=== PATIENT | female | born 1950 | race Caucasian/White ===

== ENCOUNTER 2019-05-22 10:01 | Outpatient (CLI) | payer MEDICARE, SELFPAY ==
--- NOTE | 2019-05-22 11:00 | NEURO_ITS ---
Patient Number: [id number] Impression: # Complains of numbness of hands. # Bilateral Carpal Tunnel Syndrome, right more than left (early). # Normal needle/EMG exam. Nerve Conduction Studies Anti Sensory Summary Table Stim Site NR Peak (ms) P-T Amp (?V) Site1 Site2 Delta-P (ms) Dist (cm) [place] (m/s) Left Median Anti Sensory (2-3nd Digit) Wrist 3.7 22.0 Wrist 2-3nd Digit 3.7 14.0 38 Wrist 3.6 16.6 Wrist 2-3nd Digit 3.7 14.0 38 Right Median Anti Sensory (2-3nd Digit) Wrist 4.5 7.6 Wrist 2-3nd Digit 4.5 14.0 31 Wrist 4.5 15.6 Wrist 2-3nd Digit 4.5 14.0 31 Left Radial Anti Sensory (Base 1st Digit) Wrist 2.6 8.9 Wrist Base 1st Digit 2.6 0.0 Right Radial Anti Sensory (Base 1st Digit) Wrist 2.6 32.8 Wrist Base 1st Digit 2.6 0.0 Left Ulnar Anti Sensory (5th Digit) Wrist 3.3 31.9 Wrist 5th Digit 3.3 14.0 42 Right Ulnar Anti Sensory (5th Digit) Wrist 3.0 3.1 Wrist 5th Digit 3.0 14.0 47 Motor Summary Table Stim Site NR Onset (ms) O-P Amp (mV) Site1 Site2 Delta-0 (ms) Dist (cm) [place] (m/s) Left Median Motor (Abd Poll Brev) Wrist 4.0 1.7 Elbow Wrist 4.8 26.0 54 Elbow 8.8 1.0 Right Median Motor (Abd Poll Brev) Wrist 4.3 1.3 Elbow Wrist 5.2 28.0 54 Elbow 9.5 0.9 Left Ulnar Motor (Abd Dig Minimi) Wrist 3.0 7.4 A Elbow Wrist 5.0 28.0 56 A Elbow 8.0 5.0 Right Ulnar Motor (Abd Dig Minimi) Wrist 3.0 3.7 A Elbow Wrist 5.0 28.0 56 A Elbow 8.0 2.1 F Wave Studies NR F-Lat (ms) L-R F-Lat (ms) Left Median (Mrkrs) (Abd Poll Brev) 30.71 1.05 Right Median (Mrkrs) (Abd Poll Brev) 31.76 1.05 Left Ulnar (Mrkrs) (Abd Dig Min) 29.84 0.33 Right Ulnar (Mrkrs) (Abd Dig Min) 30.18 0.33 EMG Side Muscle Nerve Root Ins Act Fibs Amp Dur Recrt Comment Right 1stDorInt Ulnar C8-T1 Nml Nml Nml Nml Nml Right Ext Indicis Radial (Post Int) C7-8 Nml Nml Nml Nml Nml Right Ext Digitorum Radial (Post Int) C7-8 Nml Nml Nml Nml Nml Right BrachioRad Radial C5-6 Nml Nml Nml Nml Nml Right PronatorTeres Median C6-7 Nml Nml Nml Nml Nml Right Abd Poll Brev Median C8-T1 Nml Nml Nml Nml Nml Left 1stDorInt Ulnar C8-T1 Nml Nml Nml Nml Nml Left Ext Indicis Radial (Post Int) C7-8 Nml Nml Nml Nml Nml Left Ext Digitorum Radial (Post Int) C7-8 Nml Nml Nml Nml Nml Left BrachioRad Radial C5-6 Nml Nml Nml Nml Nml Left PronatorTeres Median C6-7 Nml Nml Nml Nml Nml Left Abd Poll Brev Median C8-T1 Nml Nml Nml Nml Nml MTDD
== END 2019-05-22 10:02 | disposition home or self-care (01) ==
LOC: ANHNEURO 10:03
PROVIDERS: PCP Obstetrics & Gynecology; Visit Provider Family Medicine
DX: R29.898 Other symptoms and signs involving the musculoskeletal system (principal); M79.641 Pain in right hand; M79.642 Pain in left hand; G56.03 Carpal tunnel syndrome, bilateral upper limbs
CPT/HCPCS: 95886; 95911

== ENCOUNTER 2019-10-09 08:47 | Outpatient (CLI) | payer MEDICARE, SELFPAY ==
--- NOTE | 2019-10-09 08:51 | ECG_ITS ---
Measurements Intervals [place] Rate: 77 P: 12 WV: 362 QRS: 47 QRSD: 92 T: 26 QT: 351 QTc: 400 Interpretive Statements SINUS RHYTHM DELAYED PRECORDIAL R/S TRANSITION BORDERLINE T WAVE ABNORMALITY- INFERIOR LEADS BASELINE ARTIFACT- II, III, AVR, AVL, AVF BORDERLINE ECG Electronically Signed On 10-09-2019 9:59:08 CDT by Iam Yen D.O.
== END 2019-10-09 08:48 | disposition home or self-care (01) ==
PROVIDERS: PCP Family Medicine; Visit Provider Urology
DX: E78.5 Hyperlipidemia, unspecified (principal); N81.9 Female genital prolapse, unspecified; R94.31 Abnormal electrocardiogram [ECG] [EKG]
CPT/HCPCS: 87086; 87088; 93005

== ENCOUNTER 2019-10-15 00:26 | Outpatient (CLI) | payer MEDICARE, SELFPAY ==
[2019-10-15 19:01] LABS: SARS-CoV-2 RNA PCR Negative
== END 2019-10-15 00:27 | disposition home or self-care (01) ==
LOC: ANHCOVIDDT 00:27
PROVIDERS: PCP Family Medicine; Visit Provider Urology
DX: Z01.818 Encounter for other preprocedural examination (principal); Z11.59 Encounter for screening for other viral diseases
CPT/HCPCS: 87635; C9803; U0003

== ENCOUNTER 2019-10-17 03:34 | Day surgery (SDC) | payer MEDICARE, SELFPAY ==
[2019-10-08 10:32] VITALS: BMI 27.6
[2019-10-17] VITALS (9 sets, daily range): BP systolic 109–136; BP diastolic 47–70; PULSE 73–91; RESP 10–18; TEMP 36.1–36.6; O2SAT 97–100
[2019-10-17] MEDS: LACTATED RINGERS 1,000 ML 30 ML IV CONT ×2 (10:05→12:24)
--- NOTE | 2019-10-17 10:17 | WPDHPUPDATE1 ---
History and Physical Update Update Date/Time: 10/17/19 10:17 History and Physical has been reviewed, including an updated exam of the patient. There are NO changes in the patient's condition. Risks, benefits, and alternatives have been discussed and questions answered. Patient agrees to proceed with procedure.
--- NOTE | 2019-10-17 10:22 | WPDANESEPPF ---
Anes - Initial Pre Proc Eval Procedure: Operation Date: 10/17/19 11:45 Proposed Procedures p Cystocele Repair - Suersh Garcia MD Date/Time: 10/17/19 10:22 Surgeon: Suresh Garcia MD Pre Op Diagnosis: Cystocele Patient Data Age: 69 Gender: F Height: 5 ft 4 in Weight: 71.8 kg Last Vital Signs Temp 97.0 F L 10/17/19 09:50 Pulse 81 10/17/19 09:50 Resp 18 10/17/19 09:50 BP 136/70 10/17/19 09:50 Pulse Ox 100 10/17/19 09:50 Allergies Allergy/AdvReac Type Severity Reaction Status Date / Time iodine Allergy Severe Hives Verified 10/17/19 09:46 povidone Allergy Severe Hives Verified 10/17/19 09:46 adhesive tape Allergy Intermediate Rash Verified 10/17/19 09:46 ciprofloxacin Allergy Intermediate Hives Verified 10/17/19 09:46 soap Allergy Intermediate Hives Verified 10/17/19 09:46 Contrast Media Allergy Severe RASH AND Uncoded 10/17/19 09:46 ANAPHYLAXIS IOBAN DRAPE FOR SURGERY Allergy Severe HIVES Uncoded 10/17/19 09:46 Home Medications Medication Instructions Recorded Confirmed Type Pain Pump 03/03/19 History amitriptyline 75 mg PO HS 03/03/19 10/17/19 History lovastatin 20 mg PO QPM 03/03/19 10/17/19 History aspirin 81 mg tablet,delayed 81 mg PO DAILY 03/24/19 10/17/19 History release magnesium 250 mg tablet 250 mg PO DAILY 03/24/19 10/17/19 History montelukast 10 mg tablet 10 mg PO QPM #90 tablet 09/04/19 10/17/19 Rx cyclobenzaprine 5 mg tablet 5 mg PO BID tablet 10/06/19 10/17/19 History calcium carbonate-vitamin D3 1 tablet PO DAILY 10/08/19 10/17/19 History Patient hx anesthesia problems: none Family hx anesthesia problems: none PMFSH Past Medical History Medical History (Updated 10/06/19 @ 14:37 by Harjinder Lopez MD) Arthritis Cataracts, bilateral Cystitis DDD (degenerative disc disease) Goiter Hyperlipidemia IBS (irritable bowel syndrome) Osteoporosis Ovarian cyst Pneumonia Post-menopausal Seasonal allergies Shingles Thyroid cyst UTI (urinary tract infection) Surgical History Surgical History (Updated 02/27/19 @ 00:53 by Lidia Zabala) History of appendectomy History of bladder surgery History of cataract surgery History of cholecystectomy History of colonoscopy History of hysterectomy History of removal of cyst Social History Social History (Updated 10/06/19 @ 14:09 by Alyssia Osman) Smoking status: Never smoker Second hand tobacco smoke exposure: No Alcohol intake: never Substance use: never Substance use type: does not use Living arrangements: with family Gender identity (if verbalized by the patient): Female Spiritual care concerns: No Anes - Eval Final PreProcedure Day of Procedure 10/17/19 10:22 Patient weight: normal Heart: regular rate and rhythm Lungs: clear to auscultation Airway: Mallampati scale class II Neurological: alert and oriented Last oral intake: >/= 8 hours ASA classification: II Emergent: no Anesthetic plan: proceed Anesthesia type and monitoring: general LMA and standard monitoring Informed Consent: The patient's anesthetic plan and its attendant risks and benefits were discussed with the patient/family/POA. Questions were solicited and answers provided to the satisfaction of the patient/family/POA.
[2019-10-17] MEDS: ceFAZolin 2 GM/D5W 50 ML 2 GM/50 ML BAG IVPB (11:27)
[2019-10-17] MEDS: BUPIVACAINE/EPINEPHRINE 0.25% 50 ML VIAL 10 ML INFILTRATE (12:05)
--- NOTE | 2019-10-17 12:08 | SUR.OPER ---
EBL 5
--- NOTE | 2019-10-17 12:20 | PM.PROC ---
Procedure Note - Detailed Date of procedure: 10/17/19 Pre-op diagnosis: Cystocele Cystocele Stress incontinence Post-op diagnosis: same Procedure performed: Cystocele repair/anterior colporrhaphy Urethral sling Cystoscopy Description of procedure: She understood the risks of bleeding, infection, damage to surrounding organs, dyspareunia, postoperative stress incontinence, and recurrence of prolapse. She agrees to proceed. She has correctly identified and informed consent was obtained and she was brought to the operating room. She was given general anesthesia. She was placed in the dorsal thigh position. She was prepped and draped in sterile fashion. Given appropriate perioperative antibiotics. A time-out was performed. I placed a Bell catheter. I placed a [place] retractor. I infiltrated the subcutaneous tissues of the anterior vaginal wall with local mixed with injectable saline. I made a midline vaginal incision. I dissected out laterally dissecting the mucosa off the underlying fascial structures. I dissected towards the vaginal apex as well. I then performed a standard cystocele repair with plicating sutures of 0 Vicryl. This reduced the cystocele. I then trimmed excess vaginal mucosa. I closed the vaginal closed with a running 2 0 Vicryl suture. There was excellent hemostasis. I then marked out the inner thigh incisions. I anesthetized and made those incisions. I anesthetized the anterior vaginal wall over the mid urethra. I made a 1 cm incision. I dissected out laterally taking great care not to injure the reason vaginal wall. I passed the helical trocars. First on the left and then on the right. I did this from the thigh incision towards the vaginal incision. Sling was connected to the trocars and brought out the thigh incision. I tensioned the sling appropriately. I cut and removed the plastic sheaths. I then closed incision with 2 0 Vicryl. I cut the excess sling material. I closed the incision with glue. I then performed cystoscopy. The bladder is examined. There is no surgical artifact or injury. Both ureteral orifices were seen to excrete clear yellow urine. At the conclusion she was awakened and transferred to the PACU in stable condition. Sponge count is correct x2. Implants: None Anesthesia: CARMENZAA Surgeon: Suresh Garcia MD Drains: No Packing: No Pathology: none sent Complications: No immediate complications Condition: stable Disposition: PACU
== END 2019-10-17 15:02 | disposition home or self-care (01) ==
PROVIDERS: PCP Family Medicine; Visit Provider Urology
PROC: (CPT 57240; principal; 2019-10-17 11:45)
DX: N81.10 Cystocele, unspecified (principal); N39.3 Stress incontinence (female) (male); E78.5 Hyperlipidemia, unspecified; M81.0 Age-related osteoporosis without current pathological fracture; K58.9 Irritable bowel syndrome, unspecified; Z79.82 Long term (current) use of aspirin
CPT/HCPCS: 57288; 57240; A9270; C1771; J0690; J2250; J2405; J2704; J3010; J7030; J7120

== ENCOUNTER 2019-10-18 14:35 | Emergency (ER) | payer MEDICARE, SELFPAY ==
[2019-10-18 14:49] VITALS: BP 111/46; PULSE 77; RESP 20; TEMP 36.6; O2SAT 98
--- NOTE | 2019-10-18 17:34 | ED.GENADULT ---
HPI - General Adult General Chief complaint: Unspecified Stated complaint: post op pain Time Seen by Provider: 10/18/19 17:33 Source: patient and family History of Present Illness HPI narrative: Patient is 69 years old white female status post cystocele repair/anterior colporrhaphy urethral sling yesterday, patient went to home 3 PM, and tramadol, complaining of severe intravaginal pain referred to the emergency room by Dr. Garcia office for further evaluation. Patient denies any fever, chills, nausea, vomiting, trouble urinating or trouble having bowel movement. Patient reports tramadol is not working. Related Data Home Medications Medication Instructions Recorded Confirmed Pain Pump 03/03/19 amitriptyline 75 mg PO HS 03/03/19 10/17/19 lovastatin 20 mg PO QPM 03/03/19 10/17/19 aspirin 81 mg tablet,delayed 81 mg PO DAILY 03/24/19 10/17/19 release magnesium 250 mg tablet 250 mg PO DAILY 03/24/19 10/17/19 cyclobenzaprine 5 mg tablet 5 mg PO BID tablet 10/06/19 10/17/19 calcium carbonate-vitamin D3 1 tablet PO DAILY 10/08/19 10/17/19 Allergies Allergy/AdvReac Type Severity Reaction Status Date / Time iodine Allergy Severe Hives Verified 10/18/19 14:51 povidone Allergy Severe Hives Verified 10/18/19 14:51 adhesive tape Allergy Intermediate Rash Verified 10/18/19 14:51 ciprofloxacin Allergy Intermediate Hives Verified 10/18/19 14:51 soap Allergy Intermediate Hives Verified 10/18/19 14:51 Contrast Media Allergy Severe RASH AND Uncoded 10/17/19 09:46 ANAPHYLAXIS IOBAN DRAPE FOR SURGERY Allergy Severe HIVES Uncoded 10/17/19 09:46 Review of Systems Review of Systems: Narrative: CONSTITUTIONAL: Denies fever, chills, or sweats. EYES: Denies visual changes, redness, or discharge. ENT: Denies rhinorrhea, congestion, sore throat, or otalgia. CARDIOVASCULAR: Denies chest pain, palpitations, or edema. RESPIRATORY: Denies cough or dyspnea. GASTROINTESTINAL: Denies abdominal pain, nausea, vomiting, or diarrhea. GENITOURINARY: Denies dysuria or hematuria. SKIN: Denies rash or itching. MUSCULOSKELETAL: Denies back pain, joint pain, or myalgia. NEUROLOGIC: Denies headache, numbness, or weakness. PSYCHIATRIC: Denies anxiety or depression. [facility] Past Medical History Medical History Arthritis Cataracts, bilateral Cystitis DDD (degenerative disc disease) Goiter Hyperlipidemia IBS (irritable bowel syndrome) Osteoporosis Ovarian cyst Pneumonia Post-menopausal Seasonal allergies Shingles Thyroid cyst UTI (urinary tract infection) Surgical History Surgical History History of appendectomy History of bladder surgery History of cataract surgery History of cholecystectomy History of colonoscopy History of hysterectomy History of removal of cyst Family History Family History Grandparent Carcinoma of colon Father Family history of lung cancer Mother Family history of coronary artery disease Social History Social History Smoking status: Never smoker Second hand tobacco smoke exposure: No Alcohol intake: never Substance use: never Substance use type: does not use Gender identity (if verbalized by the patient): Female Spiritual care concerns: No Exam Narrative: Exam Narrative: General appearance: Well-developed, well-nourished, does not look in distress, at the bedside Skin: Normal color Head: Normocephalic, nontraumatic Eyes: Clear conjunctiva ENT: Oropharynx normal, ears normal, nose normal Neck: Supple, nontender Chest and respiratory: Airway patent, no respiratory distress, no accessory muscle use Heart: Regular rate/rhythm Abdomen: Soft, slight tenderness in suprapubic area, no guarding or rebound, no discoloration, patient wearing a pad because of intermittent vaginal bleeding since t
[2019-10-18] MEDS: KETOROLAC 30 MG/ML VIAL (*BKC) IV PUSH (19:08)
[2019-10-18] MEDS: ONDANSETRON INJ 4 MG/2 ML VIAL IV PUSH (19:09)
[2019-10-18 19:21] VITALS: PULSE 71
[2019-10-18 19:24] VITALS: BP 126/72; PULSE 73; RESP 16; TEMP 36.7; O2SAT 98
[2019-10-18 20:12] VITALS: BP 109/73; PULSE 70; RESP 18; TEMP 36.4; O2SAT 99
== END 2019-10-18 20:12 | disposition home or self-care (01) ==
PROVIDERS: Emergency Provider Emergency Medicine; PCP Family Medicine
DX: G89.18 Other acute postprocedural pain (principal); M19.90 Unspecified osteoarthritis, unspecified site; E78.5 Hyperlipidemia, unspecified; K58.9 Irritable bowel syndrome, unspecified; M81.0 Age-related osteoporosis without current pathological fracture; Z87.440 Personal history of urinary (tract) infections; Z98.42 Cataract extraction status, left eye; Z98.41 Cataract extraction status, right eye
CPT/HCPCS: 96374; 96375; 99284; J1170; J1885; J2405

== ENCOUNTER 2020-09-28 20:21 | Emergency (ER) | payer MEDICARE, SELFPAY ==
--- NOTE | ~2020-09-28 | CT_ITS ---
EXAMINATION: CT abdomen pelvis wo con EXAM DATE: 09/28/2020 22:26 INDICATION: Abdominal pain. Abdominal cramping, diarrhea, symptoms 2 days. Iodine allergy. TECHNIQUE: Spiral CT of the abdomen and pelvis was performed without contrast. Axial, coronal and s agittal images of the abdomen and pelvis were reviewed. The dose-length product (DLP) for this exami nation was 368.15 mGy-cm. The exposure was tailored according to patient size (auto mA exposure cont rol), and iterative reconstruction (ASIR) was used as additional dose reduction technique. Comparison is made to prior examination from 12/14/2018. FINDINGS: The liver, spleen, adrenal glands and pancreas are unremarkable. There are cholecystectomy clips. There is no nephrolithiasis or hydronephrosis. The uterus is not identified and has likely been surgically resected. The bladder is unremarkable. There is no retroperitoneal or pelvic lymph adenopathy. Small umbilical fat-containing hernia. The appendix is not positively visualized. There is no pericecal inflammatory change to suggest appe ndicitis. There is mild sigmoid colonic diverticulosis. There is no adjacent inflammatory change to suggest diverticulitis. The stomach and small bowel are unremarkable. There is expected amount of co lonic stool. No free intraperitoneal gas. The heart is normal in size. There are no pericardial or pleural effusions. Right lower lobe 5 mm nodule unchanged. Lingular subsegmental atelectasis. Ch ronic bilateral L5 spondylolysis with 5 mm anterolisthesis L5 on S1. Moderate to severe diffuse lumba r disc disease. Mild to moderate lumbar levoscoliosis. Sacral neurostimulator and also spinal pain pu mp. IMPRESSION: 1. No acute intra-abdominal findings. 2. Mild sigmoid diverticulosis. 3. Chronic L5 spondylolysis. Reviewed, dictated and finalized at location A.
[2020-09-28 20:23] VITALS: BP 135/61; PULSE 84; RESP 18; TEMP 36.8; O2SAT 98
--- NOTE | 2020-09-28 20:51 | PC.NURSE ---
asked pt for urine sample at this time. pt states to come back in 15 minutes and she will try to go.
[2020-09-28 20:52] LABS: Basophils Percent Auto 0.4 % (0.2-1.2); Eosinophils Absolute Auto 0.2 K/mm3 (0-0.3); Eosinophils Percent Auto 2.4 % (0-4.4); Hematocrit 36.9 % (37.0-47.0); Hemoglobin 11.3 g/dL (12.0-15.0); Immature Granulocyte Absolute 0.01 K/mm3 (0.00-0.031); Immature Granulocyte Percent A 0.1 % (0-0.5); Lymphocytes Absolute Auto 1.68 K/mm3 (0.9-3.2); Mean Corpuscular HGB Conc 30.6 g/dl (32-36); Mean Corpuscular Hemoglobin 27.2 pg (26-34); Mean Corpuscular Volume 88.7 fl (80-100); Mean Platelet Volume 10.9 fl (7.4-10.4); Monocytes Absolute Auto 0.6 K/mm3 (0.1-0.6); Neutrophils Absolute Auto 5.1 K/mm3 (1.3-6.7); Neutrophils Percent Auto 67.1 % (45.5-73.1); Platelet Count Result 254 k/mm3 (150-375); Red Blood Count 4.16 M/mm3 (4.2-5.4); Red Cell Distribution Width 13.8 % (11.5-14.5); White Blood Count 7.7 K/mm3 (4.5-10.0)
[2020-09-28 21:02] LABS: Alanine Aminotransferase 17 U/L (4-35); Albumin Level 4.2 g/dL (3.5-5.1); Alkaline Phosphatase 48 U/L (38-126); Anion Gap 7 mmol/L (8-16); Aspartate Amino Transferase 29 U/L (14-36); Bilirubin,Total < 0.1 mg/dL (0.2-1.3); Blood Urea Nitrogen 16 mg/dL (7-17); Calcium 9.1 mg/dL (8.4-10.2); Carbon Dioxide 27 mmol/L (22-30); Chloride 107 mmol/L (98-107); Estimated CRCL calculation 54 ml/min; Estimated Glomerular Filt Rate > 60; Glucose 98 mg/dL (65-105); Lipase 39 U/L (23-300); Potassium 4.1 mmol/L (3.4-5.0); Sodium 141 mmol/L (137-145)
[2020-09-28 21:30] VITALS: BP 122/53; PULSE 76; RESP 18; O2SAT 94
--- NOTE | 2020-09-28 21:38 | ED.GENADULT ---
HPI - General Adult General Chief complaint: Nausea/Vomiting/Diarrhea Stated complaint: Diarrhea, dehydrated Time Seen by Provider: 09/28/20 20:53 Source: patient History of Present Illness HPI narrative: Patient is a 70 y/o female complaining of watery diarrhea starting yesterday. She state that taking Imodium helps with her diarrhea. She had about 6 episodes of diarrhea. Her diarrhea was watery initially, but became slimy today. She also has generalized abdominal pain. She has no vomiting. Related Data Home Medications Medication Instructions Recorded Confirmed Pain Pump 03/03/19 08/11/20 aspirin 81 mg tablet,delayed 81 mg PO DAILY 03/24/19 08/11/20 release magnesium 250 mg tablet 250 mg PO DAILY 03/24/19 08/11/20 calcium carbonate-vitamin D3 1 tablet PO DAILY 10/08/19 08/11/20 Lactobacillus rhamnosus GG 1 cap PO DAILY 07/21/20 08/11/20 [Culturelle] dexamethasone 09/28/20 famotidine [Pepcid] 09/28/20 Allergies Allergy/AdvReac Type Severity Reaction Status Date / Time iodine Allergy Severe Hives Verified 08/11/20 13:26 povidone Allergy Severe Hives Verified 08/11/20 13:26 adhesive tape Allergy Intermediate Rash Verified 08/11/20 13:26 ciprofloxacin Allergy Intermediate Hives Verified 08/11/20 13:26 soap Allergy Intermediate Hives Verified 08/11/20 13:26 Contrast Media Allergy Severe RASH AND Uncoded 08/11/20 13:26 ANAPHYLAXIS IOBAN DRAPE FOR SURGERY Allergy Severe HIVES Uncoded 08/11/20 13:26 Review of Systems Constitutional: Constitutional: Denies chills, Denies fever(s), Denies headache(s) and Denies weakness Eyes: Eyes: Denies blurry vision ENT: Denies headache(s) and Denies neck pain Cardiovascular: Cardiovascular: Denies chest pain and Denies dyspnea Respiratory: Respiratory: Denies cough and Denies dyspnea Gastrointestinal: Gastrointestinal: Reports abdominal pain, Reports diarrhea, Denies nausea and Denies vomiting Genitourinary: Genitourinary: Denies hematuria and Denies dysuria Musculoskeletal: Musculoskeletal: Denies back pain and Denies neck pain Neurologic: Denies headache(s) and Denies weakness [facility] Past Medical History Medical History (Updated 09/30/20 @ 00:00 by Background Daemalcides) Arthritis Cataracts, bilateral Cystitis DDD (degenerative disc disease) Goiter Hyperlipidemia IBS (irritable bowel syndrome) Osteoporosis Ovarian cyst Pneumonia Post-menopausal Seasonal allergies Shingles Thyroid cyst UTI (urinary tract infection) Surgical History Surgical History History of appendectomy History of bladder surgery History of cataract surgery History of cholecystectomy History of colonoscopy History of hysterectomy History of removal of cyst Family History Family History Grandparent Carcinoma of colon Father Family history of lung cancer Mother Family history of coronary artery disease Social History Social History Smoking status: Never smoker Second hand tobacco smoke exposure: No Alcohol intake: never Substance use: never Substance use type: does not use Gender identity (if verbalized by the patient): Female Spiritual care concerns: No Exam Const: General: no acute distress and well developed Orientation/consciousness: oriented to person, oriented to place, oriented to time and patient oriented x3 HENMT: Head: normocephalic Ears: external ears normal General nose exam: Normal external nose present Eyes: General: appearance normal, both eyes and all related structures Conjunctivae: conjunctivae normal Neck: Neck: normal visual inspection and full ROM Chest: Chest palpation & inspection: normal inspection of the chest and no tenderness Resp: Effort & Inspection: normal respiratory effort Auscultation: clear to auscultation bilaterally Cardio: Rate: regular rate Rhythm
[2020-09-28] MEDS: SODIUM CHLORIDE 0.9% IV 1,000 ML 999 ML IV CONT (21:43)
[2020-09-28 21:46] LABS: Add Urine Microscopic? YES; Appearance Urine Clear (Clear); Bilirubin Urine Negative (Negative); Blood Urine 1+ (Negative); Color Urine Yellow (Yellow); Glucose Urine UA Negative (Negative); Ketones Urine Negative (Negative); Leukocyte Esterase Ur Negative LEU/UL (Negative); Mucus Urine Rare /lpf; Nitrate Urine Negative (Negative); Protein Urine Negative (Negative); RBC Urine 0-2 /hpf (0-2); Specific Grav Ur 1.013 (1.001-1.035); Squamous Epithelial Cell Urine Rare /hpf (Few); Urobilinogen Urine Negative mg/dL (<2.0)
[2020-09-29 00:07] VITALS: BP 121/63; PULSE 72; RESP 11; O2SAT 98
== END 2020-09-29 00:10 | disposition home or self-care (01) ==
PROVIDERS: Emergency Provider Emergency Medicine; PCP Family Medicine
DX: K52.9 Noninfective gastroenteritis and colitis, unspecified (principal); M19.90 Unspecified osteoarthritis, unspecified site; E78.5 Hyperlipidemia, unspecified; K58.9 Irritable bowel syndrome, unspecified; M81.0 Age-related osteoporosis without current pathological fracture; Z87.440 Personal history of urinary (tract) infections; Z98.42 Cataract extraction status, left eye; Z98.41 Cataract extraction status, right eye; Z79.82 Long term (current) use of aspirin
CPT/HCPCS: 36415; 74176; 80053; 81001; 83690; 85025; 96360; 99284; J7030

== ENCOUNTER 2020-10-08 12:12 | Outpatient (CLI) | payer MEDICARE, SELFPAY ==
--- NOTE | 2020-10-08 14:47 | WPDPFTINT ---
PFT Procedure Performed PFT Procedure Performed Spirometry with Pre/Post Bronchodilator Plethysmography (Lung Vol) Diffusing Cap (DLCO) Flow Vol Loop PFT Interpretation This is a pulmonary function test with pre and post-bronchodilator spirometry, plethysmography and diffusing capacity. The test was performed and results interpreted in accordance with the 2019 and 2005 ATS/ERS Task Force guidelines respectively using the Global Lung Function Initiative-2012 reference equations. Patient demonstrated good effort But the patient had difficulty following instructions for the testing. Reproducibility criteria were met. The quality of the pre bronchodilator spirometry maneuver was Grade B and post bronchodilator spirometry maneuver was Grade B. Findings: Spirometry: The contour of the inspiratory and expiratory flow tracing are normal. The pre bronchodilator FVC is 2.22 L, 79% predicted. The pre bronchodilator FEV1 is 1.45 L, 67% predicted. The FEV1: FVC ratio 65%. The post bronchodilator FVC is 2.22 L, representing no change. The post bronchodilator FEV1 is 1.53 L, representing a 6% increase. Plethysmography: The total lung capacity is 5.18 L, 102% predicted. The functional residual capacity is 2.72 L, 93% predicted. The residual volume is 2.65 L, 118% predicted. Diffusing capacity: The absolute diffusion capacity is 14.0, 69% predicted. The diffusing capacity corrected for alveolar volume is 4.07, 96% predicted. Impression: There is a moderate obstructive abnormality without significant improvement after inhaling a single dose of albuterol. The lung volumes are normal. The diffusing capacity is normal. There are no prior studies for comparison
== END 2020-10-08 12:13 | disposition home or self-care (01) ==
PROVIDERS: PCP Family Medicine; Visit Provider Family Medicine
DX: R06.00 Dyspnea, unspecified (principal)
CPT/HCPCS: 94060; 94726; 94729

== ENCOUNTER 2020-10-26 13:20 | Outpatient (CLI) | payer MEDICARE, SELFPAY ==
--- NOTE | ~2020-10-26 | US_ITS ---
EXAMINATION: US thyroid DATE: 10/26/2020 13:53 INDICATION: Nontoxic goiter TECHNIQUE: Multiple ultrasound images of the thyroid were obtained. COMPARISON: None. FINDINGS: The right thyroid lobe measures 4.6 x 2.1 x 2.1 cm. The left thyroid lobe measures 5.6 x 1.9 x 2.0 c m. Multiple solid nodules scattered throughout both thyroid lobes. The largest is a 2.0 cm wider matt n tall solid hypoechoic nodule with smooth margins and without echogenic foci at the upper pole of th e left thyroid (TI-RADS 4, moderately suspicious , FNA if >=1.5 cm, annual followup is >=1 cm). A cou ple additional 1.8 cm TI RADS 4 nodules with identical imaging features are present in the right thyr oid lobe. 1.0 cm TI RADS 4 nodule with similar imaging features at the left side of the direct isthmu s. Heterogeneous echogenicity with coarsened echotexture and multiple smaller hypoechoic nodules thro ughout the left and right thyroid lobes. IMPRESSION: 1. Multinodular goiter with 3 TI RADS 4 nodules meeting criteria for ultrasound-guided biopsy. Recomm end biopsy of at least the largest 2.0 cm nodule at the superior left thyroid. Reviewed, dictated and finalized at location A. IMPRESSION: 1. Multinodular goiter with 3 TI RADS 4 nodules meeting criteria for ultrasound -guided biopsy. Recommend biopsy of at least the largest 2.0 cm nodule at the s uperior left thyroid.
== END 2020-10-26 13:21 | disposition home or self-care (01) ==
LOC: ANHIMG 13:26
PROVIDERS: PCP Family Medicine; Visit Provider Nurse Practitioner Family
DX: E04.2 Nontoxic multinodular goiter (principal)
CPT/HCPCS: 76536

== ENCOUNTER 2020-11-22 09:07 | Outpatient (CLI) | payer MEDICARE, SELFPAY ==
--- NOTE | ~2020-11-22 | US_ITS ---
EXAMINATION: 1. US FNA w image guidance 2. US FNA additional DATE: 11/22/2020 10:28 INDICATION: Nontoxic single thyroid nodule. TECHNIQUE: The procedure and its benefits and risks were discussed with the patient. Risks specifically discusse d included bleeding. The patient verbalized understanding of the risks and agreed to proceed. The nec k was prepped and draped in the usual sterile manner. 1% lidocaine was used for local anesthesia. F abundio passes were made with a 25G needle into the lesion in left thyroid lobe under ultrasound guidance . Five passes were made with a 25G needle into the lesion in right thyroid lobe under ultrasound guidan ce. There were no immediate complications. The patient understood to call the ordering physician fo r results after a week and verbalized that understanding. FINDINGS: Grayscale ultrasound images demonstrate needles advanced into a 2.1 cm nodule in left thyroid lobe fo r biopsy. Grayscale ultrasound images demonstrate needles advanced into a 1.9 cm nodule in right thyr oid lobe for biopsy. IMPRESSION: 1. Ultrasound-guided fine needle aspiration of a left thyroid nodule. 2. Ultrasound-guided fine-needle aspiration of a right thyroid nodule. Reviewed, dictated and finalized at location A. IMPRESSION: 1. Ultrasound-guided fine needle aspiration of a left thyroid nodule. 2. Ultrasound-guided fine-needle aspiration of a right thyroid nodule.
== END 2020-11-22 09:08 | disposition home or self-care (01) ==
PROVIDERS: PCP Family Medicine; Visit Provider Physician Assistant
DX: E04.1 Nontoxic single thyroid nodule (principal)
CPT/HCPCS: 10005; 10006; 88173; 88305

== ENCOUNTER → 2021-02-09 08:30 | Outpatient (CLI) | payer MEDICARE, SELFPAY ==
[2021-02-09 18:11] LABS: SARS-CoV-2 RNA PCR Negative
== END ==
PROVIDERS: PCP Family Medicine; Visit Provider Physician Assistant
DX: Z20.822 Contact with and (suspected) exposure to COVID-19 (principal); R05.9 Cough, unspecified
CPT/HCPCS: C9803; U0003; U0005

== ENCOUNTER 2021-02-12 16:34 | Emergency (ER) | payer MEDICARE, SELFPAY ==
[2021-02-12 16:42] VITALS: BP 137/52; PULSE 97; RESP 16; TEMP 36.3; O2SAT 99
--- NOTE | 2021-02-12 17:07 | ED.GENADULT ---
HPI - General Adult General Chief complaint: Upper Respiratory Infection Stated complaint: cough/congestion Time Seen by Provider: 02/12/21 16:35 Source: patient Mode of arrival: ambulatory Limitations: no limitations History of Present Illness HPI narrative: Pleasant 70 y/o female. PMHx HLD, GERD, COPD, Interstitial Cystis, Chronic pain Sx. Presents [facility] today with acute complaints of increased nasal congestion, purulent nasal discharge, bilateral ear 'fullness', and cough for the past 5 days. Pt reports an intermittent and non-productive cough. No chest pain, dyspnea (worsening from COPD baseline), wheezing, or edema. Denies fever, chills, myalgia. No sore throat, dysphagia. No GI upset. She tells me she has been utilizing OTC remedies with sub-therapeutic relief. Client had been Covid tested at [facility] just 3 days ago, and these results were reported as negative. She is without additional acute c/o illness upon PE. Related Data Home Medications Medication Instructions Recorded Confirmed Pain Pump 03/03/19 11/16/20 aspirin 81 mg tablet,delayed 81 mg PO DAILY 03/24/19 11/16/20 release magnesium 250 mg tablet 250 mg PO DAILY 03/24/19 11/16/20 calcium carbonate-vitamin D3 1 tablet PO DAILY 10/08/19 11/16/20 Lactobacillus rhamnosus GG 1 cap PO DAILY 07/21/20 11/16/20 [Culturelle] famotidine [Pepcid] 09/28/20 11/16/20 fluticasone propion-salmeterol 1 inh INHALATION Q12H 01/25/21 01/25/21 [Wixela Inhub] Allergies Allergy/AdvReac Type Severity Reaction Status Date / Time iodine Allergy Severe Hives Verified 11/16/20 07:54 povidone Allergy Severe Hives Verified 11/16/20 07:54 adhesive tape Allergy Intermediate Rash Verified 11/16/20 07:54 ciprofloxacin Allergy Intermediate Hives Verified 11/16/20 07:54 soap Allergy Intermediate Hives Verified 11/16/20 07:54 Contrast Media Allergy Severe RASH AND Uncoded 11/16/20 07:54 ANAPHYLAXIS IOBAN DRAPE FOR SURGERY Allergy Severe HIVES Uncoded 11/16/20 07:54 Review of Systems Review of Systems: CONSTITUTIONAL: Denies fever, chills, sweats. EYES: Denies visual changes, redness, discharge. ENT: Positive rhinorrhea, congestion. No sore throat, otalgia. CARDIOVASCULAR: Denies chest pain, palpitations, edema. RESPIRATORY: Denies dyspnea, wheezing. Positive cough. GASTROINTESTINAL: Denies abdominal pain, nausea, vomiting, diarrhea. GENITOURINARY: Denies dysuria, hematuria, abnormal discharge SKIN: Denies rash or itching. MUSCULOSKELETAL: Denies acute back pain, joint pain, or myalgia. NEUROLOGIC: Denies numbness, or focal weakness. PSYCHIATRIC: Denies anxiety or depression. All systems reviewed & are unremarkable except as noted in HPI and below PMFSH Past Medical History Medical History Arthritis Cataracts, bilateral Cystitis DDD (degenerative disc disease) Goiter Hyperlipidemia IBS (irritable bowel syndrome) Osteoporosis Ovarian cyst Pneumonia Post-menopausal Seasonal allergies Shingles Thyroid cyst UTI (urinary tract infection) Surgical History Surgical History History of appendectomy History of bladder surgery History of cataract surgery History of cholecystectomy History of colonoscopy History of hysterectomy History of removal of cyst Family History Family History Grandparent Carcinoma of colon Father Family history of lung cancer Mother Family history of coronary artery disease Social History Social History Smoking status: Never smoker Second hand tobacco smoke exposure: No Alcohol intake: never Substance use: never Substance use type: does not use Gender identity (if verbalized by the patient): Female Spiritual care concerns: No Exam Narrative: GENERAL: This is a well-no
== END 2021-02-12 16:57 | disposition home or self-care (01) ==
PROVIDERS: Emergency Provider Nurse Practitioner Adult Health; PCP Family Medicine
DX: J01.10 Acute frontal sinusitis, unspecified (principal); J06.9 Acute upper respiratory infection, unspecified; M19.90 Unspecified osteoarthritis, unspecified site; E04.9 Nontoxic goiter, unspecified; E78.5 Hyperlipidemia, unspecified; M81.0 Age-related osteoporosis without current pathological fracture; H26.9 Unspecified cataract
CPT/HCPCS: 99213; G0463

== ENCOUNTER 2021-02-14 12:47 | Outpatient (CLI) | payer MEDICARE, SELFPAY ==
--- NOTE | ~2021-02-14 | XR_ITS ---
XR chest 2V DATE: 02/14/2021 13:02 INDICATION: Cough for one week TECHNIQUE: 2 views COMPARISON: 11/27/2018 2 view chest FINDINGS: There are scattered bilateral patchy areas of mild infiltrate mid and lower lung zones prim arily, left greater than right, suggesting bilateral pneumonia. Normal heart size. Aortic calcification and mild unfolding. No hilar or mediastinal enlargement. Diffuse osteopenia. Thoracolumbar levoscoliosis and degenerative spurring. Status post cholecystectomy. IMPRESSION: Mild patchy bilateral infiltrates, left greater than right Reviewed, dictated and finalized at location A. L CONTROL COORDINATOR
== END 2021-02-14 12:48 | disposition home or self-care (01) ==
PROVIDERS: PCP Family Medicine; Visit Provider Nurse Practitioner Family
DX: R05.9 Cough, unspecified (principal); R91.8 Other nonspecific abnormal finding of lung field
CPT/HCPCS: 71046

== ENCOUNTER 2021-07-08 01:04 | Day surgery (SDC) | payer MEDICARE, SELFPAY ==
--- NOTE | 2021-07-06 12:14 | PC.NURSE ---
Report to the Outpatient Waiting Room, entrance under the green pavilion located off [facility], at time _0745 on date __07/08/21 . OR Time: . - You and your visitor will be asked a series of questions to screen for COVID 19 for your protection. - A mask is required within the hospital. Preoperative COVID Testing Requirements: No COVID Test needed if: (proof is required; if not received patient will have Rapid Test prior to entry) - Patient has received COVID Vaccine at least 14 days prior to procedure date or - Patient has positive COVID test result within last 90 days of surgery date. COVID Test needed if above criteria is not met If not COVID vaccinated a COVID test must be conducted within 72 hours of surgery and patient is asked to isolate self from time of testing until procedure. You will go to the [employer] [facility] for your COVID testing. The [employer] [facility] is located at the corner of [address] [facility]. You will only be called if COVID results are positive and your surgeon may reschedule your elective surgery date. Patients may have clear liquids (water, carbonated beverages, clear teas, apple juice) until 3 hours prior to surgery with a maximum of 20 ounces. - No food from midnight until time of surgery - Infants may have breast milk until 4 hours before surgery, formula 6 hours prior to surgery. - Children will be allowed to drink immediately following surgery. If applicable, please bring a bottle or sippy cup to assist with drinking. Juice, water, soda, and popsicles are readily available. For infants on formula, please bring formula the day of surgery. Pacifiers are allowed. Take the following medications with a SIP of water the morning of surgery: _INHALERS Medications to discontinue per physician ___ALL VITAMINS AND SUPPLEMENTS 3 DAYS PRE OP Date to take last dose_07/04/21 Please no make-up, nail hungarian, hairspray, perfume, deodorant, or body powder the day of surgery. No jewelry (including any body piercings) or valuables the day of surgery, leave them at home. Please take a shower or bath the night before, or the morning of, surgery with an antibacterial soap. Wear comfortable, loose fitting clothing. Children are encouraged to wear pajamas. - Jewelry must be removed prior to entering the operating room. Rings and piercings that are not removed may be cut off. - The hospital will not accept responsibility for valuables. - Please leave all valuables, including medications, at home the day of surgery. If you are going home after surgery, a licensed cpr ambulance driver must drive you home. - NO public transportation without another adult. - We recommend that an adult stay with you for 24 hours following discharge. - We also recommend that you do not drive, make important decision, drink alcoholic beverages, or take any drugs that were not prescribed by your health care provider for at least 24 hours after your discharge time. For Pediatric surgeries, we recommend two adults accompany the child home (only one inside the building at this time). One visitor will be allowed to accompany the patient into the hospital. Patients visitor will be instructed to remain with patient at all times or leave the building. We will allow the visitor to come back to the postoperative area when patient is ready. Follow any additional instructions given to you from your surgeon. Telephone instructions given to ___PATIENT and asked if any additional questions and then verbalized understanding. Patient advised to call surgeon office or pre surgery nurse liaison [phone] if any additional questions.
[2021-07-06 12:16] VITALS: BMI 27.8
--- NOTE | 2021-07-07 05:18 | PM.IMHP ---
H&P: HPI History of Present Illness Date/Time: 07/07/21 05:18 71 yo with Urge incontinence and pelvic pain Chief Complaint: UUI Review of Systems Review of Systems: All systems reviewed & are unremarkable except as noted in HPI and below [facility] Past Medical History Medical History (Updated 07/07/21 @ 05:19 by Suresh Garcia MD) Arthritis Cataracts, bilateral Cystitis DDD (degenerative disc disease) Goiter Hyperlipidemia IBS (irritable bowel syndrome) Osteoporosis Ovarian cyst Pneumonia Post-menopausal Seasonal allergies Shingles Thyroid cyst UTI (urinary tract infection) Surgical History Surgical History History of appendectomy History of bladder surgery History of cataract surgery History of cholecystectomy History of colonoscopy History of hysterectomy History of removal of cyst Family History Family History Grandparent Carcinoma of colon Father Family history of lung cancer Mother Family history of coronary artery disease Social History Social History Smoking status: Never smoker Second hand tobacco smoke exposure: No Alcohol intake: never Substance use: never Substance use type: does not use Living arrangements: with family Gender identity (if verbalized by the patient): Female Spiritual care concerns: No Meds Home Medications and Allergies Home Medications Medication Instructions Recorded Confirmed Type Pain Pump 03/03/19 04/18/21 History calcium carbonate-vitamin D3 1 tablet PO DAILY 10/08/19 07/06/21 History Lactobacillus rhamnosus GG 1 cap PO DAILY 07/21/20 07/06/21 History [Culturelle] famotidine [Pepcid] 10 mg PO HS 09/28/20 07/06/21 History denosumab 60 mg/mL subcutaneous 60 mg SUBCUT [id number] #1 ml 02/16/21 07/06/21 Rx syringe albuterol sulfate 90 mcg/actuation 2 puff INHALATION QID PRN #6.7 g 02/22/21 07/06/21 Rx aerosol inhaler amitriptyline 75 mg tablet See Rx Instructions PO DAILY #30 05/06/21 07/06/21 Rx tablet fluticasone 250 mcg-salmeterol 50 1 inh INHALATION Q12H 90 Days #180 05/17/21 07/06/21 Rx mcg/dose blistr powdr for ea inhalation montelukast 10 mg tablet 10 mg PO QPM #90 tablet 05/31/21 07/06/21 Rx lovastatin 20 mg tablet 20 mg PO QPM #90 tablet 06/06/21 07/06/21 Rx Allergies Allergy/AdvReac Type Severity Reaction Status Date / Time iodine Allergy Severe Hives Verified 07/06/21 11:58 povidone Allergy Severe Hives Verified 07/06/21 11:58 adhesive tape Allergy Intermediate Rash Verified 07/06/21 11:58 ciprofloxacin Allergy Intermediate Hives Verified 07/06/21 11:58 soap Allergy Intermediate Hives Verified 07/06/21 11:58 Contrast Media Allergy Severe RASH AND Uncoded 07/06/21 11:58 ANAPHYLAXIS IOBAN DRAPE FOR SURGERY Allergy Severe HIVES Uncoded 07/06/21 11:58 Exam Narrative: NAD normal breathing A+O x3 Assessment and Plan Assessment and plan (1) Urge incontinence: Code(s): N39.41 - Urge incontinence Status: Acute Assessment and Plan: impednences >4000. Low battery. Full INterStim revision
--- NOTE | ~2021-07-08 | XR_ITS ---
EXAMINATION: FLUORO NEUROSTIM INSERT < 1HR DATE: 07/08/2021 11:44 INDICATION: Replacement of an InterStim. TECHNIQUE: Frontal and lateral fluoroscopic images of the sacrum were obtained. The amount of fluoros copy time used during this procedure was 2.0 minutes. COMPARISON: CT abdomen pelvis dated 09/28/2020 FINDINGS: Distal tip of an Interstim lead extends from posterior to anterior through an S3 neural for amen. IMPRESSION: 1. Interstim lead extends through an S3 neural foramen unclear whether left or right-sided with no ma rkers indicating laterality on the provided image. See procedure note for further detail. Reviewed, dictated and finalized at location B. IMPRESSION: 1. Interstim lead extends through an S3 neural foramen unclear whether left or right-sided with no markers indicating laterality on the provided image. See pr ocedure note for further detail.
--- NOTE | 2021-07-08 07:15 | WPDHPUPDATE1 ---
History and Physical Update Update Date/Time: 07/08/21 07:15 History and Physical has been reviewed, including an updated exam of the patient. There are NO changes in the patient's condition. Risks, benefits, and alternatives have been discussed and questions answered. Patient agrees to proceed with procedure.
[2021-07-08 08:15] VITALS: BP 111/52; PULSE 81; RESP 16; TEMP 37.1; O2SAT 99
[2021-07-08] MEDS: LACTATED RINGERS 1,000 ML 30 ML IV CONT (08:30)
--- NOTE | 2021-07-08 09:38 | WPDANESEPPF ---
Anes - Initial Pre Proc Eval Procedure: Operation Date: 07/08/21 09:45 Proposed Procedures p Removal of Interstim, - Suresh Garcia MD s Replacemenet of Interstim - Suresh Garcia MD Date/Time: 07/08/21 09:38 Surgeon: Suresh Garcia MD Pre Op Diagnosis: complication due to device, stress incont Patient Data Age: 71 Gender: F Height: 1.63 m Weight: 73.5 kg Allergies Allergy/AdvReac Type Severity Reaction Status Date / Time iodine Allergy Severe Hives Verified 07/06/21 11:58 povidone Allergy Severe Hives Verified 07/06/21 11:58 adhesive tape Allergy Intermediate Rash Verified 07/06/21 11:58 ciprofloxacin Allergy Intermediate Hives Verified 07/06/21 11:58 soap Allergy Intermediate Hives Verified 07/06/21 11:58 Contrast Media Allergy Severe RASH AND Uncoded 07/06/21 11:58 ANAPHYLAXIS IOBAN DRAPE FOR SURGERY Allergy Severe HIVES Uncoded 07/06/21 11:58 Home Medications Medication Instructions Recorded Confirmed Type Pain Pump 03/03/19 04/18/21 History calcium carbonate-vitamin D3 1 tablet PO DAILY 10/08/19 07/06/21 History Lactobacillus rhamnosus GG 1 cap PO DAILY 07/21/20 07/06/21 History [Culturelle] famotidine [Pepcid] 10 mg PO HS 09/28/20 07/06/21 History denosumab 60 mg/mL subcutaneous 60 mg SUBCUT [id number] #1 ml 02/16/21 07/06/21 Rx syringe albuterol sulfate 90 mcg/actuation 2 puff INHALATION QID PRN #6.7 g 02/22/21 07/06/21 Rx aerosol inhaler amitriptyline 75 mg tablet See Rx Instructions PO DAILY #30 05/06/21 07/06/21 Rx tablet fluticasone 250 mcg-salmeterol 50 1 inh INHALATION Q12H 90 Days #180 05/17/21 07/06/21 Rx mcg/dose blistr powdr for ea inhalation montelukast 10 mg tablet 10 mg PO QPM #90 tablet 05/31/21 07/06/21 Rx lovastatin 20 mg tablet 20 mg PO QPM #90 tablet 06/06/21 07/06/21 Rx Patient hx anesthesia problems: none Family hx anesthesia problems: none Results Review: All pre-operative results and documents have been reviewed as part of the pre-operative evaluation. [facility] Past Medical History Medical History Anxiety Arthritis Cataracts, bilateral COPD (chronic obstructive pulmonary disease) Cystitis DDD (degenerative disc disease) GERD (gastroesophageal reflux disease) Goiter Hyperlipidemia IBS (irritable bowel syndrome) Osteoporosis Ovarian cyst Pneumonia Post-menopausal Seasonal allergies Shingles Thyroid cyst UTI (urinary tract infection) Surgical History Surgical History History of appendectomy History of bladder surgery History of cataract surgery History of cholecystectomy History of colonoscopy History of hysterectomy History of removal of cyst Family History Family History Grandparent Carcinoma of colon Father Family history of lung cancer Mother Family history of coronary artery disease Social History Social History Smoking status: Never smoker Second hand tobacco smoke exposure: No Alcohol intake: never Substance use: never Substance use type: does not use Living arrangements: with family Gender identity (if verbalized by the patient): Female Spiritual care concerns: No Anes - Eval Final PreProcedure Day of Procedure 07/08/21 09:38 Patient weight: overweight Heart: regular rate and rhythm Lungs: clear to auscultation Airway: Mallampati scale class III Neurological: alert and oriented Last oral intake: >/= 8 hours ASA classification: III Emergent: no Anesthetic plan: proceed Anesthesia type and monitoring: general GIVS and standard monitoring Results Review: All pre-operative results and documents have been reviewed as part of the pre-operative evaluation. Informed Consent: The patient's anesthetic plan and its attendant risks and benefits were discussed with the
[2021-07-08] MEDS: ceFAZolin 2 GM/D5W 50 ML 2 GM/50 ML BAG IVPB (10:45)
[2021-07-08 11:47] VITALS: BP 123/64; PULSE 88; RESP 14; O2SAT 99
--- NOTE | 2021-07-08 11:53 | P.OP_ITS ---
Procedure Note - Detailed Date of Procedure 07/08/21 Pre-op Diagnosis complication due to device, urge urinary incontinence Post-op Diagnosis Same Procedure Performed Removal of InterStim device. Placement of new right-sided sacral lead number next fluoroscopic guidance for needle placement, placement of the plantar pulse generator. Complex neurostimulator programming impedance check. Surgeon Suresh Garcia MD Anesthesia MAC Indications This is a woman with an InterStim device in place. Her lead has been fractured. Her battery is near end of life. She is here today for full revision. She understands risks of bleeding, infection, lack of efficacy. She agrees to proceed Findings Uncomplicated device placement. Previous device removed Description of Procedure She has correctly identified. Informed consent obtained. From the operating room. She was given MAC anesthesia. She was placed prone position. Lower back and buttock were prepped and draped sterile fashion. Time-out performed. I an esthetized the skin over the pulse generator. I incised the skin. I explanted the pulse generator. I then used fluoroscopy to identify the previously placed lead. The skin was anesthetized and incised. The previously placed lead was encountered and removed in its entirety. I then marked out the sacral landmarks in the AP lateral rotation. I anesthetized the skin. I entered the S3 foramen on the patient's right. I monitored the needle fluoroscopy. I stimulated the needle and got appropriate Angela and toe response at a low threshold. I made a skin min. I placed a stylet and a lead introducer sheath. I then placed the plate my lead under fluoroscopy. I stimulated the lead and got appropriate responses. I then tunneled the lead towards the previous generator site. The new battery was programmed. Appropriate connections were made. He was placed in the pocket. Impedances were checked and found to be normal. I assured hemostasis. I irrigated all wounds. I closed subcutaneous tissues with 2-0 Vicryl. Skin with 4-0 Vicryl. Dermabond was applied. She was awakened transferred to PACU in stable condition. Estimated Blood Loss 10 Drains No Packing No Pathology None sent Complications No immediate complications Condition Stable
[2021-07-08 12:15] VITALS: BP 119/55; PULSE 69; O2SAT 95
[2021-07-08 12:45] VITALS: BP 113/62; PULSE 72
[2021-07-08 13:15] VITALS: BP 112/59; PULSE 69
== END 2021-07-08 13:35 | disposition home or self-care (01) ==
PROVIDERS: PCP Family Medicine; Visit Provider Urology
PROC: (CPT 64585; principal; 2021-07-08 09:45)
DX: T85.111A Breakdown (mechanical) of implanted electronic neurostimulator of peripheral nerve electrode (lead), initial encounter (principal); N39.41 Urge incontinence; Y83.8 Other surgical procedures as the cause of abnormal reaction of the patient, or of later complication, without mention of misadventure at the time of the procedure; J44.9 Chronic obstructive pulmonary disease, unspecified; E78.5 Hyperlipidemia, unspecified; M81.0 Age-related osteoporosis without current pathological fracture; F41.9 Anxiety disorder, unspecified; K21.9 Gastro-esophageal reflux disease without esophagitis; K58.9 Irritable bowel syndrome, unspecified; Z79.51 Long term (current) use of inhaled steroids
CPT/HCPCS: 64585; 64590; C1767; C1778; C1787; J0690; J2250; J2704; J3010; J7120

== ENCOUNTER 2021-08-16 15:11 | Outpatient (CLI) | payer MEDICARE, SELFPAY ==
--- NOTE | ~2021-08-16 | DEXA_ITS ---
Bone Density Report Name: JADE DIAZ Age: 71 Sex: Female Ethnicity: White Date of : 1950 Indication: postmenopausal; screening for osteoporosis; height loss; hysterectomy; Referring Provider: DOLORES BARNARD Study: Bone densitometry was performed. Exam Date: August 16, 2021 Accession number: [id number] Bone Density: Region BMD T-score Z-score Classification AP Spine(L1, L3) 1.118 1.0 3.2 Normal Femoral Neck (Left) 0.610 -2.2 -0.2 Osteopenia Total Hip (Left) 0.768 -1.4 0.3 Osteopenia Femoral Neck (Right) 0.569 -2.5 -0.5 Osteoporosis Total Hip (Right) 0.761 -1.5 0.2 Osteopenia Total Hip Mean 0.764 -1.5 0.3 Osteopenia World Health Organization criteria for BMD impression classify patients as: Normal (T-score at or above -1.0), Osteopenia (T-score between -1.0 and -2.5), or Osteoporosis (T-score at or below -2.5). 10-year Fracture Risk: FRAX not reported because: Some T-score for Spine Total or Hip Total or Femoral Neck at or below -2.5 Clinical Information Provided by Patient: Has used the following medications: Vitamin D, Calcium Has the following medical conditions: Hysterectomy Patient maximum height was 66 Menopause Age: 48 Onset of menses at age 9 Number of children 2 Impression: The patient has osteoporosis, based on the Right Femoral Neck T-score. Discussion: INCREASED RISK OF FRACTURE. BONE DENSITY IS UNDESIRABLY LOW AT ONE OR MORE SKELETAL SITES, CONSISTENT WITH POSTMENOPAUSAL OSTEOPOROSIS. This patient's lowest T-score meets the World Health Organization's (WHO) criteria for osteoporosis at one or more sites (T-score -2.5 or below). In untreated patients, the risk of osteoporotic fracture increases approximately two-fold for each 1.0 SD decrease in T-score. Low bone density is not the only risk factor for fracture; also consider factors such as patient's age, frailty or poor health, risk of falling, risk of injury, previous osteoporotic fracture, family history of osteoporosis, cigarette smoking, low body weight, etc. Not everyone with low bone mineral density has osteoporosis; osteomalacia and other metabolic bone disorders should also be considered. Patients who have osteoporosis should be evaluated for specific diseases and conditions (secondary causes) that may cause or contribute to bone loss. The [place] [employer]ocr[employer] (AACE) and National Osteoporosis Foundation (NOF) recommend pharmacologic intervention for all postmenopausal women whose T-score is in this range. The patient should follow a healthful lifestyle (good nutrition with adequate calcium and vitamin D, and appropriate weight-bearing exercise). Follow-Up: Consider a repeat BMD and Vertebral Fracture Assessment (VFA) exam in 2 years or sooner if medically necessary, to reassess
== END 2021-08-16 15:12 | disposition home or self-care (01) ==
PROVIDERS: PCP Family Medicine; Visit Provider Nurse Practitioner Family
DX: M81.0 Age-related osteoporosis without current pathological fracture (principal); M85.852 Other specified disorders of bone density and structure, left thigh; M85.851 Other specified disorders of bone density and structure, right thigh
CPT/HCPCS: 77080

== ENCOUNTER 2021-09-26 10:20 | Emergency (ER) | payer MEDICARE, SELFPAY ==
[2021-09-26 10:31] VITALS: BP 144/70; PULSE 85; RESP 19; TEMP 36.6; O2SAT 98
[2021-09-26 10:45] LABS: Appearance Urine Cloudy (Clear); Bilirubin Urine Negative (Negative); Blood Urine 3+ (Negative); Color Urine Yellow (Yellow); Glucose Urine UA Negative (Negative); Ketones Urine Negative (Negative); Leukocyte Esterase Ur 2+ LEU/UL (Negative); Nitrate Urine Positive (Negative); Protein Urine 3+ mg/dL (Negative); Specific Grav Ur 1.025 (1.001-1.035); Urobilinogen Urine 0.2 mg/dL (<2.0)
[2021-09-26 10:46] LABS: Add Urine Microscopic? YES
[2021-09-26 10:54] LABS: Bacteria Urine 1+ /hpf; RBC Urine >75 /hpf (0-2); Squamous Epithelial Cell Urine Many /hpf (Few); WBC Urine >75 /hpf
--- NOTE | 2021-09-26 11:28 | ED.GENADULT ---
HPI - General Adult General Chief complaint: Urogenital-Female Stated complaint: uti Time Seen by Provider: 09/26/21 10:43 History of Present Illness HPI narrative: Patient is a 71-year-old female who presents ER with concerns for UTI. Reports she started having dysuria and urinary frequency yesterday. Increased pressure today. No fevers or chills or sweats. She does report she is slightly dizzy with position change also has history of vertigo. She has interstitial cystitis and has a pain pump. Cannot get through to the urologist today so came here for further evaluation. No flank pain. Related Data Home Medications Medication Instructions Recorded Confirmed Pain Pump 03/03/19 07/21/21 calcium carbonate 500 mg-vitamin 1 tablet PO DAILY 10/08/19 07/21/21 D3 3.125 mcg (125 unit) tablet Lactobacillus rhamnosus GG 10 1 cap PO DAILY 07/21/20 07/21/21 billion cell capsule (Culturelle) famotidine 20 mg tablet (Pepcid) 10 mg PO HS 09/28/20 07/21/21 Allergies Allergy/AdvReac Type Severity Reaction Status Date / Time iodine Allergy Severe Hives Verified 08/11/21 13:55 povidone Allergy Severe Hives Verified 08/11/21 13:55 adhesive tape Allergy Intermediate Rash Verified 08/11/21 13:55 ciprofloxacin Allergy Intermediate Hives Verified 08/11/21 13:55 soap Allergy Intermediate Hives Verified 08/11/21 13:55 sulfamethoxazole Allergy Swelling Verified 08/11/21 13:55 [From Bactrim] of Lip/Tongue/Throat trimethoprim [From Bactrim] Allergy Swelling Verified 08/11/21 13:55 of Lip/Tongue/Throat Contrast Media Allergy Severe RASH AND Uncoded 08/11/21 13:55 ANAPHYLAXIS IOBAN DRAPE FOR SURGERY Allergy Severe HIVES Uncoded 08/11/21 13:55 Review of Systems Review of Systems: All systems reviewed & are unremarkable except as noted in HPI and below Constitutional: Constitutional: Denies chills and Denies fever(s) Gastrointestinal: Gastrointestinal: Reports abdominal pain, Denies nausea and Denies vomiting Genitourinary: Genitourinary: Denies hematuria, Reports nocturia, Reports dysuria and Denies flank pain PMFSH Past Medical History Medical History Anxiety Arthritis Cataracts, bilateral COPD (chronic obstructive pulmonary disease) Cystitis DDD (degenerative disc disease) GERD (gastroesophageal reflux disease) Goiter Hyperlipidemia IBS (irritable bowel syndrome) Osteoporosis Ovarian cyst Pneumonia Post-menopausal Seasonal allergies Shingles Thyroid cyst UTI (urinary tract infection) Surgical History Surgical History History of appendectomy History of bladder surgery History of cataract surgery History of cholecystectomy History of colonoscopy History of hysterectomy History of removal of cyst Family History Family History Grandparent Carcinoma of colon Father Family history of lung cancer Mother Family history of coronary artery disease Social History Social History Smoking status: Never smoker Second hand tobacco smoke exposure: No Alcohol intake: never Substance use: never Substance use type: does not use Gender identity (if verbalized by the patient): Female Spiritual care concerns: No Exam Narrative: GENERAL: Well-appearing, well-nourished, and in no acute distress. HEAD: Normocephalic, atraumatic. CHEST: Clear to auscultation. No respiratory distress. HEART: Regular rate and rhythm. Normal peripheral pulses. ABDOMEN: Soft, nontender, nondistended. EXTREMITIES: Normal range of motion. No edema. NEURO: Alert and oriented x3. PSYCH: Normal mood and affect. Course Course Emergency Course: UA consistent with UTI. Typically has success with nitrofurantoin which will be prescribed. Vital Signs Vital signs: Vital Signs Temperature 97.9
== END 2021-09-26 11:39 | disposition home or self-care (01) ==
PROVIDERS: Emergency Provider Emergency Medicine; PCP Family Medicine
DX: N39.0 Urinary tract infection, site not specified (principal); N30.10 Interstitial cystitis (chronic) without hematuria; J44.9 Chronic obstructive pulmonary disease, unspecified; E78.5 Hyperlipidemia, unspecified; K21.9 Gastro-esophageal reflux disease without esophagitis; K58.9 Irritable bowel syndrome, unspecified; M19.90 Unspecified osteoarthritis, unspecified site; M81.0 Age-related osteoporosis without current pathological fracture; Z87.01 Personal history of pneumonia (recurrent); Z98.49 Cataract extraction status, unspecified eye; Z97.8 Presence of other specified devices
CPT/HCPCS: 81001; 87077; 87086; 87186; 99283

== ENCOUNTER → 2021-12-29 11:56 | Outpatient (CLI) | payer MEDICARE, SELFPAY ==
--- NOTE | ~2021-12-29 | XR_ITS ---
EXAMINATION: XR foot LT standing 2V, XR foot RT standing 2V DATE: 12/29/2021 12:23 INDICATION: Bilateral foot pain and swelling TECHNIQUE: 1. Dorsoplantar and lateral views of the left foot were obtained. 2. Dorsoplantar and lateral views of the right foot were obtained. COMPARISON: None. FINDINGS: Change of likely prior hammertoe corrections with widening of the proximal interphalangeal joints and osteotomies at the heads of the proximal phalanges at the right fourth and left fourth and fifth toe s. Alignment is otherwise normal. No fracture. Mild polyarticular osteoarthritis involving multiple j oints in the mid and forefeet. No erosions to suggest inflammatory arthritis. No periosteal reaction. Moderate-sized bilateral Achilles calcaneal spurs and small left plantar calcaneal spur. Soft tissue s are unremarkable. IMPRESSION: 1. Mild polyarticular osteoarthritis at multiple joints in the bilateral mid and forefeet. Reviewed, dictated and finalized at location A. IMPRESSION: 1. Mild polyarticular osteoarthritis at multiple joints in the bilateral mid an d forefeet.
== END ==
PROVIDERS: PCP Family Medicine; Visit Provider Physician Assistant
DX: M19.041 Primary osteoarthritis, right hand (principal); M19.042 Primary osteoarthritis, left hand
CPT/HCPCS: 73620

== ENCOUNTER 2022-01-20 15:48 | Emergency (ER) | payer MEDICARE, SELFPAY ==
[2022-01-20 16:00] VITALS: BP 132/60; PULSE 86; RESP 16; TEMP 37.5; O2SAT 97
--- NOTE | 2022-01-20 16:23 | ED.FEMALEGU ---
HPI - Female Genitourinary General Chief complaint: Urogenital-Female Stated complaint: UTI SYMPTOMS Time Seen by Provider: 01/20/22 15:49 Source: patient Mode of arrival: ambulatory Limitations: no limitations History of Present Illness HPI Narrative: Mr. Pantoja is a 71-year-old female patient presenting to the clinic today with complaints of possible urinary tract infection. She reports that she noticed her bladder was feeling funny yesterday. States she is having some pressure over her bladder and a little bit of right-sided flank pain. She has a history of recurrent urinary tract infections over the last 6 months. Last time she had a urinary tract infection it was positive for Pseudomonas and she had to get cefepime IV. She denies any fever or chills Related Data Home Medications Medication Instructions Recorded Confirmed Lactobacillus 1 cap PO DAILY 01/20/22 01/20/22 acidophilus-Bifidobac.animalis 2.5 billion cell capsule (Daily Probiotic) calcium carb-ergocalciferol (vit 1 tablet PO DAILY 01/20/22 01/20/22 D2) 600 mg calcium-200 unit tablet denosumab 60 mg/mL subcutaneous 60 mg subcut [id number] 01/20/22 01/20/22 syringe (Prolia) fluticasone 250 mcg-salmeterol 50 1 inh inhalation Q12H 01/20/22 01/20/22 mcg/dose blistr powdr for inhalation (Wixela Inhub) magnesium oxide 400 mg PO DAILY 01/20/22 01/20/22 pumpkin seed extract-soy germ 300 1 cap PO DAILY 01/20/22 01/20/22 mg capsule (Azo Bladder Control) Allergies Allergy/AdvReac Type Severity Reaction Status Date / Time iodine Allergy Severe Hives Verified 01/05/22 11:04 povidone Allergy Severe Hives Verified 01/05/22 11:04 adhesive tape Allergy Intermediate Rash Verified 01/05/22 11:04 ciprofloxacin Allergy Intermediate Hives Verified 01/05/22 11:04 soap Allergy Intermediate Hives Verified 01/05/22 11:04 sulfamethoxazole Allergy Swelling Verified 01/05/22 11:04 [From Bactrim] of Lip/Tongue/Throat trimethoprim [From Bactrim] Allergy Swelling Verified 01/05/22 11:04 of Lip/Tongue/Throat enoxaparin [From Lovenox] AdvReac Intermediate Cramping Verified 01/05/22 11:04 of the Muscles Contrast Media Allergy Severe RASH AND Uncoded 01/05/22 11:04 ANAPHYLAXIS IOBAN DRAPE FOR SURGERY Allergy Severe HIVES Uncoded 01/05/22 11:04 Review of Systems Review of Systems: Pertinent positives per HPI. Patient denies any fever, chills, rash, headache, visual changes, dizziness, cough, runny nose, sore throat, shortness of breath, chest pain, palpitations, nausea, vomiting, diarrhea, constipation, abdominal pain, or any urinary issues. [facility] Past Medical History Medical History Anxiety Arthritis Cataracts, bilateral COPD (chronic obstructive pulmonary disease) Cystitis DDD (degenerative disc disease) GERD (gastroesophageal reflux disease) Goiter Hyperlipidemia IBS (irritable bowel syndrome) Osteoporosis Ovarian cyst Pneumonia Post-menopausal Seasonal allergies Shingles Thyroid cyst UTI (urinary tract infection) Surgical History Surgical History History of appendectomy History of bladder surgery History of cataract surgery History of cholecystectomy History of colonoscopy History of hysterectomy History of removal of cyst Family History Family History Grandparent Carcinoma of colon Father Family history of lung cancer Mother Family history of coronary artery disease Social History Social History Smoking status: Never smoker Second hand tobacco smoke exposure: No Alcohol intake: never Substance use: never Substance use type: does not use Gender identity (if verbalized by the patient): Female Spiritual care concerns: No Comments At the time o
== END 2022-01-20 16:48 | disposition short-term general hospital (02) ==
PROVIDERS: Emergency Provider Nurse Practitioner Family; PCP Family Medicine
DX: N39.0 Urinary tract infection, site not specified (principal); M19.90 Unspecified osteoarthritis, unspecified site; J44.9 Chronic obstructive pulmonary disease, unspecified; K21.9 Gastro-esophageal reflux disease without esophagitis; E78.5 Hyperlipidemia, unspecified; M81.0 Age-related osteoporosis without current pathological fracture
CPT/HCPCS: 81003; 87077; 87086; 87186; 99213; G0463

== ENCOUNTER 2022-01-20 17:09 | Observation (INO) | payer MEDICARE, SELFPAY ==
[2022-01-20 17:21] VITALS: PULSE 90; RESP 16; TEMP 37.1; O2SAT 96
[2022-01-20 17:38] LABS: Add Urine Microscopic? YES; Appearance Urine Cloudy (Clear); Bacteria Urine Trace /hpf; Bilirubin Urine Negative (Negative); Blood Urine 1+ (Negative); Color Urine Yellow (Yellow); Glucose Urine UA Negative (Negative); Ketones Urine Negative (Negative); Leukocyte Esterase Ur 3+ LEU/UL (Negative); Nitrate Urine Positive (Negative); Protein Urine Negative (Negative); Specific Grav Ur 1.005 (1.001-1.035); Squamous Epithelial Cell Urine Rare /hpf (Few); Urobilinogen Urine Negative mg/dL (<2.0); WBC Urine >75 /hpf
[2022-01-20 20:21] LABS: Basophils Absolute Auto 0.1 K/mm3 (0.0-0.1); Basophils Percent Auto 0.5 % (0.2-1.2); Eosinophils Absolute Auto 0.1 K/mm3 (0-0.3); Eosinophils Percent Auto 0.6 % (0-4.4); Hematocrit 40.2 % (37.0-47.0); Hemoglobin 12.3 g/dL (12.0-15.0); Immature Granulocyte Absolute 0.04 K/mm3 (0.00-0.031); Immature Granulocyte Percent A 0.3 % (0-0.5); Lymphocytes Absolute Auto 1.87 K/mm3 (0.9-3.2); Mean Corpuscular HGB Conc 30.6 g/dl (32-36); Mean Corpuscular Hemoglobin 27.6 pg (26-34); Mean Corpuscular Volume 90.3 fl (80-100); Monocytes Absolute Auto 0.8 K/mm3 (0.1-0.6); Neutrophils Absolute Auto 10.5 K/mm3 (1.3-6.7); Neutrophils Percent Auto 78.6 % (45.5-73.1); Platelet Count Result 301 k/mm3 (150-375); Red Blood Count 4.45 M/mm3 (4.2-5.4); Red Cell Distribution Width 14.4 % (11.5-14.5); White Blood Count 13.3 K/mm3 (4.5-10.0)
[2022-01-20 20:30] LABS: Alanine Aminotransferase 28 U/L (6-35); Albumin Level 4.8 g/dL (3.5-5.1); Alkaline Phosphatase 69 U/L (38-126); Anion Gap 17 mmol/L (8-16); Aspartate Amino Transferase 29 U/L (14-36); Bilirubin,Total 0.4 mg/dL (0.2-1.3); Blood Urea Nitrogen 12 mg/dL (7-17); Calcium 9.9 mg/dL (8.4-10.2); Carbon Dioxide 30 mmol/L (22-30); Chloride 95 mmol/L (98-107); Estimated CRCL calculation 60 ml/min; Estimated Glomerular Filt Rate > 60; Glucose 118 mg/dL (65-110); Potassium 3.7 mmol/L (3.4-5.0); Sodium 142 mmol/L (137-145)
[2022-01-20 20:42] VITALS: BP 144/58; PULSE 92; RESP 20; TEMP 36.5; O2SAT 97
[2022-01-21] VITALS (15 sets, daily range): BP systolic 114–155; BP diastolic 41–76; PULSE 70–78; RESP 16–20; TEMP 35.6–36.8; O2SAT 95–100; BMI 27.6
--- NOTE | 2022-01-21 01:25 | ED.GENADULT ---
HPI - General Adult General Chief complaint: Urogenital-Female Stated complaint: UTI symptoms Time Seen by Provider: 01/21/22 00:07 History of Present Illness HPI narrative: This is a very pleasant 71-year-old female presenting to ED with urinary symptoms. Patient says that starting yesterday she started to have dysuria, urinary urgency and increased frequency. Patient denies systemic signs of illness such as fever, chills, nausea vomiting or. the patient has had a complicated clinical course over the last 3 months where she has had recurrent UTIs with multiple different organisms including Pseudomonas. She has been placed on multiple antibiotics and eventually had to take a prolonged course of cefepime to clear her urinary tract infection. She has been asymptomatic for the last 6 weeks. Patient carries a well documented chart of her clinical course with her. Related Data Home Medications Medication Instructions Recorded Confirmed Lactobacillus 1 cap PO DAILY 01/20/22 01/20/22 acidophilus-Bifidobac.animalis 2.5 billion cell capsule (Daily Probiotic) calcium carb-ergocalciferol (vit 1 tablet PO DAILY 01/20/22 01/20/22 D2) 600 mg calcium-200 unit tablet denosumab 60 mg/mL subcutaneous 60 mg subcut [id number] 01/20/22 01/20/22 syringe (Prolia) fluticasone 250 mcg-salmeterol 50 1 inh inhalation Q12H 01/20/22 01/20/22 mcg/dose blistr powdr for inhalation (Wixela Inhub) magnesium oxide 400 mg PO DAILY 01/20/22 01/20/22 pumpkin seed extract-soy germ 300 1 cap PO DAILY 01/20/22 01/20/22 mg capsule (Azo Bladder Control) Allergies Allergy/AdvReac Type Severity Reaction Status Date / Time iodine Allergy Severe Hives Verified 01/05/22 11:04 povidone Allergy Severe Hives Verified 01/05/22 11:04 adhesive tape Allergy Intermediate Rash Verified 01/05/22 11:04 ciprofloxacin Allergy Intermediate Hives Verified 01/05/22 11:04 soap Allergy Intermediate Hives Verified 01/05/22 11:04 sulfamethoxazole Allergy Swelling Verified 01/05/22 11:04 [From Bactrim] of Lip/Tongue/Throat trimethoprim [From Bactrim] Allergy Swelling Verified 01/05/22 11:04 of Lip/Tongue/Throat enoxaparin [From Lovenox] AdvReac Intermediate Cramping Verified 01/05/22 11:04 of the Muscles Contrast Media Allergy Severe RASH AND Uncoded 01/05/22 11:04 ANAPHYLAXIS IOBAN DRAPE FOR SURGERY Allergy Severe HIVES Uncoded 01/05/22 11:04 Review of Systems Review of Systems: CONSTITUTIONAL: Denies night sweats. EYES: No eye pain ENT: Denies rhinorrhea CARDIOVASCULAR: Denies palpitations RESPIRATORY: Denies hemoptysis GASTROINTESTINAL: Denies hematemesis GENITOURINARY: admits hematuria SKIN: Denies rash MUSCULOSKELETAL: Denies myalgia. NEUROLOGIC: Denies weakness. PSYCHIATRIC: Denies delusions PMFSH Past Medical History Medical History Anxiety Arthritis Cataracts, bilateral COPD (chronic obstructive pulmonary disease) Cystitis DDD (degenerative disc disease) GERD (gastroesophageal reflux disease) Goiter Hyperlipidemia IBS (irritable bowel syndrome) Osteoporosis Ovarian cyst Pneumonia Post-menopausal Seasonal allergies Shingles Thyroid cyst UTI (urinary tract infection) Surgical History Surgical History History of appendectomy History of bladder surgery History of cataract surgery History of cholecystectomy History of colonoscopy History of hysterectomy History of removal of cyst Family History Family History Grandparent Carcinoma of colon Father Family history of lung cancer Mother Family history of coronary artery disease Social History Social History Smoking status: Never smoker Second hand tobacco smoke exposure: No Alcohol intake
[2022-01-21] MEDS: SODIUM CHLORIDE 0.9% IV 1,000 ML 999 ML IV CONT (01:37)
[2022-01-21 02:48] LABS: SARS-CoV-2 RNA PCR Negative
--- NOTE | 2022-01-21 03:05 | ADMGEN ---
This patient, Felicia Mendieta, was admitted to [facility] S[facility] Room 316-02. Patient/family oriented to hospital policies and general routines including ID bracelet, bed and alarms, visiting hours, pain management, procedures, bathroom and other care routines, personal items, smoking policy, room service/diet, and visiting hours. Information on how to activate the Rapid Response Team has been discussed. Patient/Family are encouraged to report perceived risks to care and to ask questions if they do not understand what they are told or what they should do.
[2022-01-21] MEDS: ACETAMINOPHEN 500 MG TABLET 1000 MG PO ×3 (04:42→16:37)
--- NOTE | 2022-01-21 04:44 | PM.IMHP ---
H&P: HPI History of Present Illness Date/Time: 01/21/22 04:44 Chief Complaint: pain with urination Narrative: This is a 71-year-old female with past medical history significant for chronic interstitial cystitis, patient has been having recurrent urinary tract infections for the last year or so recently treated with outpatient infusion therapy we through [facility] was discharged home after being in rehabilitation for 9 days comes to the emergency room today after she was prompted at the psychiatric to come to our facility for evaluation after having a painful urination and discoloration of the urine also patient feels fatigued, tired, has had unintentional weight loss of roughly 13 lb, lower abdominal pain has had 4-5 loose stools a day as well. preliminary workup was significant for urine analysis with +75 wbc's per high-power field. Patient has been admitted for further evaluation management and treatment. Review of Systems Review of Systems: Generalized weakness, unintentional weight loss, pain and burning with urination, lower abdominal pain, fatigue. Constitutional: Constitutional: Denies chills, Reports fatigue, Denies fever(s), Denies night sweats, Reports weakness and Reports weight loss Eyes: Eyes: Denies change in vision ENT: Denies dysphagia, Denies vertigo, Denies dizziness and Denies odynophagia Cardiovascular: Cardiovascular: Denies chest pain, Denies irregular heart rhythm, Denies lightheadedness and Denies palpitations Respiratory: Respiratory: Denies chest congestion, Denies cough and Denies pain on inspiration Gastrointestinal: Gastrointestinal: Reports abdominal pain, Denies dyspepsia, Denies heartburn, Reports loose stools and Denies nausea Genitourinary: Genitourinary: Reports dysuria and Reports pelvic pain Musculoskeletal: Musculoskeletal: Reports muscle weakness Integumentary/Breasts: Skin/Breast: Denies rash Neurologic: Denies focal weakness and Denies Sensory deficit (Neuro) Psychiatric: Psychiatric: Reports no additional psychiatric complaints and Reports as per HPI Endocrine: Endocrine: Denies cold intolerance, Denies flushing, Denies heat intolerance, Denies polyphagia, Denies polydipsia and Denies palpitations Hematologic/Lymphatic: Hematologic/Lymphatic: Reports no additional hematologic/lymphatic complaints and Reports as per HPI Allergic/Immunologic: Allergic/Immunologic: Reports no additional allergic/immunologic complaints and Reports as per HPI [facility] Past Medical History Medical History (Updated 01/21/22 @ 05:51 by Emma Baumann MD) Anxiety Arthritis Cataracts, bilateral COPD (chronic obstructive pulmonary disease) Cystitis DDD (degenerative disc disease) GERD (gastroesophageal reflux disease) Goiter Hyperlipidemia IBS (irritable bowel syndrome) Osteoporosis Ovarian cyst Pneumonia Post-menopausal Seasonal allergies Shingles Thyroid cyst UTI (urinary tract infection) Surgical History Surgical History History of appendectomy History of bladder surgery History of cataract surgery History of cholecystectomy History of colonoscopy History of hysterectomy History of removal of cyst Family History Family History (Updated 01/21/22 @ 03:41 by Michelle Butcher RN) Grandparent Carcinoma of colon Diabetes mellitus Father Family history of lung cancer Mother Family history of coronary artery disease Social History Social History Smoking status: Never smoker Second hand tobacco smoke exposure: No Alcohol intake: never Substance use: never Substance use type: does not use Gender identity (if verbalized by the patient): Female Spiritual care concerns: No Has the Lack of Transportation Kept You From Medical Appointments or From Getting Medications?: No Within the Past 12 Months, Were You Worried Whether Your Food Would Run O
--- NOTE | 2022-01-21 14:58 | PM.IMPN ---
Progress Note: A&P Assessment and Plan (1) Acute UTI: Code(s): N39.0 - Urinary tract infection, site not specified Status: Acute Assessment and Plan: Start Cefepime 2G Q8 hrs. Cultures are pending. Continue to monitor labs and vitals. (2) Interstitial cystitis: Code(s): N30.10 - Interstitial cystitis (chronic) without hematuria Status: Chronic Assessment and Plan: Chronic Continue to monitor. (3) COPD (chronic obstructive pulmonary disease): Code(s): J44.9 - Chronic obstructive pulmonary disease, unspecified Status: Chronic Assessment and Plan: Not in acute exacerbation Monitor VS and labs. (4) GERD (gastroesophageal reflux disease): Code(s): K21.9 - Gastro-esophageal reflux disease without esophagitis Status: Chronic Assessment and Plan: PPI therapy if needed for symptoms. Consider H2 antagonist. Time Spent With Patient Time with patient: 15 - 25 minutes Subjective Date/time seen: 01/21/22 2630 This pt. was examined at the bedside today in interval assessment after being admitted with sx's of UTI in the setting of having chronic interstitial cystitis. Pt has UA indicative of infection and continues to have lower abdominal cramping. She also has had loose stools for the past couple of days. GPP pending and urine culture is pending. Pt. denies any CP, dyspnea, N/V and no headache, dizziness or lightheadedness. Review of Systems Review of Systems: All systems reviewed & are unremarkable except as noted in HPI and below Exam Const: General: uncomfortable HENMT: Mouth: Yes moist mucous membranes Eyes: General: appearance normal, both eyes and all related structures Neck: Neck: supple and no JVD Lymphatic: lymphadenopathy not noted Resp: Effort & Inspection: normal respiratory effort Auscultation: clear to auscultation bilaterally Cardio: Rate: regular rate Rhythm: regular rhythm Heart sounds: no gallops, no murmurs and no rubs GI: Inspection: non-distended GI Palp: Yes Soft to palpation, Yes Tenderness to palpation present (GI) (Suprapubic) and Yes Guarding due to palpation present (GI) (Suprapubic) Auscultation: normal bowel sounds Skin: General skin exam: normal color, no rashes or lesions noted and no erythema Wounds: no wounds Neuro: General: gait normal Speech: normal speech Motor exam (neuro): 5/5 motor strength present throughout and Normal motor muscle tone present throughout Sensory Exam: normal sensation Extrem: General: normal to inspection, no edema and no pedal edema Other: Pt. fully and equally MAEW without deficit. Psych: Mental Status: mental status grossly normal Affect: normal affect Objective Data Vital Signs Vital Signs: Vital Signs - 24 hr 01/20/22 17:21 01/20/22 20:42 01/21/22 00:04 Temperature 98.7 F 97.7 F Pulse Rate 90 92 78 Respiratory Rate 16 20 16 Blood Pressure 144/58 H 146/76 H Pulse Oximetry 96 97 100 Oxygen Delivery Room Air Room Air 01/21/22 00:06 01/21/22 00:15 01/21/22 00:16 Temperature Pulse Rate Respiratory Rate Blood Pressure 139/63 Pulse Oximetry 99 97 96 Oxygen Delivery 01/21/22 00:30 01/21/22 00:31 01/21/22 01:21 Temperature Pulse Rate Respiratory Rate Blood Pressure 152/72 H Pulse Oximetry 95 97 98 Oxygen Delivery 01/21/22 01:22 01/21/22 01:30 01/21/22 03:10 Temperature 98.3 F 97.5 F L Pulse Rate 78 78 Respiratory Rate 20 Blood Pressure 141/68 H 155/60 H Pulse Oximetry 100 100 100 Oxygen Delivery 01/21/22 05:59 01/21/22 08:45 Temperature 97.5 F L Pulse Rate 72 Respiratory Rate 20 Blood Pressure 121/69 Pulse Oximetry 100 Oxygen Delivery Room Air Intake/Output Intake/Output: Intake & Output 01/18/22 01/19/22 01/20/22 01/21/22 23:59 23:59 23:59 23:59 Intake Total 1540 Output Total 1 Balance 1539 Meds/Results Medications: Active Medications Gener
[2022-01-21] MEDS: MONTELUKAST SODIUM 10 MG TABLET PO (17:09)
[2022-01-21] MEDS: LOVASTATIN 20 MG TABLET PO (17:09)
[2022-01-21] MEDS: AMITRIPTYLINE HCL 25 MG TABLET 75 MG PO (21:04)
[2022-01-21] MEDS: FLUTICASONE/SALMETEROL 115-21 MCG INHALER 1 PUFF 2 PUFF INHALATION (21:04)
--- NOTE | 2022-01-22 01:25 | PC.NURSE ---
Patient teary eyed when describing frustration with having loose BM's everyday since May up to 10 times per day. Patient states her quality of life has decreased and she can no longer visit family due to having so many BMs and can't make the drive. Pt states she has lost 15 pounds in the last 6-7 weeks. Will pass along to day shift nurse to possible notify provider for recommendations/GI consult.
[2022-01-22 03:41] VITALS: BP 124/54; PULSE 75; RESP 18; TEMP 36.2; O2SAT 96
[2022-01-22 07:57] LABS: Basophils Absolute Auto 0.1 K/mm3 (0.0-0.1); Basophils Percent Auto 0.9 % (0.2-1.2); Eosinophils Absolute Auto 0.2 K/mm3 (0-0.3); Eosinophils Percent Auto 2.2 % (0-4.4); Hematocrit 35.6 % (37.0-47.0); Hemoglobin 10.9 g/dL (12.0-15.0); Immature Granulocyte Absolute 0.02 K/mm3 (0.00-0.031); Immature Granulocyte Percent A 0.3 % (0-0.5); Lymphocytes Absolute Auto 1.85 K/mm3 (0.9-3.2); Lymphocytes Percent Auto 27.4 % (18.3-44.2); Mean Corpuscular HGB Conc 30.6 g/dl (32-36); Mean Corpuscular Hemoglobin 27.9 pg (26-34); Mean Corpuscular Volume 91.3 fl (80-100); Mean Platelet Volume 11.2 fl (7.4-10.4); Monocytes Absolute Auto 0.6 K/mm3 (0.1-0.6); Monocytes Percent Auto 9.2 % (2.6-8.5); Neutrophils Absolute Auto 4.1 K/mm3 (1.3-6.7); Platelet Count Result 230 k/mm3 (150-375); Red Cell Distribution Width 14.5 % (11.5-14.5); White Blood Count 6.8 K/mm3 (4.5-10.0)
[2022-01-22 08:09] LABS: Alanine Aminotransferase 20 U/L (6-35); Albumin Level 3.6 g/dL (3.5-5.1); Alkaline Phosphatase 48 U/L (38-126); Anion Gap 13 mmol/L (8-16); Aspartate Amino Transferase 21 U/L (14-36); Bilirubin,Total 0.2 mg/dL (0.2-1.3); Blood Urea Nitrogen 8 mg/dL (7-17); Calcium 8.9 mg/dL (8.4-10.2); Carbon Dioxide 26 mmol/L (22-30); Chloride 102 mmol/L (98-107); Estimated CRCL calculation 60 ml/min; Estimated Glomerular Filt Rate > 60; Glucose 95 mg/dL (65-110); Potassium 4.1 mmol/L (3.4-5.0); Sodium 141 mmol/L (137-145)
[2022-01-22] MEDS: FLUTICASONE/SALMETEROL 115-21 MCG INHALER 1 PUFF 2 PUFF INHALATION ×2 (08:18→20:50)
[2022-01-22 08:26] VITALS: O2SAT 96
[2022-01-22] MEDS: ACIDOPHILUS/BULGARICUS CHEWABLE TABLET 1 TABLET PO (08:46)
[2022-01-22] MEDS: MAGNESIUM OXIDE 400 MG TABLET PO (08:46)
[2022-01-22] MEDS: ACETAMINOPHEN 500 MG TABLET 1000 MG PO (10:49)
[2022-01-22] MEDS: DICYCLOMINE HCL 10 MG CAPSULE 20 MG PO ×2 (10:49→16:49)
[2022-01-22 14:00] VITALS: BP 119/55; PULSE 74; RESP 20; TEMP 36.9; O2SAT 97
--- NOTE | 2022-01-22 14:22 | PM.IMPN ---
Progress Note: A&P Assessment and Plan (1) Acute UTI: Code(s): N39.0 - Urinary tract infection, site not specified Status: Acute Assessment and Plan: Continue Cefepime 2G Q8 hrs. Cultures are pending. Continue to monitor labs and vitals. (2) Irritable bowel syndrome: Code(s): K58.9 - Irritable bowel syndrome without diarrhea Status: Acute Assessment and Plan: Start Bentyl 20 mg po BID. Gastric Pathogen Panel pending. Consider GI consult if Bentyl does not improve symptoms. (3) Interstitial cystitis: Code(s): N30.10 - Interstitial cystitis (chronic) without hematuria Status: Chronic Assessment and Plan: Chronic Continue to monitor. (4) COPD (chronic obstructive pulmonary disease): Code(s): J44.9 - Chronic obstructive pulmonary disease, unspecified Status: Chronic Assessment and Plan: Not in acute exacerbation Monitor VS and labs. (5) GERD (gastroesophageal reflux disease): Code(s): K21.9 - Gastro-esophageal reflux disease without esophagitis Status: Chronic Assessment and Plan: PPI therapy if needed for symptoms. Consider H2 antagonist. Time Spent With Patient Time with patient: 15 - 25 minutes Subjective Date/time seen: 01/22/22 1015 This pt. was examined at the bedside today after being admitted to the hospital for a UTI. She has preliminary growth of Gram Neg. Bacilli on her Urine Cx. Her Gi pathogen panel is still pending and she relays to me that she continues to have soft stools in increased frequency after eating. She reports that years ago she was treated for IBS with Bentyl and states that it did help. She is therefore started on Bentyl 20 mg BID and we will re-evaluate. Urine culture identification and sensitivity is still pending. Pt remains on Cefepime at this time and has no other complaints of CP, dyspnea, N/V/D/headaches, Dizziness or lightheadedness. Review of Systems Review of Systems: All systems reviewed & are unremarkable except as noted in HPI and below Exam Const: General: uncomfortable HENMT: Mouth: Yes moist mucous membranes Eyes: General: appearance normal, both eyes and all related structures Neck: Neck: supple and no JVD Lymphatic: lymphadenopathy not noted Resp: Effort & Inspection: normal respiratory effort Auscultation: clear to auscultation bilaterally Cardio: Rate: regular rate Rhythm: regular rhythm Heart sounds: no gallops, no murmurs and no rubs GI: Inspection: non-distended Auscultation: normal bowel sounds Skin: General skin exam: normal color, no rashes or lesions noted and no erythema Wounds: no wounds Neuro: General: gait normal Speech: normal speech Motor exam (neuro): 5/5 motor strength present throughout and Normal motor muscle tone present throughout Sensory Exam: normal sensation Extrem: General: normal to inspection, no edema and no pedal edema Other: Pt. fully and equally MAEW without deficit. Psych: Mental Status: mental status grossly normal Affect: normal affect Objective Data Vital Signs Vital Signs: Vital Signs - 24 hr 01/21/22 19:38 01/21/22 21:05 01/21/22 20:00 Temperature 97.8 F Pulse Rate 70 76 Respiratory Rate 18 18 Blood Pressure 114/41 L Pulse Oximetry 97 Oxygen Delivery Room Air 01/21/22 21:23 01/22/22 03:41 01/22/22 08:26 Temperature 97.1 F L Pulse Rate 73 75 Respiratory Rate 16 18 Blood Pressure 124/54 L Pulse Oximetry 96 96 Oxygen Delivery Room Air 01/22/22 08:55 Temperature Pulse Rate Respiratory Rate Blood Pressure Pulse Oximetry Oxygen Delivery Room Air Intake/Output Intake/Output: Intake & Output 01/19/22 01/20/22 01/21/22 01/22/22 23:59 23:59 23:59 23:59 Intake Total 3790 360 Output Total 2151 800 Balance 1639 -440 Meds/Results Medications: Active Medications Generic Name Dose Route Start Last Admin Trade Name Freq PRN Reason St
[2022-01-22] MEDS: MONTELUKAST SODIUM 10 MG TABLET PO (17:05)
[2022-01-22] MEDS: LOVASTATIN 20 MG TABLET PO (17:05)
[2022-01-22] MEDS: AMITRIPTYLINE HCL 25 MG TABLET 75 MG PO (20:30)
[2022-01-22 20:50] VITALS: O2SAT 98
[2022-01-22 21:51] VITALS: BP 123/65; PULSE 73; RESP 21; TEMP 36.3; O2SAT 100
[2022-01-23 06:00] VITALS: BP 113/42; PULSE 79; RESP 18; TEMP 36.6; O2SAT 95
[2022-01-23 07:06] LABS: Basophils Absolute Auto 0.1 K/mm3 (0.0-0.1); Basophils Percent Auto 0.6 % (0.2-1.2); Eosinophils Absolute Auto 0.2 K/mm3 (0-0.3); Eosinophils Percent Auto 2.1 % (0-4.4); Hematocrit 35.7 % (37.0-47.0); Hemoglobin 10.9 g/dL (12.0-15.0); Immature Granulocyte Absolute 0.02 K/mm3 (0.00-0.031); Immature Granulocyte Percent A 0.2 % (0-0.5); Lymphocytes Absolute Auto 2.09 K/mm3 (0.9-3.2); Lymphocytes Percent Auto 25.7 % (18.3-44.2); Mean Corpuscular HGB Conc 30.5 g/dl (32-36); Mean Corpuscular Hemoglobin 27.8 pg (26-34); Mean Corpuscular Volume 91.1 fl (80-100); Mean Platelet Volume 10.6 fl (7.4-10.4); Monocytes Absolute Auto 0.7 K/mm3 (0.1-0.6); Monocytes Percent Auto 8.2 % (2.6-8.5); Neutrophils Absolute Auto 5.1 K/mm3 (1.3-6.7); Neutrophils Percent Auto 63.2 % (45.5-73.1); Platelet Count Result 235 k/mm3 (150-375); Red Blood Count 3.92 M/mm3 (4.2-5.4); Red Cell Distribution Width 14.5 % (11.5-14.5); White Blood Count 8.1 K/mm3 (4.5-10.0)
[2022-01-23 07:33] LABS: Alanine Aminotransferase 20 U/L (6-35); Albumin Level 3.7 g/dL (3.5-5.1); Alkaline Phosphatase 51 U/L (38-126); Anion Gap 8 mmol/L (8-16); Aspartate Amino Transferase 23 U/L (14-36); Bilirubin,Total 0.2 mg/dL (0.2-1.3); Blood Urea Nitrogen 10 mg/dL (7-17); Calcium 8.9 mg/dL (8.4-10.2); Carbon Dioxide 28 mmol/L (22-30); Chloride 102 mmol/L (98-107); Estimated CRCL calculation 60 ml/min; Estimated Glomerular Filt Rate > 60; Glucose 90 mg/dL (65-110); Magnesium 2.1 mg/dL (1.6-2.3); Potassium 4.2 mmol/L (3.4-5.0); Sodium 138 mmol/L (137-145)
[2022-01-23] MEDS: ACIDOPHILUS/BULGARICUS CHEWABLE TABLET 1 TABLET PO (08:34)
[2022-01-23] MEDS: DICYCLOMINE HCL 10 MG CAPSULE 20 MG PO (08:35)
[2022-01-23] MEDS: MAGNESIUM OXIDE 400 MG TABLET PO (08:35)
--- NOTE | 2022-01-23 08:53 | PM.DS ---
DS: Admitting Diagnosis Discharge Date 01/23/2022 Admitting Diagnosis acute complicated urinary tract infection, interstitial cystitis, COPD, GERD DS: Discharge Diagnosis Discharge Diagnosis (1) Acute UTI: Code(s): N39.0 - Urinary tract infection, site not specified Status: Acute Assessment and Plan: Continue Cefepime 2G Q8 hrs. Cultures grew out E.coli which is likely from the GI tract in the setting of her IBS. It is sensitive to Augmentin, and she will be discharged home on it today. Will have her follow up with Dr. Garcia as outpatient. (2) Irritable bowel syndrome: Code(s): K58.9 - Irritable bowel syndrome without diarrhea Status: Acute Assessment and Plan: Acute on chronic Good BM control with Bentyl and decreased cramping. Pt. had no BM's after starting the Bentyl yesterday. Gastric Pathogen Panel pending. Suspect GI waste was the likely cause for this UTI of E. coli. Will have pt. follow up with GI as outpatient for optimal IBS control and will send her home on Bentyl. (3) Interstitial cystitis: Code(s): N30.10 - Interstitial cystitis (chronic) without hematuria Status: Chronic Assessment and Plan: Chronic Continue to monitor. Will have pt follow up with Dr. Garcia. (4) COPD (chronic obstructive pulmonary disease): Code(s): J44.9 - Chronic obstructive pulmonary disease, unspecified Status: Chronic Assessment and Plan: Not in acute exacerbation (5) GERD (gastroesophageal reflux disease): Code(s): K21.9 - Gastro-esophageal reflux disease without esophagitis Status: Chronic Assessment and Plan: PPI therapy if needed for symptoms. Consider H2 antagonist. DS: Summary Hospital Course Reason for hospitalization: Pain with Urination Hospital Course: this very pleasant 71-year-old female patient with significant past medical history of interstitial cystitis, irritable bowel syndrome and recurrent urinary tract infections was admitted in hospital on January 21, 2022 after presenting with once again having burning with urination. Patient has had multiple UTIs recently each with different bacterial causation is. Workup in the emergency room demonstrated an acute UTI and patient was admitted for IV antibiotics. She has been receiving cefepime every 8 hours while here. her urine culture grew out E coli which is sensitive to Augmentin she will be sent home on not today. In the interim time patient heads had frequent bowel movements. They are not diarrhea or runny but instead they are soft and multiple that is worse after eating. Patient endorses that she has been told before that she has IBS and that many years ago Bentyl use to help her. She is not sure why she quit using the Bentyl years ago. It was re-initiated yesterday at 20 mg b.i.d. and patient has not had a bowel movement now in almost 24 hours. As she has been having these issues with her bowels for some time I suspect that her recurrent urinary tract infections have a certain degree of connection to irritable bowel and frequent bowel movements. She will be referred to GI services as an outpatient follow-up and we also ask that she follow-up with her urologist, Dr. Garcia and her primary care physician. Her inpatient hospitalization has otherwise been benign and uncomplicated. Vital signs are stable the day of discharge. Status at Discharge Functional status at discharge: independent ambulation Overall status at discharge: patient is back to baseline Time Spent with Patient Time attestation: Total time spent providing and/or coordinating discharge services: Time spent: Greater than 30 minutes Specific discharge activities: Discharge medications, discharge follow-up, lab data and physiology of irritable bowel syndrome and interstitial cystitis Exam Const: General: uncomfortable HENMT: Mouth: Yes moist mucous membranes Eyes: General: appearanc
[2022-01-23] MEDS: FLUTICASONE/SALMETEROL 115-21 MCG INHALER 1 PUFF 2 PUFF INHALATION (09:22)
[2022-01-23 09:25] VITALS: O2SAT 97
== END 2022-01-23 12:20 | disposition home or self-care (01) ==
LOC: ANHED 01-21 01:31 → ANH3MEDSUR 01-21 03:54
PROVIDERS: Emergency Medicine; Nurse Practitioner Adult Health; Physician Assistant; Admitting Provider Internal Medicine; Emergency Provider Emergency Medicine; PCP Family Medicine; Visit Provider Internal Medicine
DX: N39.0 Urinary tract infection, site not specified (principal); K21.9 Gastro-esophageal reflux disease without esophagitis; E78.5 Hyperlipidemia, unspecified; J44.9 Chronic obstructive pulmonary disease, unspecified; K58.9 Irritable bowel syndrome, unspecified; Z20.822 Contact with and (suspected) exposure to COVID-19
CPT/HCPCS: 36415; 80053; 81001; 83735; 85025; 87040; 87045; 87427; 94640; 96365; 96366; 99285; A9270; C9803; G0378; J0692; J7030; U0003; U0005

== ENCOUNTER 2022-03-11 11:24 | Emergency (ER) | payer MEDICARE, SELFPAY ==
[2022-03-11 11:28] VITALS: BP 109/86; PULSE 97; RESP 16; TEMP 37.3; O2SAT 98
--- NOTE | 2022-03-11 12:26 | ED.FEMALEGU ---
HPI - Female Genitourinary General Chief complaint: Urogenital-Female Stated complaint: UTI SYMPTOMS Time Seen by Provider: 03/11/22 12:27 Source: patient and RN notes reviewed Mode of arrival: ambulatory Limitations: no limitations History of Present Illness HPI Narrative: 71-year-old female with a history of interstitial cystitis presented for complaint of burning with urination since yesterday. Reports suprapubic pain at all times, worse when urinating. She endorses she has had IC for over 28 years, this is how symptoms present when she gets UTI. She is followed by urologist Dr. Garcia. Taking AZO and probiotic. Patient has a pain pump and Interstim for her symptoms. Endorses when her 'body shuts down' she gets UTIs. States she has been caring for her who had [place] 2 weeks ago. Denies flank pain, hematuria, nausea, vomiting, fevers or chills. Related Data Home Medications Medication Instructions Recorded Confirmed Lactobacillus 1 cap PO DAILY 01/20/22 02/14/22 acidophilus-Bifidobac.animalis 2.5 billion cell capsule (Daily Probiotic) calcium carb-ergocalciferol (vit 1 tablet PO DAILY 01/20/22 02/14/22 D2) 600 mg calcium-200 unit tablet denosumab 60 mg/mL subcutaneous 60 mg subcut [id number] 01/20/22 02/14/22 syringe (Prolia) fluticasone 250 mcg-salmeterol 50 1 inh inhalation Q12H 01/20/22 02/14/22 mcg/dose blistr powdr for inhalation (Wixela Inhub) magnesium oxide 400 mg PO DAILY 01/20/22 02/14/22 pumpkin seed extract-soy germ 300 1 cap PO DAILY 01/20/22 02/14/22 mg capsule (Azo Bladder Control) amitriptyline 75 mg tablet 75 mg PO HS 01/21/22 02/14/22 nitrofurantoin macrocrystal 100 mg 100 mg PO BID 02/14/22 02/14/22 capsule Allergies Allergy/AdvReac Type Severity Reaction Status Date / Time iodine Allergy Severe Hives Verified 02/14/22 13:40 povidone Allergy Severe Hives Verified 02/14/22 13:40 adhesive tape Allergy Intermediate Rash Verified 02/14/22 13:40 ciprofloxacin Allergy Intermediate Hives Verified 02/14/22 13:40 soap Allergy Intermediate Hives Verified 02/14/22 13:40 sulfamethoxazole Allergy Swelling Verified 02/14/22 13:40 [From Bactrim] of Lip/Tongue/Throat trimethoprim [From Bactrim] Allergy Swelling Verified 02/14/22 13:40 of Lip/Tongue/Throat enoxaparin [From Lovenox] AdvReac Intermediate Cramping Verified 02/14/22 13:40 of the Muscles Contrast Media Allergy Severe RASH AND Uncoded 02/14/22 13:40 ANAPHYLAXIS IOBAN DRAPE FOR SURGERY Allergy Severe HIVES Uncoded 02/14/22 13:40 Review of Systems Review of Systems: CONSTITUTIONAL: Denies body aches, fever, chills, or sweats. CARDIOVASCULAR: Denies chest pain, palpitations, or edema. RESPIRATORY: Denies cough or dyspnea. GASTROINTESTINAL: Denies abdominal pain, nausea, vomiting, or diarrhea. GENITOURINARY: per HPI SKIN: Denies rash, itching, or wounds. MUSCULOSKELETAL: Denies back pain or myalgia. [facility] Past Medical History Medical History Anxiety Arthritis Cataracts, bilateral COPD (chronic obstructive pulmonary disease) Cystitis DDD (degenerative disc disease) GERD (gastroesophageal reflux disease) Goiter Hyperlipidemia IBS (irritable bowel syndrome) Osteoporosis Ovarian cyst Pneumonia Post-menopausal Seasonal allergies Shingles Thyroid cyst UTI (urinary tract infection) Surgical History Surgical History History of appendectomy History of bladder surgery History of cataract surgery History of cholecystectomy History of colonoscopy History of hysterectomy History of removal of cyst Family History Family History Grandparent Carcinoma of colon Diabetes mellitus Father Family history of lung cancer Mother Family history of coronary artery disease Social History Social History (Reviewed
== END 2022-03-11 12:47 | disposition home or self-care (01) ==
PROVIDERS: Emergency Provider Nurse Practitioner Family; PCP Family Medicine
DX: N30.00 Acute cystitis without hematuria (principal); M19.90 Unspecified osteoarthritis, unspecified site; J44.9 Chronic obstructive pulmonary disease, unspecified; K21.9 Gastro-esophageal reflux disease without esophagitis; E04.9 Nontoxic goiter, unspecified; E78.5 Hyperlipidemia, unspecified; M81.0 Age-related osteoporosis without current pathological fracture
CPT/HCPCS: 81003; 87086; 87088; 99213; G0463

== ENCOUNTER 2022-05-31 03:55 | Emergency (ER) | payer MEDICARE, SELFPAY ==
[2022-05-31] VITALS (37 sets, daily range): BP systolic 129–159; BP diastolic 55–88; PULSE 75–93; RESP 9–22; TEMP 36.7–36.9; O2SAT 95–100
--- NOTE | ~2022-05-31 | CT_ITS ---
Non-contrast CT scan of the Abdomen and Pelvis Clinical indication: Abdominal pain Technique: 2.5 mm axial scans were obtained through the abdomen and pelvis without intravenous or or al contrast. Dose reduction technique was used on this scan by utilizing automated exposure control a nd iterative reconstruction technique. The dose-length product (DLP) was 329.24 mGy-cm. COMPARISON: 09/28/2020 Findings: Images through the lung bases reveal probable nodular right basilar scarring or atelectasi s. Small hiatal hernia noted. The liver, spleen, kidneys, and adrenals appear normal. Fatty atrophy of the pancreas noted. Cholecys tectomy clips present. There is no aortic aneurysm. There is no evidence of bowel obstruction. Images through the pelvis were performed. There is no evidence of ascites or lymphadenopathy. Urinary bladder unremarkable. No pelvic mass seen. Bilateral L5 pars interarticularis defects are present, w ith 7 mm anterolisthesis of L5 over S1. Impression: Probable nodular scarring or atelectasis right lung base. True pulmonary nodules or pneumonia felt to be less likely. No acute abnormality seen in the abdomen or pelvis otherwise. Chronic L5 pars interarticularis defects, with 7 mm anterolisthesis of L5 over S1. Reviewed, dictated and finalized at [facility]. RD SYSTEMS ANALYST Impression: Probable nodular scarring or atelectasis right lung base. True pulmonary nodule s or pneumonia felt to be less likely. No acute abnormality seen in the abdomen or pelvis otherwise. Chronic L5 pars interarticularis defects, with 7 mm anterolisthesis of L5 over S1.
--- NOTE | 2022-05-31 04:26 | ECG_ITS ---
Measurements Intervals [facility] Rate: 82 P: 33 MN: 215 QRS: 60 QRSD: 89 T: 48 QT: 362 QTc: 424 Interpretive Statements SINUS RHYTHM WITH SINUS ARRHYTHMIA BORDERLINE AV CONDUCTION DELAY BORDERLINE ECG COMPARED TO ECG 10/09/2019 09:34:49 SINUS ARRHYTHMIA NOW PRESENT Electronically Signed On 05-31-2022 6:44:04 [employer] by Iam Yen D.O.
--- NOTE | 2022-05-31 04:29 | ED.GENADULT ---
HPI - General Adult General Chief complaint: Anxiety <Annalee Rosario MD - Last Filed: 05/31/22 15:57> Stated complaint: panic attack <Annalee Rosario MD - Last Filed: 05/31/22 15:57> Time Seen by Provider: 05/31/22 04:19 <Annalee Rosario MD - Last Filed: 05/31/22 15:57> Source: patient and RN notes reviewed <Annalee Rosario MD - Last Filed: 05/31/22 15:57> Mode of arrival: ambulatory <Annalee Rosario MD - Last Filed: 05/31/22 15:57> Limitations: no limitations <Annalee Rosario MD - Last Filed: 05/31/22 15:57> History of Present Illness HPI narrative: This is a 72 year old female with history of insomnia, interstitial cystitis who presents for evaluation of panic attack. She states since 9 pm she has felt like she is burning all over. She also reports metallic taste in her mouth, mouth dryness and lower abdominal pain. She states her abdominal is similar to the bladder spasms she has with her interstitial cystitis. She is also reports soft stools. She denies vomiting, fever or chills. She finished antibiotics recently for possible bladder infection. She also reports she is anxious and she has been having hard time dealing with her 's . He in March 2022. <Annalee Rosario MD - Last Filed: 05/31/22 15:57> Related Data Home medications: Home Medications Medication Instructions Recorded Confirmed Lactobacillus 1 cap PO DAILY 01/20/22 04/19/22 acidophilus-Bifidobac.animalis 2.5 billion cell capsule (Daily Probiotic) calcium carb-ergocalciferol (vit 1 tablet PO DAILY 01/20/22 04/19/22 D2) 600 mg calcium-200 unit tablet denosumab 60 mg/mL subcutaneous 60 mg subcut [id number] 01/20/22 04/19/22 syringe (Prolia) fluticasone 250 mcg-salmeterol 50 1 inh inhalation Q12H 01/20/22 04/19/22 mcg/dose blistr powdr for inhalation (Wixela Inhub) magnesium oxide 400 mg PO DAILY 01/20/22 04/19/22 pumpkin seed extract-soy germ 300 1 cap PO DAILY 01/20/22 04/19/22 mg capsule (Azo Bladder Control) nitrofurantoin macrocrystal 100 mg 100 mg PO BID 02/14/22 04/19/22 capsule nitrofurantoin 100 mg PO Q12H 03/14/22 04/19/22 monohydrate/macrocrystals 100 mg capsule <Annalee Rosario MD - Last Filed: 05/31/22 15:57> Allergies/adverse reactions: Allergies Allergy/AdvReac Type Severity Reaction Status Date / Time iodine Allergy Severe Hives Verified 04/19/22 13:06 povidone Allergy Severe Hives Verified 04/19/22 13:06 adhesive tape Allergy Intermediate Rash Verified 04/19/22 13:06 ciprofloxacin Allergy Intermediate Hives Verified 04/19/22 13:06 soap Allergy Intermediate Hives Verified 04/19/22 13:06 sulfamethoxazole Allergy Swelling Verified 04/19/22 13:06 [From Bactrim] of Lip/Tongue/Throat trimethoprim [From Bactrim] Allergy Swelling Verified 04/19/22 13:06 of Lip/Tongue/Throat enoxaparin [From Lovenox] AdvReac Intermediate Cramping Verified 04/19/22 13:06 of the Muscles Contrast Media Allergy Severe RASH AND Uncoded 04/19/22 13:06 ANAPHYLAXIS IOBAN DRAPE FOR SURGERY Allergy Severe HIVES Uncoded 04/19/22 13:06 <Annalee Rosario MD - Last Filed: 05/31/22 15:57> Review of Systems Constitutional: Constitutional: Denies weakness <Annalee Rosario MD - Last Filed: 05/31/22 15:57> Cardiovascular: Cardiovascular: Denies syncope, Denies rapid heart rate, Denies irregular heart rhythm, Denies leg edema and Denies dyspnea <Annalee Roasrio MD - Last Filed: 05/31/22 15:57> Respiratory: Respiratory: Denies chest congestion, Denies hemoptysis, Denies excessive phlegm production and Denies dyspnea <Annalee Rosario MD - Last Filed: 05/31/22 15:57> Gastrointestinal: Gastrointestinal: Reports abdominal pain, Denies hematochezia, Reports diarrhea and Denies vomiting <Annalee Rosario MD - Last Filed: 05/31/22 15:57> Genitourinary: Genitourinary: Denies hematuria and Denies dysuria <Annalee Rosario
[2022-05-31] MEDS: SODIUM CHLORIDE 0.9% IV 1,000 ML 999 ML IV CONT (04:52)
[2022-05-31 05:00] LABS: Basophils Percent Auto 0.4 % (0.2-1.2); Eosinophils Absolute Auto 0.1 K/mm3 (0-0.3); Eosinophils Percent Auto 0.6 % (0-4.4); Hematocrit 37.9 % (37.0-47.0); Hemoglobin 11.6 g/dL (12.0-15.0); Immature Granulocyte Absolute 0.03 K/mm3 (0.00-0.031); Immature Granulocyte Percent A 0.3 % (0-0.5); Immature Platelet Fraction Pct 5.1 % (0.9-11.2); Lymphocytes Absolute Auto 1.31 K/mm3 (0.9-3.2); Lymphocytes Percent Auto 13.3 % (18.3-44.2); Mean Corpuscular HGB Conc 30.6 g/dl (32-36); Mean Corpuscular Hemoglobin 27.6 pg (26-34); Mean Platelet Volume 11.1 fl (7.4-10.4); Monocytes Absolute Auto 0.6 K/mm3 (0.1-0.6); Neutrophils Absolute Auto 7.8 K/mm3 (1.3-6.7); Neutrophils Percent Auto 79.4 % (45.5-73.1); Platelet Count Result 289 k/mm3 (150-375); Red Blood Count 4.21 M/mm3 (4.2-5.4); Red Cell Distribution Width 14.7 % (11.5-14.5); White Blood Count 9.9 K/mm3 (4.5-10.0)
[2022-05-31 05:07] LABS: Alanine Aminotransferase 20 U/L (6-35); Albumin Level 4.4 g/dL (3.5-5.1); Alkaline Phosphatase 61 U/L (38-126); Anion Gap 6 mmol/L (8-16); Aspartate Amino Transferase 28 U/L (14-36); Bilirubin,Total 0.4 mg/dL (0.2-1.3); Blood Urea Nitrogen 13 mg/dL (7-17); Calcium 9.3 mg/dL (8.4-10.2); Carbon Dioxide 28 mmol/L (22-30); Chloride 107 mmol/L (98-107); Estimated CRCL calculation 60 ml/min; Estimated Glomerular Filt Rate > 60; Glucose 136 mg/dL (65-110); Lipase 19 U/L (23-300); Potassium 4.2 mmol/L (3.4-5.0); Sodium 141 mmol/L (137-145)
[2022-05-31 05:50] LABS: SARS-CoV-2 RNA PCR Negative
[2022-05-31 05:56] LABS: Appearance Urine Clear (Clear); Bilirubin Urine Negative (Negative); Blood Urine Negative (Negative); Color Urine Yellow (Yellow); Glucose Urine UA Negative (Negative); Ketones Urine Negative (Negative); Leukocyte Esterase Ur Negative LEU/UL (Negative); Nitrate Urine Negative (Negative); Protein Urine Negative (Negative); Specific Grav Ur 1.006 (1.001-1.035); Urobilinogen Urine 0.2 mg/dL (<2.0); pH Urine 8.5 (5.0-9.0)
[2022-05-31 06:04] LABS: Add Urine Microscopic? NO
--- NOTE | 2022-05-31 07:16 | PC.NURSE ---
Pt resting comfortably upon shift change. pt was sitting in bed with a visitor at bedside and on the phone. pt has no needs at this time. i helped pt back into bed to become more comfortable, gave blankets and an ice pack per request. pt is tearful and states needing support to get through this hard time after losing her .
[2022-05-31] MEDS: LORazepam (*CRX) 0.5 MG TABLET PO (07:37)
[2022-05-31 07:43] LABS: Troponin I < 0.012 ng/mL (0.000-0.034)
[2022-05-31 08:01] LABS: Ethanol < 10 mg/dL (<10)
[2022-05-31 08:13] LABS: Troponin I < 0.012 ng/mL (0.000-0.034)
[2022-05-31] MEDS: HYOSCYAMINE SULFATE 0.0625 MG TABLET PO (08:14)
[2022-05-31 08:46] LABS: Thyroid Stimulating Hormone Reflex 0.432 uIU/mL (0.465-4.68)
--- NOTE | 2022-05-31 08:52 | PC.NURSE ---
Pt given resources and verbalized understanding to care staff that seen her. pt family updated on this information and resources as well. per family pt will have daughter, friends, and family at home for more additional support until patient feels comfortable again. pt is very tired and is attempting to finally sleep at this time and is feeling better after medications (see MAR).
--- NOTE | 2022-05-31 09:06 | PC.NURSE ---
Pt has drank at least 24oz of water since i have met her this morning. pt now stating she feels as she cant swallow anything but her drinks. pt stating she is concerned, is very antsy in bed and restless. She will doze off for approx. 15 minutes at a time. erp made aware of pt concerns of swallowing.
--- NOTE | 2022-05-31 10:01 | PC.NURSE ---
Pt has ambulated to and from restroom with myself as a standby assist. pt feels somewhat wobbly she states. pt states its been days since she has slept, and no that her anxiety is gone she states she feels exhausted. visitor at bedside states her daughter will be here soon and her daughter is staying with patient, and that they can get her home safely to rest. erp spoke with pt at bedside where states feel is the best option for pt and went over testing and that there were not critical findings for this visit.
[2022-05-31 10:17] LABS: Free T4 Free Thyroxine Reflex 1.06 ng/dL (0.78-2.19)
[2022-05-31 11:06] LABS: Total Triiodothyronine (T3) 1.07 NG/ML (0.97-1.69)
== END 2022-05-31 11:58 | disposition home or self-care (01) ==
PROVIDERS: Emergency Provider General Practice; PCP Family Medicine
DX: F41.9 Anxiety disorder, unspecified (principal); J44.9 Chronic obstructive pulmonary disease, unspecified; E78.5 Hyperlipidemia, unspecified; K21.9 Gastro-esophageal reflux disease without esophagitis; M81.0 Age-related osteoporosis without current pathological fracture; Z20.822 Contact with and (suspected) exposure to COVID-19; Z79.899 Other long term (current) drug therapy
CPT/HCPCS: 36415; 74176; 80053; 80307; 81003; 83690; 84439; 84443; 84480; 84484; 85025; 85055; 93005; 96361; 96365; 99284; A9270; J0131; J7030; U0003; U0005

== ENCOUNTER 2022-05-31 22:32 | Emergency (ER) | payer MEDICARE, SELFPAY ==
[2022-05-31 22:37] VITALS: BP 115/83; PULSE 82; RESP 16; TEMP 36.9; O2SAT 100
--- NOTE | 2022-06-01 04:11 | PC.NURSE ---
patient states wait is too long and left
== END 2022-06-01 04:31 | disposition left against medical advice (07) ==
PROVIDERS: PCP Family Medicine
DX: Z53.21 Procedure and treatment not carried out due to patient leaving prior to being seen by health care provider (principal)
CPT/HCPCS: 99199

== ENCOUNTER 2022-06-01 13:53 | Outpatient (CLI) | payer MEDICARE, SELFPAY ==
--- NOTE | ~2022-06-01 | CT_ITS ---
EXAMINATION: CT brain wo con DATE: 06/01/2022 14:14 INDICATION: Mental status change. TECHNIQUE: Computed tomography (CT) of the head was performed without intravenous contrast. The mA wa s adjusted according to patient size. Iterative reconstruction technique was employed. The dose-lengt h product was 681.00 mGy-cm. COMPARISON: Head CT 11/21/2012 FINDINGS: There is no intracranial hemorrhage, acute infarction, or abnormal intracranial mass lesion . There are scattered areas of low attenuation in the cerebral white matter, which is within normal l imits for the patient's age. The ventricles are normal in size. There is mild mucosal thickening in t he paranasal sinuses. The cataracts are normal. The mastoid air cells are normal. IMPRESSION: 1. Mild nonspecific cerebral white matter disease, which likely represents chronic small vessel ische xenia disease. Reviewed, dictated and finalized at location A. TANCE ABUSE COUNSELOR IMPRESSION: 1. Mild nonspecific cerebral white matter disease, which likely represents disease case manager rn sandi small vessel ischemic disease.
== END 2022-06-01 13:54 | disposition home or self-care (01) ==
PROVIDERS: PCP Family Medicine; Visit Provider Family Medicine
DX: R41.82 Altered mental status, unspecified (principal); R90.82 White matter disease, unspecified
CPT/HCPCS: 70450

== ENCOUNTER 2022-10-12 16:20 | Emergency (ER) | payer MEDICARE, SELFPAY ==
[2022-10-12 16:29] VITALS: BP 120/57; PULSE 75; RESP 16; TEMP 37.1; O2SAT 100
--- NOTE | 2022-10-12 16:38 | ED.FEMALEGU ---
HPI - Female Genitourinary General Chief complaint: Urogenital-Female Stated complaint: Frequency, urgency, burning during urination Source: patient and RN notes reviewed Mode of arrival: ambulatory Limitations: no limitations History of Present Illness HPI Narrative: 72 y/o female with hx interstitial cystitis (InterStim in place) presented for concern for UTI. Endorses burning with urination, low abdominal pressure, frequency and urgency since yesterday. Patient follows with urologist Dr Lopez. Takes daily Azo probiotic and additional probiotic for IBS. Denies n/v/d/f/c, hematuria, or flank pain. Related Data Home Medications Medication Instructions Recorded Confirmed Lactobacillus 1 cap PO DAILY 01/20/22 10/12/22 acidophilus-Bifidobac.animalis 2.5 billion cell capsule (Daily Probiotic) calcium carb-ergocalciferol (vit 1 tablet PO DAILY 01/20/22 10/12/22 D2) 600 mg calcium-200 unit tablet fluticasone 250 mcg-salmeterol 50 1 inh inhalation Q12H 01/20/22 10/12/22 mcg/dose blistr powdr for inhalation (Wixela Inhub) magnesium oxide 400 mg PO DAILY 01/20/22 10/12/22 pumpkin seed extract-soy germ 300 1 cap PO DAILY 01/20/22 10/12/22 mg capsule (Azo Bladder Control) gabapentin 300 mg capsule 300 mg PO TID 10/12/22 10/12/22 sertraline 100 mg tablet 100 mg PO DAILY 10/12/22 10/12/22 trazodone 50 mg tablet 50 mg PO HS 10/12/22 10/12/22 vitamin B complex 2 tablet PO DAILY 10/12/22 10/12/22 Allergies Allergy/AdvReac Type Severity Reaction Status Date / Time iodine Allergy Severe Hives Verified 10/12/22 16:39 povidone Allergy Severe Hives Verified 10/12/22 16:39 adhesive tape Allergy Intermediate Rash Verified 10/12/22 16:39 ciprofloxacin Allergy Intermediate Hives Verified 10/12/22 16:39 soap Allergy Intermediate Hives Verified 10/12/22 16:39 sulfamethoxazole Allergy Swelling Verified 10/12/22 16:39 [From Bactrim] of Lip/Tongue/Throat trimethoprim [From Bactrim] Allergy Swelling Verified 10/12/22 16:39 of Lip/Tongue/Throat enoxaparin [From Lovenox] AdvReac Intermediate Cramping Verified 10/12/22 16:39 of the Muscles Contrast Media Allergy Severe RASH AND Uncoded 10/12/22 16:39 ANAPHYLAXIS IOBAN DRAPE FOR SURGERY Allergy Severe HIVES Uncoded 10/12/22 16:39 Review of Systems Review of Systems: CONSTITUTIONAL: Denies body aches, fever, chills, or sweats. CARDIOVASCULAR: Denies chest pain, palpitations, or edema. RESPIRATORY: Denies cough or dyspnea. GASTROINTESTINAL: Denies abdominal pain, nausea, vomiting, or diarrhea. GENITOURINARY: Reports dysuria, frequency, urgency, denies hematuria, flank pain SKIN: Denies rash, itching, or wounds. MUSCULOSKELETAL: Denies back pain or myalgia. [facility] Past Medical History Medical History Anxiety Arthritis Cataracts, bilateral COPD (chronic obstructive pulmonary disease) Cystitis DDD (degenerative disc disease) GERD (gastroesophageal reflux disease) Goiter Hyperlipidemia IBS (irritable bowel syndrome) Osteoporosis Ovarian cyst Pneumonia Post-menopausal Seasonal allergies Shingles Thyroid cyst UTI (urinary tract infection) Surgical History Surgical History History of appendectomy History of bladder surgery History of cataract surgery History of cholecystectomy History of colonoscopy History of hysterectomy History of removal of cyst Family History Family History Grandparent Carcinoma of colon Diabetes mellitus Father Family history of lung cancer Mother Family history of coronary artery disease Social History Social History Smoking status: Never smoker Second hand tobacco smoke exposure: No Alcohol intake: never Substance use: never Substance use type: does not use
== END 2022-10-12 17:03 | disposition home or self-care (01) ==
PROVIDERS: Emergency Provider Nurse Practitioner Family; PCP Hospitalist
DX: R30.0 Dysuria (principal); M19.90 Unspecified osteoarthritis, unspecified site; J44.9 Chronic obstructive pulmonary disease, unspecified; K21.9 Gastro-esophageal reflux disease without esophagitis; E04.9 Nontoxic goiter, unspecified; E78.5 Hyperlipidemia, unspecified; M81.0 Age-related osteoporosis without current pathological fracture; F41.9 Anxiety disorder, unspecified
CPT/HCPCS: 81003; 87077; 87086; 87186; 99213; G0463

== ENCOUNTER → 2023-04-17 15:23 | Outpatient (CLI) | payer MEDICARE, SELFPAY ==
--- NOTE | ~2023-04-17 | XR_ITS ---
XR shoulder RT min 2V DATE: 04/17/2023 15:48 INDICATION: Right shoulder chronic pain TECHNIQUE: 4 views of right shoulder COMPARISON: None FINDINGS: Osteopenia. There is joint space narrowing and mild spurring at the right acromioclavicular joint. There is minimal periarticular spurring of the glenoid at the right glenohumeral joint. No fracture or dislocation, periosteal reaction or bone destruction or abnormal soft tissue calcifica tion of the right shoulder. IMPRESSION: Mild degenerative changes Osteopenia Reviewed, dictated and finalized at location L. ICAL METHODS ANALYST
== END ==
PROVIDERS: PCP Family Medicine; Visit Provider Family Medicine
DX: M85.811 Other specified disorders of bone density and structure, right shoulder (principal)
CPT/HCPCS: 73030

== ENCOUNTER 2023-06-27 14:00 | Outpatient (RCR) | payer MEDICARE, SELFPAY ==
[2023-05-02 09:59] VITALS: BP_SYST 86
--- NOTE | 2023-05-02 16:52 | OPREHPOC ---
Outpatient Therapy Plan of Care This is a Multidisciplinary Plan of Care that may contain components documented by all disciplines (PT, OT, and ST.) PT Problem 1 PT Problem #1 Knowledge Deficit PT Goal 1 Goal Pt to be IND with issued HEP Target Visit 8 PT Problem 2 PT Problem #2 Pain PT Goal 1 Goal Pt to report 75% improvement in overall symptoms. Target Visit 8 PT Goal 2 Goal Pt to report pain no greater than 3/10 in the last week. Target Visit 8 PT Problem 3 PT Problem #3 Impaired Range of Motion PT Goal 1 Goal Pt to improve active shoulder flexion ROM to 120 deg Target Visit 8 PT Goal 2 Goal Pt to improve active shoulder abduction ROM to 120 deg Target Visit 8 PT Problem 4 PT Problem #4 Impaired Functional Mobil PT Goal 1 Goal Pt to be able to get dressed and do hair without an increase in shoulder pain Target Visit 8 PT Goal 2 Goal Pt to improve UEFI score from 37/80 to 55/80 Target Visit 8
--- NOTE | 2023-05-02 16:52 | PTOPEVAL1 ---
Assessment and note entered by Karen Rebolledo, PT, DPT Evaluation Information Assessment Status Evaluation Diagnosis R shoulder pain Onset 1 year Subjective Information Pt reports R shoulder pain that is sore all the time, it increases with getting dressed, making breakfast, writing, and doing daily chores. 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 Reported Pain Level Pain Score 8: Self Report Assessment PT Clinical Summary Felicia presents to therapy today for her initial evaluation with a diagnosis of R shoulder pain. Today she demonstrates poor posture including increased thoracic kyphosis, forward and rounded shoulders, increased cervical lordosis, and scapular winging. She demonstrates decreased active and passive shoulder ROM on her R side when compared to the L and strength is limited by pain . She reports decreased functional mobility from her baseline. Skilled therapy services are indicated to address the deficits noted above, to manage pain, to improve posture, to improve movement mechanics, and to return to PLOF. Plan of Care Interventions Electrical Stimulation,Gait Training,Hot Pack/Cold Pack,Manual Therapy,Neuro Re-education,Patient/ Caregiver Educati,Therapeutic Activities, Therapeutic Exercise PT Services Indicated Yes Treatment Frequency and 2x/wk for 8 visits Duration These treatments will address the objective and functional deficits as defined above. The patient will be advanced safely and appropriately in order for the patient to progress towards his/her prior level of function. Additional exercises will be introduced and as well as a comprehensive home exercise program upon discharge, if needed, ?to ensure carryover of functional gains achieved in the clinic. This treatment plan has been reviewed and agreement upon by the patient.
--- NOTE | 2023-05-15 12:29 | PCPTNOTE ---
Patient called to cancel due to illness.
--- NOTE | 2023-05-17 12:22 | PCPTNOTE ---
Patient called to cancel due to illness.
--- NOTE | 2023-06-06 12:33 | PCPTNOTE ---
Patient called to cancel due to illness.
[2023-06-14 14:13] VITALS: BP_SYST 86
--- NOTE | 2023-06-14 15:12 | PTOPPROG ---
Assessment and note entered by Karen Rebolledo, PT, DPT Evaluation Information Assessment Status Progress Diagnosis R shoulder pain Onset 1 year Subjective Information Pt states her shoulder was doing pretty well up until she got the flu last week, she was not doing her exercises as much. She states since then it feel more stiff. She states she was able to do a bunch of yard work yesterday. Assessment PT Clinical Summary Felicia presents to therapy today for her progress report following 7 visits of skilled therapy to treat her diagnosis of R shoulder pain. Today she demonstrates improved body and postural awareness. Her R shoulder active ROM is progressing towards her L shoulder motion. Her strength continues to be limited alyssa, especially overhead. Continuation of skilled therapy services are indicated to address the deficits noted above, to manage pain, to improve posture, to improve movement mechanics, and to return to PLOF. Plan of Care Interventions Electrical Stimulation,Gait Training,Hot Pack/Cold Pack,Manual Therapy,Neuro Re-education,Patient/ Caregiver Educati,Therapeutic Activities, Therapeutic Exercise PT Services Indicated Yes Treatment Frequency and 1x/wk for 6 visits Duration These treatments will address the objective and functional deficits as defined above. The patient will be advanced safely and appropriately in order for the patient to progress towards his/her prior level of function. Additional exercises will be introduced and as well as a comprehensive home exercise program upon discharge, if needed, ?to ensure carryover of functional gains achieved in the clinic. This treatment plan has been reviewed and agreement upon by the patient.
--- NOTE | 2023-07-04 15:29 | PCPTNOTE ---
Patient called to cancel remaining appointments due to wanting to get imaging done. Patient asked to be put on hold.
--- NOTE | 2023-07-30 15:27 | PTOPDC ---
Assessment and note entered by Octavia Mcmillan, DPT Evaluation Information Assessment Status Discharge - Pt Not Present Diagnosis R shoulder pain Onset 1 year Subjective Information - Assessment PT Clinical Summary The patient reports she saw ortho today and has a RC tear, wants her to discontinue therapy at this time. Plan of Care PT Services Indicated No
== END 2023-07-30 15:46 | disposition home or self-care (01) ==
LOC: ANHGOSHPT 14:00
PROVIDERS: PCP Family Medicine; Visit Provider Nurse Practitioner Family
DX: M75.80 Other shoulder lesions, unspecified shoulder (principal); M19.019 Primary osteoarthritis, unspecified shoulder
CPT/HCPCS: 97014; 97110; 97140; 97161; 97530; G0283

== ENCOUNTER 2023-07-06 11:37 | Outpatient (CLI) | payer MEDICARE, SELFPAY ==
--- NOTE | ~2023-07-06 | CT_ITS ---
EXAMINATION: CT shoulder RT wo con DATE: 07/06/2023 11:52 INDICATION: Right shoulder pain. TECHNIQUE: Computed tomography (CT) of the right shoulder was performed without intravenous contrast. Automated exposure control and iterative reconstruction technique were employed. The dose-length pro duct was 245.42 mGy-cm. COMPARISON: Right shoulder radiographs 04/17/2023 FINDINGS: Bone alignment is normal. No fracture. There is severe osteoarthritis of the acromioclavicu lar joint and mild osteoarthritis of glenohumeral joint. IMPRESSION: 1. Polyarticular osteoarthritis. Reviewed, dictated and finalized at location A.
== END 2023-07-06 11:38 ==
LOC: MICIMG 11:38
PROVIDERS: PCP Nurse Practitioner Family; Visit Provider Nurse Practitioner Family
DX: M19.011 Primary osteoarthritis, right shoulder (principal)
CPT/HCPCS: 73200

== ENCOUNTER 2023-08-20 11:32 | Outpatient (CLI) | payer MEDICARE, SELFPAY ==
[2023-08-20 13:22] LABS: Basophils Percent Auto 0.6 % (0.2-1.2); Eosinophils Absolute Auto 0.1 K/mm3 (0-0.3); Eosinophils Percent Auto 2.1 % (0-4.4); Hematocrit 38.4 % (37.0-47.0); Hemoglobin 11.9 g/dL (12.0-15.0); Immature Granulocyte Absolute 0.02 K/mm3 (0.00-0.031); Immature Granulocyte Percent A 0.3 % (0-0.5); Lymphocytes Absolute Auto 1.24 K/mm3 (0.9-3.2); Lymphocytes Percent Auto 18.7 % (18.3-44.2); Mean Corpuscular Hemoglobin 29.4 pg (26-34); Mean Corpuscular Volume 94.8 fl (80-100); Mean Platelet Volume 12.1 fl (7.4-10.4); Monocytes Absolute Auto 0.5 K/mm3 (0.1-0.6); Monocytes Percent Auto 7.8 % (2.6-8.5); Neutrophils Absolute Auto 4.7 K/mm3 (1.3-6.7); Neutrophils Percent Auto 70.5 % (45.5-73.1); Platelet Count Result 237 k/mm3 (150-375); Red Blood Count 4.05 M/mm3 (4.2-5.4); Red Cell Distribution Width 13.6 % (11.5-14.5); White Blood Count 6.6 K/mm3 (4.5-10.0)
[2023-08-20 13:42] LABS: Anion Gap 6 mmol/L (4-12); Blood Urea Nitrogen 18 mg/dL (7-17); Calcium 9.4 mg/dL (8.4-10.2); Carbon Dioxide 29 mmol/L (22-30); Chloride 105 mmol/L (98-107); Estimated Glomerular Filt Rate > 60; Glucose 106 mg/dL (65-110); Potassium 4.2 mmol/L (3.4-5.0); Sodium 140 mmol/L (137-145)
[2023-08-20 15:45] LABS: Appearance Urine Clear (Clear); Bilirubin Urine Negative (Negative); Blood Urine Negative (Negative); Color Urine Yellow (Yellow); Glucose Urine UA Negative (Negative); Ketones Urine Negative (Negative); Leukocyte Esterase Ur 2+ LEU/UL (Negative); Nitrate Urine Negative (Negative); Protein Urine Negative (Negative); Specific Grav Ur 1.013 (1.001-1.035); Urobilinogen Urine 0.2 mg/dL (<2.0); pH Urine 5.5 (5.0-9.0)
[2023-08-20 16:08] LABS: RBC Urine 0-2 /hpf (0-2)
[2023-08-20 16:09] LABS: Squamous Epithelial Cell Urine Few /hpf (Few); WBC Urine 0-5 /hpf (0-3)
[2023-08-20 16:10] LABS: Bacteria Urine Trace /hpf
[2023-08-20 16:11] LABS: Add Urine Microscopic? YES; Amorphous Sediment Urine Few
== END 2023-08-20 11:33 | disposition home or self-care (01) ==
PROVIDERS: PCP Family Medicine; Visit Provider Anesthesiology Pain Medicine
DX: Z01.818 Encounter for other preprocedural examination (principal)
CPT/HCPCS: 36415; 80048; 81001; 85025

== ENCOUNTER 2023-10-30 08:05 | Outpatient (CLI) | payer MEDICARE, SELFPAY ==
[2023-10-30 18:47] LABS: Alanine Aminotransferase 23 U/L (6-35); Albumin Level 4.2 g/dL (3.5-5.1); Alkaline Phosphatase 71 U/L (38-126); Anion Gap 9 mmol/L (4-12); Aspartate Amino Transferase 29 U/L (14-36); Bilirubin,Total 0.4 mg/dL (0.2-1.3); Blood Urea Nitrogen 19 mg/dL (7-17); Calcium 8.9 mg/dL (8.4-10.2); Carbon Dioxide 27 mmol/L (22-30); Chloride 102 mmol/L (98-107); Cholesterol 210 mg/dL (0-200); Estimated Glomerular Filt Rate > 60; Glucose 113 mg/dL (65-110); HDL Direct 82 mg/dL; Potassium 4.5 mmol/L (3.4-5.0); Sodium 138 mmol/L (137-145); Triglycerides 124 mg/dL (<150)
[2023-10-30 18:58] LABS: LDL Cholesterol Direct 84 mg/dL
[2023-10-30 19:15] LABS: Hemoglobin A1C 6.5 % (<5.7)
[2023-10-30 19:17] LABS: Free T4 Free Thyroxine 0.94 ng/mL (0.78-2.19)
== END 2023-10-30 08:06 | disposition home or self-care (01) ==
PROVIDERS: PCP Family Medicine; Visit Provider Family Medicine
DX: E78.5 Hyperlipidemia, unspecified (principal); E03.9 Hypothyroidism, unspecified; R73.01 Impaired fasting glucose; Z13.220 Encounter for screening for lipoid disorders; Z13.228 Encounter for screening for other metabolic disorders
CPT/HCPCS: 36415; 80053; 80061; 83036; 84439; 84443

== ENCOUNTER 2023-11-08 08:29 | Outpatient (CLI) | payer MEDICARE, SELFPAY ==
--- NOTE | 2023-11-08 08:30 | ECHO_ITS ---
Patient Info Name: Felicia Mendieta Age: 73 years : 1950 Gender: Female Ht: 63 in Wt: 152 lbs BSA: 1.77 m2 HR: 98 bpm BP: 129 / 71 mmHg Technical Quality: Fair Exam Date: 11/08/2023 9:01 AM Exam Location: Echo Lab Patient Status: Outpatient Admit Date: 11/08/2023 Staff Ordering Physician: Rupert Elena DO Mechanical Drafter: Rupert Murphy RDCS Attending Provider: Rupert Elena DO Referring Physician: Kassy SANCHEZ; Exam Type: CA echo doppler color flow Study Info Indications R07.9 - Chest pain, unspecified Complete two-dimensional, color flow and Doppler transthoracic echocardiogram is performed. Summary 1. Complete two-dimensional, color flow and Doppler transthoracic echocardiogram is performed. 2. Left ventricular chamber dimension is normal. 3. Left ventricular systolic function is normal, estimated at 60-65%. 4. The left ventricular diastolic function is grade I diastolic dysfunction. 5. E/e' 5 is not elevated. 6. No pulmonary hypertension, estimated pulmonary arterial systolic pressure is 29 mmHg. Left Ventricle E/e' 5 is not elevated. Left ventricular chamber dimension is normal. Left ventricular systolic function is normal, estimated at 60-65%. The left ventricular diastolic function is grade I diastolic dysfunction. Right Ventricle Right ventricular chamber dimension is normal. Right ventricular systolic function is normal. Left Atria Left atrial chamber dimension is normal. Right Atria Right atrial chamber dimension is normal. Aortic Valve The aortic valve is trileaflet. There is no aortic valve stenosis. There is no aortic valve regurgitation. Pulmonic Valve There is no pulmonic regurgitation. Mitral Valve There is no mitral valve stenosis. There is no mitral valve regurgitation. Tricuspid Valve There is no tricuspid valve regurgitation. No pulmonary hypertension, estimated pulmonary arterial systolic pressure is 29 mmHg. Pericardium/Pleural There is no pericardial effusion. Inferior Vena Cava Normal inferior vena cava with >50% collapse upon inspiration consistent with normal right atrial pressure, 5 mmHg. Aorta The aortic root size at the sinus of Valsalva is normal. Left Ventricular Outflow Tract Name Value Normal LVOT 2D LVOT Diameter 1.9 cm LVOT Doppler LVOT Peak Gradient 7 mmHg LVOT Mean Gradient 4 mmHg LVOT VTI 23 cm LVOT VTI/AV VTI Ratio 1.0 LVOT Stroke Volume 65 ml LVOT CO 5.7 l/min LVOT CI 3.2 l/min/m2 Pulmonic Valve Name Value Normal PV Doppler PV Peak Gradient 2 mmHg Mitral Valve Name Value Normal
== END 2023-11-08 08:30 | disposition home or self-care (01) ==
PROVIDERS: PCP Family Medicine; Visit Provider Family Medicine
DX: R07.9 Chest pain, unspecified (principal)
CPT/HCPCS: 93306

== ENCOUNTER 2024-01-28 10:30 | Outpatient (RCR) | payer MEDICARE, SELFPAY | END 2024-01-30 14:14 | disposition home or self-care (01) | LOC: ANHDMC 10:30 | PROVIDERS: PCP Family Medicine; Visit Provider Family Medicine | DX: E11.9 Type 2 diabetes mellitus without complications (principal); Z71.89 Other specified counseling | CPT/HCPCS: G0108 ==

== ENCOUNTER 2024-04-03 09:25 | Emergency (ER) | payer MEDICARE, SELFPAY ==
--- NOTE | ~2024-04-03 | XR_ITS ---
EXAMINATION: XR chest 2V DATE: 04/03/2024 10:27 INDICATION: 5 days of cough and fatigue TECHNIQUE: PA and lateral views of the chest were obtained. COMPARISON: Chest radiograph dated 02/14/2021 FINDINGS: The lungs are clear with no focal airspace opacities, pulmonary edema, pleural effusion or pneumothor ax. The cardiomediastinal silhouette is normal. Old bilateral rib fractures. Cholecystectomy clips in the right upper quadrant. IMPRESSION: 1. No acute cardiopulmonary disease. Reviewed, dictated and finalized at location B. [facility] [employer]
[2024-04-03 09:39] VITALS: BP 111/64; PULSE 112; RESP 16; TEMP 36.8; O2SAT 100
--- NOTE | 2024-04-03 09:56 | ED.URI ---
HPI - URI/Sore Throat General Chief Complaint: Upper Respiratory Infection Stated Complaint: headaches and cough Time Seen by Provider: 04/03/24 10:12 Source: patient and RN notes reviewed Mode of arrival: ambulatory Limitations: no limitations History of Present Illness HPI Narrative: 73 y/o female with hx DM presented for c/o cough, nasal congestion, ear pressure and fatigue. Onset 5 days. Denies sob, wheezing, n/v/d/f/c. Taking Mucinex. MD elicited complaint: cough Related Data Home Medications ?Medication ?Instructions ?Recorded ?Confirmed ?Last Taken ?Type Lactobacillus 1 cap PO DAILY 01/20/22 12/28/23 Unknown History acidophilus-Bifidobac.animalis 2.5 billion cell capsule (Daily Probiotic) magnesium oxide 400 mg PO DAILY 01/20/22 12/28/23 Unknown History pumpkin seed extract-soy germ 300 1 cap PO DAILY 01/20/22 12/28/23 Unknown History mg capsule (Azo Bladder Control) sertraline 100 mg tablet 100 mg PO DAILY 10/12/22 12/28/23 Unknown History trazodone 50 mg tablet 50 mg PO HS 10/12/22 12/28/23 Unknown History vitamin B complex 2 tablet PO DAILY 10/12/22 12/28/23 Unknown History calcium 600 mg-D3 800 unit-mag11 1 tablet PO DAILY 04/17/23 12/28/23 Unknown History 50 jk-lltj-ivzmjk-randal-s.borat tablet duloxetine 30 mg capsule,delayed 30 mg PO .AM 10/18/23 12/28/23 Unknown History release duloxetine 60 mg capsule,delayed 60 mg PO QHS 10/18/23 12/28/23 Unknown History release Allergies Allergy/AdvReac Type Severity Reaction Status Date / Time iodine Allergy Severe Hives Verified 02/11/24 09:59 povidone Allergy Severe Hives Verified 02/11/24 09:59 adhesive tape Allergy Intermediate Rash Verified 02/11/24 09:59 ciprofloxacin Allergy Intermediate Hives Verified 02/11/24 09:59 soap Allergy Intermediate Hives Verified 02/11/24 09:59 sulfamethoxazole (From Allergy Swelling Verified 02/11/24 09:59 Bactrim) of Lip/Tongue/Throat trimethoprim (From Bactrim) Allergy Swelling Verified 02/11/24 09:59 of Lip/Tongue/Throat enoxaparin (From Lovenox) AdvReac Intermediate Cramping Verified 02/11/24 09:59 of the Muscles Contrast Media Allergy Severe RASH AND Uncoded 02/11/24 09:59 ANAPHYLAXIS IOBAN DRAPE FOR SURGERY Allergy Severe HIVES Uncoded 02/11/24 09:59 Review of Systems Review of Systems: CONSTITUTIONAL: Endorses malaise, denies chills, sweats, fever EYES: Denies visual changes, redness, or discharge ENT: Reports rhinorrhea, congestion, otalgia CARDIOVASCULAR: Denies chest pain, palpitations, edema RESPIRATORY: Reports cough, post nasal drainage. Denies dyspnea GASTROINTESTINAL: Denies abdominal pain, nausea, vomiting, diarrhea MUSCULOSKELETAL: Endorses myalgia PMFSH Past Medical History Medical History Right shoulder injury Rotator cuff tear DJD of shoulder Rotator cuff tendonitis Right shoulder pain GERD (gastroesophageal reflux disease) COPD (chronic obstructive pulmonary disease) Anxiety Goiter Shingles Thyroid cyst Osteoporosis DDD (degenerative disc disease) Arthritis UTI (urinary tract infection) Cystitis Ovarian cyst Post-menopausal IBS (irritable bowel syndrome) Pneumonia Hyperlipidemia Seasonal allergies Cataracts, bilateral Surgical History Surgical History History of removal of cyst History of bladder surgery History of hysterectomy History of cholecystectomy History of appendectomy History of colonoscopy History of cataract surgery Family History Family History Grandparent Carcinoma of colon Diabetes mellitus Father Family history of lung cancer Mother Family history of coronary artery disease Unknown Asthma Hypertension Heart disease Cerebrovascular accident Social History Social History Smoking status: Never smoker Second hand tobacco smoke exposure: No Alcohol intake: never Substance use: never Substance use type: does not use Do You Feel Safe in your Home?: Yes Lack of Transportation: No Lack of Food: Sometimes True Current Housing: I Have Housing Concerned About Future Housing: No Difficulty Paying Gas/Electric Bills: No Difficulty Paying for Meds: No Currently Unemployed: No Education: Bachelor's Degree Difficulty w/ Childcare or Family Care: No Living arrangements: with family Occupation/Education: retired Gender identity (if verbalized by the patient): Female Spiritual care concerns: No Exam Narrative: GENERAL: mildly Ill-appearing, nontoxic no acute distress. EYES: PERRLA, conjunctivae clear ENT: Mucous membranes moist. TMs pearly jolly with dull light reflex bilaterally; no tragal tenderness. no drooling, no hoarseness, no trismus, uvula midline. No tripod positioning, muffled voice, soft palate or pharyngeal wall bulging NECK: Supple. No lymphadenopathy CHEST: Clear to auscultation, breath sounds equal. No wheezing, rhonchi, rales, or stridor. No respiratory distress, speaks in full sentences. HEART: Tachy and Regular rhythm. No murmur heard. SKIN: Warm, dry NEURO: Alert and oriented x3. PSYCH: Normal mood and affect Course Course Emergency Course: Patient is aware of diagnosis, understands and agrees to treatment plan. Anticipatory guidance given. Patient agrees to follow-up as directed and is aware of reasons to seek care at the emergency department. Portions of this record may have been created with voice recognition software Level of Care: Express Care Visit Vital Signs Vital signs: Vital Signs Temperature 98.2 F 04/03/24 09:39 Pulse Rate 112 H 04/03/24 09:39 Respiratory Rate 16 04/03/24 09:39 Blood Pressure 111/64 04/03/24 09:39 Pulse Oximetry 100 04/03/24 09:39 Temperature 98.2 F 04/03/24 09:39 Pulse Rate 112 H 04/03/24 09:39 Respiratory Rate 16 04/03/24 09:39 Blood Pressure 111/64 04/03/24 09:39 Pulse Oximetry 100 04/03/24 09:39 reviewed MDM - URI/Sore Throat MDM Narrative Medical decision making narrative: POS flu. Discussed physical exam findings and neg CXR. Advised supportive measures and signs/symptoms to go to the ER. Pt is appropriate for outpt treatment and f/u. Differential Diagnosis Differential diagnosis: Likely upper respiratory infection, sinusitis and viral infection Lab Data Labs: Lab Results 04/03/24 Range/Units 09:40 POC Influenza A Ag Positive (Negative) POC Influenza B Ag Negative (Negative) POC SARS CoV-2 Ag Negative (Negative) Imaging Data Radiologist's impression: Patient: Felicia Mendieta : 1950 MR#: [id number] Age: 73 Acct:[id number] Loc: [id number] ADM Date: 04/03/24Attending Dr: Ordering Physician: Josephine Oconnor APRN Date of Service: 04/03/24 Procedure(s): XR chest 2V Accession Number(s): [id number] cc: Josephine Oconnor APRN; Orlando Thompson DO~ EXAMINATION: XR chest 2V DATE: 04/03/2024 10:27 INDICATION: 5 days of cough and fatigue TECHNIQUE: PA and lateral views of the chest were obtained. COMPARISON: Chest radiograph dated 02/14/2021 FINDINGS: The lungs are clear with no focal airspace opacities, pulmonary edema, pleural effusion or pneumothorax. The cardiomediastinal silhouette is normal. Old bilateral rib fractures. Cholecystectomy clips in the right upper quadrant. IMPRESSION: 1. No acute cardiopulmonary disease. Discharge Plan Discharge Clinical Impression: Influenza Patient Disposition: Home, Self-Care Condition: Stable Instructions: Influenza (ED) Additional Instructions: Influenza positive You should avoid crowds until you are fever free for 24 hours without the use of fever reducing medications, or the symptoms are improved Rest. Drink plenty of fluids. Tylenol 1000mg every 8 hours as needed for pain/fever Flonase spray and Zyrtec (or Claritin/Kristina) for sinus pressure/congestion over the counter Cough syrup may cause drowsiness; avoid driving or take it at night time. Follow up with your primary care provider; call to schedule an appointment Go to the ER for worsening symptoms or concerns Patient Language: Slovak Prescriptions: No Action sertraline 100 mg tablet 100 mg PO DAILY vitamin B complex Tablet 2 tablet PO DAILY trazodone 50 mg Tablet 50 mg PO HS Azo Bladder Control 300 mg Capsule 1 cap PO DAILY magnesium oxide 400 mg magnesium Capsule 400 mg PO DAILY Daily Probiotic 2.5 billion cell Capsule 1 cap PO DAILY [id number]-fdef-nne-rqdy-iag 600 mg calcium- 800 unit-50 mg tablet 1 tablet PO DAILY duloxetine 60 mg capsule,delayed release(DR/EC) 60 mg PO QHS duloxetine 30 mg capsule,delayed release(DR/EC) 30 mg PO .AM Prolia 60 mg/mL syringe 60 mg subcut [id number] Qty: 1 3RF fluticasone propion-salmeterol [Wixela Inhub] 250-50 mcg/dose blister with device 1 inh INHALATION Q12H Qty: 60 3RF buspirone 10 mg tablet 10 mg PO BID Qty: 60 0RF (DME) blood-glucose meter [OneTouch Verio Flex meter] Misc See Rx Instructions .Route Qty: 1 0RF Rx Instructions: As directed (DME) blood-glucose meter [OneTouch Verio Flex Start] Kit See Rx Instructions .Route Qty: 1 0RF Rx Instructions: As directed Microlight Sensors 160-9-4.8 mcg/actuation HFA aerosol inhaler 2 inh inhalation BID Qty: 10.7 2RF (DME) lancets [Blue RoosterTouch Delica Plus Lancet] 30 gauge misc See Rx Instructions .ROUTE .COMPLEX Qty: 100 1RF Dose Instruction: USE TO CHECK BLOOD GLUCOSE NEEDED FOR SYMPTOMS OF HIGH/LOW SUGAR. Rx Instructions: USE TO CHECK BLOOD GLUCOSE NEEDED FOR SYMPTOMS OF HIGH/LOW SUGAR. (DME) OneTouch Verio test strips Strip See Rx Instructions .Route Qty: 100 5RF Rx Instructions: use to check BG PRN symptoms high/low sugar 3x daily lovastatin 20 mg tablet 20 mg PO QPM Qty: 90 0RF Follow-up/Referrals: Orlando Thompson DO [Primary Care Provider] - Time of Disposition: 10:43
[2024-04-03 10:00] LABS: EDCOVIDSCREEN Negative (Negative); EDINFLUASCREEN Positive (Negative); EDINFLUBSCREEN Negative (Negative)
== END 2024-04-03 10:45 | disposition home or self-care (01) ==
PROVIDERS: Emergency Provider Nurse Practitioner Family; PCP Internal Medicine
DX: J10.1 Influenza due to other identified influenza virus with other respiratory manifestations (principal); Z20.822 Contact with and (suspected) exposure to COVID-19; J44.9 Chronic obstructive pulmonary disease, unspecified; K21.9 Gastro-esophageal reflux disease without esophagitis; E04.9 Nontoxic goiter, unspecified; M81.0 Age-related osteoporosis without current pathological fracture; M19.90 Unspecified osteoarthritis, unspecified site; E78.5 Hyperlipidemia, unspecified
CPT/HCPCS: 71046; 87426; 87804; 99213; G0463

== ENCOUNTER 2024-04-30 14:30 | Outpatient (RCR) | payer MEDICARE, SELFPAY | END 2024-05-19 13:22 | disposition home or self-care (01) | LOC: ANHDMC 14:30 | PROVIDERS: PCP Family Medicine; Visit Provider Family Medicine | DX: E11.9 Type 2 diabetes mellitus without complications (principal); H91.90 Unspecified hearing loss, unspecified ear; Z71.89 Other specified counseling | CPT/HCPCS: G0108 ==

== ENCOUNTER 2024-05-12 08:41 | Outpatient (CLI) | payer MEDICARE, SELFPAY ==
--- OUTSIDE RECORDS SUMMARY | 2024-05-12 08:55 | XMS_ITS | Patient Health Summary ---
Author Organization [facility] Address [address] [place] [address] Care Team Providers Care Digging Machine Operator Name Role Phone Unavailable Primary Care Provider Unavailabl e Note from [facility],non-owned Affiliates and Associated Physician Practices is amultiple site organization consisting of ambulatory clinics and hospital sitesin [place], [place], [place] and [place]. This disclosure is being madepursuant to the Care Everywhere program and may not contain all information available regarding this patient. Last updated 17.[facility] Allergies * Contrast-Iodinated Agents For Ct/Other(Anaphylaxis) -High Criticality Social History Tobacco Use Types Packs/Day Years Used Date Smoking Tobacco: Never Smokeless Tobacco: Never Alcohol Use Standard Drinks/Week Comments Not Currently 0 (1 standard drink = 0.6 oz pur e alcohol) Sex and Gender Information Value Date Recorded Sex Assigned at Not on file Gender Identity Not on file Sexual Orientation Not on file Last Filed Vital Signs Vital Sign Reading Time Taken Comments Blood Pressure 148/85 01/20/2019 4:00 PM CDT Pulse 100 01/20/2019 4:00 PM CDT Temperature 36.9 C (98.4 F) 01/20/2019 4:00 PM CDT Respiratory Rate 19 01/20/2019 4:00 PM CDT Oxygen Saturation 100% 01/20/2019 4:00 PM CDT Inhaled Oxygen Concentration - - Weight 70.8 kg (156 lb) 01/20/2019 4:00 PM CDT Height 162.6 cm (5' 4 ) 01/20/2019 4:00 PM CDT Body Mass Index 26.78 01/20/2019 4:00 PM CDT Procedures * CULTURE URINE(Performed 11/08/2013) * DERMATOPATHOLOGY(Performed 07/21/2013) Results * CULTURE URINE (11/08/2013 11:13 AM CDT) Culture Urine Less than 10,000 CFU/ML of Normal Urogenital/ Skin Rachel [facility] Comment:. Urine specimen (specimen) URINE SPECIMEN OBTAINED BY CLEAN CATCH PROCEDURE / Unknown 11/08/2013 11:13 AM CDT 11/08/2013 8:39 PM CDT Narrative [facility] - 11/11/2013 12:36 PM CDT AndersonSpecimen#[id number] Elijah Loc/Rm/Bed: EXPCARE G// CLN CATCH U Historical Provider MD LAB - MICROBIOLOG Y ORDERABLES Performing Organization Address City/State/[facility] Co de Phone Number [address] [phone] * PATHOLOGY TISSUE FOR DERMATOLOGY (07/21/2013 12:00 AM CDT) Result CASE: [id number] PATIENT: FELICIA DIAZ PATHOLOGIC DIAGNOSIS: Left cheek: BENIGN VERRUCOUS KERATOSIS, INFLAMED CLINICAL DATA: Materials from: [facility] [address] [address] At the [address] Jose Richards ([facility] a consult will be performed on 1 slide(s) and 1 block(s) labeled [id number] . R/O granulomatis dermatitis. All slides returned. Any additional sections, special stains, or immunohistochemical stains performed by our laboratory will be kept here on file. MICROSCOPIC DESCRIPTION: Sections show hyperkeratosis, papillomatosis, hypergranulosis, and acanthosis. These histological findings can be seen in a verruca vulgaris or a seborrheic keratosis. Inflammatory cells are present within the dermis. Electronically signed out by Isaura Goodman M.D., PhD. 07/21/2013 1:55:11PM [facility] Comment: Performed at: Dermatopathology Laboratory [facility] Department of Dermatology [address] [place] [address], 5th Floor [facility] [place] [address] Phone number: [phone] FAX: [phone] 07/21/2013 07/21/2013 Jose Richards MD LAB - PATHOLOGY/CYTO LOGY ORDERABLES Performing Organization Address City/State/[facility] Co de Phone Number [facility] [address] [place] [address]. 5th [place] [address], [facility] [phone]
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
--- OUTSIDE RECORDS SUMMARY | 2024-05-12 08:55 | XMS_ITS | CONTINUITY OF CARE DOCUMENT ---
Author Name julia dumont Address Unknown Organization [facility] Address [address] [place] [address] Phone [phone] Care Team Providers Care White Sugar Pan Tank Operator Name Role Phone Andrey Mccullough MD Unavailable [phone] Irwin Lew MD Unavailable [phone] TARI TOUSSAINT MD Unavailable [phone] INSURANCE PROVIDERS Payer name Policy type / Coverage type [place] red libertarian ID [employer] [id number] [place] MED[place] Medicare [id number]
--- OUTSIDE RECORDS SUMMARY | 2024-05-12 08:55 | XMS_ITS | Continuity of Care Document ---
Author Organization [facility] Address [address] [place] [address] Phone Care Team Providers Care Sausage Stringer Name Role Phone Henry CARRANZA MD, Pool Unavailable Unavailable Procedures Procedure Date CATARACT SURG W/IOL, 1 STAGE CATARACT SURG W/IOL, 1 STAGE OFFICE/OUTPATIENT VISIT, NEW OPHTHALMIC BIOMETRY OPHTHALMIC BIOMETRY SPECIAL EYE EXAM, INITIAL SPECIAL EYE EXAM, INITIAL Advance Directives Directive Yes / No Effective Date File Name No Information Encounters Encounter Description Practice Location Reason(s) For Visit Diagnoses Date Provider Providers Copied on Encounter Ophthalmology [facility], [address], [place], [place], [id number], tel:[phone] [address] [place] [address] No Information 4 Henry Lanza. [address], [address], [place], [place], [address] , [place]. [phone] Referring Provider: Pool Walters, [address], [place], [place], [id number]. tel:[phone] Ophthalmology [facility], [address], [place], [place], [id number], tel:[phone] [address] [place] [address] No Information 4 Henry Lanza. [address], [address], [place], [place], [address] , [place]. [phone] Referring Provider: Pool Walters, [address], [place], [place], [address]. tel:[phone] OFFICE/OUTPA TIENT VISIT, NEW [facility], [address], [place], [place], [id number], tel:[phone] [facility] No Information 4 Henry Lanza. [address], [place], [place], [address] , [place]. tel:[phone] Referring Provider: Pool Figueroa MD P, [address], [place], [place], [address]. tel:[phone] Family History Family Member Type Diagnosis Age At Onset No Information Payers Payer name Insurance type Covered democrat ID Authoriza tialcides(s) [employer] [place] [employer] [place] [id number] Social History Type Description Quantity Date Captured Comments Sex Female Smoking Status No Information Chief Complaint And Reason For Visit No Information Plan Of Treatment Date Type Action Status No Information History Of Present Illness Encounter Date Complaint History Of Prese nt Illness No Information Instructions Date Instruction Additional Infor mation No Information Assessments Type Assessment Date No Information
--- OUTSIDE RECORDS SUMMARY | 2024-05-12 08:55 | XMS_ITS | Clinical Summary ---
Author Organization [facility] [address] Address [address] [place] [address] Care Team Providers Care Associate Professor Of Forestry Name Role Phone GamalielRupert preciado Primary Care Provider [phone] Allergies Active Allergy Reactions Criticality Noted Date Comments Adhesive Tape-Silicones Hives Medium 11/16/2021 Ciprofloxacin Hives Medium 07/19/2020 Enoxaparin Other (See comments) Low 08/07/2022 lovenox Iodinated Contrast Media Anaphylaxis High 01/20/2019 Iodine-131 Hives High 08/07/2022 Other Anaphylaxis,Hives,HIT High 09/05/2023 Iobandrape For Surgery Sulfa (Sulfonamide Antibiotics) Hives Medium 11/16/2021 Medications denosumab (PROLIA) 60 mg/mL syringe Inject 1 mL (60 mg total) under the skin once for 1 dose 1 mL 08/08/19 23 Active Additional Information Patient taking differently:60 mg subcutaneousEvery 6 months, Indications: loss of bone density due to androgen deprivation therapy, Reported on 09/05/2023 traZODone (DESYREL) 50 mg tablet Take 1 tablet (50 mg total) by mouth nightly 10/13/19 23 Active pumpkin seed extract-soy germ (Azo Bladder ControL) 300 mg capsule Take 1 capsule by mouth daily Active L. acidophilus/Bi fid. animalis (Daily Probiotic) 2.5 billion cell capsule Take 1 capsule by mouth daily Active vitamin b complex tablet Take 2 tablets by mouth daily Active DULoxetine DR (CYMBALTA) 30 mg capsule 1 capsule (30 mg total) 11/10/19 23 Active sertraline (ZOLOFT) 100 mg tablet Take 1 tablet (100 mg total) by mouth daily 11/07/19 23 Active lovastatin (MEVACOR) 20 mg tablet Take 1 tablet (20 mg total) by mouth nightly 90 tablet 3 01/02/20 23 Active fluticasone propion-salmet Bryce (ADVAIR DISKUS) 250-50 mcg/dose diskus inhaler INHALE 1 DOSE BY MOUTH TWICE DAILY 60 each 03/13/20 23 Active Additional Information Patient taking differently: 1 puff inhalation 2 times daily, Informant: Self, Reported on 09/05/2023 busPIRone (BUSPAR) 5 mg tablet Take 1 tablet (5 mg total) by mouth 2 (two) times a day 08/02/19 24 Active CALCIUM-MAGNES IUM-ZINC ORAL Take 1 tablet by mouth daily 07/02/19 24 Active DULoxetine 60 mg capsule, delayed rel sprinkle Take 60 mg by mouth nightly 12/04/19 23 Active naloxone (NARCAN) 4 mg/actuation spray,non-aero solIndications :risk mitigation for opioid overdose Administer 1 spray into affected nostril(s) as needed for opioid reversal Call 911. Administer a single spray in one nostril. Repeat every 3 minutes as needed if no or minimal response. 2 each 1 09/06/19 24 Active HYDROcodone-ac etaminophen (NORCO) 5-325 mg per tabletIndicati ons:Pain Take 1 tablet by mouth every 8 (eight) hours as needed for pain 12 tablet 09/07/19 24 Active Active Problems Problem Noted Date Diagnosed Date Abdominal pain 09/10/2023 End of battery life of intrathecal infusion pump 09/06/2023 Irritable bowel syndrome with diarrhea 3 Assessment & Plan (11/14/2022 4:29 PM CDT): Has improvement in bowel movements; no longer having diarrhea on colestipol -no longer feels pain with hunger -has improvement with dicyclomine -has had few episodes of not going for one week -was toan to eat more complex foods Continue probiotics;, colestipol 1 g b.i.d.; patient continues to have episodes of constipation, will decrease to 1 g daily Age-related osteoporosis wit hout current pathological fracture 08/23/2022 Assessment & Plan (11/14/2022 4:29 PM CDT): Stable, continue to encourage calcium 1200 mg daily, vitamin-D at least 800 mg daily Assessment & Plan (11/09/2022 9:57 AM CDT): No falls, no fractures Continue Prolia every 6 months Neuropathy 08/07/2022 Assessment & Plan (11/09/2022 9:57 AM CDT): Stable, continue gabapentin 300 mg t.i.d. Assessment & Plan (08/07/2022 4:27 PM CDT): Unclear etiology; patient reports some numbness, and heaviness in bilateral feet; worse at night; currently on gabapentin 300 mg daily, 600 mg nightly Patient has notable iron deficiency; will replete iron in case low iron levels or causing restless leg syndrome; continue to monitor Palpitations 07/26/2022 Adjustment disorder with depressed mood 06/24/19 23 08/07/2022 Assessment & Plan (11/14/2022 4:30 PM CDT): Recently , difficulty with sleep -taking Trazodone at night; will increase to 75 mg nightly -sleeps for about 5 hours, then starts to think, and stomach growls -then sleep for 3 hours Encouraged patient to continue to engage with group therapy for grief and windows Continue sertraline 100 mg daily Assessment & Plan (11/09/2022 9:59 AM CDT): Related PHQ-9 today; continues to have grief associated with loss of 6 months ago Follows with Psychiatry, engaged with [facility] as well as grief steady group online Continue to monitor, encourage regular counseling and support Continue sertraline 100 mg daily Assessment & Plan (08/07/2022 4:26 PM CDT): Patient reports that approximately 5 months ago; has been having grief with mixed depression and anxiety Following with psychiatry as well as individual counseling Patient is engaged with grief support groups Continue to monitor Patient's son do report excessive sleeping during the day, up to 14 hours per day, unclear if related to prolonged episodes of insomnia verses over-sedation from medications or other underlying conditions Will work with psychiatry to continue to minimize sedating medications and monitor change in symptoms Bilateral lower extremity pain 06/23/2022 0 08/07/2022 Chronic obstructive pulmonary disease 06/23/2022 08/07/2022 Assessment & Plan (11/14/2022 4:29 PM CDT): Breathing has been ok for patient Continue singular 10 mg nightly, Advair 1 puff b.i.d. Assessment & Plan (11/09/2022 9:57 AM CDT): Stable, generally well controlled Continue Advair b.i.d. Assessment & Plan (08/07/2022 4:25 PM CDT): Mixed, gets dyspneic when climbing inclines Continues to have dyspnea with Advair When patient completes current Advair prescription, will adjust medication Interstitial cystitis 06/23/2022 08/07/2022 Assessment & Plan (11/14/2022 4:29 PM CDT): Had one UTI in September; has improvement with pelvic floor therapy Continue to monitor; evaluate for recurrent infections Continue nortriptyline 10 mg nightly Assessment & Plan (08/07/2022 4:26 PM CDT): Follows with Urology; tapering off of amitriptyline 10 mg daily, has stimulator in place Resolved Problems Problem Noted Date Diagnosed Date Resolved Date Osteopenia of multiple sites 08/07/2022 10/25/2022 Assessment & Plan (08/07/2022 4:23 PM CDT): Will need repeat DEXA, patient has been on bisphosphonates in the past and reports worsening bone density while on bisphosphonates Improved control on Prolia Continue Prolia q.6 months Immunizations Name Administration Dates Next Due Influenza, Quad, Adjuvantate d, Intramuscular 12/03/2019 Influenza, Quadrivalent, Hig h Dose, Preservative Free, Intrr 01/12/2022,01/14/2021 Influenza, Quadrivalent, Spl it, Preservative Free, Intramuscular 01/06/2015 Influenza, Trivalent, High D ose, Split, Preservative Free, Intramuscular 12/25/2018,01/29/2018,12/22/2016,01/10,01/01/2014 Influenza, Trivalent, IM (MDV) 02/20/2014 Influenza, Unspecified 04/02/2022(Deferr ed: Patient Refused),04/02/2021(Deferred: Patient Refused) Moderna SARS-CoV-2 Monovalen t Vaccination (12+ YRS) 06/10/2020,05/13/2020 Pneumococcal Conjugate PCV 13 12/22/2016, 016 Pneumococcal Polysaccharide PPV23 01/29/2018,05/2013 ZOSTER LIVE 03/30/2014 ZOSTER Recombinant 08/20/2021,05/21/2021 Surgical History Surgery Date Site/Laterality Comments OTHER SURGICAL HISTORY uterus removed CHOLECYSTECTOMY gallbladder removed OTHER SURGICAL HISTORY cysts removed OTHER SURGICAL HISTORY Interstim OTHER SURGICAL HISTORY Multiple surgeries on bladder Medical History Medical History Date Comments Hx Other Medical interstial cyst itis Hx Other Medical IBS Hx Other Medical interstitial cy stitis Awareness under anesthesia Motion sickness Lung disease Irritable bowel syndrome Interstitial cystitis Family History Medical History Relation Name Comments Lung cancer Father Cancer, lung; C ause of : Cancer, lung Stroke Maternal Grandfather Stroke; Hypertension Mother Hypertension; Other Mother cardiac disease ; Diabetes Other 1 Family history of Diabetes mellitus; Hypertension Other 2 Family history of Hypertension; Colon cancer Paternal Grandmother Breast cancer Sister Relation Name Status Comments Father Maternal Grandfather Mother Other 1 Other 2 Paternal Grandmother Sister Social History Tobacco Use Types Packs/Day Years Used Date Smoking Tobacco: Never Smokeless Tobacco: Never Tobacco Cessation:Counseling Given: Not Answered Alcohol Use Standard Drinks/Week Comments No 0 (1 standard drink = 0.6 oz pur e alcohol) AUDIT-C Answer Date Recorded Q1: How often do you have a drink containing alcohol? Never 09/06/2023 Q2: How many drinks containi ng alcohol do you have on a typical day when you are drinking? Patient does not drink Q3: How often do you have si x or more drinks on one occasion? Never 09/06/2023 PHQ-2 Answer Date Recorded PHQ-2 Total Score (If total score is 3 or more points, staff should administer the PHQ-9) 0 11/13/2022 Personal Safety Answer Date Recorded Have you ever been in or are you currently in a harmful physical or emotional relationship or is someone making you feel afraid or unsafe? Denies 09/06/2023 Comments No Sex and Gender Information Value Date Recorded Sex Assigned at Not on file Legal Sex Female 5:59 PM FINISHER ACCORDION Gender Identity Female 08/02/2022 10:05 AM CDT Sexual Orientation Not on file Obstetrics History Para Term AB IAB SAB Ectopic Multiple Livin g Live Births 2 2 2 Date Outcome GA Total Labor Labor//3rd Weight Sex Type Anes PTL Yolie A1 A5 Name Clin Term Term Last Filed Vital Signs Vital Sign Reading Time Taken Comments Blood Pressure 136/79 09/10/2023 1:29 PM CDT Pulse 91 09/10/2023 1:29 PM CDT Temperature 36.4 C (97.6 F) 09/06/2023 9:05 AM CDT Respiratory Rate 18 09/10/2023 1:29 PM CDT Oxygen Saturation 100% 09/10/2023 1:29 PM CDT Inhaled Oxygen Concentration - - Weight 69.4 kg (153 lb) 09/06/2023 6:43 AM CDT Height 157.5 cm (5' 2 ) 09/06/2023 6:43 AM CDT Body Mass Index 27.98 09/06/2023 6:43 AM CDT Plan of Treatment Health Maintenance Due Date Last Done Comments Colon Cancer Screening-Colonoscopy 1950 Hepatitis C Screening 1950 Osteoporosis Screening-Bone Density Scan 1948 DTaP/Tdap/Td Vaccine (1 - Tdap) 1959 Hepatitis B Screening 1966 Well Visit 65+ 2013 Depression Screening 11/14/2023 11/13/2022, 10/25/2022, 10/25/2022, Additional history exists Covid-19 Vaccine (5 - 2023-2 5 season) 2023 01/25/2022, 01/28/2021, 06/10/2020, Additional history exists Influenza Vaccine (#1) 2023 , 01/14/2021, 12/03/2019, Additional history exists Fall Risk Assessment 09/05/2024 09/06/2023, 11/13/2022, 08/07/2022 Pneumococcal vaccine 65+ Completed 018, 12/22/2016, 10/13/2015, Additional history exists Zoster Vaccine Completed 08/20/2021, 05/03, 03/30/2014 Breast Cancer Screening-Mammogram Discontinued 023 Medical Devices Implanted Type Area In Flight Refueling System Repairer Device Identifier Shelf Expiration Date Model / Serial / Lot Other - See Comments Other - see comments Right: Back Description:Inter Stim Medtronic Inc Sutureless Connector Revision Catheter Kit Intrathecal Pump 8578 - [id number] Implanted:Qty: 1 on 09/06/2023 by Gui Cuolter MD at [facility] Right: Abdomen Medtronic Inc 01/13/2024 8578 / / [id number] [employer]tronic [employer] X Pump Infusion Programmable Ulp Ami 20ml Volume 8667-20 - [id number] - [id number] Implanted:Qty: 1 on 09/06/2023 by Gui Coulter MD at [facility] Right: Abdomen Med[employer]onic [employer] X 02/13/2025 8667-20 / [id number] / Explanted Type Area In Flight Refueling System Repairer Device Identifier Shelf Expiration Date Model / Serial / Lot Other - See Comments Explanted:Qty : 1 on 09/06/2023 at [facility] Other - see comments Right: Stomach Description:Right Lower Quad - Drug Pump Procedures Procedure Name Priority Date/Time Associated Diagnosis Comments SCREENING MAMMOGRAM BILATERAL W ANTOINE Schedule Routine, Read Routine (OP Routine) 02/15/2023 11:30 AM FINISHER ACCORDION Encounter for screening mammogram for malignant neoplasm of breast from Last 3 Months or Most Recently Relevant to Health Maintenance Results * SCREENING MAMMOGRAM BILATERAL W ANTOINE (02/15/2023 11:30 AM FINISHER ACCORDION) Anatomical Region Laterality Modality Breast Bilateral Mammography 02/15/2023 1:31 PM FINISHER ACCORDION Impressions 02/15/2023 1:31 PM FINISHER ACCORDION There is no mammographic evidence of malignancy. A 1 year screening mammogram is recommended. BI-RADS: 1 - Negative. The patient has been or will be contacted. The patient will be entered into a reminder system with a target due date of 1 year for her next mammogram. Electronically signed by: Mercedes Perez M.D. Narrative 02/15/2023 1:31 PM FINISHER ACCORDION EXAMINATION: SCREENING MAMMOGRAM BILATERAL W ANTOINE ORDERING HEALTHCARE PROVIDER: NEHEMIAS ORYAL HISTORY: Routine screening mammography. COMPARISON: 02/02/2022, 01/19/2022 TECHNIQUE: CC and MLO views of the bilateral breasts were obtained with digital technique using breast tomosynthesis with C view. Computer aided detection was utilized. FINDINGS: DENSITY: There are scattered fibroglandular elements in the bilateral breasts. BREASTS: There are no suspicious masses, suspicious calcifications, or other suspicious findings in either breast. There has been no suspicious interval change. us Nehemias Royal MD IMG MAMMO PROCEDURES Pippa l Result from Last 3 Months or Most Recently Relevant to Health Maintenance Insurance MEDICARE SOLUTIONS [facility] MEDICARE Address: [facility] [address] [place] [address] MEDICARE SOLUTIONS [place] [address] Advance Directives For more information, please contact: [phone] Documents on File Type Date Recorded Patient Ginning Operator Expl anation ADVANCE DIRECTIVE 09/08/2023 6:22 AM POWER OF SPIKEMAKING SUPERVISOR-MEDICAL Care Teams Associate Professor Of Forestry Relationship Specialty Start Date End Date Rupert Elena DO [address] [place] [address] [address] PCP - General Family Medicine 07/09/23
--- OUTSIDE RECORDS SUMMARY | 2024-05-12 08:55 | XMS_ITS | Referral Summary ---
Author Organization [facility] [address] Address [address] [place] [address] Care Team Providers Care Onsite Case Manager Name Role Phone GamalielRupert preciado Primary Care Provider [phone] Allergies Active Allergy Reactions Criticality Noted Date [...] Psychiatry, engaged with [facility] as well as grief steady group online [...] 01/29/2018,05/2013 ZOSTER LIVE 03/30/2014 ZOSTER Recombinant 08/20/2021,05/21/2021 Social History Tobacco Use Types Packs/Day Years [...] on file Legal Sex Female 5:59 PM QUARTZ MINER Gender Identity Female 08/02/2022 10:05 AM CDT Sexual Orientation Not on file Last Filed [...] 09/06/2023 6:43 AM CDT Plan of Treatment Not on file Medical Devices Implanted Type Area Wastewater Engineer Device Identifier Shelf Expiration Date Model / Serial / Lot Other - See Comments Other - see comments Right: Back Description:Inter Stim Medtronic Inc Sutureless Connector Revision Catheter Kit Intrathecal Pump 8578 - [id number] Implanted:Qty: 1 on 09/06/2023 by Gui Coulter MD at [facility] Right: Abdomen Medtronic Inc 01/13/2024 8578 / / [id number] [employer] X Pump Infusion Programmable Ulp Ami 20ml Volume 8667-20 - [id number] - [id number] Implanted:Qty: 1 on 09/06/2023 by Gui Coulter MD at [facility] Right: Abdomen Med[employer] X 02/13/2025 8667-20 / [id number] / Explanted Type Area Wastewater Engineer Device Identifier Shelf Expiration Date Model / Serial / Lot Other - See Comments Explanted:Qty : 1 on 09/06/2023 at [facility] Other - see comments Right: Stomach Description:Right Lower Quad - Drug Pump Procedures Procedure Name Priority Date/Time Associated Diagnosis Comments SCREENING MAMMOGRAM BILATERAL W ANTOINE Schedule Routine, Read Routine (OP Routine) 02/15/2023 11:30 AM QUARTZ MINER Encounter for screening mammogram for malignant neoplasm of breast from Last 3 Months or Most Recently Relevant to Health Maintenance Results * SCREENING MAMMOGRAM BILATERAL W ANTOINE (02/15/2023 11:30 AM QUARTZ MINER) Anatomical Region Laterality Modality Breast Bilateral Mammography 02/15/2023 1:31 PM QUARTZ MINER Impressions 02/15/2023 1:31 PM QUARTZ MINER There is no mammographic evidence of malignancy. A 1 year screening mammogram is recommended. BI-RADS: 1 - Negative. The patient has been or will be contacted. The patient will be entered into a reminder system with a target due date of 1 year for her next mammogram. Electronically signed by: Mercedes Perez M.D. Narrative 02/15/2023 1:31 PM QUARTZ MINER EXAMINATION: SCREENING MAMMOGRAM BILATERAL W ANTOINE ORDERING HEALTHCARE PROVIDER: NEHEMIAS ROYAL HISTORY: Routine screening mammography. COMPARISON: 02/02/2022, 01/19/2022 [...] There has been no suspicious interval change. Nehemias Royal MD IMG MAMMO PROCEDURES Pippa l Result from Last 3 Months or Most Recently Relevant to Health Maintenance Insurance MEDICARE SOLUTIONS MEDICARE SOLUTIONS MEDICARE SOLUTIONS Advance Directives For more information, please contact: [phone] Documents on File Type Date Recorded Patient Software Development Engineer Expl anation ADVANCE DIRECTIVE 09/08/2023 6:22 AM POWER OF INTERACTIVE ART DIRECTOR-MEDICAL Care Teams Onsite Case Manager Relationship Specialty Start Date End Date Rupert Elena DO [facility] [address] [address] PCP - General Family Medicine 07/09/23
--- OUTSIDE RECORDS SUMMARY | 2024-05-12 08:55 | XMS_ITS | Referral Summary ---
Author Organization [facility] Address [facility] [place] [address] Care Team Providers Care Tool Room Supervisor Name Role Phone Unavailable Primary Care Provider Unavailabl e Source Comments [facility],non-owned Affiliates and Associated Physician Practices is amultiple site organization consisting of ambulatory clinics and hospital sitesin [place], [place], [place] and [place]. This disclosure is being madepursuant to the Care Everywhere program and may not contain all information available regarding this patient. Last updated 17.[facility] Allergies Active Allergy Reactions Criticality Noted Date Comments Contrast-Iodinated Agents For Ct/Other Anaphylaxis High 01/20/2019 Social History Tobacco Use Types Packs/Day Years [...] Mass Index 26.78 01/20/2019 4:00 PM CDT Plan of Treatment Not on file
--- OUTSIDE RECORDS SUMMARY | 2024-05-12 08:55 | XMS_ITS | Clinical Summary ---
Author Organization [facility] Address [facility] [place] [address] Care Team Providers Care Construction Sales Representative Name Role Phone Unavailable Primary Care Provider Unavailabl e Source Comments [facility],non-owned Affiliates and Associated Physician Practices is amultiple site organization consisting of ambulatory clinics and hospital sitesin [place], [place], [place] and [place]. This disclosure is being madepursuant to the Care Everywhere program and may not contain all information available regarding this patient. Last updated 17.[facility] Allergies Active Allergy Reactions Criticality Noted Date [...] 01/20/2019 4:00 PM CDT Plan of Treatment Health Maintenance Due Date Last Done Comments BONE DENSITY TESTING 1948 COLOGUARD (AGES 45-75) - COL ON CA SCREENING 1948 COLON MONITORING 1948 COLONOSCOPY - COLON CA SCREENING 1948 CT COLONOGRAPHY - COLON CA SCREENING 1950 Colorectal Cancer Screening 1948 FIT - COLON CA SCREENING 1948 FLEX SIG - COLON CA SCREENING 1948 LIPID TESTING 1948 MAMMOGRAM 1948 MEDICARE AWV 12 MONTHS 1948 HEPATITIS C SCREENING 05/08/1966 DTAP/TDAP/TD VACCINES (1 - Tdap) 1967 PNEUMOCOCCAL VACCINE 50+ (1 of 1 - PCV) 1998 ZOSTER VACCINE (1 of 2) 1998 Respiratory Syncytial Virus (RSV) Vaccine Pt: or over 60 yrs (1 - 1-dose 75+ series) 2023 COVID-19 VACCINE ( - 2023-2 5 season) 2023 INFLUENZA VACCINE (#1) 2023 DEPRESSION SCREENING 04/02/2024 HEPATITIS B VACCINE Aged Out No longe r eligible based on patient's age to complete this topic HIB VACCINE Aged Out No longer eligi ble based on patient's age to complete this topic HPV VACCINE Aged Out No longer eligi ble based on patient's age to complete this topic MENINGOCOCCAL (Group B) VACCINE Aged Out No longer eligible based on patient's age to complete this topic MENINGOCOCCAL VACCINE Aged Out No irving gracie eligible based on patient's age to complete this topic
--- OUTSIDE RECORDS SUMMARY | 2024-05-12 08:55 | XMS_ITS ---
Author Organization [facility] Address [facility] [address] [address] Care Team Providers Care Contract Negotiator Name Role Phone Orlando Thompson DO Primary Care Provider Hola Belle Unavailable [phone] REASON FOR VISIT Need to reschedule Sunday's appointment Social History Sex Assigned At : Social History Observation Description Sex Assigned At Female Encounters Encounter Location Date Provider Diagnosis [facility] [place] [address] [facility] [address] [address] 04/22/2024 Hola Aguirre Plan Of Treatment Next Appt Details Provider Name:Hola Aguirre , 05/14/2024 04:30:00 PM, [facility] [facility], [address], [address], Provider Name:Miranda Calixto, 06/04/2024 01:00:00 PM, [address] [place] [address], [address], [address], Progress Notes * JADE DIAZ MDOB:[birth year] (73 yo F)Acc No.[id number]:04/22/2024 Patient: Sahra JADE WRIGHT :1950 A ge:73 Y S ex:Female Address:[address] [place] [address], [id number] * true * Date: Generated for Printi ng/Faxing/eTransmitting on: 0 2024 08:55 AM TERRITORY MANAGER GENERAL SALES
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
[2024-05-12 13:03] LABS: Basophils Absolute Auto 0.1 K/mm3 (0.0-0.1); Basophils Percent Auto 0.8 % (0.2-1.2); Eosinophils Absolute Auto 0.1 K/mm3 (0-0.3); Hematocrit 42.3 % (37.0-47.0); Hemoglobin 12.9 g/dL (12.0-15.0); Immature Granulocyte Absolute 0.02 K/mm3 (0.00-0.031); Immature Granulocyte Percent A 0.3 % (0-0.5); Lymphocytes Absolute Auto 1.32 K/mm3 (0.9-3.2); Lymphocytes Percent Auto 20.6 % (18.3-44.2); Mean Corpuscular HGB Conc 30.5 g/dl (32-36); Mean Corpuscular Hemoglobin 29.7 pg (26-34); Mean Corpuscular Volume 97.2 fl (80-100); Mean Platelet Volume 11.6 fl (7.4-10.4); Monocytes Absolute Auto 0.5 K/mm3 (0.1-0.6); Monocytes Percent Auto 8.4 % (2.6-8.5); Neutrophils Absolute Auto 4.3 K/mm3 (1.3-6.7); Neutrophils Percent Auto 67.9 % (45.5-73.1); Platelet Count Result 319 k/mm3 (150-375); Red Blood Count 4.35 M/mm3 (4.2-5.4); Red Cell Distribution Width 14.3 % (11.5-14.5); White Blood Count 6.4 K/mm3 (4.5-10.0)
[2024-05-12 14:06] LABS: Erythrocyte Sedimentation Rate 14 mm/hr (0-20)
[2024-05-12 15:12] LABS: Alanine Aminotransferase 24 U/L (6-35); Albumin Level 4.3 g/dL (3.5-5.1); Alkaline Phosphatase 50 U/L (38-126); Anion Gap 10 mmol/L (4-12); Aspartate Amino Transferase 36 U/L (14-36); Bilirubin,Total 0.5 mg/dL (0.2-1.3); Blood Urea Nitrogen 23 mg/dL (7-17); Calcium 9.7 mg/dL (8.4-10.2); Carbon Dioxide 30 mmol/L (22-30); Chloride 101 mmol/L (98-107); Cholesterol 211 mg/dL (0-200); Estimated Glomerular Filt Rate > 60; Glucose 106 mg/dL (65-110); HDL Direct 68 mg/dL; Potassium 4.2 mmol/L (3.4-5.0); Sodium 141 mmol/L (137-145); Triglycerides 117 mg/dL (<150)
[2024-05-12 15:24] LABS: Iron 76 ug/dL (37-170); LDL Cholesterol Direct 98 mg/dL
[2024-05-12 15:34] LABS: Percent Iron Saturation 23 % (20-50)
[2024-05-12 15:54] LABS: HIV 1/2 Ab P24 Ag Result Negative (Negative)
[2024-05-12 17:21] LABS: Vitamin D 25 Hydroxy 34.2 ng/mL
[2024-05-12 18:03] LABS: Hepatitis C Virus Antibody Negative (Negative)
== END 2024-05-12 08:42 | disposition home or self-care (01) ==
PROVIDERS: PCP Internal Medicine; Visit Provider Nurse Practitioner
DX: D64.9 Anemia, unspecified (principal); E11.9 Type 2 diabetes mellitus without complications; R63.4 Abnormal weight loss; E55.9 Vitamin D deficiency, unspecified; Z11.4 Encounter for screening for human immunodeficiency virus [HIV]
CPT/HCPCS: 36415; 80053; 80061; 82306; 82728; 83036; 83540; 83550; 84443; 85025; 85652; 86703; 86803; G0432

== ENCOUNTER 2024-06-17 08:22 | Outpatient (CLI) | payer MEDICARE, SELFPAY ==
--- NOTE | ~2024-06-17 | MM_ITS ---
EXAMINATION: MM diagnostic cheko BI w amos HISTORY: Breast pain for 3 months TECHNIQUE: Additional 3-D tomosynthesis images of the breasts were performed and synthetic 2-D images were generated. CAD analysis was submitted and interpreted. COMPARISON: 12/01/2009 BREAST PARENCHYMAL COMPOSITION: Not dense: There are scattered areas of fibroglandular density. FINDINGS: The breasts are stable. No new masses, calcifications or architectural distortion in either breast to suggest malignancy. IMPRESSION: 1. No evidence for malignancy in either breast. 2. Routine yearly screening mammogram and regular clinical breast examination are recommended. BI-RADS Category 1: Negative Reviewed, dictated and finalized at location B. IMPRESSION: 1. No evidence for malignancy in either breast. 2. Routine yearly screening mammogram and regular clinical breast examination a re recommended. BI-RADS Category 1: Negative
--- NOTE | ~2024-06-17 | DEXA_ITS ---
Bone Density Report Name: JADE DIAZ Age: 74 Sex: Female Ethnicity: White Date of : 1950 Indication: postmenopausal; screening for osteoporosis; height loss; end stage renal disease; hysterectomy; Referring Provider: Rachel Mensah Study: Bone densitometry was performed. Exam Date: June 17, 2024 Accession number: [id number] Bone Density: Region BMD T-score Z-score Classification AP Spine(L1-L4) 1.148 0.9 3.4 Normal Femoral Neck (Left) 0.585 -2.4 -0.2 Osteopenia Total Hip (Left) 0.763 -1.5 0.4 Osteopenia Femoral Neck (Right) 0.525 -2.9 -0.8 Osteoporosis Total Hip (Right) 0.763 -1.5 0.4 Osteopenia Femoral Neck Mean 0.555 -2.6 -0.5 Osteoporosis Total Hip Mean 0.763 -1.5 0.4 Osteopenia World Health Organization criteria for BMD impression classify patients as: Normal (T-score at or above -1.0), Osteopenia (T-score between -1.0 and -2.5), or Osteoporosis (T-score at or below -2.5). 10-year Fracture Risk: FRAX not reported because: Some T-score for Spine Total or Hip Total or Femoral Neck at or below -2.5 Treated for osteoporosis Clinical Information Provided by Patient: Is being treated for osteoporosis Has used the following medications: Calcium Has the following medical conditions: End stage renal disease, Hysterectomy Patient maximum height was 66 Menopause Age: 48 No regular weight bearing exercise Onset of menses at age 9 Number of children 2 Impression: The patient has osteoporosis, based on the Right Femoral Neck T-score. Discussion: It is important to ask patients whether they are taking their medications and to encourage continued and appropriate compliance with their osteoporosis therapies to reduce fracture risk. It is also important to review their risk factors and encourage appropriate calcium and vitamin D intakes, exercise, fall prevention and other lifestyle measures. Follow-Up: Consider a repeat BMD and Vertebral Fracture Assessment (VFA) exam in 2 years or sooner if medically necessary, to reassess this patient's status. Reported by: AHMET on 06/17/2024 9:12:00 AM. Reviewed, dictated and finalized at location A.
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
--- OUTSIDE RECORDS SUMMARY | 2024-06-17 08:37 | XMS_ITS ---
Author Organization [facility] [employer] [facility] Address [address] [place] [address] [address] Care Team Providers Care Flooring Installer Name Role Phone Orlando Thompson DO Primary Care Provider Hola Belle Unavailable [phone] REASON FOR VISIT RE:Bupropion Social History Sex Assigned At : Social History Observation Description Sex Assigned At Female Encounters Encounter Location Date Provider Diagnosis [facility] [place] [id number] [facility] [address] [address] 06/05/2024 Hola Aguirre Plan Of Treatment Next Appt Details Provider Name:Miranda Calixto, 07/10/2024 04:00:00 PM, [address] [place] [address], [address], [address], Provider Name:Hola Aguirre , 07/24/2024 01:15:00 PM, [address] [place] [address], [address], [address], Progress Notes * JADE DIAZ MDOB:[birth year] (74 yo F)Acc No.[id number]:06/05/2024 Patient: Sahra WRIGHTJADE :1950 A ge:74 Y S ex:Female Address:[address] [place] [address], [address] * true * Date: Generated for Printi ng/Faxing/eTransmitting on: 0 06/17/2024 08:36 AM CDT
--- OUTSIDE RECORDS SUMMARY | 2024-06-17 08:37 | XMS_ITS | Clinical Summary ---
Author Organization [facility] Address [facility] [facility] [place] [address] Care Team Providers Care Hawk Missile System Crewmember Name Role Phone Unavailable Primary Care Provider Unavailabl e Source Comments [facility],non-owned Affiliates and Associated Physician Practices is amultiple site organization consisting of ambulatory clinics and hospital sitesin [place], [place], [place] and [place]. This disclosure is being madepursuant to the Care Everywhere program and may not contain all information available regarding this patient. Last updated 17.[facility] Allergies Active Allergy Reactions Criticality Noted Date [...] to complete this topic MENINGOCOCCAL (Group B) VACC INE SHARED DECISION-MAKING Aged Out No longer eligibl e based on patient's age to complete this topic MENINGOCOCCAL GROUPS A/C/Y/W VACCINE Aged Out No longer eligible b ased on patient's age to complete this topic
--- OUTSIDE RECORDS SUMMARY | 2024-06-17 08:37 | XMS_ITS ---
Author Organization [facility] [employer] [facility] Address [address] [facility] [address] [place] [address] Care Team Providers Care Tele Marketing Executive Name Role Phone Orlando Thompson DO Primary Care Provider Hola Belle Unavailable [phone] REASON FOR VISIT Bupropion Medications Medication SIG (Take, Route, Fr equency, Duration) Notes Start Date End Date Status busPIRone HCl 10 MG 1 tablet Orally Twic e a day for 30 days 08/03/2024 Active Social History Sex Assigned At : Social History Observation Description Sex Assigned At Female Encounters Encounter Location Date Provider Diagnosis [facility] [email or web address] [place] [id number] [facility] [address] [address] 06/04/2024 Hola Aguirre Generalized anxiety disorder F41.1 Assessments Encounter Date Diagnosis (ICD Code) Assessment Notes Treatment Notes Treatment Clinical Notes Section Notes 06/04/2024 Generalized anxiety disorder (ICD-10 - F41.1) Plan Of Treatment Medication Medication Name Sig Start Date Stop Date Notes busPIRone HCl 10 MG 1 tablet Orally Twic e a day for 30 days 08/03/2024 Next Appt Details Provider Name:Miranda Calixto, 07/10/2024 04:00:00 PM, [address] [place] [address], [address], [address], Provider Name:Hola Aguirre , 07/24/2024 01:15:00 PM, [address], [facility] [address], [place], [address], Progress Notes * JADE DIAZ MDOB:[birth year] (74 yo F)Acc No.[id number]:06/04/2024 Patient: NANCY ROTHNE Radha :1950 A ge:74 Y S ex:Female Address:[address] [place] [address], [address] * Refills Refill busPIRone HCl Tablet, 10 MG, Orally, 60 Tablet, 1 tablet, Twice a day, 30 days, Refills=1 * true * Date: Generated for Francesca patel/Maggie/Davismitting on: 0 06/17/2024 08:36 AM CDT
--- OUTSIDE RECORDS SUMMARY | 2024-06-17 08:37 | XMS_ITS | Clinical Summary ---
Author Organization [facility] Address [address] [place] [address] Care Team Providers Care Offset Press Operator Apprentice Name Role Phone Harjinder Lopez MD Primary Care Provider [phone] Allergies Active Allergy Reactions Criticality Noted Date Comments Tape Atopic Dermatitis 11/16/2021 Ciprofloxacin Anaphylaxis High 07/19/2020 Iodinated Contrast Media Anaphylaxis High 01/20/2019 Iodine Anaphylaxis High 12/19/2008 Sulfa Antibiotics Hives 11/16/2021 Medications albuterol sulfate HFA 108 (90 Base) MCG/ACT inhaler Inhale 2 puffs into the lungs every 4 (four) hours as needed for Wheezing or Shortness of breath. 1 Active amitriptyline (ELAVIL) 75 MG tablet Take 75 mg by mouth nightly at bedtime. at bedtime. 2 Active montelukast (SINGULAIR) 10 MG tablet Take 10 mg by mouth every evening. 2 Active lovastatin (MEVACOR) 20 MG tablet Take 20 mg by mouth daily with supper. Active denosumab (PROLIA) 60 MG/ML injection Inject 60 mg into the skin every 6 (six) months. Active fluticasone-caitlyn meterol (ADVAIR DISKUS) 250-50 MCG/ACT inhaler Inhale 1 puff into the lungs 2 (two) times daily. Active Pumpkin Seed-Soy Germ (AZO BLADDER CONTROL/GO-LESS OR) Take 1 each by mouth every morning. Active calcium carbonate-vitam in D (OSCAL + D) 500-200 MG-UNIT Tab tablet Take 2 tablets by mouth daily. Active magnesium oxide (MAG-OX) 400 (240 Mg) MG tablet Take 400 mg by mouth daily. Active probiotic (FLORAJEN3) Cap capsule Take 1 capsule by mouth 3 (three) times daily with meals. Active Active Problems Problem Noted Date Diagnosed Date Pelvic pain 09/22/2022 Pseudomonas urinary tract infection 11/22/2021 Pseudomonas urinary tract infection 11/20/2021 UTI (urinary tract infection) 11/18/2021 Family History Medical History Relation Comments Lung Cancer Father Heart Disease Mother Hypertension Mother Relation Status Comments Father Mother Social History Tobacco Use Types Packs/Day Years Used Date Smoking Tobacco: Never Smokeless Tobacco: Never Alcohol Use Standard Drinks/Week Comments Never 0 (1 standard drink = 0.6 oz pur e alcohol) PHQ-2 Answer Date Recorded PHQ-2 Score - If the patient scores above 3, please move on to questions 3-9 0 11/16/2021 Comments No Sex and Gender Information Value Date Recorded Sex Assigned at Not on file Legal Sex Female 2:21 PM CDT Gender Identity Not on file Sexual Orientation Not on file Last Filed Vital Signs Vital Sign Reading Time Taken Comments Blood Pressure 120/50 12/31/2021 5:26 PM CDT Pulse 87 12/31/2021 5:26 PM CDT Temperature 36.7 C (98 F) 12/31/2021 5:26 PM CDT Respiratory Rate 18 12/31/2021 5:26 PM CDT Oxygen Saturation 98% 12/31/2021 5:26 PM CDT Inhaled Oxygen Concentration - - Weight 78.8 kg (173 lb 11.6 oz) 11/30/2021 3:00 AM CDT Height 160 cm (5' 3 ) 12/31/2021 2:36 PM CDT Body Mass Index 29.82 11/22/2021 5:42 PM CDT Plan of Treatment Health Maintenance Due Date Last Done Comments Hepatitis C 1966 DTaP, Tdap and Td Vaccines (1 - Tdap) 1969 Annual Medicare Wellness Visit 2013 Dexa Scan (General) 2013 RSV Immunization or 60+ Years (1 - 1-dose 75+ series) 2023 COVID-19 Vaccine ( - season) 2023 01/28/2021, 06/10/2020, 05/13/2020 Influenza Adult (#1) 2024 12/25/2018, 01/29/2018, 12/22/2016, Additional history exists Pneumococcal Vaccine: 65+ Years Completed 01/29/2018, 12/22/2016, 10/13/2015, Additional history exists Zoster Vaccines Completed 08/20/2021, 05/03, 03/30/2014 Meningococcal B Vaccine Aged Out No l onger eligible based on patient's age to complete this topic Meningococcal Vaccine Aged Out No irving gracie eligible based on patient's age to complete this topic RSV Immunizations Under 20 Months Aged Out No longer eligible based on patient's age to complete this topic Goals Goal Patient Goal Type Associated Problems Recent Progress Patient-Stated? Author Health - patient able to perform ADLs independently Lifestyle No Kailee Theodore RN Safety - demonstrates understanding of home safety measures Lifestyle No Irene Lyman RN Insurance Advance Directives * Full Code (Latest Code Status on File) Date Activated Date Inactivated Comments 11/22/2021 7:31 PM 12/02/2021 4:50 PM * Full Code Date Activated Date Inactivated Comments 11/22/2021 7:28 PM 11/22/2021 7:31 PM * Full Code Date Activated Date Inactivated Comments 11/19/2021 3:16 PM 11/22/2021 5:01 PM Care Teams Offset Press Operator Apprentice Relationship Specialty Start Date End Date Harjinder Lopez MD [address] [place] [place] [address] [place] [address] PCP - General FAMILY PRACTICE 11/16/21
--- OUTSIDE RECORDS SUMMARY | 2024-06-17 08:37 | XMS_ITS | Continuity of Care Document ---
Author Organization [facility] Address [address] [facility] [place] [address] Phone Care Team Providers Care Binding End Stitcher Name Role Phone Henry CARRANZA MD, Pool [...] Date Provider Providers Copied on Encounter Ophthalmology [facility], [address] [facility] [address], [place], [place], [address], tel:[phone] [address] [place] [address] No Information 4 Henry Lanza. [address], [address], [place], [place], [address] , [place]. [phone] Referring Provider: Pool Walters, [address], [place], [place], [address]. tel:[phone] Ophthalmology [facility], [address] [facility] [address], [place], [place], [address], tel:[phone] [address] [place] [address] No Information 4 Henry Lanza. [address], [address], [place], [place], [address] , [place]. [phone] Referring Provider: Pool Walters, [address], [place], [place], [address]. tel:[phone] OFFICE/OUTPA TIENT VISIT, NEW [facility], [address], [place], [place], [address], tel:[phone] [facility] No Information 4 Henry Lanza. [address], [address], [place], [place], [address] , [place]. tel:[phone] Referring Provider: Pool Figueroa MD P, [address], [place], [place], [address]. tel:[phone] Family History Family Member Type Diagnosis Age At Onset No Information Payers Payer name Insurance type Covered libertarian ID Authoriza tialcides(s) [employer] [place] CI [id number] Social History Type Description Quantity Date Captured [...]
--- OUTSIDE RECORDS SUMMARY | 2024-06-17 08:37 | XMS_ITS | CONTINUITY OF CARE DOCUMENT ---
Author Name julia dumont Address Unknown Organization [facility] Address [address] [facility] [address] [place] [address] Phone [phone] Care Team Providers Care Cardiac Cath Rn Name Role Phone Andrey Mccullough MD Unavailable Irwin Lew MD Unavailable TARI TOUSSAINT MD Unavailable INSURANCE PROVIDERS Payer name Policy type / Coverage type [place] red alliance party ID MUTUAL OF Anc[employer] [id number] [place] MEDICARE Medicare [id number]
--- OUTSIDE RECORDS SUMMARY | 2024-06-17 08:37 | XMS_ITS | Clinical Summary ---
Author Organization [facility] [address] Address [address] [place] [address] Care Team Providers Care Quarter Folder Name Role Phone GamalielRupert preciado Primary Care Provider [phone] Allergies Active Allergy Reactions Criticality Noted Date [...] Psychiatry, engaged with what is group at sikhism as well as grief steady group online [...] on Prolia Continue Prolia q.6 months Immunizations Immunization Administration Dates Next Due Influenza, Quad, Adjuvantate [...] on file Legal Sex Female 5:59 PM ENERGY PROJECTS LEAD Gender Identity Female 08/02/2022 10:05 AM CDT [...] Due Date Last Done Comments Hepatitis C Screening 1950 Osteoporosis Screening-Bone Density [...] Discontinued 023 Medical Devices Implanted Type Area Administration Intern Device Identifier Shelf Expiration Date Model / Serial / Lot Other - See Comments Other - see comments Right: Back Description:Inter Stim Medtronic Inc Sutureless Connector Revision Catheter Kit Intrathecal Pump 8578 - [id number] Implanted:Qty: 1 on 09/06/2023 by Gui Coulter MD at [facility] Right: Abdomen Medtronic Inc 01/13/2024 8578 / / [id number] Medtronic Usa Inc X Pump Infusion Programmable Ulp Ami 20ml Volume 8667-20 - [id number] - [id number] Implanted:Qty: 1 on 09/06/2023 by Gui Coulter MD at [facility] Right: Abdomen Medtronic Usa Inc X 02/13/2025 8667-20 / [id number] / Explanted Type Area Administration Intern Device Identifier Shelf Expiration Date Model / Serial / Lot Other - See Comments Explanted:Qty : 1 on 09/06/2023 at [facility] Other - see comments Right: Stomach Description:Right Lower Quad - Drug Pump Procedures Procedure Name Priority Date/Time Associated Diagnosis Comments SCREENING MAMMOGRAM BILATERAL W ANTOINE Schedule Routine, Read Routine (OP Routine) 02/15/2023 11:30 AM ENERGY PROJECTS LEAD Encounter for screening mammogram for malignant neoplasm of breast from Last 3 Months or Most Recently Relevant to Health Maintenance Results * SCREENING MAMMOGRAM BILATERAL W ANTOINE (02/15/2023 11:30 AM ENERGY PROJECTS LEAD) Anatomical Region Laterality Modality Breast Bilateral Mammography 02/15/2023 1:31 PM ENERGY PROJECTS LEAD Impressions 02/15/2023 1:31 PM ENERGY PROJECTS LEAD There is no mammographic evidence of malignancy. A 1 year screening mammogram is recommended. BI-RADS: 1 - Negative. The patient has been or will be contacted. The patient will be entered into a reminder system with a target due date of 1 year for her next mammogram. Electronically signed by: Mercedes Perez M.D. 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
--- OUTSIDE RECORDS SUMMARY | 2024-06-17 08:37 | XMS_ITS | Referral Summary ---
Author Organization [facility] [address] Address [address] [place] [address] Care Team Providers Care Conservator Artifacts Name Role Phone GamalielRupert preciado Primary Care Provider Allergies Active Allergy Reactions Criticality Noted Date [...] Psychiatry, engaged with what is group at restorationist as well as grief steady group online [...] on file Legal Sex Female 5:59 PM SHOT LIGHTER Gender Identity Female 08/02/2022 10:05 AM CDT [...] on file Medical Devices Implanted Type Area Roofing Sales Representative Device Identifier Shelf Expiration Date Model / Serial / Lot Other - See Comments Other - see comments Right: Back Description:Inter Stim Medtronic Inc Sutureless Connector Revision Catheter Kit Intrathecal Pump 8578 - [id number] Implanted:Qty: 1 on 09/06/2023 by Gui Coulter MD at [facility] Right: Abdomen Medtronic Inc 01/13/2024 8578 / / [id number] Medtronic Usa Inc X Pump Infusion Programmable Ulp Ami 20ml Volume 8667-20 - [id number] - [id number] Implanted:Qty: 1 on 09/06/2023 by Gui Coulter MD at [facility] Right: Abdomen Medtronic Usa Inc X 02/13/2025 8667-20 / [id number] / Explanted Type Area Roofing Sales Representative Device Identifier Shelf Expiration Date Model / Serial / Lot Other - See Comments Explanted:Qty : 1 on 09/06/2023 at [facility] Other - see comments Right: Stomach Description:Right Lower Quad - Drug Pump Procedures Procedure Name Priority Date/Time Associated Diagnosis Comments SCREENING MAMMOGRAM BILATERAL W ANTOINE Schedule Routine, Read Routine (OP Routine) 02/15/2023 11:30 AM SHOT LIGHTER Encounter for screening mammogram for malignant neoplasm of breast from Last 3 Months or Most Recently Relevant to Health Maintenance Results * SCREENING MAMMOGRAM BILATERAL W ANTOINE (02/15/2023 11:30 AM SHOT LIGHTER) Anatomical Region Laterality Modality Breast Bilateral Mammography 02/15/2023 1:31 PM SHOT LIGHTER Impressions 02/15/2023 1:31 PM SHOT LIGHTER There is no mammographic evidence of malignancy. A 1 year screening mammogram is recommended. BI-RADS: 1 - Negative. The patient has been or will be contacted. The patient will be entered into a reminder system with a target due date of 1 year for her next mammogram. Electronically signed by: Mercedes Perez M.D. Narrative 02/15/2023 1:31 PM SHOT LIGHTER EXAMINATION: SCREENING MAMMOGRAM BILATERAL W ANTOINE ORDERING [...] to Health Maintenance Insurance MEDICARE SOLUTIONS [facility] Address: [facility] [address] [place] [address] MEDICARE SOLUTIONS MEDICARE SOLUTIONS Advance Directives For more information, please contact: [phone] Documents on File Type Date Recorded Patient Weaver Narrow Fabrics Expl anation ADVANCE DIRECTIVE 09/08/2023 6:22 AM POWER OF SYBASE DEVELOPER-MEDICAL Care Teams Conservator Artifacts Relationship Specialty Start Date End Date Rupert Elena DO [facility] [address] [address] PCP - General Family Medicine 07/09/23
== END 2024-06-17 08:23 | disposition home or self-care (01) ==
LOC: CHSIMG 08:23
PROVIDERS: PCP Internal Medicine; Visit Provider Nurse Practitioner
DX: N64.4 Mastodynia (principal); Z78.0 Asymptomatic menopausal state
CPT/HCPCS: 77062; 77066; 77080; G0279

== ENCOUNTER 2024-07-03 15:19 | Outpatient (RCR) | payer MEDICARE, SELFPAY | END 2024-07-04 16:30 | disposition home or self-care (01) | LOC: ANHDMC 15:19 | PROVIDERS: PCP Internal Medicine; Visit Provider Family Medicine | DX: E11.9 Type 2 diabetes mellitus without complications (principal); Z71.3 Dietary counseling and surveillance | CPT/HCPCS: G0108 ==

== ENCOUNTER 2024-08-01 01:02 | Day surgery (SDC) | payer MEDICARE, SELFPAY ==
[2024-07-23 09:11] VITALS: BMI 25.9
--- OUTSIDE RECORDS SUMMARY | 2024-08-01 01:04 | XMS_ITS | CONTINUITY OF CARE DOCUMENT ---
Author Name julia dumont Address Unknown Organization [facility] Address [address] [address] [place] [address] Phone [phone] Care Team Providers Care Learning Engineer Name Role Phone Andrey Mccullough MD Unavailable [phone] Irwin Lew MD Unavailable [phone] TARI TOUSSAINT MD Unavailable [phone] INSURANCE PROVIDERS Payer name Policy type / Coverage type [place] red constitution party ID [employer] OF [employer] [id number] [place] MEDICARE Medicare [id number]
--- OUTSIDE RECORDS SUMMARY | 2024-08-01 01:04 | XMS_ITS | Clinical Summary ---
Author Organization [facility] [employer] Address [facility] [facility] [place] [address] Care Team Providers Care Automation Developer Name Role Phone Unavailable Primary Care Provider Unavailabl e Source Comments [facility] [employer],non-owned Affiliates and Associated Physician Practices is amultiple site organization consisting of ambulatory clinics and hospital sitesin [place], [place], [place] and [place]. This disclosure is being madepursuant to the Care Everywhere program and may not contain all information available regarding this patient. Last updated 17.[facility] [employer] Allergies Active Allergy Reactions Criticality Noted Date Comments Contrast-Iodinated Agents For Ct/Other Anaphylaxis High 01/20/2019 Social History Tobacco Use Types Packs/Day Years Used Date Smoking Tobacco: Never Smokeless Tobacco: Never Alcohol Use Standard Drinks/Week Comments Not Currently 0 (1 standard drink = 0.6 oz pur e alcohol) Comments Unknown Sex and Gender Information Value Date Recorded Sex Assigned at Not on file Legal Sex Female 6:30 PM TOP LIFT NAILER Gender Identity Not on file Sexual Orientation [...] Last Done Comments BONE DENSITY TESTING 1950 HEPATITIS C SCREENING 05/08/1966 DTAP/TDAP/TD VACCINES (1 - Tdap) 1967 PNEUMOCOCCAL VACCINE 50+ (1 of 1 - PCV) 1998 ZOSTER VACCINE (1 of 2) 1998 Respiratory Syncytial Virus (RSV) Vaccine Pt: or over 60 yrs (1 - 1-dose 75+ series) 2023 COVID-19 VACCINE (1 - 2023-2 5 season) 2023 DEPRESSION SCREENING 04/02/2024 INFLUENZA VACCINE (Season Ended) 2024 HEPATITIS B VACCINE Aged Out No longe [...] on patient's age to complete this topic Insurance MEDICARE MEDICARE
--- OUTSIDE RECORDS SUMMARY | 2024-08-01 01:04 | XMS_ITS | Continuity of Care Document ---
Author Organization [facility] Address [address] [place] [address] [address] [place] [address] Phone Care Team Providers Care Test Analyst Name Role Phone Pool Figueroa MD, MD [...] Date Provider Providers Copied on Encounter Ophthalmology [facility], [address], [place], [place], [address], tel:[phone] [address] [place] [address] No Information 4 Henry Lanza. [address], [place], [place], [address] , [place]. tel:[phone] Referring Provider: Pool Walters, [address], [place], [address] . tel:[phone] Ophthalmology [facility], [address], [place], [place], [address], [place] tel:[phone] [address] [place] [address] No Information 4 Henry Lanza. [address], [place], [place], [address] , [place]. [phone] Referring Provider: Pool Walters, [address], [place], [address] . tel:[phone] OFFICE/OUTPA TIENT VISIT, [facility], [address], [place], [place], [address], tel:[phone] [facility] No Information 4 Henry Lanza. [address], [place], [place], [address] , [place]. tel:[phone] Referring Provider: Pool Figueroa MD P, [address], [place], [address] . tel:[phone] Family History Family Member Type Diagnosis Age At Onset No Information Payers Payer name Insurance type Covered green party ID Authorel christy(s) [employer] CI [id number] Social History Type Description Quantity Date Captured [...]
--- OUTSIDE RECORDS SUMMARY | 2024-08-01 01:04 | XMS_ITS | Clinical Summary ---
Author Organization [facility] Address [address] [place] [address] Care Team Providers Care Instrument Panel Assembler Name Role Phone Harjinder Lopez MD Primary Care Provider [phone] Allergies Active Allergy Reactions Criticality Noted Date [...] ( - season) 2023 01/28/2021, 06/10/2020, 05/13/2020 Pneumococcal Vaccine: 50+ Years Completed 01/29/2018, 12/22/2016, 10/13/2015, Additional history [...] measures Lifestyle No Irene Lyman RN Insurance [id number] Advance Directives * Full Code (Latest Code Status on File) Date Activated Date Inactivated Comments 11/22/2021 7:31 PM 12/02/2021 4:50 PM * Full Code Date Activated Date Inactivated Comments 11/22/2021 7:28 PM 11/22/2021 7:31 PM * Full Code Date Activated Date Inactivated Comments 11/19/2021 3:16 PM 11/22/2021 5:01 PM Care Teams Instrument Panel Assembler Relationship Specialty Start Date End Date Harjinder Lopez MD [address] [facility] [address] [place] [address] PCP - General FAMILY PRACTICE 11/16/21
--- OUTSIDE RECORDS SUMMARY | 2024-08-01 01:05 | XMS_ITS | Referral Summary ---
Author Organization [facility] [address] Address [address] [place] [address] Care Team Providers Care Liner Reroll Tender Name Role Phone GamalielRupert preciado Primary Care Provider [phone] Allergies Active Allergy Reactions Criticality Noted Date [...] Psychiatry, engaged with what is group at temple as well as grief steady group online [...] on file Legal Sex Female 5:59 PM GARMENT PATTERNMAKER Gender Identity Female 08/02/2022 10:05 AM CDT [...] on file Medical Devices Implanted Type Area Assembler Billiard Table Device Identifier Shelf Expiration Date Model / Serial / Lot Other - See Comments Other - see comments Right: Back Description:Inter Stim Medtronic Inc Sutureless Connector Revision Catheter Kit Intrathecal Pump 8578 - [id number] Implanted:Qty: 1 on 09/06/2023 by Gui Coulter MD at [facility] Right: Abdomen Medtronic Inc 01/13/2024 8578 / / [id number] Medtronic Usa Inc X Pump Infusion Programmable Ulp Ami 20ml Volume 8667-20 - [id number] Implanted:Qty: 1 on 09/06/2023 by Gui Coulter MD at [facility] Right: Abdomen Medtronic Usa Inc X 02/13/2025 8667-20 / [id number] / Explanted Type Area Assembler Billiard Table Device Identifier Shelf Expiration Date Model / Serial / Lot Other - See Comments Explanted:Qty : 1 on 09/06/2023 at [facility] Other - see comments Right: Stomach Description:Right Lower Quad - Drug Pump Procedures Procedure Name Priority Date/Time Associated Diagnosis Comments SCREENING MAMMOGRAM BILATERAL W ANTOINE Schedule Routine, Read Routine (OP Routine) 02/15/2023 11:30 AM GARMENT PATTERNMAKER Encounter for screening mammogram for malignant neoplasm of breast from Last 3 Months or Most Recently Relevant to Health Maintenance Results * SCREENING MAMMOGRAM BILATERAL W ANTOINE (02/15/2023 11:30 AM GARMENT PATTERNMAKER) Anatomical Region Laterality Modality Breast Bilateral Mammography 02/15/2023 1:31 PM GARMENT PATTERNMAKER Impressions 02/15/2023 1:31 PM GARMENT PATTERNMAKER There is no mammographic evidence of malignancy. A 1 year screening mammogram is recommended. BI-RADS: 1 - Negative. The patient has been or will be contacted. The patient will be entered into a reminder system with a target due date of 1 year for her next mammogram. Electronically signed by: Mercedes Perez M.D. 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
--- OUTSIDE RECORDS SUMMARY | 2024-08-01 01:05 | XMS_ITS | Patient Health Record ---
Author Organization [facility] As [place] [facility] Address [address] [place] [address] Care Team Providers Care Data Governance Analyst Name Role Phone Orlando Thompson DO Primary Care Provider Hola Belle Unavailable [phone] Miranda Moreau Unavailable [phone] Migration, Provider Unavailable Unavailable Allergies Allergen (clinical drug ingredient) Drug/Non Drug Allergy documented on EMR Reaction Allergy Type Onset Date Status ADHESIVE TAPE (uncoded) Unknown Allergy 08/02/2023 Active Iodinated contrast media (substance) IODINATED CONTRAST MEDIA (uncoded) Unknown Allergy 08/02/2023 Active Substance with sulfonamide structure and antibacterial mechanism of action (substance) SULFA (SULFONAMIDE ANTIBIOTICS) (uncoded) Unknown Allergy 08/02/2023 Active Ciprofloxacin Unknown Drug Allergy 08/02/2023 Ac tive Iodine Unknown Drug Allergy 08/02/2023 Active enoxaparin Lovenox Unknown Drug Allergy 08/02/2023 Activ e Povidone-Iodine Unknown Drug Allergy 08/02/2023 Active Reason For Referral No Information Medications Medication SIG (Take, Route, Frequency, Duration) Notes Start Date End Date Status traZODone HCl 50 MG 1 tablet at bedtime Oral Once a day for 30 days Active busPIRone HCl 5 MG 1 tablet every morning and 2 tablet at bedtime Orally see sign for 30 days dose reduced Active L. ACIDOPHILUS, PARACASEI, B. LACTIS 10 BILLION CELL CAPSULE *Reorder from Lola Pirindola for eRx and Interaction Alerts* 08/09/2023 Active Sertraline HCl 100 MG 1 tablet Orally Once a day for 30 days Active AZO BLADDER CONTROL 300 mg Oral *Reorder from Lola Pirindola for eRx and Interaction Alerts* 08/09/2023 Active DULoxetine HCl 60 MG 1 capsule Orally Once a day for 30 days Active Prolia 60 MG/ML Subcutaneous *[facility]* 08/09/2023 Active DULoxetine HCl 30 MG 1 capsule Orally Once a day for 30 days Active Lovastatin 20 MG Oral 08/09/2023 Ac tive Trelegy Ellipta 100-62.5-25 MCG/ACT INHALE 1 PUFF BY MOUTH ONCE DAILY Inhalation for 30 Days Active Immunizations Vaccine Route Administration Date Status Comme nts COVID-19 (SARS-COV-2) vaccin e, unspecified Unknown 06/11/2019 Administered COVID-19 (SARS-COV-2) vaccin e, unspecified Unknown 05/13/2020 Administered Dinh Covid-19 Vaccine Unknown 01/28/2021 Administere d Social History Tobacco Use: Social History Observation [...] No Section Notes: No hx drugs ETOH No hx drugs ETOH No hx drugs ETOH No hx drugs ETOH No hx drugs ETOH No hx drugs ETOH No hx drugs ETOH No hx drugs ETOH No hx drugs ETOH No hx drugs ETOH No hx drugs ETOH No hx drugs ETOH No hx drugs ETOH No hx drugs ETOH No hx drugs ETOH No hx drugs ETOH No hx drugs ETOH No hx drugs ETOH No hx drugs ETOH No hx drugs ETOH Problems Problem Type SNOMED Code ICD Code Onset Dates Problem Status W/U Status Risk Notes Problem Mild recurrent major depression (03097833) Major depressive disorder, recurrent, mild (F33.0) Active confirmed Problem Severe recurrent major depression without psychotic features (82695653) Major depressive disorder, recurrent severe without psychotic features (F33.2) Active confirmed Problem Generalized anxiety disorder (96276726) Generalized anxiety disorder (F41.1) Active confirmed Problem Primary insomnia (2166080) Primary insomnia (F51.01) Active confirmed Problem Chronic interstitial cystitis (667429897) Interstitial cystitis (chronic) without hematuria (N30.10) Active confirmed Problem Generalized anxiety disorder (13655263) SAMI (generalized anxiety disorder) (F41.1) Active confirmed Problem Hyperlipidemia (96666202) Hyperlipidemia (E78.5) Active confirmed Problem COPD - Chronic obstructive pulmonary disease (99340037) Chronic obstructive pulmonary disease, unspecified COPD type (J44.9) 06/24/19 Active confirmed Problem Chronic interstitial cystitis (114057035) Interstitial cystitis (N30.10) 06/24/19 Active confirmed Vital Signs Heart Rate 91 /min 07/24/2024 Height-cm 160.02 cm 07/24/2024 Blood pressure diastolic 74 mm Hg 07/24/2024 Weight-kg 67.59 kg 07/24/2024 Height 63.00 in 07/24/2024 Blood pressure systolic 133 mm Hg 07/24/2024 Weight 149 lbs 07/24/2024 BMI 26.39 kg/m2 07/24/2024 Encounters Encounter Location Date Provider Diagnosis [place] [id number] [facility] [address] [address] 08/02/2023 Hola Aguirre Major depressive disorder, recurrent severe without psychotic features F33.2 ; Interstitial cystitis (chronic) without hematuria N30.10 ; Major depressive disorder, recurrent, mild F33.0 and Generalized anxiety disorder F41.1 [facility] [address] [address] 08/08/2023 Miranda Calixto Major depressive disorder, recurrent severe without psychotic features F33.2 and Generalized anxiety disorder F41.1 [facility] [address] [address] 08/09/2023 Hola Aguirre Major depressive disorder, recurrent severe without psychotic features F33.2 ; Major depressive disorder, recurrent, mild F33.0 ; Interstitial cystitis (chronic) without hematuria N30.10 and Generalized anxiety disorder F41.1 [facility] [address] [address] 08/23/2023 Miranda Calixto [facility] [address] [address] 08/23/2023 Hola Aguirre [facility] [address] [address] 09/03/2023 Miranda Calixto Generalized anxiety disorder F41.1 and Major depressive disorder, recurrent severe without psychotic features F33.2 [facility] [address] [place] [address] 09/05/2023 Hola Carla Major depressive disorder, recurrent severe without psychotic features F33.2 ; Generalized anxiety disorder F41.1 ; Interstitial cystitis (chronic) without hematuria N30.10 and Primary insomnia F51.01 [facility] [address] [place] [address] 10/05/2023 Hola Carla Major depressive disorder, recurrent severe without psychotic features F33.2 ; Generalized anxiety disorder F41.1 ; Interstitial cystitis (chronic) without hematuria N30.10 and Primary insomnia F51.01 [facility] [address] [place] [address] 10/10/2023 Miranda Calixto Major depressive disorder, recurrent severe without psychotic features F33.2 and Generalized anxiety disorder F41.1 [facility] [address] [place] [address] 10/25/2023 Miranda Calixto Major depressive disorder, recurrent severe without psychotic features F33.2 and Generalized anxiety disorder F41.1 [facility] [address] [place] [address] 11/02/2023 Hola Carla Major depressive disorder, recurrent severe without psychotic features F33.2 ; Generalized anxiety disorder F41.1 ; Interstitial cystitis (chronic) without hematuria N30.10 and Primary insomnia F51.01 [facility] [address] [place] [address] 11/08/2023 Miranda Calixto Generalized anxiety disorder F41.1 and Major depressive disorder, recurrent severe without psychotic features F33.2 [facility] [address] [place] [address] 11/19/2023 Miranda Calixto Generalized anxiety disorder F41.1 and Major depressive disorder, recurrent, moderate F33.1 [facility] [address] [place] [address] 11/30/2023 Hola Carla Major depressive disorder, recurrent severe without psychotic features F33.2 ; Generalized anxiety disorder F41.1 ; Interstitial cystitis (chronic) without hematuria N30.10 and Primary insomnia F51.01 [facility] [address] [place] [address] 12/05/2023 Miranda Calixto Generalized anxiety disorder F41.1 and Major depressive disorder, recurrent, mild F33.0 [facility] [address] [place] [address] 12/19/2023 Miranda Calixto Generalized anxiety disorder F41.1 and Major depressive disorder, recurrent severe without psychotic features F33.2 [facility] [address] [place] [address] 01/09/2024 Miranda Calixto Generalized anxiety disorder F41.1 and Major depressive disorder, recurrent severe without psychotic features F33.2 [facility] [address] [place] [address] 01/11/2024 Hola Carla Major depressive disorder, recurrent severe without psychotic features F33.2 ; Generalized anxiety disorder F41.1 ; Interstitial cystitis (chronic) without hematuria N30.10 and Primary insomnia F51.01 [facility] [address] [place] [address] 01/23/2024 Miranda Calixto Generalized anxiety disorder F41.1 and Major depressive disorder, recurrent, mild F33.0 [facility] [address] [place] [address] 02/13/2024 Miranda Calixto Generalized anxiety disorder F41.1 and Major depressive disorder, recurrent, mild F33.0 [facility] [address] [place] [address] 03/05/2024 Miranda Calixto Generalized anxiety disorder F41.1 and Major depressive disorder, recurrent, mild F33.0 [facility] [address] [place] [address] 03/14/2024 Hola Carla Major depressive disorder, recurrent severe without psychotic features F33.2 ; Generalized anxiety disorder F41.1 ; Interstitial cystitis (chronic) without hematuria N30.10 and Primary insomnia F51.01 [facility] [address] [place] [address] 03/19/2024 Miranda Calixto Major depressive disorder, recurrent, mild F33.0 and Generalized anxiety disorder F41.1 [facility], [place] [address] [place] [address] 04/16/2024 Miranda Calixto Major depressive disorder, recurrent, mild F33.0 and Generalized anxiety disorder F41.1 [place] [address] [place] [address] 05/07/2024 Miranda Calixto Major depressive disorder, recurrent severe without psychotic features F33.2 and Generalized anxiety disorder F41.1 [facility], [place] [address] [place] [address] 05/28/2024 Hola Aguirre Major depressive disorder, recurrent, mild F33.0 ; Primary insomnia F51.01 ; Generalized anxiety disorder F41.1 ; Interstitial cystitis N30.10 ; Chronic obstructive pulmonary disease, unspecified COPD type J44.9 ; Hyperlipidemia E78.5 and SAMI (generalized anxiety disorder) F41.[address] [place] [address] 06/04/2024 Miranda Calixto Major depressive disorder, recurrent severe without psychotic features F33.2 and Generalized anxiety disorder F41.1 [place] [address] [place] [address] 07/10/2024 Miranda Calixto Major depressive disorder, recurrent, mild F33.0 and Generalized anxiety disorder F41.1 [place] [address] [place] [address] 07/24/2024 Hola Aguirre Encounter for screening for depression Z13.31 ; Encounter for screening for cardiovascular disorders Z13.6 ; Major depressive disorder, recurrent, mild F33.0 ; Primary insomnia F51.01 ; Generalized anxiety disorder F41.1 ; Interstitial cystitis N30.10 ; Chronic obstructive pulmonary disease, unspecified COPD type J44.9 ; Hyperlipidemia E78.5 and SAMI (generalized anxiety disorder) F41.1 [facility], [place] [address] [place] [address] 08/06/2023 Provider Migration [address] [place] [address] 08/18/2023 [facility] [address] [place] [address] 08/19/2023 Provider Migration [facility], [facility] [address] [place] [address] 09/17/2023 [facility], [place] [address] [place] [address] 09/17/2023 [facility], [place] [address] [place] [address] 09/26/2023 [facility], [place] [address] [place] [address] 09/27/2023 [facility], [facility] [address] [place] [address] 10/05/2023 [facility], [place] [address] [place] [address] 04/22/2024 [facility], [place] [address] [place] [address] 05/13/2024 [facility], [place] [address] [place] [address] 05/14/2024 [facility], [place] [address] [place] [address] 06/04/2024 [facility] Generalized anxiety disorder F41.1 [place] [address] [place] [address] 06/05/2024 Hola [facility] Assessments Encounter Date Diagnosis (ICD Code) Assessment Notes Treatment Notes Treatment Clinical Notes Section Notes 09/05/2023 Major depressive disorder, recurrent severe without psychotic features (ICD-10 - F33.2) Anxiety - Assessment: The patient reports feeling significantly better and has been engaging in problem-solving rather than panicking in recent situations. She is currently taking buspirone 5 mg twice daily and sertraline 100 mg daily. - Plan: - Continue current medications (buspirone and sertraline) without changes. - Re-evaluate anxiety levels in 4 weeks during the next follow-up appointment. Depression - Assessment: The patient is currently taking duloxetine 90 mg daily (increased from 60 mg) and has been finding more saranya in social activities. - Plan: - Continue duloxetine 90 mg daily. - Re-evaluate depression levels in 4 weeks during the next follow-up appointment, and consider decreasing the dose back to 60 mg if the patient is doing well. Insomnia - Assessment: The patient reports sleeping well and is currently taking trazodone 50 mg daily. - Plan: - Continue trazodone 50 mg daily. - Re-evaluate sleep quality in 4 weeks during the next follow-up appointment. 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 She is also learning to ask for help and utilize community resources. - Plan: - Encourage the patient to continue engaging in social activities and support groups. - Discuss the importance of building a support network and utilizing available resources during the next follow-up appointment. Pre-procedure Anxiety - Assessment: The patient has a procedure scheduled tomorrow and has discussed her concerns with her brother, an anesthesiologist, which has helped alleviate her anxiety. - Plan: - No additional medications needed for pre-procedure anxiety as the patient is already on buspirone. - Encourage the patient to continue using problem-solving strategies and seeking support from her family and friends. Follow-up appointment in 4 weeks to re-evaluate anxiety, depression, sleep quality, and social support. 09/05/2023 Generalized anxiety disorder (ICD-10 - F41.1) Anxiety - Assessment: The patient reports feeling significantly better and has been engaging in problem-solving rather than panicking in recent situations. She is currently taking buspirone 5 mg twice daily and sertraline 100 mg daily. - Plan: - Continue current medications (buspirone and sertraline) without changes. - Re-evaluate anxiety levels in 4 weeks during the next follow-up appointment. Depression - Assessment: The patient is currently taking duloxetine 90 mg daily (increased from 60 mg) and has been finding more saranya in social activities. - Plan: - Continue duloxetine 90 mg daily. - Re-evaluate depression levels in 4 weeks during the next follow-up appointment, and consider decreasing the dose back to 60 mg if the patient is doing well. Insomnia - Assessment: The patient reports sleeping well and is currently taking trazodone 50 mg daily. - Plan: - Continue trazodone 50 mg daily. - Re-evaluate sleep quality in 4 weeks during the next follow-up appointment. 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 She is also learning to ask for help and utilize community resources. - Plan: - Encourage the patient to continue engaging in social activities and support groups. - Discuss the importance of building a support network and utilizing available resources during the next follow-up appointment. Pre-procedure Anxiety - Assessment: The patient has a procedure scheduled tomorrow and has discussed her concerns with her brother, an anesthesiologist, which has helped alleviate her anxiety. - Plan: - No additional medications needed for pre-procedure anxiety as the patient is already on buspirone. - Encourage the patient to continue using problem-solving strategies and seeking support from her family and friends. Follow-up appointment in 4 weeks to re-evaluate anxiety, depression, sleep quality, and social support. 03/05/2024 Generalized anxiety disorder (ICD-10 - F41.1) Emotional Well-being - Assessment: Patient reports feeling rejected by her daughter and cried for four days. She also expresses concerns about her daughter's ADHD and psychological issues. - Plan: - Encourage open communication with her daughter. - Suggest family therapy if needed. - Provide resources for support groups or individual therapy for the patient to address her emotional well-being. Social Support - Assessment: Patient has friends from [facility] at [facility] and plans for a potluck for [place] if other plans don't work out. - Plan: - Encourage the patient to maintain and strengthen social connections for emotional support. Family Dynamics and Holiday Plans - Assessment: Patient is unsure about holiday plans and whether her granddaughter Merced will be home for Jamie. Considering alternative plans with her son. - Plan: - Encourage the patient to communicate with her family members to clarify plans and express her needs and preferences. Each section addresses a specific area of concern and outlines a corresponding plan for support and management. Grief Support - Assessment: Patient continues to participate in a grief support group, which has been extended through July. - Plan: - Monitor mood and anxiety levels, especially during significant dates related to her late . 02/13/2024 Generalized anxiety disorder (ICD-10 - F41.1) Emotional Well-being - Assessment: Patient reports feeling rejected by her daughter and cried for four days. She also expresses concerns about her daughter's ADHD and psychological issues. - Plan: - Encourage open communication with her daughter. - Suggest family therapy if needed. - Provide resources for support groups or individual therapy for the patient to address her emotional well-being. Social Support - Assessment: Patient has friends from [employer] [facility] and plans for a potluck for [place] if other plans don't work out. - Plan: - Encourage the patient to maintain and strengthen social connections for emotional support. Family Dynamics and Holiday Plans - Assessment: Patient is unsure about holiday plans and whether her granddaughter Merced will be home for Jamie. Considering alternative plans with her son. - Plan: - Encourage the patient to communicate with her family members to clarify plans and express her needs and preferences. Each section addresses a specific area of concern and outlines a corresponding plan for support and management. 01/09/2024 Major depressive disorder, recurrent severe without psychotic features (ICD-10 - F33.2) Grief and Emotional Well-being - Assessment: Ongoing grief post-'s . Benefiting from counseling and support groups. No panic attacks since Oct 31. Increased independence and confidence. - Plan: - Continue grief share support groups. - Use online resources (e.g., [employer]). - Maintain social connections and well-being activities. Family Dynamics and Support - Assessment: Challenges in relationships with children post-father's . Working on boundaries with daughter. - Plan: - Encourage ongoing communication and boundary-setting. 01/09/2024 Generalized anxiety disorder (ICD-10 - F41.1) Grief and Emotional Well-being - Assessment: Ongoing grief post-'s . Benefiting from counseling and support groups. No panic attacks since Oct 31. Increased independence and confidence. - Plan: - Continue grief share support groups. - Use online resources (e.g., [employer]). - Maintain social connections and well-being activities. Family Dynamics and Support - Assessment: Challenges in relationships with children post-father's . Working on boundaries with daughter. - Plan: - Encourage ongoing communication and boundary-setting. 10/10/2023 Major depressive disorder, recurrent severe without psychotic features (ICD-10 - F33.2) 10/10/2023 Generalized anxiety disorder (ICD-10 - F41.1) 12/19/2023 Generalized anxiety disorder (ICD-10 - F41.1) Grief and Mental Health - Assessment: The patient reports attending [employer] classes and maintaining social connections. - Plan: - Continue attending [employer] classes and consider seeking additional support if needed. - Maintain social connections through girls' group, book club, and family communication. - Monitor mood and mental health, and follow up with mental health provider as needed. 12/05/2023 Major depressive disorder, recurrent, mild (ICD-10 - F33.0) Grief and Emotional Well-being - Assessment: The patient reports improvement in mood and increased engagement in activities. She has been attending a grief share group and finds in-person meetings more beneficial than online sessions. The patient also reports having a dream about her late and experiencing feelings of anger. - Plan: - Continue attending grief share group for support and consider increasing participation as comfort level allows. - Encouraged patient to continue discussing her feelings and emotions in therapy or support group settings. 12/05/2023 Generalized anxiety disorder (ICD-10 - F41.1) Grief and Emotional Well-being - Assessment: The patient reports improvement in mood and increased engagement in activities. She has been attending a grief share group and finds in-person meetings more beneficial than online sessions. The patient also reports having a dream about her late and experiencing feelings of anger. - Plan: - Continue attending grief share group for support and consider increasing participation as comfort level allows. - Encouraged patient to continue discussing her feelings and emotions in therapy or support group settings. 11/30/2023 Major depressive disorder, recurrent severe without psychotic features (ICD-10 - F33.2) Diabetes - Assessment: Patient reports a recent diagnosis of diabetes with an HbA1c of 6.5. Currently managing with diet alone, as per primary care physician's recommendation. Patient is using a glucose monitor and following a diabetic diet. - Plan: Continue monitoring blood glucose levels and adherence to the diabetic diet. Encourage regular follow-up with primary care physician for ongoing management. Chronic Pain - Assessment: Patient reports that pain is currently under control. - Plan: Continue current pain management regimen and monitor for any changes in pain levels. Depression and Anxiety - Assessment: Patient reports feeling more stable and not experiencing significant mood swings or panic. Currently on sertraline 100 mg daily, duloxetine 90 mg daily, and buspirone 10 mg twice a day. Patient feels she is on the road to improvement, though not yet at pre-episode levels. - Plan: Continue current medications and dosages. Schedule a follow-up appointment in six weeks to reassess mood and anxiety levels. Insomnia - Assessment: Patient reports taking trazodone 50 mg nightly and experiencing improved sleep. Patient describes the improvement in sleep as a miracle. - Plan: Continue trazodone 50 mg nightly for insomnia. Monitor for any changes in sleep patterns. COPD - Assessment: Patient reports a recent change in inhaler medication to Breo Ellipta by Dr. Ramos. - Plan: Encourage regular follow-up with Dr. Ramos for ongoing COPD management. Ensure proper communication and sharing of medical notes between providers. Grief Support - Assessment: Patient is currently providing support to her sister, who recently lost her in September. This may have an impact on the patient's mental health. Patient calls her sister twice daily and accompanies her to Mass and social outings. Patient feels she is both helping her sister and reliving her own grief experience. - Plan: Encourage the patient to continue providing support to her sister while also taking care of her own mental health. Monitor for any changes in mood or anxiety levels related to this situation. Follow-up - Plan: Schedule next appointment in 6 weeks. Refill all current medications. 11/19/2023 Major depressive disorder, recurrent, moderate (ICD-10 - F33.1) Type 2 Diabetes - Assessment: The patient is overwhelmed with dietary recommendations from the technical service engineer and struggling to incorporate the recommended amount of vegetables into daily meals. She is monitoring carbohydrate intake and experimenting with different foods. She is tracking food intake and plans to review with the technical service engineer. She is using cottage cheese for breakfast as a protein source. - Plan: Encourage the patient to continue working with the technical service engineer to develop a personalized meal plan. Anxiety and Grief - Assessment: The patient is experiencing anxiety related to managing diabetes and grief from the loss of a loved one. She is attending a grief support group and finding it helpful. She reports feeling more comfortable being alone and watching TV at night. - Plan: Continue to encourage the patient to attend grief support group meetings and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 and experiencing improved sleep. Patient describes the improvement in sleep as a miracle. - Plan: Continue trazodone 50 mg nightly for insomnia. Monitor for any changes in sleep patterns. COPD - Assessment: Patient reports a recent change in inhaler medication to Breo Ellipta by Dr. Ramos. - Plan: Encourage regular follow-up with Dr. Ramos for ongoing COPD management. Ensure proper communication and sharing of medical notes between providers. Grief Support - Assessment: Patient is currently providing support to her sister, who recently lost her in September. This may have an impact on the patient's mental health. Patient calls her sister twice daily and accompanies her to Mass and social outings. Patient feels she is both helping her sister and reliving her own grief experience. - Plan: Encourage the patient to continue providing support to her sister while also taking care of her own mental health. Monitor for any changes in mood or anxiety levels related to this situation. Follow-up - Plan: Schedule next appointment in 6 weeks. Refill all current medications. 03/14/2024 Interstitial cystitis (chronic) without hematuria (ICD-10 - N30.10) Adjustment Disorder with Mixed Anxiety and Depressed Mood - Assessment: Patient reports still having moments of grief, especially around anniversaries and visits to the cemetery. - Plan: - Continue Zoloft 100 mg daily - Continue duloxetine 90 mg daily - Continue buspirone 10 mg twice a day - Follow up in 6 weeks Insomnia - Assessment: Patient reports sleeping well. - Plan: - Continue trazodone 50 mg at bedtime - Monitor daytime napping and adjust duration if it starts affecting nighttime sleep Rotator Cuff Injury - Assessment: Patient considering surgery after the first of the year. Cortisone shots becoming less effective. - Plan: - Encourage patient to contact [facility] for post-surgery assistance options - Follow up with orthopedic doctor at [place] the [place] [facility], at the end of April - Discuss potential surgery date (e.g., ) to accommodate daughter's work schedule Fatigue - Assessment: Patient reports feeling tired in the afternoons. - Plan: - Encourage patient to maintain daytime napping to 45 minutes to avoid entering REM sleep and affecting nighttime sleep - Monitor energy levels and adjust daily activities accordingly Social Support - Assessment: Patient continues to visit and support her sister twice a week. Plans to stay with her daughter for 5-7 days starting on the . - Plan: - Encourage patient to continue visiting and supporting her sister twice a week - Encourage patient to consider staying with her daughter post-surgery for additional support and assistance Progress - Assessment: Patient reports feeling more confident, including [place] the [place] the first time in 2 years. Patient is more comfortable being at home alone and continuing with daily activities. - Plan: Continue to monitor and encourage progress in daily activities and independence. 01/11/2024 Interstitial cystitis (chronic) without hematuria (ICD-10 - N30.10) Depression and Anxiety - Assessment: Patient reports improvement in mood and depression, with no panic attacks in the past two months. Patient feels more capable of managing her condition. - Plan: - Continue current medications: duloxetine 90 mg daily for depression, sertraline 100 mg daily, buspirone 10 mg twice a day for anxiety, and trazodone 50 mg for insomnia. - Schedule an extra appointment in March, around the week of March 17 to , for additional support during the holiday season. Diabetes - Assessment: Patient is following a 1500-calorie diet and has lost 28 pounds since September. Diabetes was diagnosed in September. - Plan: - Continue monitoring blood sugar levels and adherence to the diet plan. - Maintain regular follow-ups with the technical service engineer. Balance Issue and Vertigo - Plan: - Begin physical therapy sessions with Reilly at [facility] physical therapy starting Sunday. - Obtain a CAT scan as recommended by the physical therapist. Weight Loss and Nutrition - Assessment: Patient is experiencing ongoing weight loss and is working with a technical service engineer. Patient reports losing 28 pounds since September. - Plan: - Continue following the prescribed diet plan and monitor weight changes. - Reassess the need for adjustments to the diet plan during future appointments. Grief and Family Support - Assessment: Patient is providing support to her sister after the loss of her [id number] and is receiving support from her son at the end of the month. Patient's Eddie on March 22 last year, making the holiday season particularly challenging. - Plan: - Encourage the patient to continue seeking and providing support within her family and social network. - Monitor the patient's emotional well-being during future appointments, particularly around the holiday season. Follow-up - Plan: - Next appointment scheduled for March 12 or just before. - Additional appointment to be scheduled during the week of March 17 to for extra support during the holiday season. - Patient is currently scheduled through April with therapist Miranda. 07/24/2024 Major depressive disorder, recurrent, mild (ICD-10 - F33.0) 05/28/2024 Interstitial cystitis (ICD-10 - N30.10) 05/28/2024 Chronic obstructive pulmonary disease, unspecified COPD type (ICD-10 - J44.9) 03/14/2024 Primary insomnia (ICD-10 - F51.01) Adjustment Disorder with Mixed Anxiety and Depressed Mood - Assessment: Patient reports still having moments of grief, especially around anniversaries and visits to the cemetery. - Plan: - Continue Zoloft 100 mg daily - Continue duloxetine 90 mg daily - Continue buspirone 10 mg twice a day - Follow up in 6 weeks Insomnia - Assessment: Patient reports sleeping well. - Plan: - Continue trazodone 50 mg at bedtime - Monitor daytime napping and adjust duration if it starts affecting nighttime sleep Rotator Cuff Injury - Assessment: Patient considering surgery after the first of the year. Cortisone shots becoming less effective. - Plan: - Encourage patient to contact [facility] for post-surgery assistance options - Follow up with orthopedic doctor at [place] [place] [facility], at the end of April - Discuss potential surgery date (e.g., ) to accommodate daughter's work schedule Fatigue - Assessment: Patient reports feeling tired in the afternoons. - Plan: - Encourage patient to maintain daytime napping to 45 minutes to avoid entering REM sleep and affecting nighttime sleep - Monitor energy levels and adjust daily activities accordingly Social Support - Assessment: Patient continues to visit and support her sister twice a week. Plans to stay with her daughter for 5-7 days starting on the . - Plan: - Encourage patient to continue visiting and supporting her sister twice a week - Encourage patient to consider staying with her daughter post-surgery for additional support and assistance Progress - Assessment: Patient reports feeling more confident, including driving on the interstate for the first time in 2 years. Patient is more comfortable being at home alone and continuing with daily activities. - Plan: Continue to monitor and encourage progress in daily activities and independence. 01/11/2024 Primary insomnia (ICD-10 - F51.01) Depression and Anxiety - Assessment: Patient reports improvement in mood and depression, with no panic attacks in the past two months. Patient feels more capable of managing her condition. - Plan: - Continue current medications: duloxetine 90 mg daily for depression, sertraline 100 mg daily, buspirone 10 mg twice a day for anxiety, and trazodone 50 mg for insomnia. - Schedule an extra appointment in March, around the week of March 17 to , for additional support during the holiday season. Diabetes - Assessment: Patient is following a 1500-calorie diet and has lost 28 pounds since September. Diabetes was diagnosed in September. - Plan: - Continue monitoring blood sugar levels and adherence to the diet plan. - Maintain regular follow-ups with the technical service engineer. Balance Issue and Vertigo - Plan: - Begin physical therapy sessions with Reilly at [facility] physical therapy starting Sunday. - Obtain a CAT scan as recommended by the physical therapist. Weight Loss and Nutrition - Assessment: Patient is experiencing ongoing weight loss and is working with a technical service engineer. Patient reports losing 28 pounds since September. - Plan: - Continue following the prescribed diet plan and monitor weight changes. - Reassess the need for adjustments to the diet plan during future appointments. Grief and Family Support - Assessment: Patient is providing support to her sister after the loss of her [id number] and is receiving support from her son at the end of the month. Patient's Eddie on March 22 last year, making the holiday season particularly challenging. - Plan: - Encourage the patient to continue seeking and providing support within her family and social network. - Monitor the patient's emotional well-being during future appointments, particularly around the holiday season. Follow-up - Plan: - Next appointment scheduled for March 12 or just before. - Additional appointment to be scheduled during the week of March 17 to for extra support during the holiday season. - Patient is currently scheduled through April with therapist Miranda. 07/24/2024 Primary insomnia (ICD-10 - F51.01) 11/30/2023 Primary insomnia (ICD-10 - F51.01) Diabetes - Assessment: Patient reports a recent diagnosis of diabetes with an HbA1c of 6.5. Currently managing with diet alone, as per primary care physician's recommendation. Patient is using a glucose monitor and following a diabetic diet. - Plan: Continue monitoring blood glucose levels and adherence to the diabetic diet. Encourage regular follow-up with primary care physician for ongoing management. Chronic Pain - Assessment: Patient reports that pain is currently under control. - Plan: Continue current pain management regimen and monitor for any changes in pain levels. Depression and Anxiety - Assessment: Patient reports feeling more stable and not experiencing significant mood swings or panic. Currently on sertraline 100 mg daily, duloxetine 90 mg daily, and buspirone 10 mg twice a day. Patient feels she is on the road to improvement, though not yet at pre-episode levels. - Plan: Continue current medications and dosages. Schedule a follow-up appointment in six weeks to reassess mood and anxiety levels. Insomnia - Assessment: Patient reports taking trazodone 50 mg nightly and experiencing improved sleep. Patient describes the improvement in sleep as a miracle. - Plan: Continue trazodone 50 mg nightly for insomnia. Monitor for any changes in sleep patterns. COPD - Assessment: Patient reports a recent change in inhaler medication to Breo Ellipta by Dr. Ramos. - Plan: Encourage regular follow-up with Dr. Ramos for ongoing COPD management. Ensure proper communication and sharing of medical notes between providers. Grief Support - Assessment: Patient is currently providing support to her sister, who recently lost her in September. This may have an impact on the patient's mental health. Patient calls her sister twice daily and accompanies her to Mass and social outings. Patient feels she is both helping her sister and reliving her own grief experience. - Plan: Encourage the patient to continue providing support to her sister while also taking care of her own mental health. Monitor for any changes in mood or anxiety levels related to this situation. Follow-up - Plan: Schedule next appointment in 6 weeks. Refill all current medications. 11/02/2023 Primary insomnia (ICD-10 - F51.01) Depression and Anxiety - Assessment: The patient reports improvement in anxiety and panic symptoms since the last visit. They still experience occasional nervousness and strange dreams that cause anger. - Plan: - Continue Sertraline 100 mg daily. - Continue Duloxetine 90 mg daily. - Update Buspirone to 10 mg twice a day, as per the patient's report. - Continue monitoring the patient's progress. Insomnia - Assessment: The patient reports sleeping relatively well. - Plan: - Continue Trazodone 50 mg at bedtime. - Continue monitoring sleep quality and patterns. Newly Diagnosed Diabetes - Assessment: The patient's recent lab results show an elevated Hemoglobin A1c of 6.5, indicating diabetes. The patient has been advised to limit sugar intake and watch carbohydrate consumption. - Plan: - Refer the patient to a talent development director for further education and management of diabetes. - Obtain medical records and labs from other healthcare providers to ensure accurate diagnosis and monitoring. - Consider initiating pharmacological treatment for diabetes if lifestyle modifications are insufficient in future visits. - Note: Patient's fasting glucose was 113, which is elevated. Previous A1c from a month ago was 5.8, but this result may be less accurate as it was done at home. Follow-up - Plan: Schedule a follow-up appointment to monitor the patient's progress in managing depression, anxiety, insomnia, and diabetes. Encourage the patient to report any significant changes in symptoms or concerns between appointments. Additional Notes - The patient reports feeling better after resolving issues with a drug pump and morphine. - The patient's appetite and motivation are improving. - The patient is doing better with being alone and feeling more capable. 10/05/2023 Primary insomnia (ICD-10 - F51.01) Anxiety - Assessment: Patient experienced withdrawal and anxiety due to a leak in the drug pump. Buspirone increased to 10 mg twice a day by Dr. Gant. Patient still feels antsy and nervous. - Plan: - Continue buspirone 10 mg twice a day. - Monitor patient's anxiety levels during follow-up appointments. Depression - Assessment: Patient reports improvement in depression symptoms. - Plan: - Continue current treatment with sertraline. - Send a new prescription for sertraline to [facility]. - Reassess depression symptoms during follow-up appointments. Interstitial Cystitis - Assessment: Patient continues to experience pain from interstitial cystitis. Pain level has decreased from an eight to a four in the past month. - Plan: - Maintain current pain management plan with interventional pain consultants from [facility]. - Coordinate care with Alyssia, the nurse practitioner at the pain clinic. - Monitor pain levels during follow-up appointments. Hypertension - Assessment: Patient's blood pressure was high during a visit with Dr. Lal but has since improved. - Plan: - Continue to monitor blood pressure during follow-up appointments. Tachycardia - Assessment: Patient's heart rate has been high, possibly due to anxiety and pain. - Plan: - Monitor heart rate during follow-up appointments. - Address potential contributing factors, such as anxiety and pain management. Communication with Other Providers - Plan: - Complete a release of information and send a note to Dr. Lal. - Maintain open communication with the patient's other healthcare providers. Follow-up - Plan: - Keep the same four-week appointment schedule. - Reassess patient's symptoms and overall well-being during follow-up appointments. 09/05/2023 Primary insomnia (ICD-10 - F51.01) Anxiety - Assessment: The patient reports feeling significantly better and has been engaging in problem-solving rather than panicking in recent situations. She is currently taking buspirone 5 mg twice daily and sertraline 100 mg daily. - Plan: - Continue current medications (buspirone and sertraline) without changes. - Re-evaluate anxiety levels in 4 weeks during the next follow-up appointment. Depression - Assessment: The patient is currently taking duloxetine 90 mg daily (increased from 60 mg) and has been finding more saranya in social activities. - Plan: - Continue duloxetine 90 mg daily. - Re-evaluate depression levels in 4 weeks during the next follow-up appointment, and consider decreasing the dose back to 60 mg if the patient is doing well. Insomnia - Assessment: The patient reports sleeping well and is currently taking trazodone 50 mg daily. - Plan: - Continue trazodone 50 mg daily. - Re-evaluate sleep quality in 4 weeks during the next follow-up appointment. 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 She is also learning to ask for help and utilize community resources. - Plan: - Encourage the patient to continue engaging in social activities and support groups. - Discuss the importance of building a support network and utilizing available resources during the next follow-up appointment. Pre-procedure Anxiety - Assessment: The patient has a procedure scheduled tomorrow and has discussed her concerns with her brother, an anesthesiologist, which has helped alleviate her anxiety. - Plan: - No additional medications needed for pre-procedure anxiety as the patient is already on buspirone. - Encourage the patient to continue using problem-solving strategies and seeking support from her family and friends. Follow-up appointment in 4 weeks to re-evaluate anxiety, depression, sleep quality, and social support. 07/24/2024 Generalized anxiety disorder (ICD-10 - F41.1) 05/28/2024 Hyperlipidemia (ICD-10 - E78.5) 07/24/2024 Interstitial cystitis (ICD-10 - N30.10) 05/28/2024 SAMI (generalized anxiety disorder) (ICD-10 - F41.1) 07/24/2024 Chronic obstructive pulmonary disease, unspecified COPD type (ICD-10 - J44.9) 07/24/2024 Hyperlipidemia (ICD-10 - E78.5) 07/24/2024 SAMI (generalized anxiety disorder) (ICD-10 - F41.1) 05/07/2024 Other Grief and [...] Monitor progress and provide support as needed. 05/28/2024 Other Depression - Assessment: Patient reports improvement in depressive symptoms. PHQ-9 score is 1, indicating minimal depression. Patient has been participating in a grief group and reports mood improvement. Patient enjoyed the [place] period, indicating further improvement in mood. - Plan: - Continue Sertraline 100 mg daily and duloxetine 90 mg daily. - Encourage continued participation in the grief group. Insomnia - Assessment: Patient reports better sleep. - Plan: - Continue Trazodone 50 mg at night for insomnia management. Anxiety - Assessment: Patient reports improved confidence and encouragement. - Plan: - Adjust Buspirone to 5 mg, one tablet in the morning and 2 tablets in the evening to avoid cutting tablets. Grief - Assessment: Grief is improving, and participation in the grief group is beneficial. - Plan: - Encourage continued participation in the grief group. Follow-up - Plan: - Continue monitoring patient's progress in managing depression, insomnia, anxiety, and grief. - Schedule a follow-up appointment to reassess the patient's response to the medication adjustments and overall mental health status. 07/10/2024 Other Complicated Grief - Assessment: Andreia continues to experience grief following the loss of her Eddie. She reports ongoing memories and dreams about him, particularly around significant dates such as his upcoming birthday. Andreia has been attending a grief support group, which she finds helpful. She is showing signs of progress in her grief process, including settling in to her new identity as a and finding meaning in supporting others in similar situations. - Plan: - Continue attending weekly grief support group - Encourage participation in upcoming memorial service on July 24 - Support patient's involvement in organizing and facilitating grief support meetings Anxiety Related to Political and Economic Concerns - Assessment: Andreia expresses significant anxiety and distress related to the current political climate and its potential impact on her financial stability. She reports excessive worry about her Social Security benefits, fpc accounts, and rising costs of living. Andreia's anxiety is exacerbated by frequent consumption of news media and difficulties discussing her concerns with others due to polarized political views. - Plan: - Encourage limiting news consumption to 1-2 hours daily - Discuss strategies for engaging in political discussions without increasing anxiety - Explore alternative activities to replace excessive news watching 07/24/2024 Toi Diaz, a female patient with a history of depression and recent pain pump issues, presents with improved mood and overall well-being. Depression Assessment: Patient reports significant improvement in depressive symptoms, with her depression score now at zero for the first time in many years. She attributes this improvement to her involvement in a support group at protest[employer] where she discusses personal challenges. The patient also notes improved sleep patterns and weight gain, which were previous concerns. These positive changes suggest effective management of her depression. Plan: - Continue current treatment regimen for depression (specific medications not mentioned in transcript) - Maintain involvement in protestant support group - Follow up with clinician in 2 months - Alternate monthly visits between current clinician and Miranda (assumed to be a therapist) Anxiety Assessment: Patient previously experienced anxiety related to a pain pump issue and leak. Currently, anxiety appears to be well-managed, but there is a potential for increased anxiety due to upcoming medical procedures, particularly the scheduled colonoscopy on August 01. Plan: - Monitor for potential anxiety increase post-colonoscop y - Patient instructed to message clinician if anxiety worsens after the procedure Osteoporosis Assessment: Patient reports recent bone density test results indicating progression to osteoporosis, with declining numbers. The test was conducted in May at [facility] in [place]. Plan: - No specific interventions discussed for osteoporosis management Upcoming Medical Procedures Assessment: Patient has a colonoscopy scheduled for August 01. She expresses concern about the preparation process, which includes magnesium citrate and four laxatives. Plan: - Proceed with scheduled colonoscopy on August 01 - Patient to follow prescribed colonoscopy preparation regimen Disclaimer: This note has been transcribed using speech recognition software and serves as a reflection of the patient's visit. While efforts have been made to ensure accuracy, there may be errors, including environmental health inspector inaccuracies and misspellings of medication names. This document should not be considered a verbatim record, and any discrepancies should be verified with the provider. Plan Of Treatment Next Appt Details Provider Name:Miranda Calixto, 08/07/2024 03:00:00 PM, [address], [address], [address], Provider Name:Miranda Calixto, 09/04/2024 02:00:00 PM, [address], [address], [place], [address], Provider Name:Hola Aguirre , 09/25/2024 01:45:00 PM, [address], [place], [address], Provider Name:Miranda Calixto, 10/02/2024 01:00:00 PM, [address], [place], [address], Provider Name:Mirandadeion Calixto, 11/06/2024 01:00:00 PM, [address], [place], [address], Insurance Providers Payer Name Payer Address Payer Phone Subscriber Number Group Number Insured Name Patient Relationship to Insured Coverage Start Date Coverage End Date [facility] [address] [place] [phone] [id number] FELICIA DIAZ Self - patient is the insured Medical (General) History Medical History History ICD Code Problems: Chronic interstitial cystitis Chronic obstructive lung disease Generalized anxiety disorder Mild recurrent major depression Pain in bilateral legs Severe recurrent major depression withou t psychotic features , Surgical History Surgery Date(Month/Year) Appendectomy (76850) 04/02/1974 Removal of gallbladder (76360) 5 Hysterectomy (34683) 10/01/1975 Cataract surgery (65886) 12/31/2013 Hospitalization History Reason Date(Month/Year) drug pumb replacement 09/06/2023
--- OUTSIDE RECORDS SUMMARY | 2024-08-01 01:05 | XMS_ITS | Clinical Summary ---
Author Organization [facility] [address] Address [address] [place] [address] Care Team Providers Care Document Control Supervisor Name Role Phone GamalielRupert preciado Primary Care Provider [phone] Allergies Active Allergy Reactions Criticality Noted Date [...] Psychiatry, engaged with what is group at [facility] as well as grief steady group online [...] on file Legal Sex Female 5:59 PM AIR EXPORT AGENT Gender Identity Female 08/02/2022 10:05 AM CDT [...] 10/25/2022, 10/25/2022, Additional history exists Covid-19 Vaccine ( - 2023-2 5 season) 2023 01/25/2022, 01/28/2021, 06/10/2020, Additional history exists Fall Risk Assessment 09/05/2024 09/06/2023, 11/13/2022, 08/07/2022 Influenza Vaccine (Season Ended) 2024 01/12/2022, 01/14/2021, 12/03/2019, Additional history exists Pneumococcal vaccine 65+ Completed 018, 12/22/2016, 10/13/2015, Additional history exists Zoster Vaccine Completed 08/20/2021, 05/03, 03/30/2014 Breast Cancer Screening-Mammogram Discontinued 023 Medical Devices Implanted Type Area Gym Teacher Device Identifier Shelf Expiration Date Model / Serial / Lot Other - See Comments Other - see comments Right: Back Description:Inter Stim [employer] Sutureless Connector Revision Catheter Kit Intrathecal Pump 8578 - [id number] Implanted:Qty: 1 on 09/06/2023 by Gui Coulter MD at [facility] Right: Abdomen Med[employer] Inc 01/13/2024 8578 / / [id number] [employer] X Pump Infusion Programmable Ulp Ami 20ml Volume 8667-20 - [id number] - [id number] Implanted:Qty: 1 on 09/06/2023 by Gui Coulter MD at [facility] Right: Abdomen [employer] X 02/13/2025 8667-20 / [id number] / Explanted Type Area Gym Teacher Device Identifier Shelf Expiration Date Model / Serial / Lot Other - See Comments Explanted:Qty : 1 on 09/06/2023 at [facility] Other - see comments Right: Stomach Description:Right Lower Quad - Drug Pump Procedures Procedure Name Priority Date/Time Associated Diagnosis Comments SCREENING MAMMOGRAM BILATERAL W ANTOIEN Schedule Routine, Read Routine (OP Routine) 02/15/2023 11:30 AM AIR EXPORT AGENT Encounter for screening mammogram for malignant neoplasm of breast from Last 3 Months or Most Recently Relevant to Health Maintenance Results * SCREENING MAMMOGRAM BILATERAL W ANTOINE (02/15/2023 11:30 AM AIR EXPORT AGENT) Anatomical Region Laterality Modality Breast Bilateral Mammography 02/15/2023 1:31 PM AIR EXPORT AGENT Impressions 02/15/2023 1:31 PM AIR EXPORT AGENT There is no mammographic evidence of malignancy. A 1 year screening mammogram is recommended. BI-RADS: 1 - Negative. The patient has been or will be contacted. The patient will be entered into a reminder system with a target due date of 1 year for her next mammogram. Electronically signed by: Mercedes Perez M.D. Narrative 02/15/2023 1:31 PM AIR EXPORT AGENT EXAMINATION: SCREENING MAMMOGRAM BILATERAL W ANTOINE ORDERING [...] Recently Relevant to Health Maintenance Insurance [facility]IC[facility] Address: [facility] [id number] [place] [id number] U[employer] MEDICARE [facility] Address[facility] [address] [place] [address] [facility] Address: [facility] [address] [place] [address] Advance Directives For more information, please contact: [phone] Documents on File Type Date Recorded 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 [address] [address] PCP - General Family Medicine 07/09/23
[2024-08-01 08:22] VITALS: BP 127/69; PULSE 99; RESP 20; TEMP 36.3; O2SAT 99
[2024-08-01 08:38] LABS: Glucose Point of Care 111 mg/dl (65-105)
[2024-08-01] MEDS: LACTATED RINGERS 1,000 ML 150 ML IV CONT (08:39)
--- NOTE | 2024-08-01 08:43 | WPDANESEPPF ---
Anes - Initial Pre Proc Eval Procedure: Operation Date: 08/01/24 09:30 Proposed Procedures p Colonoscopy - Rubin Vasquez MD Date/Time: 08/01/24 08:43 Surgeon: Rubin Vasquez MD Pre Op Diagnosis: Abnormal weight loss,anemia Patient Data Age: 74 Gender: F Height: 1.6 m Weight: 65.1 kg Last Vital Signs Temp 36.3 C L 08/01/24 08:22 Pulse 99 08/01/24 08:22 Resp 20 08/01/24 08:22 BP 127/69 08/01/24 08:22 Pulse Ox 99 08/01/24 08:22 O2 Del Method Room Air 08/01/24 08:22 Allergies Allergy/AdvReac Type Severity Reaction Status Date / Time iodine Allergy Severe Hives Verified 08/01/24 08:18 povidone Allergy Severe Hives Verified 08/01/24 08:18 adhesive tape Allergy Intermediate Rash Verified 08/01/24 08:18 ciprofloxacin Allergy Intermediate Hives Verified 08/01/24 08:18 soap Allergy Intermediate Hives Verified 08/01/24 08:18 sulfamethoxazole (From Allergy Swelling Verified 08/01/24 08:18 Bactrim) of Lip/Tongue/Throat trimethoprim (From Bactrim) Allergy Swelling Verified 08/01/24 08:18 of Lip/Tongue/Throat enoxaparin (From Lovenox) AdvReac Intermediate Cramping Verified 08/01/24 08:18 of the Muscles Contrast Media Allergy Severe RASH AND Uncoded 08/01/24 08:18 ANAPHYLAXIS IOBAN DRAPE FOR SURGERY Allergy Severe HIVES Uncoded 08/01/24 08:18 Home Medications ?Medication ?Instructions ?Recorded ?Confirmed ?Type Lactobacillus 1 cap PO DAILY 01/20/22 08/01/24 History acidophilus-Bifidobac.animalis 2.5 billion cell capsule (Daily Probiotic) pumpkin seed extract-soy germ 300 1 cap PO DAILY 01/20/22 08/01/24 History mg capsule (Azo Bladder Control) sertraline 100 mg tablet 100 mg PO DAILY 10/12/22 08/01/24 History trazodone 50 mg tablet 50 mg PO HS 10/12/22 08/01/24 History vitamin B complex 2 tablet PO DAILY 10/12/22 08/01/24 History calcium 600 mg-D3 800 unit-mag11 1 tablet PO DAILY 04/17/23 08/01/24 History 50 xm-rfef-kvqpkt-randal-s.borat tablet fluticasone 250 mcg-salmeterol 50 1 inh inhalation Q12H #60 ea 08/15/23 08/01/24 Rx mcg/dose blistr powdr for inhalation (Wixela Inhub) buspirone 10 mg tablet 10 mg PO BID #60 tabs 09/25/23 08/01/24 Rx duloxetine 30 mg capsule,delayed 30 mg PO .AM 10/18/23 08/01/24 History release duloxetine 60 mg capsule,delayed 60 mg PO QHS 10/18/23 08/01/24 History release blood-glucose meter (OneTouch #1 ea 11/15/23 05/08/24 Rx Verio Flex Meter) blood-glucose meter (OneTouch #1 ea 11/15/23 05/08/24 Rx Verio Flex Start kit) lancets 30 gauge (OneTouch Delica #100 ea 01/02/24 05/08/24 Rx Plus Lancet) blood sugar diagnostic (OneTouch #100 ea 01/31/24 05/08/24 Rx Verio test strips) alendronate 70 mg tablet (Fosamax) 70 mg PO WEEKLY 3 months #13 tabs 06/20/24 08/01/24 Rx lovastatin 20 mg tablet See Rx Instructions .Route 06/23/24 08/01/24 Rx .COMPLEX #90 tabs fluticasone fur. 100 mcg-umeclid See Rx Instructions .Route 07/10/24 08/01/24 Rx 62.5 mcg-vilant 25 mcg .COMPLEX #60 ea inhalat.powder (Trelegy Ellipta) fexofenadine 60 mg tablet (Kristina 60 mg PO Q12H 07/23/24 08/01/24 History Allergy) Laboratory Tests 08/01/24 08:29 POC Capillary Glucose 111 H mg/dl (65-105) Patient hx anesthesia problems: none Family hx anesthesia problems: none Results Review: All pre-operative results and documents have been reviewed as part of the pre-operative evaluation. [facility] Past Medical History Medical History Right shoulder injury Rotator cuff tear DJD of shoulder Rotator cuff tendonitis Right shoulder pain GERD (gastroesophageal reflux disease) COPD (chronic obstructive pulmonary disease) Anxiety Goiter Shingles Thyroid cyst Osteoporosis DDD (degenerative disc disease) Arthritis UTI (urinary tract infection) Cystitis Ovarian cyst Post-menopausal IBS (irritable bowel syndrome) Pneumonia Hyperlipidemia Seasonal allergies Cataracts, bilateral Surgical History Surgical History History of removal of cyst History of bladder surgery History of hysterectomy History of cholecystectomy History of appendectomy History of colonoscopy History of cataract surgery Family History Family History Grandparent Carcinoma of colon Diabetes mellitus Father Family history of lung cancer Mother Family history of coronary artery disease Unknown Asthma Hypertension Heart disease Cerebrovascular accident Social History Social History Smoking status: Never smoker Second hand tobacco smoke exposure: No Alcohol intake: never Substance use: never Substance use type: does not use Do You Feel Safe in your Home?: Yes Lack of Transportation: No Lack of Food: Sometimes True Current Housing: I Have Housing Concerned About Future Housing: No Difficulty Paying Gas/Electric Bills: No Difficulty Paying for Meds: No Currently Unemployed: No Education: Bachelor's Degree Difficulty w/ Childcare or Family Care: No Living arrangements: with family Occupation/Education: retired Gender identity (if verbalized by the patient): Female Spiritual care concerns: No Anes - Eval Final PreProcedure Day of Procedure 08/01/24 08:43 Patient weight: overweight Heart: regular rate and rhythm Lungs: clear to auscultation Airway: Mallampati scale class II Neurological: alert and oriented Last oral intake: >/= 8 hours ASA classification: III Emergent: no Anesthetic plan: proceed Anesthesia type and monitoring: general GIVS and standard monitoring Results Review: All pre-operative results and documents have been reviewed as part of the pre-operative evaluation. Informed Consent: The patient's anesthetic plan and its attendant risks and benefits were discussed with the patient/family/POA. Questions were solicited and answers provided to the satisfaction of the patient/family/POA.
--- NOTE | 2024-08-01 08:54 | PM.HPGS ---
History of Present Illness History of Present Illness Consent: Risks, benefits, and alternatives have been discussed and questions answered. Patient agrees to proceed with procedure. Chief complaint: colon screening Narrative: Felicia Mendieta is a 74 year old female here for colon screening, last one 9 years ago Review of Systems Review of Systems: All systems reviewed & are unremarkable except as noted in HPI and below PMFSH Past Medical History Medical History Right shoulder injury Rotator cuff tear DJD of shoulder Rotator cuff tendonitis Right shoulder pain GERD (gastroesophageal reflux disease) COPD (chronic obstructive pulmonary disease) Anxiety Goiter Shingles Thyroid cyst Osteoporosis DDD (degenerative disc disease) Arthritis UTI (urinary tract infection) Cystitis Ovarian cyst Post-menopausal IBS (irritable bowel syndrome) Pneumonia Hyperlipidemia Seasonal allergies Cataracts, bilateral Surgical History Surgical History History of removal of cyst History of bladder surgery History of hysterectomy History of cholecystectomy History of appendectomy History of colonoscopy History of cataract surgery Family History Family History Grandparent Carcinoma of colon Diabetes mellitus Father Family history of lung cancer Mother Family history of coronary artery disease Unknown Asthma Hypertension Heart disease Cerebrovascular accident Social History Social History Smoking status: Never smoker Second hand tobacco smoke exposure: No Alcohol intake: never Substance use: never Substance use type: does not use Do You Feel Safe in your Home?: Yes Lack of Transportation: No Lack of Food: Sometimes True Current Housing: I Have Housing Concerned About Future Housing: No Difficulty Paying Gas/Electric Bills: No Difficulty Paying for Meds: No Currently Unemployed: No Education: Bachelor's Degree Difficulty w/ Childcare or Family Care: No Living arrangements: with family Occupation/Education: retired Gender identity (if verbalized by the patient): Female Spiritual care concerns: No Meds Home Medications and Allergies Home Medications ?Medication ?Instructions ?Recorded ?Confirmed ?Type Lactobacillus 1 cap PO DAILY 01/20/22 08/01/24 History acidophilus-Bifidobac.animalis 2.5 billion cell capsule (Daily Probiotic) pumpkin seed extract-soy germ 300 1 cap PO DAILY 01/20/22 08/01/24 History mg capsule (Azo Bladder Control) sertraline 100 mg tablet 100 mg PO DAILY 10/12/22 08/01/24 History trazodone 50 mg tablet 50 mg PO HS 10/12/22 08/01/24 History vitamin B complex 2 tablet PO DAILY 10/12/22 08/01/24 History calcium 600 mg-D3 800 unit-mag11 1 tablet PO DAILY 04/17/23 08/01/24 History 50 fq-ywkd-ltilff-randal-s.borat tablet fluticasone 250 mcg-salmeterol 50 1 inh inhalation Q12H #60 ea 08/15/23 08/01/24 Rx mcg/dose blistr powdr for inhalation (Wixela Inhub) buspirone 10 mg tablet 10 mg PO BID #60 tabs 09/25/23 08/01/24 Rx duloxetine 30 mg capsule,delayed 30 mg PO .AM 10/18/23 08/01/24 History release duloxetine 60 mg capsule,delayed 60 mg PO QHS 10/18/23 08/01/24 History release blood-glucose meter (OneTouch #1 ea 11/15/23 05/08/24 Rx Verio Flex Meter) blood-glucose meter (OneTouch #1 ea 11/15/23 05/08/24 Rx Verio Flex Start kit) lancets 30 gauge (OneTouch Delica #100 ea 01/02/24 05/08/24 Rx Plus Lancet) blood sugar diagnostic (OneTouch #100 ea 01/31/24 05/08/24 Rx Verio test strips) alendronate 70 mg tablet (Fosamax) 70 mg PO WEEKLY 3 months #13 tabs 06/20/24 08/01/24 Rx lovastatin 20 mg tablet See Rx Instructions .Route 06/23/24 08/01/24 Rx .COMPLEX #90 tabs fluticasone fur. 100 mcg-umeclid See Rx Instructions .Route 07/10/24 08/01/24 Rx 62.5 mcg-vilant 25 mcg .COMPLEX #60 ea inhalat.powder (Trelegy Ellipta) fexofenadine 60 mg tablet (Kristina 60 mg PO Q12H 07/23/24 08/01/24 History Allergy) Allergies Allergy/AdvReac Type Severity Reaction Status Date / Time iodine Allergy Severe Hives Verified 08/01/24 08:18 povidone Allergy Severe Hives Verified 08/01/24 08:18 adhesive tape Allergy Intermediate Rash Verified 08/01/24 08:18 ciprofloxacin Allergy Intermediate Hives Verified 08/01/24 08:18 soap Allergy Intermediate Hives Verified 08/01/24 08:18 sulfamethoxazole (From Allergy Swelling Verified 08/01/24 08:18 Bactrim) of Lip/Tongue/Throat trimethoprim (From Bactrim) Allergy Swelling Verified 08/01/24 08:18 of Lip/Tongue/Throat enoxaparin (From Lovenox) AdvReac Intermediate Cramping Verified 08/01/24 08:18 of the Muscles Contrast Media Allergy Severe RASH AND Uncoded 08/01/24 08:18 ANAPHYLAXIS IOBAN DRAPE FOR SURGERY Allergy Severe HIVES Uncoded 08/01/24 08:18 Vital Signs Vital Signs - 24 hr 08/01/24 08:22 Temperature 97.3 F L Pulse Rate 99 Respiratory Rate 20 Blood Pressure 127/69 Pulse Oximetry 99 Oxygen Delivery Room Air Exam Const: General: comfortable and no acute distress HENMT: Face/Nose/Sinus: Normal nares present Eyes: General: appearance normal, both eyes and all related structures Neck: Neck: no JVD Resp: Auscultation: clear to auscultation bilaterally Cardio: Rate: regular rate Rhythm: regular rhythm GI: Inspection: non-distended GI Palp: Yes Soft to palpation Skin: General skin exam: normal color Neuro: General: gait normal Speech: normal speech Extrem: General: normal to inspection Psych: Mental Status: mental status grossly normal Assessment and Plan Assessment and plan (1) Screening for colon cancer: Code(s): Z12.11 - Encounter for screening for malignant neoplasm of colon Status: Acute Assessment and Plan: colonoscopy
[2024-08-01 09:11] VITALS: BP 89/65; PULSE 87; RESP 25; O2SAT 96
[2024-08-01 09:21] VITALS: BP 102/55; PULSE 79; RESP 20; O2SAT 100
[2024-08-01 09:31] VITALS: BP 104/53; PULSE 70; RESP 19; O2SAT 99
== END 2024-08-01 09:52 | disposition home or self-care (01) ==
PROVIDERS: PCP Internal Medicine; Referring Provider Nurse Practitioner; Visit Provider Internal Medicine Gastroenterology
PROC: 0DJD8ZZ Inspection of Lower Intestinal Tract, Via Natural or Artificial Opening Endoscopic (ICD-10-PCS; CPT 45378; principal; 2024-08-01 09:30)
DX: Z12.11 Encounter for screening for malignant neoplasm of colon (principal); D12.3 Benign neoplasm of transverse colon; K64.8 Other hemorrhoids; K57.30 Diverticulosis of large intestine without perforation or abscess without bleeding; K21.9 Gastro-esophageal reflux disease without esophagitis; J44.9 Chronic obstructive pulmonary disease, unspecified; F41.9 Anxiety disorder, unspecified; M81.0 Age-related osteoporosis without current pathological fracture; K58.9 Irritable bowel syndrome, unspecified; E78.5 Hyperlipidemia, unspecified; M19.019 Primary osteoarthritis, unspecified shoulder; Z79.51 Long term (current) use of inhaled steroids; Z79.83 Long term (current) use of bisphosphonates; Z98.890 Other specified postprocedural states; Z90.49 Acquired absence of other specified parts of digestive tract; Z80.0 Family history of malignant neoplasm of digestive organs; Z80.1 Family history of malignant neoplasm of trachea, bronchus and lung; Z82.49 Family history of ischemic heart disease and other diseases of the circulatory system
CPT/HCPCS: 45385; 82948; 88305; J2003; J2704; J7120

== ENCOUNTER 2024-10-18 10:06 | Emergency (ER) | payer MEDICARE, SELFPAY ==
[2024-10-18 10:20] VITALS: BP 89/55; PULSE 83; RESP 16; TEMP 35.9; O2SAT 98
--- NOTE | 2024-10-18 11:06 | ED_ITS ---
HPI - Skin/Abscess/Foreign Bdy General Chief complaint: Skin/Abscess/Foreign Body Stated complaint: Rash Time Seen by Provider: 10/18/24 10:58 Source: patient and RN notes reviewed Mode of arrival: ambulatory Limitations: no limitations History of Present Illness HPI narrative: Patient presents today complaining of a pruritic rash to the right forearm and left axilla. Believes it is poison yue a she came into contact with a will pulling weeds 6 days ago. She has tried topical calamine lotion, topical Benadryl, and topical hydrocortisone without relief. Patient is diabetic, but diet controlled. Last A1c was 6 Related Data Home Medications ?Medication ?Instructions ?Recorded ?Confirmed ?Last Taken ?Type Lactobacillus 1 cap PO DAILY 01/20/22 08/07/24 07/31/24 History acidophilus-Bifidobac.animalis 2.5 billion cell capsule (Daily Probiotic) pumpkin seed extract-soy germ 300 1 cap PO DAILY 01/20/22 08/07/24 07/31/24 History mg capsule (Azo Bladder Control) sertraline 100 mg tablet 100 mg PO DAILY 10/12/22 08/07/24 07/31/24 History trazodone 50 mg tablet 50 mg PO HS 10/12/22 08/07/24 07/31/24 History vitamin B complex 2 tablet PO DAILY 10/12/22 08/07/24 07/31/24 History calcium 600 mg-D3 800 unit-mag11 1 tablet PO DAILY 04/17/23 08/07/24 07/31/24 History 50 ej-bzzr-stvzez-randal-s.borat tablet duloxetine 30 mg capsule,delayed 30 mg PO .AM 10/18/23 08/07/24 08/01/24 06:30 History release duloxetine 60 mg capsule,delayed 60 mg PO QHS 10/18/23 08/07/24 07/31/24 History release fexofenadine 60 mg tablet (Kristina 60 mg PO Q12H 07/23/24 08/07/24 07/31/24 History Allergy) Allergies Allergy/AdvReac Type Severity Reaction Status Date / Time iodine Allergy Severe Hives Verified 08/18/24 09:21 povidone Allergy Severe Hives Verified 08/18/24 09:21 adhesive tape Allergy Intermediate Rash Verified 08/18/24 09:21 ciprofloxacin Allergy Intermediate Hives Verified 08/18/24 09:21 soap Allergy Intermediate Hives Verified 08/18/24 09:21 sulfamethoxazole (From Allergy Swelling Verified 08/18/24 09:21 Bactrim) of Lip/Tongue/Throat trimethoprim (From Bactrim) Allergy Swelling Verified 08/18/24 09:21 of Lip/Tongue/Throat enoxaparin (From Lovenox) AdvReac Intermediate Cramping Verified 08/18/24 09:21 of the Muscles Contrast Media Allergy Severe RASH AND Uncoded 08/18/24 09:21 ANAPHYLAXIS IOBAN DRAPE FOR SURGERY Allergy Severe HIVES Uncoded 08/18/24 09:21 [facility] [place] Past Medical History Medical History Right shoulder injury Rotator cuff tear DJD of shoulder Rotator cuff tendonitis Right shoulder pain GERD (gastroesophageal reflux disease) COPD (chronic obstructive pulmonary disease) Anxiety Goiter Shingles Thyroid cyst Osteoporosis DDD (degenerative disc disease) Arthritis UTI (urinary tract infection) Cystitis Ovarian cyst Post-menopausal IBS (irritable bowel syndrome) Pneumonia Hyperlipidemia Seasonal allergies Cataracts, bilateral Surgical History Surgical History History of removal of cyst History of bladder surgery History of hysterectomy History of cholecystectomy History of appendectomy History of colonoscopy History of cataract surgery Family History Family History Grandparent Carcinoma of colon Diabetes mellitus Father Family history of lung cancer Mother Family history of coronary artery disease Unknown Asthma Hypertension Heart disease Cerebrovascular accident Social History Social History Smoking status: Never smoker Second hand tobacco smoke exposure: No Alcohol intake: never Substance use: never Substance use type: does not use Do You Feel Safe in your Home?: Yes Lack of Transportation: No Lack of Food: Sometimes True Current Housing: I Have Housing Concerned About Future Housing: No Difficulty Paying Gas/Electric Bills: No Difficulty Paying for Meds: No Currently Unemployed: No Education: Bachelor's Degree Difficulty w/ Childcare or Family Care: No Living arrangements: with family Occupation/Education: retired Gender identity (if verbalized by the patient): Female Spiritual care concerns: No Comments At time of signature, I have reviewed and agree with nursing past medical, surgical, social and family history unless otherwise noted. Please see nursing chart for further information. There is no relevant family history pertinent to the presenting complaint Exam Narrative: GENERAL: Well-appearing, well-nourished, and in no acute distress. HEAD: Normocephalic, atraumatic. EYES: EOMI. No redness or drainage. Conjunctivae normal. ENT: Mucous membranes pink and moist. NECK: Normal AROM. CHEST: No respiratory distress. EXTREMITIES: Normal range of motion. No edema. SKIN: Warm, dry. Capillary refill normal. Normal skin turgor. Erythematous vesicular rash over most of the anterior upper and lower right arm. Small patch to the left axilla as well. No induration, crusting, drainage. NEURO: No focal deficits. Alert and oriented x3. Gait steady. PSYCH: Normal affect. No signs of depression or anxiety. Course Course Level of Care: Express Care Visit Vital Signs Vital signs: Vital Signs Temperature 96.7 F L 10/18/24 10:20 Pulse Rate 83 10/18/24 10:20 Respiratory Rate 16 10/18/24 10:20 Blood Pressure 89/55 L 10/18/24 10:20 Pulse Oximetry 98 10/18/24 10:20 Temperature 96.7 F L 10/18/24 10:20 Pulse Rate 83 10/18/24 10:20 Respiratory Rate 16 10/18/24 10:20 Blood Pressure 89/55 L 10/18/24 10:20 Pulse Oximetry 98 10/18/24 10:20 Reviewed MDM - Skin/Abscess/Foreign Bdy MDM Narrative Medical decision making narrative: 74-year-old female patient presents with pruritic rash to the right arm after pulling leads and exposure to poison yue. Topical interventions without improvement. Vesicular rash consistent with poison yue dermatitis. She will be treated with a tapering dose of prednisone per standard guidelines. Vital signs are stable. Anticipatory guidance given. Differential Diagnosis Differential diagnosis: Likely abscess of skin or subcutaneous tissue, viral exanthem, urticaria, herpes zoster, cellulitis, insect bites, impetigo and contact dermatitis Critical Care Time Critical Care Time Critical Care Time: No Discharge Plan Discharge Clinical Impression: Poison yue dermatitis Patient Disposition: Home Condition: Stable Instructions: Poison Yue (ED) Additional Instructions: Please take the prednisone as directed. Continue dduk-hfj-yldekjq treatment as needed. Follow-up with your PCP next week if symptoms are not improving. Patient Language: Niuean Prescriptions: New prednisone 10 mg tablet See Rx Instructions .ROUTE .COMPLEX Qty: 30 0RF Rx Instructions: 4 tabs daily x3 days,then 3 tabs daily x3 days,then 2 tabs daily x3 days, then 1 tab daily x3 days No Action sertraline 100 mg tablet 100 mg PO DAILY vitamin B complex Tablet 2 tablet PO DAILY trazodone 50 mg Tablet 50 mg PO HS Azo Bladder Control 300 mg Capsule 1 cap PO DAILY Daily Probiotic 2.5 billion cell Capsule 1 cap PO DAILY [id number]-flra-guh-ycaj-pob 600 mg calcium- 800 unit-50 mg tablet 1 tablet PO DAILY duloxetine 60 mg capsule,delayed release(DR/EC) 60 mg PO QHS duloxetine 30 mg capsule,delayed release(DR/EC) 30 mg PO .AM fexofenadine [Kristina Allergy] 60 mg tablet 60 mg PO Q12H buspirone 10 mg tablet 10 mg PO BID Qty: 60 0RF (DME) blood-glucose meter [OneTouch Verio Flex meter] Misc See Rx Instructions .Route Qty: 1 0RF Rx Instructions: As directed (DME) blood-glucose meter [OneTouch Verio Flex Start] Kit See Rx Instructions .Route Qty: 1 0RF Rx Instructions: As directed (DME) lancets [OneTouch Delica Plus Lancet] 30 gauge misc See Rx Instructions .ROUTE .COMPLEX Qty: 100 1RF Dose Instruction: USE TO CHECK BLOOD GLUCOSE NEEDED FOR SYMPTOMS OF HIGH/LOW SUGAR. Rx Instructions: USE TO CHECK BLOOD GLUCOSE NEEDED FOR SYMPTOMS OF HIGH/LOW SUGAR. (DME) OneTouch Verio test strips Strip See Rx Instructions .Route Qty: 100 5RF Rx Instructions: use to check BG PRN symptoms high/low sugar 3x daily alendronate [Fosamax] 70 mg tablet 70 mg PO WEEKLY 90 Days Qty: 13 1RF lovastatin 20 mg tablet See Rx Instructions .ROUTE .COMPLEX Qty: 90 1RF Dose Instruction: Take 1 tablet by mouth in the evening Rx Instructions: Take 1 tablet by mouth in the evening Trelegy Ellipta 100-62.5-25 mcg blister with device See Rx Instructions .ROUTE .COMPLEX Qty: 60 5RF Dose Instruction: Inhale 1 puff by mouth once daily Rx Instructions: Inhale 1 puff by mouth once daily Follow-up/Referrals: Orlando Thompson DO [Primary Care Provider] - Time of Disposition: 11:11
== END 2024-10-18 11:19 | disposition home or self-care (01) ==
PROVIDERS: Emergency Provider Nurse Practitioner; PCP Internal Medicine
DX: L23.7 Allergic contact dermatitis due to plants, except food (principal); E78.5 Hyperlipidemia, unspecified
CPT/HCPCS: 99213; G0463

== ENCOUNTER 2024-10-31 11:06 | Emergency (ER) | payer MEDICARE, SELFPAY ==
[2024-10-31 11:08] VITALS: BP 119/54; PULSE 86; RESP 16; TEMP 36.8; O2SAT 100
--- OUTSIDE RECORDS SUMMARY | 2024-10-31 11:10 | XMS_ITS ---
Author [facility] Address [address] [facility] [address] [place], [place] [phone] Care Team Providers Care Supervisor Tumblers Name Role Phone BOBO CASTELLANOS Unavailable [phone] Orlando Thompson Unavailable Unavailable Allergies Allergen (clinical [...] Location Date Provider Diagnosis [facility] [place] [address] [place], [place] [id number] 04/21/2024 BOBO CASTELLANOS Tinea unguium B35.1 ; Pain in right toe(s) M79.674 ; Pain in left toe(s) M79.675 and Atherosclerosis of [place] arteries of extremities with intermittent claudication, bilateral [...] toe(s) (ICD-10 - M79.675) 04/21/2024 Atherosclerosis of [place] arteries of extremities with intermittent claudication, bilateral [...] Name:BOBO CASTELLANOS, 02:00:00 PM, [address], [address], [id number], Progress Notes * [place] DIAZOB:1950 (74 yo F)Acc No.[id number]:04/21/2024 Patient: Sahra Felicia WRIGHT Provider: Rosa Castellanos DPM :1950 A ge:73 Y S ex:Female Date:04/21/2024 Address:[address] [place], [place] [id number] Subjective: * Chief Complaints: * 1 . Patient presents for at-risk foot care . The patient has painful toenails that cause difficulty with ambulation and shoegear. The onset is gradual. * HPI: H PI: Follow Up Visit P atient presents for follow up visit for right fungal nail. Patient states that she is seeing some improvement with the nail jordanian. , MA: kelley. sample. * ROS: G [...] - M79.675 4 . A therosclerosis of [place] arteries of extremities with intermittent claudication, bilateral legs - I70.213 Plan: * Treatment: * Follow Up: 1 0-12 Weeks (Reason: At Risk Foot care, sooner if problems arise) * Billing Information: * Visit Code: 34971 Office Visit, Est Pt., Level 3. * Procedure Codes: * Electronic signature of BOBO CASTELLANOS DPM on 10/31/2024 at 11:10 AM CDT Sign off status: Pending * Provider: Rosa Castellanos DPM Date: 0 04/21/2024 Generated for Francesca patel/Maggie/Freedom on: 0 10/31/2024 11:10 AM CDT History and Physical Notes * HPI (History of Present Illness) Category Sub-Category Detail Notes Category Not es HPI Follow Up Visit Patient presents for follow up visit for right fungal nail. Patient states that she is seeing some improvement with the nail jordanian. , MA: kelley sample Examination Category Sub-Category [...]
--- OUTSIDE RECORDS SUMMARY | 2024-10-31 11:11 | XMS_ITS | Patient Health Record ---
Author Organization [facility] [employer] [facility] Address [address] [place] [address] Care Team Providers Care Training Designer Name Role Phone Orlando Thompson DO Primary Care Provider Hola Belle Unavailable [phone] Miranda Moreau Unavailable [phone] Allergies Allergen (clinical drug ingredient) Drug/Non Drug [...] Duration) Notes Start Date End Date Status DULoxetine HCl 60 MG 1 capsule Orally Once a day; Duration: 90 days Active DULoxetine HCl 30 MG 1 capsule Orally Once a day; Duration: 90 days Active busPIRone HCl 10 MG 1 tablet Orally Twice a day; Duration: 90 days dose reduced Active Sertraline HCl 100 MG 1 tablet Orally Once a day; Duration: 90 days Active Prolia 60 MG/ML Subcutaneous *Pick strength-f orm from [facility] for eRX* 08/09/2023 Active Lovastatin 20 MG Oral 08/09/2023 Ac tive L. ACIDOPHILUS, PARACASEI, B. LACTIS 10 BILLION CELL CAPSULE *Reorder from [facility] for eRx and Interaction Alerts* 08/09/2023 Active AZO BLADDER CONTROL 300 mg Oral *Reorder from [employer] for eRx and Interaction Alerts* 08/09/2023 Active Trelegy Ellipta 100-62.5-25 MCG/ACT INHALE 1 PUFF BY MOUTH ONCE DAILY Inhalation; Duration: 30 Days Active busPIRone HCl 5 MG 1 tablet every morning and 2 tablet at bedtime Orally see sign; Duration: 30 days Active traZODone HCl 50 MG 1 tablet at bedtime Oral Once a day; Duration: 90 days Active Immunizations Vaccine Route Administration Date Status [...] hx drugs ETOH No hx drugs ETOH Tobacco use: Denies No hx drugs ETOH No hx drugs ETOH No hx drugs ETOH No hx drugs ETOH No hx drugs ETOH No hx drugs ETOH No hx drugs ETOH Tobacco use: Denies Problems Problem Type SNOMED Code ICD Code Onset Dates Problem Status W/U Status Risk Notes Problem Type II diabetes mellitus without complication (498564196) Type 2 diabetes mellitus without complications (E11.9) Active confirmed Problem Mild recurrent major depression (91328865) Major depressive disorder, recurrent, mild (F33.0) Active confirmed Problem Severe recurrent major depression without psychotic features (23327450) Major depressive disorder, recurrent severe without psychotic features (F33.2) Active confirmed Problem Generalized anxiety disorder (84004963) Generalized anxiety disorder (F41.1) Active confirmed Problem Primary insomnia (1080812) Primary insomnia (F51.01) Active confirmed Problem Chronic interstitial cystitis (860905475) Interstitial cystitis (chronic) without hematuria (N30.10) Active confirmed Problem Generalized anxiety disorder (28550853) SAMI (generalized anxiety disorder) (F41.1) Active confirmed Problem Hyperlipidemia (32464337) Hyperlipidemia (E78.5) Active confirmed Problem COPD - Chronic obstructive pulmonary disease (69484866) Chronic obstructive pulmonary disease, unspecified COPD type (J44.9) 06/24/19 Active confirmed Problem Chronic interstitial cystitis (975506019) Interstitial cystitis (N30.10) 06/24/19 Active confirmed Vital Signs Heart Rate 90 /min 09/25/2024 Height-cm 160.02 cm 09/25/2024 Blood pressure diastolic 70 mm Hg 09/25/2024 Weight-kg 66.68 kg 09/25/2024 Height 63.00 in 09/25/2024 Blood pressure systolic 120 mm Hg 09/25/2024 Weight 147 lbs 09/25/2024 BMI 26.04 kg/m2 09/25/2024 Encounters Encounter Location Date Provider Diagnosis [facility] [address] [facility] [address] [address] 11/02/2023 Hoal Aguirre Major depressive disorder, recurrent severe without psychotic features F33.2 ; Generalized anxiety disorder F41.1 ; Interstitial cystitis (chronic) without hematuria N30.10 and Primary insomnia F51.01 [facility] [address] [facility] [address] [place] [address] 11/08/2023 Miranda Calixto Generalized anxiety disorder F41.1 and Major depressive disorder, recurrent severe without psychotic features F33.2 [facility] [address] [facility] [address] [place] [address] 11/19/2023 Miranda Calixto Generalized anxiety disorder F41.1 and Major depressive disorder, recurrent, moderate F33.1 [facility] [address] [place] [address] 11/30/2023 Hola Carla Major depressive disorder, recurrent severe without psychotic features F33.2 ; Generalized anxiety disorder F41.1 ; Interstitial cystitis (chronic) without hematuria N30.10 and Primary insomnia F51.01 [facility] [address] [place] [address] 12/05/2023 Miranda Calixto Generalized anxiety disorder F41.1 and Major depressive disorder, recurrent, mild F33.0 [facility] [address] [place] [address] 12/19/2023 Miranda Calixto Generalized anxiety disorder F41.1 and Major depressive disorder, recurrent severe without psychotic features F33.2 [facility] [address] [place] [address] 01/09/2024 Miranda Calixto Generalized anxiety disorder F41.1 and Major depressive disorder, recurrent severe without psychotic features F33.2 [facility] [address] [place] [address] 01/11/2024 Hola Carla Major depressive disorder, recurrent severe without psychotic features F33.2 ; Generalized anxiety disorder F41.1 ; Interstitial cystitis (chronic) without hematuria N30.10 and Primary insomnia F51.01 [facility] [address] [place] [address] 01/23/2024 Miranda Calixto Generalized anxiety disorder F41.1 and Major depressive disorder, recurrent, mild F33.0 [facility] [address] [place] [address] 02/13/2024 Miranda Calixto Generalized anxiety disorder F41.1 and Major depressive disorder, recurrent, mild F33.0 [facility] [address] [place] [address] 03/05/2024 Miranda Calixto Generalized anxiety disorder F41.1 and Major depressive disorder, recurrent, mild F33.0 [facility] [address] [place] [address] 03/14/2024 Hola Carla Major depressive disorder, recurrent severe without psychotic features F33.2 ; Generalized anxiety disorder F41.1 ; Interstitial cystitis (chronic) without hematuria N30.10 and Primary insomnia F51.01 [facility] [address] [place] [address] 03/19/2024 Miranda Calixto Major depressive disorder, recurrent, mild F33.0 and Generalized anxiety disorder F41.1 [facility], [facility] [address] [place] [address] 04/16/2024 Miranda Calixto Major depressive disorder, recurrent, mild F33.0 and Generalized anxiety disorder F41.1 [facility], [place] [address] [place] [address] 05/07/2024 Miranda Calixto Major depressive disorder, recurrent severe without psychotic features F33.2 and Generalized anxiety disorder F41.1 [facility], [place] [address] [place] [address] 05/28/2024 Hola Carla Major depressive disorder, recurrent, mild F33.0 ; Primary insomnia F51.01 ; Generalized anxiety disorder F41.1 ; Interstitial cystitis N30.10 ; Chronic obstructive pulmonary disease, unspecified COPD type J44.9 ; Hyperlipidemia E78.5 and SAMI (generalized anxiety disorder) F41.1 [facility], [place] [address] [place] [address] 06/04/2024 Miranda Calixto Major depressive disorder, recurrent severe without psychotic features F33.2 and Generalized anxiety disorder F41.1 [facility], [place] [address] [place] [address] 07/10/2024 Miranda Calixto Major depressive disorder, recurrent, mild F33.0 and Generalized anxiety disorder F41.1 [facility], [place] [address] [place] [address] 07/24/2024 Hola Carla Encounter for screening for depression Z13.31 ; Encounter for screening for cardiovascular disorders Z13.6 ; Major depressive disorder, recurrent, mild F33.0 ; Primary insomnia F51.01 ; Generalized anxiety disorder F41.1 ; Interstitial cystitis N30.10 ; Chronic obstructive pulmonary disease, unspecified COPD type J44.9 ; Hyperlipidemia E78.5 and SAMI (generalized anxiety disorder) F41.1 [facility], [place] [address] [place] [address] 08/07/2024 Miranda Calixto Major depressive disorder, recurrent, mild F33.0 and Generalized anxiety disorder F41.1 [facility] [address] [place] [address] 09/04/2024 Miranda Calixto Major depressive disorder, recurrent, mild F33.0 and Generalized anxiety disorder F41.[address] [facility] [address] [place] [address] 09/25/2024 Hola Aguirre Major depressive disorder, recurrent, mild F33.0 ; Primary insomnia F51.01 ; Generalized anxiety disorder F41.1 ; Interstitial cystitis N30.10 ; Chronic obstructive pulmonary disease, unspecified COPD type J44.9 ; Hyperlipidemia E78.5 ; Encounter for screening for cardiovascular disorders Z13.6 ; Negative depression screening Z13.31 ; Type 2 diabetes mellitus without complications E11.9 and SAMI (generalized anxiety disorder) F41.[address] [address] 10/09/2024 Miranda Calixto Generalized anxiety disorder F41.[address] [address] 04/22/2024 Hola [place] [address] [address] 05/13/[address] [address] 05/14/2024 Hola [place] [address] [facility] [address] [address] 06/04/2024 Hola [facility] Generalized anxiety disorder F41.1 [place] [address] [facility] [address] [address] 06/05/2024 Hola Aguirre Assessments Encounter Date Diagnosis (ICD Code) Assessment Notes Treatment Notes Treatment Clinical Notes Section Notes 11/02/2023 Major depressive disorder, recurrent severe without [...] Plan: - Refer the patient to a community recreation programmer for further education and management of diabetes. [...] with being alone and feeling more capable. 11/08/2023 Major depressive disorder, recurrent severe without psychotic features (ICD-10 - F33.2) Cardiovascular Health - Assessment: Felicia experiences increased heart rate and shortness of breath, which she finds concerning. An echocardiogram was performed, indicating a resting heart rate of 90 bpm. She is awaiting further evaluation from a metal bed assembler. - Plan: - Felicia is advised to monitor her symptoms and follow up with the metal bed assembler as scheduled. - She is to avoid [...] She is awaiting further evaluation from a metal bed assembler. - Plan: - Felicia is advised to monitor her symptoms and follow up with the metal bed assembler as scheduled. - She is to avoid [...] symptoms worsen. -Use grounding techniques upon waking. 11/19/2023 Major depressive disorder, recurrent, moderate (ICD-10 - F33.1) Type 2 Diabetes - Assessment: The patient is overwhelmed with dietary recommendations from the optics test technician and struggling to incorporate the recommended amount of vegetables into daily meals. She is monitoring carbohydrate intake and experimenting with different foods. She is tracking food intake and plans to review with the optics test technician. She is using cottage cheese for breakfast as a protein source. - Plan: Encourage the patient to continue working with the optics test technician to develop a personalized meal plan. Anxiety [...] is overwhelmed with dietary recommendations from the optics test technician and struggling to incorporate the recommended amount of vegetables into daily meals. She is monitoring carbohydrate intake and experimenting with different foods. She is tracking food intake and plans to review with the optics test technician. She is using cottage cheese for breakfast as a protein source. - Plan: Encourage the patient to continue working with the optics test technician to develop a personalized meal plan. Anxiety [...] new lifestyle changes related to diabetes management. 11/30/2023 Major depressive disorder, recurrent severe without [...] sister twice daily and accompanies her to [employer] and social outings. Patient feels she is [...] in 6 weeks. Refill all current medications. 12/05/2023 Major depressive disorder, recurrent, mild (ICD-10 [...] emotions in therapy or support group settings. 12/19/2023 Generalized anxiety disorder (ICD-10 - F41.1) [...] up with mental health provider as needed. 01/09/2024 Major depressive disorder, recurrent severe without psychotic features (ICD-10 - F33.2) Grief and Emotional Well-being - Assessment: Ongoing grief post-'s . Benefiting from counseling and support groups. No panic attacks since Oct 31. Increased independence and confidence. - Plan: - Continue grief share support groups. - Use online resources (e.g., [employer]). - Maintain social connections and well-being activities. Family Dynamics and Support - Assessment: Challenges in relationships with children post-father's . Working on boundaries with daughter. - Plan: - Encourage ongoing communication and boundary-setting . 01/09/2024 Generalized anxiety disorder (ICD-10 - F41.1) Grief and Emotional Well-being - Assessment: Ongoing grief post-'s . Benefiting from counseling and support groups. No panic attacks since Oct 31. Increased independence and confidence. - Plan: - Continue grief share support groups. - Use online resources (e.g., [employer]). - Maintain social connections and well-being activities. Family Dynamics and Support - Assessment: Challenges in relationships with children post-father's . Working on boundaries with daughter. - Plan: - Encourage ongoing communication and boundary-setting . 01/11/2024 Major depressive disorder, recurrent severe without [...] plan. - Maintain regular follow-ups with the optics test technician. Balance Issue and Vertigo - Plan: - Begin physical therapy sessions with Reilly at [facility] physical therapy starting Sunday. - Obtain a CAT scan as recommended by the physical therapist. Weight Loss and Nutrition - Assessment: Patient is experiencing ongoing weight loss and is working with a optics test technician. Patient reports losing 28 pounds since September. - Plan: - Continue following the prescribed diet plan and monitor weight changes. - Reassess the need for adjustments to the diet plan during future appointments. Grief and Family Support - Assessment: Patient is providing support to her sister after the loss of her [id number] and is receiving support from her son [...] currently scheduled through April with therapist Miranda. 01/23/2024 Major depressive disorder, recurrent, mild (ICD-10 [...] to seek support from friends and her episcopalian community. Primary Care Physician Change - Assessment: [...] to seek support from friends and her episcopalian community. Primary Care Physician Change - Assessment: [...] depression and anxiety. To continue to monitor. 03/05/2024 Generalized anxiety disorder (ICD-10 - F41.1) [...] Patient has friends from [employer] and plans for a potluck for [employer] if other plans don't work out. - [...] significant dates related to her late . 03/14/2024 Major depressive disorder, recurrent severe without [...] - Plan: - Encourage patient to contact [facility] and [facility] [employer] for post-surgery assistance options - Follow up with orthopedic doctor at [place], the [place] [facility], at the end of April - [...] encourage progress in daily activities and independence. 03/19/2024 Major depressive disorder, recurrent, mild (ICD-10 [...] and friends. Planning to visit daughter for [employer] and participate in family activities. - Plan: [...] and friends. Planning to visit daughter for [employer] and participate in family activities. - Plan: - Encourage patient to continue fostering positive relationships and seeking social support. - Monitor family dynamics and support in future visits. Each section addresses a specific area of the patient's health and well-being, outlining the current assessment and corresponding plan for ongoing care and support. 04/16/2024 Major depressive disorder, recurrent, mild (ICD-10 [...] management techniques with a mental health professional. 05/07/2024 Major depressive disorder, recurrent severe without psychotic features (ICD-10 - F33.2) 05/07/2024 Generalized anxiety disorder (ICD-10 - F41.1) 05/28/2024 Major depressive disorder, recurrent, mild (ICD-10 - F33.0) 02/13/2024 Generalized anxiety disorder (ICD-10 - F41.1) [...] Patient has friends from [facility] and plans for a potluck for Jamie [...] a corresponding plan for support and management. 05/28/2024 Primary insomnia (ICD-10 - F51.01) 06/04/2024 Generalized anxiety disorder (ICD-10 - F41.1) 07/10/2024 Major depressive disorder, recurrent, mild (ICD-10 - F33.0) 07/10/2024 Generalized anxiety disorder (ICD-10 - F41.1) 06/04/2024 Major depressive disorder, recurrent severe without [...] her life. - Recommend resources such as [email or web address] and Orlando Talbot's work on the 6th [...] life and outlines corresponding assessments and plans. 07/24/2024 Encounter for screening for depression (ICD-10 - Z13.31) 08/07/2024 Major depressive disorder, recurrent, mild (ICD-10 - F33.0) 08/07/2024 Generalized anxiety disorder (ICD-10 - F41.1) 09/04/2024 Major depressive disorder, recurrent, mild (ICD-10 - F33.0) 09/04/2024 Generalized anxiety disorder (ICD-10 - F41.1) 09/25/2024 Major depressive disorder, recurrent, mild (ICD-10 - F33.0) 09/25/2024 Primary insomnia (ICD-10 - F51.01) Patient is taking Trazodone for insomnia. - Continue Trazodone 50 mg daily. 10/09/2024 Generalized anxiety disorder (ICD-10 - F41.1) 09/25/2024 Generalized anxiety disorder (ICD-10 - F41.1) 06/04/2024 [...] her life. - Recommend resources such as [employer] and Orlando Talbot's work on the 6th [...] life and outlines corresponding assessments and plans. 07/24/2024 Encounter for screening for cardiovascular disorders (ICD-10 - Z13.6) 03/05/2024 Major depressive disorder, recurrent, mild (ICD-10 [...] Patient has friends from [facility] and plans for a potluck for [employer] if other plans don't work out. - Plan: - Encourage the patient to maintain and strengthen social connections for emotional support. Family Dynamics and Holiday Plans - Assessment: Patient is unsure about holiday plans and whether her granddaughter Merced will be home for Schwert[place]. Considering alternative plans with her son. - [...] significant dates related to her late . 05/28/2024 Generalized anxiety disorder (ICD-10 - F41.1) 04/16/2024 Generalized anxiety disorder (ICD-10 - F41.1) [...] management techniques with a mental health professional. 03/14/2024 Generalized anxiety disorder (ICD-10 - F41.1) [...] - Plan: - Encourage patient to contact [facility] and [facility] for post-surgery assistance options - Follow up with orthopedic doctor at [place], at the [...] encourage progress in daily activities and independence. 02/13/2024 Major depressive disorder, recurrent, mild (ICD-10 [...] Patient has friends from [facility] and plans for a potluck for [employer] if other plans don't work out. - Plan: - Encourage the patient to maintain and strengthen social connections for emotional support. Family Dynamics and Holiday Plans - Assessment: Patient is unsure about holiday plans and whether her granddaughter Merced will be home for [place]ert[place]. Considering alternative plans with her son. - Plan: - Encourage the patient to communicate with her family members to clarify plans and express her needs and preferences. Each section addresses a specific area of concern and outlines a corresponding plan for support and management. 01/11/2024 Generalized anxiety disorder (ICD-10 - F41.1) [...] plan. - Maintain regular follow-ups with the optics test technician. Balance Issue and Vertigo - Plan: - Begin physical therapy sessions with Reilly at [facility] physical therapy starting Sunday. - Obtain a CAT scan as recommended by the physical therapist. Weight Loss and Nutrition - Assessment: Patient is experiencing ongoing weight loss and is working with a optics test technician. Patient reports losing 28 pounds since September. - Plan: - Continue following the prescribed diet plan and monitor weight changes. - Reassess the need for adjustments to the diet plan during future appointments. Grief and Family Support - Assessment: Patient is providing support to her sister after the loss of her [id number] and is receiving support from her son [...] currently scheduled through April with therapist Miranda. 12/19/2023 Major depressive disorder, recurrent severe without [...] up with mental health provider as needed. 11/30/2023 Generalized anxiety disorder (ICD-10 - F41.1) [...] sister twice daily and accompanies her to [employer] and social outings. Patient feels she is [...] 6 weeks. Refill all current medications. 11/02/2023 Generalized anxiety disorder (ICD-10 - F41.1) [...] Plan: - Refer the patient to a community recreation programmer for further education and management of diabetes. [...] with being alone and feeling more capable. 11/02/2023 Interstitial cystitis (chronic) without hematuria (ICD-10 [...] Plan: - Refer the patient to a community recreation programmer for further education and management of diabetes. [...] being alone and feeling more capable. 11/30/2023 Interstitial cystitis (chronic) without hematuria (ICD-10 [...] in 6 weeks. Refill all current medications. 01/11/2024 Interstitial cystitis (chronic) without hematuria (ICD-10 [...] plan. - Maintain regular follow-ups with the optics test technician. Balance Issue and Vertigo - Plan: - Begin physical therapy sessions with Reilly at [facility] physical therapy starting Sunday. - Obtain a CAT scan as recommended by the physical therapist. Weight Loss and Nutrition - Assessment: Patient is experiencing ongoing weight loss and is working with a optics test technician. Patient reports losing 28 pounds since September. - Plan: - Continue following the prescribed diet plan and monitor weight changes. - Reassess the need for adjustments to the diet plan during future appointments. Grief and Family Support - Assessment: Patient is providing support to her sister after the loss of her [id number] and is receiving support from her son [...] scheduled through April with therapist Miranda. 03/14/2024 Interstitial cystitis (chronic) without hematuria (ICD-10 [...] - Plan: - Encourage patient to contact [facility] and [facility] for post-surgery assistance options - Follow up with orthopedic doctor at [place], at the [...] encourage progress in daily activities and independence. 05/28/2024 Interstitial cystitis (ICD-10 - N30.10) 07/24/2024 Major depressive disorder, recurrent, mild (ICD-10 - F33.0) 09/25/2024 Interstitial cystitis (ICD-10 - N30.10) 09/25/2024 Chronic obstructive pulmonary disease, unspecified COPD type (ICD-10 - J44.9) 07/24/2024 Primary insomnia (ICD-10 - F51.01) 05/28/2024 Chronic obstructive pulmonary disease, unspecified COPD [...] - Plan: - Encourage patient to contact [facility] and [facility] for post-surgery assistance options - Follow up with orthopedic doctor at [place], the [place] [facility], at the end of April - [...] plan. - Maintain regular follow-ups with the optics test technician. Balance Issue and Vertigo - Plan: - Begin physical therapy sessions with Reilly at [facility] physical therapy starting Sunday. - Obtain a CAT scan as recommended by the physical therapist. Weight Loss and Nutrition - Assessment: Patient is experiencing ongoing weight loss and is working with a optics test technician. Patient reports losing 28 pounds since September. - Plan: - Continue following the prescribed diet plan and monitor weight changes. - Reassess the need for adjustments to the diet plan during future appointments. Grief and Family Support - Assessment: Patient is providing support to her sister after the loss of her [id number] and is receiving support from her son [...] currently scheduled through April with therapist Miranda. 11/02/2023 Primary insomnia (ICD-10 - F51.01) Depression [...] Plan: - Refer the patient to a community recreation programmer for further education and management of diabetes. [...] being alone and feeling more capable. 11/30/2023 Primary insomnia (ICD-10 - F51.01) Diabetes [...] in 6 weeks. Refill all current medications. 05/28/2024 Hyperlipidemia (ICD-10 - E78.5) 07/24/2024 Generalized anxiety disorder (ICD-10 - F41.1) 09/25/2024 Hyperlipidemia (ICD-10 - E78.5) 07/24/2024 Interstitial cystitis (ICD-10 - N30.10) 09/25/2024 Encounter for screening for cardiovascular disorders (ICD-10 - Z13.6) 09/25/2024 Negative depression screening (ICD-10 - Z13.31) 07/24/2024 Chronic obstructive pulmonary disease, unspecified COPD type (ICD-10 - J44.9) 05/28/2024 SAMI (generalized anxiety disorder) (ICD-10 - F41.1) 07/24/2024 Hyperlipidemia (ICD-10 - E78.5) 09/25/2024 Type 2 diabetes mellitus without complications (ICD-10 - E11.9) Patient manages diabetes through diet. Recent A1C levels were good, indicating no need for medication. - Continue managing diabetes through diet. - Monitor A1C levels regularly. 07/24/2024 SAMI (generalized anxiety disorder) (ICD-10 - F41.1) 09/25/2024 SAMI (generalized anxiety disorder) (ICD-10 - F41.1) Patient is taking Buspirone for anxiety. - Continue Buspirone 10 mg twice daily. 05/07/2024 Other Grief and Emotional Processing - [...] and reports mood improvement. Patient enjoyed the Schwert[place] period, indicating further improvement in mood. - [...] excessive worry about her Social Security benefits, group home accounts, and rising costs of living. Andreia's [...] her involvement in a support group at [facility] where she discusses personal challenges. The patient also notes improved sleep patterns and weight gain, which were previous concerns. These positive changes suggest effective management of her depression. Plan: - Continue current treatment regimen for depression (specific medications not mentioned in transcript) - Maintain involvement in [employer] support group - Follow up with clinician [...] The test was conducted in May at [facility] in [place]. Plan: - No specific interventions discussed for [...] ensure accuracy, there may be errors, including manager army inaccuracies and misspellings of medication names. This document should not be considered a verbatim record, and any discrepancies should be verified with the provider. 08/07/2024 Other Bereavement - Assessment: Felicia reports it will be 2.5 years in August since her . She feels she's over the hump, suggesting progress in her grief process. This indicates a positive trajectory in her bereavement journey, with apparent improvement in her emotional state since the loss. - Plan: - Continue to monitor progress in grief process. - Encourage engagement in meaningful activities and relationships. Family Dynamics - Assessment: Felicia reports her daughter is questioning her joao, which may be a source of concern or conflict. However, Felicia also mentions bonding with her daughter over genealogy research on [employer], indicating a positive aspect to their relationship. Additionally, Felicia is anticipating the of a grandchild in two weeks, which may further impact family dynamics and provide a new source of saranya and connection. - Plan: - Explore impact of daughter's joao questioning on family relationships. - Encourage continued positive interactions and shared interests with daughter. - Discuss expectations and emotions surrounding upcoming of grandchild. Sociopolitical Concerns - Assessment: Felicia expresses significant distress over the current political environment, feeling that people are losing sight of what's important. This preoccupation with political issues may be a source of stress or anxiety for Felicia, potentially impacting her overall well-being and daily functioning. - Plan: - Explore the impact of political concerns on Felicia's daily life and emotional state. - Discuss coping strategies for managing stress related to sociopolitical issues. - Encourage balanced media consumption and engagement in local community activities. Each section addresses a specific area of concern for Felicia and outlines corresponding assessments and plans for support and intervention. 09/04/2024 Other Grief - Assessment: Felicia reports significant progress in her grief process over the past 2.5 years since her 's . She expresses feeling more accepting of her loss and able to enjoy her independence. Felicia is actively participating in a grief support group, which she finds beneficial for sharing memories and connecting with others who understand her experience. She has recently felt comfortable displaying her 's picture in her home, indicating improved emotional processing of the loss. - Plan: - Continue participation in grief support group - Encourage ongoing engagement in meaningful activities and social connections Depression - Assessment: Felicia reports improvement in her depressive symptoms, stating she feels good and has a more positive outlook. She demonstrates increased engagement in activities such as gardening and home maintenance, suggesting improved mood and motivation. Felicia expresses feeling more confident and capable, contrasting with previous feelings of worthlessness from her childhood. She continues to take antidepressant medication, which appears to be effective in managing her symptoms. - Plan: - Continue current antidepressant medication regimen - Monitor for any changes in mood or return of depressive symptoms - Encourage ongoing engagement in pleasurable and meaningful activities 10/09/2024 Other Grief and Depression - Assessment: Felicia, a 74-year-old female, reports experiencing depression that comes and goes in waves related to grief following an unspecified loss. She describes her overall state as doing good, with 90% of her life feeling really good and actively working on the remaining 10%. Felicia maintains engagement in various activities, including attending a grief support group, participating in a lunch group, and pursuing hobbies such as gardening and crafting. She is preparing for her first trip since [place] to visit family, indicating improved functioning. Despite occasional fatigue, which may be age-related, Felicia demonstrates resilience and active coping strategies in managing her grief and depression. - Plan: - Continue attendance at grief support group. - Maintain engagement in social activities, including lunch group. - Encourage continuation of productive hobbies (e.g., gardening, crafting). - Monitor fatigue levels and overall mood during upcoming family visit. - Follow up after trip to assess impact on grief and depression symptoms. Plan Of Treatment Next Appt Details Provider Name:Miranda Calixto, 11/06/2024 01:00:00 PM, [address], [address], [address], Provider Name:Miranda Calixto, 12/04/2024 01:00:00 PM, [address], [place] [address], [place], [address], Provider Name:Hola Aguirre , 12/26/2024 01:00:00 PM, [address], [facility] [address], [place], [address], Provider Name:Miranda Calixto, 01/15/2025 01:00:00 PM, [address], [place] [address], [place], [address], Insurance Providers Payer Name Payer Address Payer Phone Subscriber Number Group Number Insured Name Patient Relationship to Insured Coverage Start Date Coverage End Date [facility] [address] [place] [address] [id number] FELICIA DIAZ Self - patient is the insured Medical (General) History Medical History History ICD Code Problems: Chronic interstitial cystitis Chronic obstructive lung disease Generalized anxiety disorder Mild recurrent major depression Pain in bilateral legs Severe recurrent major depression withou t psychotic features , Surgical History Surgery Date(Month/Year) Appendectomy (97703) 04/02/1974 Removal of gallbladder (13132) 5 Hysterectomy (40034) 10/01/1975 Cataract surgery (19067) 12/31/2013 Hospitalization History Reason Date(Month/Year) drug pumb replacement 09/06/2023
--- OUTSIDE RECORDS SUMMARY | 2024-10-31 11:11 | XMS_ITS | Patient Health Record ---
Author Organization [facility] Address [address] [place], [place] [address] Care Team Providers Care Airport Operations Crew Member Name Role Phone EAMNUEL BOBO Unavailable [phone] Orlando Thompson Unavailable Unavailable Allergies Allergen (clinical drug ingredient) Drug/Non Drug Allergy documented on EMR Reaction Allergy Type Onset Date Status ciprofloxacin Cipro Unknown Drug Allergy Act abundio enoxaparin Lovenox Unknown Drug Allergy Active povidone Povidone Unknown Drug Allergy Active Reason For Referral No Information Immunizations Vaccine Route Administration Date Status Comme nts Influenza, high dose seasonal Unknown 10/08/2023 Refuse d Pneumococcal conjugate PCV 13 Unknown 10/08/2023 Refuse d Social History Tobacco Use: Social History Observation Description Date Details (start date - stop date) Never Smoker NA - NA Tobacco Control (Standard) Question Answer Notes Tobacco use: Nonsmoker Vital Signs Height-cm 160.02 cm 10/20/2024 Weight-kg 69.4 kg 10/20/2024 Height 63 in 10/20/2024 Weight 153 lbs 10/20/2024 BMI 27.1 kg/m2 10/20/2024 Encounters Encounter Location Date Provider Diagnosis [facility] [address] [place], [place] [id number] 04/21/2024 BOBO CASTELLANOS Tinea unguium B35.1 ; Pain in right toe(s) M79.674 ; Pain in left toe(s) M79.675 and Atherosclerosis of [place] arteries of extremities with intermittent claudication, bilateral legs I70.213 [facility] [address] [place], [place] [id number] 10/20/2024 BOBO SNOOK Tinea unguium B35.1 ; Pain in right toe(s) M79.674 ; Pain in left toe(s) M79.675 ; Intermittent claudication of both lower extremities due to atherosclerosis I70.213 and Type 2 diabetes mellitus with other circulatory complications E11.59 [facility] [address] [place] [id number] 01/07/2024 BOBO SNOOK Tinea unguium B35.1 ; Atherosclerosis of [place] arteries of extremities with intermittent claudication, bilateral legs I70.213 and Pain in right foot M79.671 [facility] [address] [place] [id number] 07/21/2024 BOBO SNOOK Tinea unguium B35.1 ; Tinea pedis B35.3 ; Pain in right toe(s) M79.674 ; Pain in left toe(s) M79.675 and Type 2 diabetes mellitus with other diabetic neurological complication E11.49 Assessments Encounter Date Diagnosis (ICD Code) Assessment Notes Treatment Notes Treatment Clinical Notes Section Notes 01/07/2024 Tinea unguium (ICD-10 - B35.1) FUNGAL TOENAILS: Discussed various treatment options for fungal toenails including debridement, topical antifungals, oral antifungals, toenail avulsion, or toenail matrixectomy. NAIL DEBRIDEMENT: Nail 1 right was debrided extensively with nail nippers and emery board, reducing length and girth to pink healthy tissue with any subungual debris and necrotic tissue removed. Fungal Toenails, Continue Treatment: The patient will continue using the topical antifungal medication. I explained that it can take 9-12 months for a toenail to grow out and notice change. 01/07/2024 Atherosclerosis of [place] arteries of extremities with intermittent claudication, bilateral legs (ICD-10 - I70.213) 04/21/2024 Tinea unguium (ICD-10 - B35.1) FUNGAL [...] Pain in right toe(s) (ICD-10 - M79.674) 07/21/2024 Tinea unguium (ICD-10 - B35.1) FUNGAL TOENAILS: Discussed various treatment options for fungal toenails including debridement, topical antifungals, oral antifungals, toenail avulsion, or toenail matrixectomy. NAIL DEBRIDEMENT: Nails 1-5 Bilateral were debrided extensively with nail nippers and emery board, reducing length and girth to pink healthy tissue with any subungual debris and necrotic tissue removed 07/21/2024 Tinea pedis (ICD-10 - B35.3) Tinea Pedis: Tinea pedis (athlete's foot) is a dermatologic fungal infection that typically affects the epidermis and is the most common dermatophyte infection. Tinea pedis is transmitted via direct skin contact, contaminated floors, towels and clothing/shoes and thrives in warm, moist environments. Approximately 26.5 million people are affected annually. Nearly half of these people will suffer from multiple episodes for years. Interdigital tinea pedis presents as erythematous, pruritic, scales or erosions between toes. [place]-type tinea pedis affects the soles and medial and lateral sides of the feet and often is itchy, hyperkeratotic and flaking. Inflammatory tinea pedis is characterized by pruritic erythematous, painful vesicles or bullae most commonly on the medial foot. Treatment varies from OTC preparations to a large variety of topical and oral medications. Patient education and proper foot hygiene are important components to the successful treatment of this infection. Recommend OTC Terbinafine 1% cream 10/20/2024 Tinea unguium (ICD-10 - B35.1) FUNGAL [...] Pain in left toe(s) (ICD-10 - M79.675) 07/21/2024 Pain in right toe(s) (ICD-10 - M79.674) 04/21/2024 Pain in left toe(s) (ICD-10 - M79.675) 01/07/2024 Pain in right foot (ICD-10 - M79.671) 04/21/2024 Atherosclerosis of [place] arteries of extremities with intermittent claudication, bilateral legs (ICD-10 - I70.213) 07/21/2024 Pain in left toe(s) (ICD-10 - M79.675) 10/20/2024 Intermittent claudication of both lower extremities due to atherosclerosis (ICD-10 - I70.213) 10/20/2024 Type 2 diabetes mellitus with other circulatory complications (ICD-10 - E11.59) 07/21/2024 Type 2 diabetes mellitus with other diabetic neurological complication (ICD-10 - E11.49) Plan Of Treatment Next Appt Details Provider Name:BOBO CASTELLANOS, 02:00:00 PM, [address], [place], [place], [id number], Insurance Providers Payer Name Payer Address Payer Phone Subscriber Number Group Number Insured Name Patient Relationship to Insured Coverage Start Date Coverage End Date [facility] [address] [address] [place] [id number] Felicia Mendieta Self - patient is the insured Medical (General) History Medical History History ICD Code Leg/Feet cramps Arthritis Bladder infections Psychiatric Disorder
--- OUTSIDE RECORDS SUMMARY | 2024-10-31 11:11 | XMS_ITS | Clinical Summary ---
Author Organization [facility] Address [address] [place] [address] Care Team Providers Care Misdraw Hand Name Role Phone Harjinder Lopez MD Primary Care Provider [phone] Allergies Active Allergy Reactions Criticality Noted Date [...] 3:00 AM CDT Height 160 cm (5' 3) 12/31/2021 2:36 PM CDT Body Mass Index [...] measures Lifestyle No Irene Lyman RN Insurance [id number] Advance Directives * Full Code (Latest Code Status on File) Date Activated Date Inactivated Comments 11/22/2021 7:31 PM 12/02/2021 4:50 PM * Full Code Date Activated Date Inactivated Comments 11/22/2021 7:28 PM 11/22/2021 7:31 PM * Full Code Date Activated Date Inactivated Comments 11/19/2021 3:16 PM 11/22/2021 5:01 PM Care Teams Misdraw Hand Relationship Specialty Start Date End Date Harjinder Lopez MD [address] [facility] [address] [place] [address] PCP - General FAMILY PRACTICE 11/16/21
--- OUTSIDE RECORDS SUMMARY | 2024-10-31 11:11 | XMS_ITS ---
Author Organization [facility] Address [address] [place], [place] [id number] Care Team Providers Care Fisher Troll Line Name Role Phone EMANUEL BOBO Unavailable [phone] Orlando Thompson Unavailable Unavailable Allergies Allergen (clinical [...] Location Date Provider Diagnosis [facility] [address] [place], [place] [id number] 10/20/2024 BOBO CASTELLANOS Tinea unguium B35.1 ; [...] CASTELLANOS, 02:00:00 PM, [address], [address], [id number], Progress Notes * [place] DIAZOB:1950 (74 yo F)Acc No.[id number]:10/20/2024 Patient: Sahra Felicia WRIGHT Provider: Rosa Castellanos DPM :1950 A ge:74 Y S ex:Female Date:10/20/2024 Address:[address] [place], [place] [id number] Subjective: * Chief Complaints: * 1 . [...] arise) * Billing Information: * Visit Code: 72600 Office Visit, Est Pt., Level 3. * Procedure Codes: * Electronic signature of BOBO CASTELLANOS DPM on 10/31/2024 at 11:10 AM CDT Sign off status: Pending * Provider: Rosa Castellanos DPM Date: 0 10/20/2024 Generated for Francesca patel/Maggie/Freedom on: 0 10/31/2024 [...]
--- OUTSIDE RECORDS SUMMARY | 2024-10-31 11:11 | XMS_ITS | Referral Summary ---
Author Organization [facility] [address] Address [address] [place] [address] Care Team Providers Care Supervisor Shuttle Fitting Name Role Phone GamalielRupert preciado Primary Care Provider [phone] Allergies Active Allergy Reactions Criticality Noted Date [...] Psychiatry, engaged with what is group at shinto as well as grief steady group online [...] on file Legal Sex Female 5:59 PM INSULATION INSPECTOR Gender Identity Female 08/02/2022 10:05 AM CDT [...] 6:43 AM CDT Height 157.5 cm (5' 2) 09/06/2023 6:43 AM CDT Body Mass Index 27.98 09/06/2023 6:43 AM CDT Plan of Treatment Not on file Medical Devices Implanted Type Area Angle Bender Device Identifier Shelf Expiration Date Model / Serial / Lot Other - See Comments Other - see comments Right: Back Description:Inter Stim [employer] Inc Sutureless Connector Revision Catheter Kit Intrathecal Pump 8578 - [id number] Implanted:Qty: 1 on 09/06/2023 by Gui Coulter MD at [facility] Right: Abdomen Medtronic Inc 01/13/2024 8578 / / [id number] Med[employer]onic [employer] X Pump Infusion Programmable Ulp Ami 20ml Volume 8667-20 - [id number] - [id number] Implanted:Qty: 1 on 09/06/2023 by Gui Coulter MD at [facility] Right: Abdomen Medtronic [employer] X 02/13/2025 8667-20 / [id number] / Explanted Type Area Angle Bender Device Identifier Shelf Expiration Date Model / Serial / Lot Other - See Comments Explanted:Qty : 1 on 09/06/2023 at [facility] Other - see comments Right: Stomach Description:Right Lower Quad - Drug Pump Procedures Procedure Name Priority Date/Time Associated Diagnosis Comments SCREENING MAMMOGRAM BILATERAL W ANTOINE Schedule Routine, Read Routine (OP Routine) 02/15/2023 11:30 AM INSULATION INSPECTOR Encounter for screening mammogram for malignant neoplasm of breast from Last 3 Months or Most Recently Relevant to Health Maintenance Results * SCREENING MAMMOGRAM BILATERAL W ANTOINE (02/15/2023 11:30 AM INSULATION INSPECTOR) Anatomical Region Laterality Modality Breast Bilateral Mammography 02/15/2023 1:31 PM INSULATION INSPECTOR Impressions 02/15/2023 1:31 PM INSULATION INSPECTOR There is no mammographic evidence of malignancy. A 1 year screening mammogram is recommended. BI-RADS: 1 - Negative. The patient has been or will be contacted. The patient will be entered into a reminder system with a target due date of 1 year for her next mammogram. Electronically signed by: Mercedes Perez M.D. 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
--- OUTSIDE RECORDS SUMMARY | 2024-10-31 11:11 | XMS_ITS | Clinical Summary ---
Author Organization [facility] [employer] Address [address] [place] [address] Care Team Providers Care Gift Basket Packer Name Role Phone Unavailable Primary Care Provider Unavailabl e Source Comments [facility] [employer],non-owned Affiliates and Associated Physician Practices is amultiple site organization consisting of ambulatory clinics and hospital sitesin [place], [place], [place] and [place]. This disclosure is being madepursuant to the Care Everywhere program and may not contain all information available regarding this patient. Last updated 17.[facility] [employer] Allergies Active Allergy Reactions Criticality Noted Date [...] on file Legal Sex Female 6:30 PM ONCOLOGY TECHNICIAN Gender Identity Not on file Sexual Orientation [...] 4:00 PM CDT Height 162.6 cm (5' 4) 01/20/2019 4:00 PM CDT Body Mass Index 26.78 01/20/2019 4:00 PM CDT Plan of Treatment Health Maintenance Due Date Last Done Comments BONE DENSITY TESTING 1950 MEDICARE AWV 12 MONTHS 1950 HEPATITIS C SCREENING 05/08/1966 DTAP/TDAP/TD VACCINES (1 - Tdap) 1967 PNEUMOCOCCAL VACCINE 50+ (1 of 1 - PCV) 1998 ZOSTER VACCINE (1 of 2) 1998 Respiratory Syncytial Virus (RSV) Vaccine Pt: or over 60 yrs (1 - 1-dose 75+ series) 2023 COVID-19 VACCINE (1 - 2023-2 5 season) 2023 DEPRESSION SCREENING 04/02/2024 INFLUENZA VACCINE (#1) 2024 HEPATITIS B VACCINE Aged Out No [...] age to complete this topic Insurance MEDICARE [employer] MANAGED MEDICARE ADV SELF PAY NO INSURANCE Member Subscriber Plan / Payer (Ef fective for All Dates) Name:Jade Diaz Member ID:Not on file Relation to Subscriber:Not on file Name:JADE DIAZ Subscriber ID:Not on file (Home) Address: [address] [place] [id number] Payer ID:Not on file Group ID:Not on file Type:Self Pay Address: [place], [place] MEDICARE
--- OUTSIDE RECORDS SUMMARY | 2024-10-31 11:11 | XMS_ITS | Continuity of Care Document ---
Author Organization [facility] Address [id number] [place] [address] [address] [place] [address] Phone Care Team Providers Care Testing Consultant Name Role Phone Pool Figueroa MD, MD [...] Date Provider Providers Copied on Encounter [facility], [address] [address], [place], [place], [id number], tel:[phone] [address] [place] [address] No Information 4 Henry Lanza. [address], [address], [place], [place], [address] , [place]. tel:[phone] Referring Provider: Pool Walters, [address], [place], [address] . tel:[phone] [facility], [address] [address], [place], [place], [id number], [place] tel:[phone] [address] [place] [address] No Information 4 Henry Lanza. [address], [address], [place], [place], [address] , [place]. [phone] Referring Provider: Pool Walters, [address], [place], [address] . tel:[phone] OFFICE/OUTPA TIENT VISIT, [facility], [address], [place], [place], [address], tel:[phone] [facility] No Information 4 Henry Lanza. [address], [address], [place], [place], [address] , [place]. tel:[phone] Referring Provider: Pool Figueroa MD P, [address], [place], [address] . tel:[phone] Family History Family Member Type Diagnosis Age At Onset No Information Payers Payer name Insurance type Covered libertarian ID Authorel christy(s) [employer] CI [id number] Social History Type Description Quantity Date Captured [...]
--- OUTSIDE RECORDS SUMMARY | 2024-10-31 11:11 | XMS_ITS | Clinical Summary ---
Author Organization [facility] [address] Address [address] [place] [address] Care Team Providers Care Shipping Clerk Crating Name Role Phone GamalielRupert preciado Primary Care Provider [phone] Allergies Active Allergy Reactions Criticality Noted Date [...] Psychiatry, engaged with what is group at tenriism as well as grief steady group online [...] on file Legal Sex Female 5:59 PM ELECTROENCEPHALOGRAPHIC TECHNICIAN Gender Identity Female 08/02/2022 10:05 AM CDT [...] Assessment 09/05/2024 09/06/2023, 11/13/2022, 08/07/2022 Influenza Vaccine (#1) 2024 , 01/14/2021, 12/03/2019, Additional history exists Pneumococcal vaccine 65+ Completed 018, 12/22/2016, 10/13/2015, Additional history exists Zoster Vaccine Completed 08/20/2021, 05/03, 03/30/2014 Breast Cancer Screening-Mammogram Discontinued 023 Medical Devices Implanted Type Area Plug Saw Operator Device Identifier Shelf Expiration Date Model / Serial / Lot Other - See Comments Other - see comments Right: Back Description:Inter Stim Medtronic Inc Sutureless Connector Revision Catheter Kit Intrathecal Pump 8578 - [id number] Implanted:Qty: 1 on 09/06/2023 by Gui Coulter MD at [facility] Right: Abdomen Medtronic Inc 01/13/2024 8578 / / [id number] Medtronic [employer] X Pump Infusion Programmable Ulp Ami 20ml Volume 8667-20 - [id number] - [id number] Implanted:Qty: 1 on 09/06/2023 by Gui Coulter MD at [facility] Right: Abdomen Medtronic [employer] X 02/13/2025 8667-20 / [id number] / Explanted Type Area Plug Saw Operator Device Identifier Shelf Expiration Date Model / Serial / Lot Other - See Comments Explanted:Qty : 1 on 09/06/2023 at [facility] Other - see comments Right: Stomach Description:Right Lower Quad - Drug Pump Procedures Procedure Name Priority Date/Time Associated Diagnosis Comments SCREENING MAMMOGRAM BILATERAL W ANTOINE Schedule Routine, Read Routine (OP Routine) 02/15/2023 11:30 AM ELECTROENCEPHALOGRAPHIC TECHNICIAN Encounter for screening mammogram for malignant neoplasm of breast from Last 3 Months or Most Recently Relevant to Health Maintenance Results * SCREENING MAMMOGRAM BILATERAL W ANTOINE (02/15/2023 11:30 AM ELECTROENCEPHALOGRAPHIC TECHNICIAN) Anatomical Region Laterality Modality Breast Bilateral Mammography 02/15/2023 1:31 PM ELECTROENCEPHALOGRAPHIC TECHNICIAN Impressions 02/15/2023 1:31 PM ELECTROENCEPHALOGRAPHIC TECHNICIAN There is no mammographic evidence of malignancy. A 1 year screening mammogram is recommended. BI-RADS: 1 - Negative. The patient has been or will be contacted. The patient will be entered into a reminder system with a target due date of 1 year for her next mammogram. Electronically signed by: Mercedes Perez M.D. Narrative 02/15/2023 1:31 PM ELECTROENCEPHALOGRAPHIC TECHNICIAN EXAMINATION: SCREENING MAMMOGRAM BILATERAL W ANTOINE ORDERING [...] Relevant to Health Maintenance Insurance MEDICARE ADVANTAGE [place] [address] [facility] [place] [address] Advance Directives For more information, please contact: [phone] Documents on File Type Date Recorded Patient Shift Coordinator Expl anation ADVANCE DIRECTIVE 09/08/2023 6:22 AM POWER OF MIXER OPERATOR HELPER HOT METAL-MEDICAL Care Teams Shipping Clerk Crating Relationship Specialty Start Date End Date Rupert Elena DO [facility] [address] [address] PCP - General Family Medicine 07/09/23
[2024-10-31 11:43] VITALS: BP 101/50; BP 112/53; PULSE 74; PULSE 86
[2024-10-31 11:44] VITALS: BP 102/58; PULSE 91
--- NOTE | 2024-10-31 11:47 | ED.GENADULT ---
HPI - General Adult General Chief complaint: Recheck/Abnormal Lab/Rx Stated complaint: Low BP Time Seen by Provider: 10/31/24 11:15 History of Present Illness HPI narrative: 74-year-old female presents to the emergency department for evaluation for low blood pressure this morning. Patient had a systolic blood pressure of 80 systolic this morning when she was having her pain pump refilled. Upon arrival emergency department patient states she does feel mildly tired but patient's blood pressure has improved. Denies any nausea vomiting diarrhea, falls or injuries, recent illness other than feeling tired. At time of evaluation patient is in no distress and well appearing. Patient does have history of interstitial cystitis, COPD, anemia, type 2 diabetes Related Data Home Medications ?Medication ?Instructions ?Recorded ?Confirmed ?Last Taken ?Type Lactobacillus 1 cap PO DAILY 01/20/22 08/07/24 07/31/24 History acidophilus-Bifidobac.animalis 2.5 billion cell capsule (Daily Probiotic) pumpkin seed extract-soy germ 300 1 cap PO DAILY 01/20/22 08/07/24 07/31/24 History mg capsule (Azo Bladder Control) sertraline 100 mg tablet 100 mg PO DAILY 10/12/22 08/07/24 07/31/24 History trazodone 50 mg tablet 50 mg PO HS 10/12/22 08/07/24 07/31/24 History vitamin B complex 2 tablet PO DAILY 10/12/22 08/07/24 07/31/24 History calcium 600 mg-D3 800 unit-mag11 1 tablet PO DAILY 04/17/23 08/07/24 07/31/24 History 50 fd-nfpj-qtscsf-randal-s.borat tablet duloxetine 30 mg capsule,delayed 30 mg PO .AM 10/18/23 08/07/24 08/01/24 06:30 History release duloxetine 60 mg capsule,delayed 60 mg PO QHS 10/18/23 08/07/24 07/31/24 History release fexofenadine 60 mg tablet (Kristina 60 mg PO Q12H 07/23/24 08/07/24 07/31/24 History Allergy) Allergies Allergy/AdvReac Type Severity Reaction Status Date / Time iodine Allergy Severe Hives Verified 08/18/24 09:21 povidone Allergy Severe Hives Verified 08/18/24 09:21 adhesive tape Allergy Intermediate Rash Verified 08/18/24 09:21 ciprofloxacin Allergy Intermediate Hives Verified 08/18/24 09:21 soap Allergy Intermediate Hives Verified 08/18/24 09:21 sulfamethoxazole (From Allergy Swelling Verified 08/18/24 09:21 Bactrim) of Lip/Tongue/Throat trimethoprim (From Bactrim) Allergy Swelling Verified 08/18/24 09:21 of Lip/Tongue/Throat enoxaparin (From Lovenox) AdvReac Intermediate Cramping Verified 08/18/24 09:21 of the Muscles Contrast Media Allergy Severe RASH AND Uncoded 08/18/24 09:21 ANAPHYLAXIS IOBAN DRAPE FOR SURGERY Allergy Severe HIVES Uncoded 08/18/24 09:21 Review of Systems Review of Systems: All systems reviewed & are unremarkable except as noted in HPI and below PMFSH Past Medical History Medical History Right shoulder injury Rotator cuff tear DJD of shoulder Rotator cuff tendonitis Right shoulder pain GERD (gastroesophageal reflux disease) COPD (chronic obstructive pulmonary disease) Anxiety Goiter Shingles Thyroid cyst Osteoporosis DDD (degenerative disc disease) Arthritis UTI (urinary tract infection) Cystitis Ovarian cyst Post-menopausal IBS (irritable bowel syndrome) Pneumonia Hyperlipidemia Seasonal allergies Cataracts, bilateral Surgical History Surgical History History of removal of cyst History of bladder surgery History of hysterectomy History of cholecystectomy History of appendectomy History of colonoscopy History of cataract surgery Family History Family History Grandparent Carcinoma of colon Diabetes mellitus Father Family history of lung cancer Mother Family history of coronary artery disease Unknown Asthma Hypertension Heart disease Cerebrovascular accident Social History Social History Smoking status: Never smoker Second hand tobacco smoke exposure: No Alcohol intake: never Substance use: never Substance use type: does not use Do You Feel Safe in your Home?: Yes Lack of Transportation: No Lack of Food: Sometimes True Current Housing: I Have Housing Concerned About Future Housing: No Difficulty Paying Gas/Electric Bills: No Difficulty Paying for Meds: No Currently Unemployed: No Education: Bachelor's Degree Difficulty w/ Childcare or Family Care: No Living arrangements: with family Occupation/Education: retired Gender identity (if verbalized by the patient): Female Spiritual care concerns: No Exam Narrative: APPEARANCE: Well appearing, no pain, no distress, well-nourished. HEAD: normocephalic, atraumatic. EYES: PERRLA/EOMI, conjunctivae clear. NOSE: Normal no drainage EARS:TMS clear with good light reflex. THROAT: Pharynx clear, no exudate. NECK: Supple. No adenopathy, no masses. RESPIRATORY: Airway patent, respirations nonlabored. Clear to auscultation bilaterally, no rales, rhonchi, wheezing. CARDIOVASCULAR: Regular rate and rhythm without murmurs rubs or gallops. ABDOMINAL: Soft, nontender, nondistended, normal bowel sounds MUSCULOSKELETAL: Moves all extremities. Strength/ROM intact, No edema, No calf tenderness. NEURO: Alert. Cranial nerves II through XII intact. Grossly SKIN: Warm, dry. Normal Color Course Vital Signs Vital signs: Vital Signs Temperature 98.3 F 10/31/24 11:08 Pulse Rate 86 10/31/24 11:08 Respiratory Rate 16 10/31/24 11:08 Blood Pressure 119/54 L 10/31/24 11:08 Pulse Oximetry 100 10/31/24 11:08 Oxygen Delivery Room Air 10/31/24 11:08 Temperature 98.3 F 10/31/24 11:08 Pulse Rate 70 10/31/24 14:16 Respiratory Rate 18 10/31/24 14:16 Blood Pressure 111/57 L 10/31/24 14:16 Pulse Oximetry 98 10/31/24 14:16 Oxygen Delivery Room Air 10/31/24 11:08 Medical Decision Making [facility] Narrative Medical decision making narrative: 74-year-old female presents to the emergency department for evaluation for some low blood pressures at home. Patient had mild orthostatic vital signs. Patient was treated with a L of lactated Ringer's sensation does feel improved. Patient is currently afebrile but does have a leukocytosis of 10.7. INR is 1.0. No significant acute abnormalities on her CMP UA was leukocyte esterase positive with 6-10 white blood cells. Patient will be treated for a urinary tract infection. Differential Diagnosis Differential Diagnosis: Urinary tract infection, dehydration, orthostatic hypotension, COVID, RSV, influenza Vital Signs Vital Signs: Vital Signs Temperature 98.3 F 10/31/24 11:08 Pulse Rate 86 10/31/24 11:08 Respiratory Rate 16 10/31/24 11:08 Blood Pressure 119/54 L 10/31/24 11:08 Pulse Oximetry 100 10/31/24 11:08 Oxygen Delivery Room Air 10/31/24 11:08 Temperature 98.3 F 10/31/24 11:08 Pulse Rate 70 10/31/24 14:16 Respiratory Rate 18 10/31/24 14:16 Blood Pressure 111/57 L 10/31/24 14:16 Pulse Oximetry 98 10/31/24 14:16 Oxygen Delivery Room Air 10/31/24 11:08 Lab Data Lab results reviewed: Yes I reviewed the patient's lab results. 10/31/24 12:08 10/31/24 12:08 Labs: Lab Results 10/31/24 10/31/24 Range/Units 12:08 12:54 WBC 10.7 H (4.5-10.0) K/mm3 RBC 4.20 (4.2-5.4) M/mm3 Hgb 12.1 (12.0-15.0) g/dL Hct 39.3 (37.0-47.0) % MCV 93.6 (80-100) fl MCH 28.8 (26-34) pg MCHC 30.8 L (32-36) g/dl RDW 14.8 H (11.5-14.5) % Plt Count 272 (150-375) k/mm3 MPV 10.5 H (7.4-10.4) fl Immature Gran % (Auto) 0.3 (0-0.5) % Neut % (Auto) 76.1 H (45.5-73.1) % Lymph % (Auto) 13.8 L (18.3-44.2) % Robertson % (Auto) 7.9 (2.6-8.5) % Eos % (Auto) 1.5 (0-4.4) % Baso % (Auto) 0.4 (0.2-1.2) % Lymph # (Auto) 1.48 (0.9-3.2) K/mm3 Robertson # (Auto) 0.9 H (0.1-0.6) K/mm3 Eos # (Auto) 0.2 (0-0.3) K/mm3 Baso # (Auto) 0.0 (0.0-0.1) K/mm3 Abs Immat Gran (auto) 0.03 (0.00-0.031) K/mm3 Absolute Neuts (auto) 8.2 H (1.3-6.7) K/mm3 Absolute Nucleated RBC 0.000 (0.0-0.012) K/mm3 Nucleated RBC % 0.0 (0.0-0.2) % PT 13.4 (11.1-14.7) Seconds INR 1.0 APTT 26.0 (22.3-36.8) Seconds Sodium 133 L (137-145) mmol/L Potassium 4.6 (3.4-5.0) mmol/L Chloride 103 (98-107) mmol/L Carbon Dioxide 28 (22-30) mmol/L Anion Gap 2 L (4-12) mmol/L BUN 32 H (7-17) mg/dL Creatinine 0.69 L (0.7-1.0) mg/dL Estim Creat Clear Calc 49 ml/min Estimated GFR > 60 (59 - ) Glucose 132 H (65-110) mg/dL Calcium 9.1 (8.4-10.2) mg/dL Total Bilirubin 0.2 (0.2-1.3) mg/dL AST 27 (14-36) U/L ALT 30 (6-35) U/L Alkaline Phosphatase 42 (38-126) U/L Total Protein 6.8 (6.3-8.2) g/dL Albumin 3.8 (3.5-5.1) g/dL Urine Color Dark yellow (Yellow) Urine Appearance Clear (Clear) Urine pH 6.5 (5.0-9.0) Ur Specific [place] 1.024 (1.001-1.035) Urine Protein Negative (Negative) mg/dL Urine Glucose (UA) Negative (Negative) mg/dL Urine Ketones Negative (Negative) mg/dL Ur Blood (Man) Negative (Negative) Urine Nitrate Negative (Negative) Urine Bilirubin Negative (Negative) Urine Urobilinogen 0.2 (<2.0) mg/dL Leukocyte Esterase Rfl 2+ H (Negative) VIKY/UL Urine RBC 0-2 (0-2) /hpf Urine WBC 6-10 H (0-3) /hpf Ur Squamous Epith Cells None seen (Few) /hpf Urine Bacteria None seen /hpf Urine Casts 0-2 Influenza A (RT-PCR) Negative (Negative) Influenza B (RT-PCR) Negative (Negative) RSV (RT-PCR) Negative (Negative) SARS-CoV-2 RNA (RT-PCR) Negative (Negative) Discharge Plan Discharge Clinical Impression: Acute UTI Patient Disposition: Home Condition: Stable Instructions: Antibiotic Form, Urinary Tract Infection in Women (DC) Additional Instructions: Antibiotic as directed until completed. Drink plenty of fluids. Have close follow-up with your primary care physician. Patient Language: Irish Prescriptions: New cephalexin 500 mg capsule 500 mg PO Q12H 7 Days Qty: 14 0RF No Action sertraline 100 mg tablet 100 mg PO DAILY vitamin B complex Tablet 2 tablet PO DAILY trazodone 50 mg Tablet 50 mg PO HS Azo Bladder Control 300 mg Capsule 1 cap PO DAILY Daily Probiotic 2.5 billion cell Capsule 1 cap PO DAILY prednisone 10 mg tablet See Rx Instructions .ROUTE .COMPLEX Qty: 30 0RF Rx Instructions: 4 tabs daily x3 days,then 3 tabs daily x3 days,then 2 tabs daily x3 days, then 1 tab daily x3 days anz-[id number]-yjzg-bdr-zrua-cgg 600 mg calcium- 800 unit-50 mg tablet 1 tablet PO DAILY duloxetine 60 mg capsule,delayed release(DR/EC) 60 mg PO QHS duloxetine 30 mg capsule,delayed release(DR/EC) 30 mg PO .AM fexofenadine [Kristina Allergy] 60 mg tablet 60 mg PO Q12H buspirone 10 mg tablet 10 mg PO BID Qty: 60 0RF (DME) blood-glucose meter [OneTouch Verio Flex meter] Misc See Rx Instructions .Route Qty: 1 0RF Rx Instructions: As directed (DME) blood-glucose meter [OneTouch Verio Flex Start] Kit See Rx Instructions .Route Qty: 1 0RF Rx Instructions: As directed (DME) lancets [OneTouch Delica Plus Lancet] 30 gauge misc See Rx Instructions .ROUTE .COMPLEX Qty: 100 1RF Dose Instruction: USE TO CHECK BLOOD GLUCOSE NEEDED FOR SYMPTOMS OF HIGH/LOW SUGAR. Rx Instructions: USE TO CHECK BLOOD GLUCOSE NEEDED FOR SYMPTOMS OF HIGH/LOW SUGAR. (DME) OneTouch Verio test strips Strip See Rx Instructions .Route Qty: 100 5RF Rx Instructions: use to check BG PRN symptoms high/low sugar 3x daily alendronate [Fosamax] 70 mg tablet 70 mg PO WEEKLY 90 Days Qty: 13 1RF lovastatin 20 mg tablet See Rx Instructions .ROUTE .COMPLEX Qty: 90 1RF Dose Instruction: Take 1 tablet by mouth in the evening Rx Instructions: Take 1 tablet by mouth in the evening Jesus Manuellegy Ellipta 100-62.5-25 mcg blister with device See Rx Instructions .ROUTE .COMPLEX Qty: 60 5RF Dose Instruction: Inhale 1 puff by mouth once daily Rx Instructions: Inhale 1 puff by mouth once daily Follow-up/Referrals: Orlando Thompson DO [Primary Care Provider] -
[2024-10-31] MEDS: LACTATED RINGERS 1,000 ML 500 ML IV CONT (12:10)
[2024-10-31 12:13] VITALS: BP 102/58; PULSE 79; RESP 16; O2SAT 97
[2024-10-31 12:15] LABS: Hematocrit 39.3 % (37.0-47.0); Hemoglobin 12.1 g/dL (12.0-15.0); Immature Granulocyte Percent A 0.3 % (0-0.5); Lymphocytes Absolute Auto 1.48 K/mm3 (0.9-3.2); Mean Corpuscular HGB Conc 30.8 g/dl (32-36); Mean Corpuscular Hemoglobin 28.8 pg (26-34); Mean Corpuscular Volume 93.6 fl (80-100); Nucleated Red Blood Cells Absolute Auto 0.000 K/mm3 (0.0-0.012); Nucleated Red Blood Cells Perc 0.0 % (0.0-0.2); Platelet Count Result 272 k/mm3 (150-375); Red Blood Count 4.20 M/mm3 (4.2-5.4); White Blood Count 10.7 K/mm3 (4.5-10.0)
[2024-10-31 12:27] LABS: INR 1.0; Partial Thromboplastin Time 26.0 Seconds (22.3-36.8); Prothrombin Time 13.4 Seconds (11.1-14.7)
--- OUTSIDE RECORDS SUMMARY | 2024-10-31 12:31 | XMS_ITS | Referral Summary ---
Author Organization [facility] [address] Address [address] [place] [address] Care Team Providers Care Roving Technician Name Role Phone GamalielRupert preciado Primary Care Provider [phone] Allergies Active Allergy Reactions Criticality Noted Date [...] Psychiatry, engaged with what is group at spiritism as well as grief steady group online [...] on file Legal Sex Female 5:59 PM WRAPPER LAYER Gender Identity Female 08/02/2022 10:05 AM CDT [...] on file Medical Devices Implanted Type Area Malt Loader Device Identifier Shelf Expiration Date Model / Serial / Lot Other - See Comments Other - see comments Right: Back Description:Inter Stim [employer] Sutureless Connector Revision Catheter Kit Intrathecal Pump 8578 - [id number] Implanted:Qty: 1 on 09/06/2023 by Gui Coulter MD at [facility] Right: Abdomen Med[employer] Inc 01/13/2024 8578 / / [id number] [employer] X Pump Infusion Programmable Ulp Ami 20ml Volume 8667-20 - [id number] - [id number] Implanted:Qty: 1 on 09/06/2023 by Gui Coulter MD at [facility] Right: Abdomen Med[employer] X 02/13/2025 8667-20 / [id number] / Explanted Type Area Malt Loader Device Identifier Shelf Expiration Date Model / Serial / Lot Other - See Comments Explanted:Qty : 1 on 09/06/2023 at [facility] Other - see comments Right: Stomach Description:Right Lower Quad - Drug Pump Procedures Procedure Name Priority Date/Time Associated Diagnosis Comments SCREENING MAMMOGRAM BILATERAL W ANTOINE Schedule Routine, Read Routine (OP Routine) 02/15/2023 11:30 AM WRAPPER LAYER Encounter for screening mammogram for malignant neoplasm of breast from Last 3 Months or Most Recently Relevant to Health Maintenance Results * SCREENING MAMMOGRAM BILATERAL W ANTOINE (02/15/2023 11:30 AM WRAPPER LAYER) Anatomical Region Laterality Modality Breast Bilateral Mammography 02/15/2023 1:31 PM WRAPPER LAYER Impressions 02/15/2023 1:31 PM WRAPPER LAYER There is no mammographic evidence of malignancy. A 1 year screening mammogram is recommended. BI-RADS: 1 - Negative. The patient has been or will be contacted. The patient will be entered into a reminder system with a target due date of 1 year for her next mammogram. Electronically signed by: Mercedes Perez M.D. Narrative 02/15/2023 1:31 PM WRAPPER LAYER EXAMINATION: SCREENING MAMMOGRAM BILATERAL W ANTOINE ORDERING [...] Most Recently Relevant to Health Maintenance Insurance [facility] MEDICARE ADVANTAGE [facility] MED[facility] Address: [facility] [address] [place] [address] [facility] MEDICARE ADVANTAGE [facility] MEDICARE ADVANTAGE Advance Directives For more information, please contact: [phone] Documents on File Type Date Recorded Patient Property Maintenance Technician Expl anation ADVANCE DIRECTIVE 09/08/2023 6:22 AM POWER OF MAINTENANCE JOURNEYMAN-MEDICAL Care Teams Roving Technician Relationship Specialty Start Date End Date Rupert Elena DO [facility] [address] [place] [address] PCP - General Family Medicine 07/09/23
--- OUTSIDE RECORDS SUMMARY | 2024-10-31 12:31 | XMS_ITS | Clinical Summary ---
Author Organization [facility] Address [address] [place] [address] Care Team Providers Care Road Equipment Operator Name Role Phone Unavailable Primary Care Provider Unavailabl e Source Comments [facility],non-owned Affiliates and Associated Physician Practices is amultiple site organization consisting of ambulatory clinics and hospital sitesin [place], [place], [place] and [place]. This disclosure is being madepursuant to the Care Everywhere program and may not contain all information available regarding this patient. Last updated 17.[facility] Allergies Active Allergy Reactions Criticality Noted Date [...] on file Legal Sex Female 6:30 PM DIRECTOR OF STRATEGIC COMMUNICATIONS Gender Identity Not on file Sexual Orientation [...] DIAZ Subscriber ID:Not on file (Home) Address: [address] [place] [id number] Payer ID:Not on file Group ID:Not on file Type:Self Pay Address: [place], [place] MEDICARE
--- OUTSIDE RECORDS SUMMARY | 2024-10-31 12:31 | XMS_ITS | Clinical Summary ---
Author Organization [facility] Address [address] [place] [address] Care Team Providers Care Privacy Specialist Name Role Phone Harjinder Lopez MD Primary Care Provider [phone] Allergies Active Allergy Reactions Criticality Noted Date [...] measures Lifestyle No Irene Lyman RN Insurance [id number] Advance Directives * Full Code (Latest Code Status on File) Date Activated Date Inactivated Comments 11/22/2021 7:31 PM 12/02/2021 4:50 PM * Full Code Date Activated Date Inactivated Comments 11/22/2021 7:28 PM 11/22/2021 7:31 PM * Full Code Date Activated Date Inactivated Comments 11/19/2021 3:16 PM 11/22/2021 5:01 PM Care Teams Privacy Specialist Relationship Specialty Start Date End Date Harjinder Lopez MD [address] [facility] [address] [place] [address] PCP - General FAMILY PRACTICE 11/16/21
--- OUTSIDE RECORDS SUMMARY | 2024-10-31 12:31 | XMS_ITS | Clinical Summary ---
Author Organization [facility] [address] Address [address] [place] [address] Care Team Providers Care Digital Campaign Manager Name Role Phone GamalielRupert preciado Primary Care Provider [phone] Allergies Active Allergy Reactions Criticality Noted Date [...] Psychiatry, engaged with what is group at [facility] as well as grief steady group online [...] on file Legal Sex Female 5:59 PM MULE RIDER Gender Identity Female 08/02/2022 10:05 AM CDT [...] Discontinued 023 Medical Devices Implanted Type Area Robotic Welding Operator Device Identifier Shelf Expiration Date Model / Serial / Lot Other - See Comments Other - see comments Right: Back Description:Inter Stim Medtronic Inc Sutureless Connector Revision Catheter Kit Intrathecal Pump 8578 - [id number] Implanted:Qty: 1 on 09/06/2023 by Gui Coulter MD at [facility] Right: Abdomen Medtronic Inc 01/13/2024 8578 / / [id number] Medtronic [employer] X Pump Infusion Programmable Ulp Ami 20ml Volume 8667-20 - [id number] - [id number] Implanted:Qty: 1 on 09/06/2023 by Gui Coulter MD at [facility] Right: Abdomen Medtronic [employer] X 02/13/2025 8667-20 / [id number] / Explanted Type Area Robotic Welding Operator Device Identifier Shelf Expiration Date Model / Serial / Lot Other - See Comments Explanted:Qty : 1 on 09/06/2023 at [facility] Other - see comments Right: Stomach Description:Right Lower Quad - Drug Pump Procedures Procedure Name Priority Date/Time Associated Diagnosis Comments SCREENING MAMMOGRAM BILATERAL W ANTOINE Schedule Routine, Read Routine (OP Routine) 02/15/2023 11:30 AM MULE RIDER Encounter for screening mammogram for malignant neoplasm of breast from Last 3 Months or Most Recently Relevant to Health Maintenance Results * SCREENING MAMMOGRAM BILATERAL W ANTOINE (02/15/2023 11:30 AM MULE RIDER) Anatomical Region Laterality Modality Breast Bilateral Mammography 02/15/2023 1:31 PM MULE RIDER Impressions 02/15/2023 1:31 PM MULE RIDER There is no mammographic evidence of malignancy. A 1 year screening mammogram is recommended. BI-RADS: 1 - Negative. The patient has been or will be contacted. The patient will be entered into a reminder system with a target due date of 1 year for her next mammogram. Electronically signed by: Mercedes Perez M.D. Narrative 02/15/2023 1:31 PM MULE RIDER EXAMINATION: SCREENING MAMMOGRAM BILATERAL W ANTOINE ORDERING [...] Relevant to Health Maintenance Insurance MEDICARE ADVANTAGE [facility] MEDICARE Address: [facility] [address] [place] [id number] UHC MEDICARE ADVANTAGE [facility] MEDICARE Address[facility] [address] [place] [address] [facility] MEDICARE AD[facility]ANTAGE [facility] MEDICARE Address: [facility] [address] [place] [address] Advance Directives For more information, please contact: [phone] Documents on File Type Date Recorded Patient Process Improvement Analyst Expl anation ADVANCE DIRECTIVE 09/08/2023 6:22 AM POWER OF SHELL GRADER-MEDICAL Care Teams Digital Campaign Manager Relationship Specialty Start Date End Date Rupert Elena DO [facility] [address] [address] PCP - General Family Medicine 07/09/23
--- OUTSIDE RECORDS SUMMARY | 2024-10-31 12:31 | XMS_ITS | Continuity of Care Document ---
Author Organization [facility] Address [address] [place] [address] [address] [place] [address] Phone Care Team Providers Care Sailmaker Name Role Phone Pool Figueroa MD, MD [...] Date Provider Providers Copied on Encounter [facility] On [facility], [address], [place], [place], [id number], tel:[phone] [address] [place] [address] No Information 4 Henry Lanza. [address], [address], [place], [place], [address] , [place]. tel:[phone] Referring Provider: Pool Walters, [address], [place], [address] . tel:[phone] [facility] [place], [address], [place], [place], [address], [place] tel:[phone] [address] [place] [address] No Information 4 Henry Lanza. [address], [address], [place], [place], [address] , [place]. [phone] Referring Provider: Pool Walters, [address], [place], [address] . tel:[phone] OFFICE/OUTPA TIENT VISIT, [facility] [place], [address], [place], [place], [address], tel:[phone] [facility] No Information 4 Henry Lanza. [address], [address], [place], [place], [address] , [place]. tel:[phone] Referring Provider: Pool Figueroa MD P, [address], [place], [address] . tel:[phone] Family History Family Member Type Diagnosis Age At Onset No Information Payers Payer name Insurance type Covered libertarian ID Authorel christy(s) [employer] [place] [id number] Social History Type Description Quantity Date Captured [...]
[2024-10-31 12:36] LABS: Alanine Aminotransferase 30 U/L (6-35); Albumin Level 3.8 g/dL (3.5-5.1); Alkaline Phosphatase 42 U/L (38-126); Anion Gap 2 mmol/L (4-12); Aspartate Amino Transferase 27 U/L (14-36); Bilirubin,Total 0.2 mg/dL (0.2-1.3); Blood Urea Nitrogen 32 mg/dL (7-17); Calcium 9.1 mg/dL (8.4-10.2); Carbon Dioxide 28 mmol/L (22-30); Chloride 103 mmol/L (98-107); Estimated CRCL calculation 49 ml/min; Estimated Glomerular Filt Rate > 60; Glucose 132 mg/dL (65-110); Potassium 4.6 mmol/L (3.4-5.0); Sodium 133 mmol/L (137-145); Total Protein 6.8 g/dL (6.3-8.2)
[2024-10-31 12:52] LABS: Influenza A QL RT-PCR Negative (Negative); Influenza B QL RT-PCR Negative (Negative); RSV RNA, RT-PCR Negative (Negative); SARS-CoV-2 RNA PCR Negative (Negative)
[2024-10-31 13:22] LABS: Add Urine Microscopic? YES; Appearance Urine Clear (Clear); Glucose Urine UA Negative (Negative); Leukocyte Esterase Ur 2+ LEU/UL (Negative); Nitrate Urine Negative (Negative); Non Pathogenic Casts 0-2; Specific Grav Ur 1.024 (1.001-1.035)
[2024-10-31 14:16] VITALS: BP 111/57; PULSE 70; RESP 18; O2SAT 98
[2024-10-31] MEDS: CEPHALEXIN 500 MG CAPSULE PO (14:30)
== END 2024-10-31 14:36 | disposition home or self-care (01) ==
PROVIDERS: Emergency Provider Emergency Medicine; PCP Internal Medicine
DX: N39.0 Urinary tract infection, site not specified (principal); Z20.822 Contact with and (suspected) exposure to COVID-19; J44.9 Chronic obstructive pulmonary disease, unspecified; E11.9 Type 2 diabetes mellitus without complications; E78.5 Hyperlipidemia, unspecified; N30.10 Interstitial cystitis (chronic) without hematuria; M19.019 Primary osteoarthritis, unspecified shoulder; M81.0 Age-related osteoporosis without current pathological fracture; K21.9 Gastro-esophageal reflux disease without esophagitis; K58.9 Irritable bowel syndrome, unspecified; F41.9 Anxiety disorder, unspecified; Z96.89 Presence of other specified functional implants; Z87.440 Personal history of urinary (tract) infections; Z90.710 Acquired absence of both cervix and uterus; Z90.49 Acquired absence of other specified parts of digestive tract; Z98.49 Cataract extraction status, unspecified eye; Z79.899 Other long term (current) drug therapy
CPT/HCPCS: 36415; 80053; 81001; 85025; 85610; 85730; 87086; 87637; 96360; 99283; A9270; J7120

== ENCOUNTER 2024-11-24 12:55 | Outpatient (CLI) | payer MEDICARE, SELFPAY ==
--- OUTSIDE RECORDS SUMMARY | 2014-03-13 02:40 | XMS_ITS | Continuity of Care Document ---
Author Organization [facility] Address [id number] [place] [address] [address] [place] [address] Phone Care Team Providers Care Electronic Console Display Operator Name Role Phone Pool Figueroa MD, MD Unavailable Unavailable Procedures Procedure Date CATARACT SURG W/IOL, 1 STAGE CATARACT SURG W/IOL, 1 STAGE OFFICE/OUTPATIENT VISIT, NEW OPHTHALMIC BIOMETRY OPHTHALMIC BIOMETRY SPECIAL EYE EXAM, INITIAL SPECIAL EYE EXAM, INITIAL Advance Directives Directive Yes / No Effective Date File Name No Information Encounters Encounter Description Practice Location Reason(s) For Visit Diagnoses Date Provider Providers Copied on Encounter Ophthalmology [facility], [address], [place], [place], [id number], tel:[phone] [address] [place] [address] No Information 4 Henry Lanza. [address], [address], [place], [place], [id number] , [place]. tel:[phone] Referring Provider: Pool Walters, [address], [place], [address] . tel:[phone] Ophthalmology [facility], [address], [place], [place], [id number], [place] tel:[phone] [address] [place] [address] No Information 4 Henry Lanza. [address], [address], [place], [place], [id number] , [place]. [phone] Referring Provider: Pool Walters, [address], [place], [address] . tel:[phone] OFFICE/OUTPA TIENT VISIT, [facility], [address], [place], [place], [id number], tel:[phone] [facility] No Information 4 Henry Lanza. [address], [address], [place], [place], [address] , [place]. tel:[phone] Referring Provider: Pool Figueroa MD P, [address], [place], [address] . tel:[phone] Family History Family Member Type Diagnosis Age At Onset No Information Payers Payer name Insurance type Covered republican ID Authorel christy(s) [employer] CI [id number] Social History Type Description Quantity Date Captured Comments Sex Female Smoking Status No Information Chief Complaint And Reason For Visit No Information Reason For Referral Reason For Referral No Information History Of Present Illness Encounter Date Complaint History Of Prese nt Illness No Information Functional Status Date Functional Assessmen t No Information Instructions Date Instruction Additional Infor mation No Information Assessments Type Assessment Date No Information Patient Care Teams Name Effective Dates (start - stop) Status Members No Information
--- OUTSIDE RECORDS SUMMARY | 2024-04-21 11:10 | XMS_ITS ---
[facility] Address [address] [facility] [address] [place], [place] [id number] Care Team Providers Care Administrative Services Officer Name Role Phone BOBO CASTELLANOS Unavailable [phone] Orlando Thompson Unavailable Unavailable Allergies Allergen (clinical [...] Location Date Provider Diagnosis [facility] [place] [address] [place], [place] [id number] 04/21/2024 BOBO CASTELLANOS Tinea unguium B35.1 ; Pain in right toe(s) M79.674 ; Pain in left toe(s) M79.675 and Atherosclerosis of [place] arteries of extremities with intermittent claudication, bilateral [...] toe(s) (ICD-10 - M79.675) 04/21/2024 Atherosclerosis of [place] arteries of extremities with intermittent claudication, bilateral [...] Name:BOBO CASTELLANOS, 02:00:00 PM, [address], [address], [id number], Progress Notes * [place] DIAZOB:1950 (74 yo F)Acc No.[id number]:04/21/2024 Patient: Sahra Felicia WRIGHT Provider: Rosa Castellanos DPM :1950 A ge:73 Y S ex:Female Date:04/21/2024 Address:[address] [place], [place] [address] Subjective: * Chief Complaints: * 1 . Patient presents for at-risk foot care . The patient has painful toenails that cause difficulty with ambulation and shoegear. The onset is gradual. * HPI: H PI: Follow Up Visit P atient presents for follow up visit for right fungal nail. Patient states that she is seeing some improvement with the nail albanian. , MA: kelley. sample. * ROS: G [...] - M79.675 4 . A therosclerosis of [place] arteries of extremities with intermittent claudication, bilateral legs - I70.213 Plan: * Treatment: * Follow Up: 1 0-12 Weeks (Reason: At Risk Foot care, sooner if problems arise) * Billing Information: * Visit Code: 15468 Office Visit, Est Pt., Level 3. * Procedure Codes: * Electronic signature of BOBO CASTELLANOS DPM on 11/24/2024 at 01:03 PM CDT Sign off status: Pending * Provider: Rosa Castellanos DPM Date: 0 04/21/2024 Generated for Francesca patel/Maggie/Freedom on: 0 11/24/2024 01:03 PM CDT History and Physical Notes * HPI (History of Present Illness) Category Sub-Category Detail Notes Category Not es HPI Follow Up Visit Patient presents for follow up visit for right fungal nail. Patient states that she is seeing some improvement with the nail albanian. , MA: kelley sample Examination Category Sub-Category [...]
--- OUTSIDE RECORDS SUMMARY | 2024-10-20 09:20 | XMS_ITS ---
[facility] Address [address] [place], [place] [id number] Care Team Providers Care Asp Net C Developer Name Role Phone EMANUEL BOBO Unavailable [phone] Orlando Thompson Unavailable Unavailable Allergies Allergen (clinical [...] ambulation and shoegear. The onset is gradual Social History Tobacco Use: Social History Observation Description Date Details (start date - stop date) Never Smoker NA - NA Tobacco Control (Standard) Question Answer Notes Tobacco use: Nonsmoker Vital Signs Height 63 in 10/20/2024 Weight 153 lbs 10/20/2024 BMI 27.1 kg/m2 10/20/2024 Height-cm 160.02 cm 10/20/2024 Weight-kg 69.4 kg 10/20/2024 Encounters Encounter Location Date Provider Diagnosis [facility] [place] [address] [place], [place] [id number] 10/20/2024 BOBO CASTELLANOS Tinea unguium B35.1 ; Pain in right toe(s) M79.674 ; Pain in left toe(s) M79.675 ; Intermittent claudication of both lower extremities due to atherosclerosis I70.213 and Type 2 diabetes mellitus with other circulatory complications E11.59 Assessments Encounter Date Diagnosis (ICD Code) Assessment Notes Treatment Notes Treatment Clinical Notes Section Notes 10/20/2024 Tinea unguium (ICD-10 - B35.1) FUNGAL TOENAILS: Discussed various treatment options for fungal toenails including debridement, topical antifungals, oral antifungals, toenail avulsion, or toenail matrixectomy. NAIL DEBRIDEMENT: Nails 1-5 Bilateral were debrided extensively with nail nippers and emery board, reducing length and girth to pink healthy tissue with any subungual debris and necrotic tissue removed 10/20/2024 Pain in right toe(s) (ICD-10 - M79.674) 10/20/2024 Pain in left toe(s) (ICD-10 - M79.675) 10/20/2024 Intermittent claudication of both lower extremities due to atherosclerosis (ICD-10 - I70.213) 10/20/2024 Type 2 diabetes mellitus with other circulatory complications (ICD-10 - E11.59) Plan Of Treatment Treatment Notes Assessment Notes [...] Name:BOBO CASTELLANOS, 02:00:00 PM, [address], [address], [phone], Progress Notes * [place] DIAZOB:1950 (74 yo F)Acc No.[id number]:10/20/2024 Patient: Sahra Felicia WRIGHT Provider: Rosa Castellanos DPM :1950 A ge:74 Y S ex:Female Date:10/20/2024 Address:[address] [place], [place] [id number] Subjective: * Chief Complaints: * 1 . Patient presents for at-risk foot care . The patient has painful toenails that cause difficulty with ambulation and shoegear. The onset is gradual. * HPI: H PI: General care P christian presents to the office for diabetic foot care. Patient states that their nails are thickened, elongated and painful. Patient states that it is aggravated by shoe gear. Onset is gradual., Patient denies taking blood thinners., Date last seen by Dr. Estrada was 05/2024., Initials mca. sample. * ROS: G eneral / Constitutional: [...] confusion, difficulty speaking, dizziness. * Medical History: L eg/Feet cramps, Arthritis, Bladder infections, Psychiatric Disorder. * Family History: F ather: alive, Cancer. M other: alive, High Blood Pressure, heart disease. * Social History: T obacco Use: T obacco Control (Standard) T obacco use: N onsmoker. * Medications: N one * Allergies: C ipro, Lovenox, Povidone. Objective: * Vitals: S hoe Size: 10, Wt: 153 lbs, Wt-k.4 kg, Ht: 63 in, Ht-cm: 160.02 cm, BMI: 27.1 Index, Body Surface Area: 1.75. * Examination: C onstitutional: Constitutional T he [...] in left toe(s) - M79.675 4 . I ntermittent claudication of both lower extremities due to atherosclerosis - I70.213 5 . T ype 2 diabetes mellitus with other circulatory complications - E11.59 Plan: * Treatment: * Immunizations: Immunization record has been reviewed and updated. * Preventive Medicine: Screenings: F all risk screening F all Risk Assessment: N o falls in the past year. * Follow Up: 1 0-12 Weeks (Reason: At Risk Foot care, sooner if problems arise) * Billing Information: * Visit Code: 25831 Office Visit, Est Pt., Level 3. * Procedure Codes: * Electronic signature of BOBO CASTELLANOS DPM on 11/24/2024 at 01:03 PM CDT Sign off status: Pending * Provider: Rosa Castellanos DPM Date: 0 10/20/2024 Generated for Francesca patel/Maggie/Freedom on: 0 11/24/2024 01:03 PM CDT History and Physical Notes * HPI (History of Present Illness) Category Sub-Category Detail Notes Category Not es HPI General care Patient presents to the office for diabetic foot care. Patient states that their nails are thickened, elongated and painful. Patient states that it is aggravated by shoe gear. Onset is gradual., Patient denies taking blood thinners., Date last seen by Dr. Estrada was 05/2024., Initials mca sample Examination Category Sub-Category Detail Notes Category [...]
--- OUTSIDE RECORDS SUMMARY | 2024-11-24 13:03 | XMS_ITS | Patient Health Record ---
Author Organization [facility] Address [address] [place], [place] [id number] Care Team Providers Care Research Animal Facility Supervisor Name Role Phone EMANUEL BOBO Unavailable [phone] Orlando Thompson Unavailable Unavailable Allergies Allergen (clinical [...] Location Date Provider Diagnosis [facility] [place] [address] [place], [place] [id number] 04/21/2024 BOBO CASTELLANOS Tinea unguium B35.1 ; Pain in right toe(s) M79.674 ; Pain in left toe(s) M79.675 and Atherosclerosis of [place] arteries of extremities with intermittent claudication, bilateral legs I70.213 [facility] [place] [address] [place], [place] [id number] 10/20/2024 BOBO SNOOK Tinea unguium B35.1 ; Pain in right toe(s) M79.674 ; Pain in left toe(s) M79.675 ; Intermittent claudication of both lower extremities due to atherosclerosis I70.213 and Type 2 diabetes mellitus with other circulatory complications E11.59 [facility] [place] [address] [place] [id number] 01/07/2024 BOBO SNOOK Tinea unguium B35.1 ; Atherosclerosis of [place] arteries of extremities with intermittent claudication, bilateral legs I70.213 and Pain in right foot M79.671 [facility] [place] [address] [place] [id number] 07/21/2024 BOBO SNOOK Tinea unguium B35.1 ; [...] out and notice change. 01/07/2024 Atherosclerosis of [place] arteries of extremities with intermittent claudication, bilateral [...] erythematous, pruritic, scales or erosions between toes. [place]-type tinea pedis affects the soles and medial [...] foot (ICD-10 - M79.671) 04/21/2024 Atherosclerosis of [place] arteries of extremities with intermittent claudication, bilateral [...] 02:00:00 PM, [address], [place], [place], [id number], Insurance Providers Payer Name Payer Address Payer Phone Subscriber Number Group Number Insured Name Patient Relationship to Insured Coverage Start Date Coverage End Date [facility] [address] [address] [place] [address] [id number] Felicia Mendieta Self - patient is the insured Medical (General) History Medical History History ICD Code Leg/Feet cramps Arthritis Bladder infections Psychiatric Disorder
--- OUTSIDE RECORDS SUMMARY | 2024-11-24 13:03 | XMS_ITS | Clinical Summary ---
Author Organization [facility] Address [address] [place] [address] Care Team Providers Care Male Impersonator Name Role Phone Unavailable Primary Care Provider Unavailabl e Source Comments [facility],non-owned Affiliates and Associated Physician Practices is amultiple site organization consisting of ambulatory clinics and hospital sitesin [place], [place] and [place]. This disclosure is being madepursuant to the Care Everywhere program and may not contain all information available regarding this patient. 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
--- OUTSIDE RECORDS SUMMARY | 2024-11-24 13:03 | XMS_ITS | Clinical Summary ---
Author Organization [facility] Address [address] [place] [address] Care Team Providers Care Dry Cleaning Supervisor Name Role Phone Harjinder Lopez MD Primary Care Provider [phone] Allergies Active Allergy Reactions Criticality Noted Date [...] measures Lifestyle No Irene Lyman RN Insurance [id number] Advance Directives * Full Code (Latest Code Status on File) Date Activated Date Inactivated Comments 11/22/2021 7:31 PM 12/02/2021 4:50 PM * Full Code Date Activated Date Inactivated Comments 11/22/2021 7:28 PM 11/22/2021 7:31 PM * Full Code Date Activated Date Inactivated Comments 11/19/2021 3:16 PM 11/22/2021 5:01 PM Care Teams Dry Cleaning Supervisor Relationship Specialty Start Date End Date Harjinder Lopez MD [address] [facility] [[email or web address] [address] [place] [address] PCP - General FAMILY PRACTICE 11/16/21
--- OUTSIDE RECORDS SUMMARY | 2024-11-24 13:04 | XMS_ITS | Clinical Summary ---
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 Gender Identity Female 08/02/2022 10:05 AM CDT [...] Discontinued 023 Medical Devices Implanted Type Area Petrol Tanker Driver Device Identifier Shelf Expiration Date Model / Serial / Lot Other - See Comments Other - see comments Right: Back Description:Inter Stim Medtronic Inc Sutureless Connector Revision Catheter Kit Intrathecal Pump 8578 - [id number] Implanted:Qty: 1 on 09/06/2023 by Gui Coulter MD at [facility] Right: Abdomen Medtronic Inc 01/13/2024 8578 / / [id number] [employer] X Pump Infusion Programmable Ulp Ami 20ml Volume 8667-20 - [id number] - [id number] Implanted:Qty: 1 on 09/06/2023 by Gui Coulter MD at [facility] Right: Abdomen [employer] X 02/13/2025 8667-20 / [id number] / Explanted Type Area Petrol Tanker Driver Device Identifier Shelf Expiration Date Model / Serial / Lot Other - See Comments Explanted:Qty : 1 on 09/06/2023 at [facility] Other - see comments Right: Stomach Description:Right Lower Quad - Drug Pump Procedures Procedure Name Priority Date/Time Associated Diagnosis Comments SCREENING MAMMOGRAM BILATERAL W ANTOINE Schedule Routine, Read Routine (OP Routine) 02/15/2023 11:30 AM VEHICLE DISMANTLER Encounter for screening mammogram for malignant neoplasm of breast from Last 3 Months or Most Recently Relevant to Health Maintenance Results * SCREENING MAMMOGRAM BILATERAL W ANTOINE (02/15/2023 11:30 AM VEHICLE DISMANTLER) Anatomical Region Laterality Modality Breast Bilateral Mammography 02/15/2023 1:31 PM VEHICLE DISMANTLER Impressions 02/15/2023 1:31 PM VEHICLE DISMANTLER There is no mammographic evidence of malignancy. A 1 year screening mammogram is recommended. BI-RADS: 1 - Negative. The patient has been or will be contacted. The patient will be entered into a reminder system with a target due date of 1 year for her next mammogram. Electronically signed by: Mercedes Perez M.D. 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
--- OUTSIDE RECORDS SUMMARY | 2024-11-24 13:04 | XMS_ITS | Patient Health Record ---
Author Organization [facility] Address [address] [place] [address] Care Team Providers Care Die Assembler Name Role Phone Orlando Thompson DO Primary Care Provider Hola Belle Unavailable [phone] Miranda Moreau Unavailable [phone] Allergies Allergen (clinical drug ingredient) Drug/Non Drug [...] Duration) Notes Start Date End Date Status AZO BLADDER CONTROL 300 mg Capsule Oral *Reorder from Monitoring Division for eRx and Interaction Alerts* 08/09/2023 Active Prolia 60 MG/ML Solution Subcutaneous *Pick strength-form from Monitoring Division for eRX* 08/09/2023 Active Lovastatin 20 MG Tablet Oral 08/09/2023 Active Sertraline HCl 100 MG Tablet 1 tablet Orally Once a day; Duration: 90 days Active DULoxetine HCl 60 MG Capsule Delayed Release Particles 1 capsule Orally Once a day; Duration: 90 days Active DULoxetine HCl 30 MG Capsule Delayed Release Particles 1 capsule Orally Once a day; Duration: 90 days Active L. ACIDOPHILUS, PARACASEI, B. LACTIS 10 BILLION CELL CAPSULE *Reorder from [facility] for eRx and Interaction Alerts* 08/09/2023 Active Treleeliezer Ellipta 100-62.5-25 MCG/ACT Aerosol Powder Breath Activated INHALE 1 PUFF BY MOUTH ONCE DAILY Inhalation; Duration: 30 Days Active busPIRone HCl 5 MG Tablet 1 tablet every morning and 2 tablet at bedtime Orally see sign; Duration: 30 days Active traZODone HCl 50 MG Tablet 1 tablet at bedtime Oral Once a day; Duration: 90 days Active busPIRone HCl 10 MG Tablet 1 tablet Orally Twice a day; Duration: 90 days dose reduced Active Immunizations Vaccine Route Administration Date Status [...] History Observation Description Sex Assigned At Female Social History Miscellaneous: Social Info Question Answer Notes Advance Care Planning Are you your own decision-maker Yes Do you have 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 Yes Drug/Alcohol: Social Info Question Answer Notes AUDIT-C (Standard) Did you have a drink containing alcohol in the past year? No Tobacco Use: Social Info Question Answer Notes Tobacco Control (Standard) Tobacco use: Nonsmoker Additional Details Category Social Info Options Details Migrated Social History Migrated Social History Alcohol Intake: None 07/14/2022,Tobacco Years: Never smoker 07/14/2022 Section Notes: No hx drugs ETOH No [...] Problem Type II diabetes mellitus without complication (831895078) Type 2 diabetes mellitus without complications (E11.9) Active confirmed Problem Mild recurrent major depression (49262869) Major depressive disorder, recurrent, mild (F33.0) Active confirmed Problem Severe recurrent major depression without psychotic features (45452727) Major depressive disorder, recurrent severe without psychotic features (F33.2) Active confirmed Problem Generalized anxiety disorder (69460486) Generalized anxiety disorder (F41.1) Active confirmed Problem Primary insomnia (0706122) Primary insomnia (F51.01) Active confirmed Problem Chronic interstitial cystitis (834556048) Interstitial cystitis (chronic) without hematuria (N30.10) Active confirmed Problem Generalized anxiety disorder (78281262) SAMI (generalized anxiety disorder) (F41.1) Active confirmed Problem Hyperlipidemia (82880773) Hyperlipidemia (E78.5) Active confirmed Problem COPD - Chronic obstructive pulmonary disease (12741689) Chronic obstructive pulmonary disease, unspecified COPD type (J44.9) 06/24/19 Active confirmed Problem Chronic interstitial cystitis (981346872) Interstitial cystitis (N30.10) 06/24/19 23 Active confirmed Vital Signs Heart Rate 90 /min 09/25/2024 Height-cm 160.02 cm 09/25/2024 Blood pressure diastolic 70 mm Hg 09/25/2024 Weight-kg 66.68 kg 09/25/2024 Height 63.00 in 09/25/2024 Blood pressure systolic 120 mm Hg 09/25/2024 Weight 147 lbs 09/25/2024 BMI 26.04 kg/m2 09/25/2024 Encounters Encounter Location Date Provider Diagnosis [facility] [address] [place] [address] 11/30/2023 Hola Aguirre Major depressive disorder, recurrent severe without psychotic features F33.2 ; Generalized anxiety disorder F41.1 ; Interstitial cystitis (chronic) without hematuria N30.10 and Primary insomnia F51.01 [facility] [address] [place] [address] 12/05/2023 Miranda Calixto Generalized anxiety disorder F41.1 and Major depressive disorder, recurrent, mild F33.0 [facility] [address] [place] [address] 12/19/2023 Miranda Calixto Generalized anxiety disorder F41.1 and Major depressive disorder, recurrent severe without psychotic features F33.2 [facility] [address] [place] [address] 01/09/2024 Miranda Calixto Generalized anxiety disorder F41.1 and Major depressive disorder, recurrent severe without psychotic features F33.2 [facility] [address] [place] [address] 01/11/2024 Hola Carla Major depressive disorder, recurrent severe without psychotic features F33.2 ; Generalized anxiety disorder F41.1 ; Interstitial cystitis (chronic) without hematuria N30.10 and Primary insomnia F51.01 [facility] [address] [place] [address] 01/23/2024 Miranda Calixto Generalized anxiety disorder F41.1 and Major depressive disorder, recurrent, mild F33.0 [facility] [address] [place] [address] 02/13/2024 Miranda Calixto Generalized anxiety disorder F41.1 and Major depressive disorder, recurrent, mild F33.0 [facility] [address] [place] [address] 03/05/2024 Miranda Calixto Generalized anxiety disorder F41.1 and Major depressive disorder, recurrent, mild F33.0 [facility] [address] [place] [address] 03/14/2024 Hola Carla Major depressive disorder, recurrent severe without psychotic features F33.2 ; Generalized anxiety disorder F41.1 ; Interstitial cystitis (chronic) without hematuria N30.10 and Primary insomnia F51.01 [facility] [address] [place] [address] 03/19/2024 Miranda Calixto Major depressive disorder, recurrent, mild F33.0 and Generalized anxiety disorder F41.1 [facility] [address] [place] [address] 04/16/2024 Miranda Calixto Major depressive disorder, recurrent, mild F33.0 and Generalized anxiety disorder F41.1 [facility] [address] [place] [address] 05/07/2024 Miranda Calixto Major depressive disorder, recurrent severe without psychotic features F33.2 and Generalized anxiety disorder F41.1 [place] [address] [place] [address] 05/28/2024 Hola Aguirre Major depressive disorder, recurrent, mild F33.0 ; Primary insomnia F51.01 ; Generalized anxiety disorder F41.1 ; Interstitial cystitis N30.10 ; Chronic obstructive pulmonary disease, unspecified COPD type J44.9 ; Hyperlipidemia E78.5 and SAMI (generalized anxiety disorder) F41.1 [place] [address] [place] [address] 06/04/2024 Miranda Calixto Major depressive disorder, recurrent severe without psychotic features F33.2 and Generalized anxiety disorder F41.1 [place] [address] [place] [address] 07/10/2024 Miranda Calixto Major depressive disorder, recurrent, mild F33.0 and Generalized anxiety disorder F41.1 [place] [address] [facility] [address] [place] [address] 07/24/2024 Hola Aguirre Encounter for screening for depression Z13.31 ; Encounter for screening for cardiovascular disorders Z13.6 ; Major depressive disorder, recurrent, mild F33.0 ; Primary insomnia F51.01 ; Generalized anxiety disorder F41.1 ; Interstitial cystitis N30.10 ; Chronic obstructive pulmonary disease, unspecified COPD type J44.9 ; Hyperlipidemia E78.5 and ASMI (generalized anxiety disorder) F41.1 [place] [address] [place] [address] 08/07/2024 Miranda Calixto Major depressive disorder, recurrent, mild F33.0 and Generalized anxiety disorder F41.1 [place] [address] [place] [address] 09/04/2024 Miranda Calixto Major depressive disorder, recurrent, mild F33.0 and Generalized anxiety disorder F41.1 [place] [address] [place] [address] 09/25/2024 Hola Aguirre Major depressive disorder, recurrent, mild F33.0 ; Primary insomnia F51.01 ; Generalized anxiety disorder F41.1 ; Interstitial cystitis N30.10 ; Chronic obstructive pulmonary disease, unspecified COPD type J44.9 ; Hyperlipidemia E78.5 ; Encounter for screening for cardiovascular disorders Z13.6 ; Negative depression screening Z13.31 ; Type 2 diabetes mellitus without complications E11.9 and SAMI (generalized anxiety disorder) F41.1 [facility] [employer] [facility] [address] [place] [address] 10/09/2024 Miranda Calixto Generalized anxiety disorder F41.1 [facility] [address] [facility] [address] [place] [address] 11/06/2024 Miranda Calixto Major depressive disorder, recurrent, mild F33.0 and Generalized anxiety disorder F41.1 [facility] [employer] [facility] [address] [facility] [address] [place] [address] 04/22/2024 [facility] [address] [facility] [address] [place] [address] 05/13/2024 [facility] [address] [facility] [address] [place] [address] 05/14/2024 Hola Carla [facility] [address] [facility] [address] [place] [address] 06/04/2024 Hola Aguirre Generalized anxiety disorder F41.1 [facility] [employer] [facility] [address] [facility] [address] [place] [address] 06/05/2024 Hola Aguirre Assessments Encounter Date Diagnosis (ICD Code) Assessment Notes Treatment Notes Treatment Clinical Notes Section Notes 11/30/2023 Major depressive disorder, recurrent severe without [...] sister twice daily and accompanies her to [facility] and social outings. Patient feels she is [...] support groups. - Use online resources (e.g., [employer]). - Maintain social connections and well-being activities. Family Dynamics and Support - Assessment: Challenges in relationships with children post-father's . Working on boundaries with daughter. - Plan: - Encourage ongoing communication and boundary-settin g. 01/09/2024 Generalized anxiety disorder (ICD-10 - F41.1) Grief and Emotional Well-being - Assessment: Ongoing grief post-'s . Benefiting from counseling and support groups. No panic attacks since Oct 31. Increased independence and confidence. - Plan: - Continue grief share support groups. - Use online resources (e.g., [employer]). - Maintain social connections and well-being activities. Family Dynamics and Support - Assessment: Challenges in relationships with children post-father's . Working on boundaries with daughter. - Plan: - Encourage ongoing communication and boundary-settin g. 01/11/2024 Major depressive disorder, recurrent severe without [...] plan. - Maintain regular follow-ups with the supervisor electronic testing. Balance Issue and Vertigo - Plan: - Begin physical therapy sessions with Reilly at [facility] physical therapy starting Sunday. - Obtain a CAT scan as recommended by the physical therapist. Weight Loss and Nutrition - Assessment: Patient is experiencing ongoing weight loss and is working with a supervisor electronic testing. Patient reports losing 28 pounds since September. - Plan: - Continue following the prescribed diet plan and monitor weight changes. - Reassess the need for adjustments to the diet plan during future appointments. Grief and Family Support - Assessment: Patient is providing support to her sister after the loss of her [id number] and is receiving support from her son [...] to seek support from friends and her anabaptism community. Primary Care Physician Change - Assessment: [...] to seek support from friends and her anabaptism community. Primary Care Physician Change - Assessment: [...] depression and anxiety. To continue to monitor. 02/13/2024 Generalized anxiety disorder (ICD-10 - F41.1) [...] Patient has friends from [facility] and plans for a potluck for [place] if other plans don't work out. - [...] a corresponding plan for support and management. 03/14/2024 Major depressive disorder, recurrent severe without [...] - Plan: - Encourage patient to contact [facility] for post-surgery assistance options - Follow up with orthopedic doctor at [facility], at the [...] of the world and more confident in decision-making . - Plan: - Encourage patient to continue engaging in activities that promote confidence and personal growth. - Monitor progress in future visits. Social Support and Family Relationships - Assessment: Patient reports improved relationships with family members and friends. Planning to visit daughter for [place] and participate in family activities. - Plan: [...] of the world and more confident in decision-making . - Plan: - Encourage patient to continue engaging in activities that promote confidence and personal growth. - Monitor progress in future visits. Social Support and Family Relationships - Assessment: Patient reports improved relationships with family members and friends. Planning to visit daughter for Henderson and participate in family activities. - Plan: [...] her life. - Recommend resources such as [employer] and Orlando Talbot's work on the 6th [...] 07/10/2024 Generalized anxiety disorder (ICD-10 - F41.1) 07/24/2024 Encounter for screening for depression (ICD-10 - Z13.31) 09/25/2024 Major depressive disorder, recurrent, mild (ICD-10 - F33.0) 09/25/2024 Primary insomnia (ICD-10 - F51.01) Patient is taking Trazodone for insomnia. - Continue Trazodone 50 mg daily. 10/09/2024 Generalized anxiety disorder (ICD-10 - F41.1) 11/06/2024 Major depressive disorder, recurrent, mild (ICD-10 - F33.0) 11/06/2024 Generalized anxiety disorder (ICD-10 - F41.1) 09/04/2024 Major depressive disorder, recurrent, mild (ICD-10 - F33.0) 09/04/2024 Generalized anxiety disorder (ICD-10 - F41.1) 08/07/2024 Major depressive disorder, recurrent, mild (ICD-10 - F33.0) 08/07/2024 Generalized anxiety disorder (ICD-10 - F41.1) 03/05/2024 Generalized anxiety disorder (ICD-10 - F41.1) [...] Patient has friends from [facility] and plans for a potluck for [place] if other plans don't work out. - [...] significant dates related to her late . 03/05/2024 Major depressive disorder, recurrent, mild (ICD-10 [...] Patient has friends from [facility] and plans for a potluck [...] significant dates related to her late . 09/25/2024 Generalized anxiety disorder (ICD-10 - F41.1) 07/24/2024 Encounter for screening for cardiovascular disorders (ICD-10 - Z13.6) 06/04/2024 Generalized anxiety disorder (ICD-10 - F41.1) [...] her life. - Recommend resources such as [employer] and Orlando Talbot's work on the 6th [...] - Plan: - Encourage patient to contact [facility] for post-surgery assistance [...] Patient has friends from [facility] and plans for a potluck for [place] if other plans don't work out. - Plan: - Encourage the patient to maintain and strengthen social connections for emotional support. Family Dynamics and Holiday Plans - Assessment: Patient is unsure about holiday plans and whether her granddaughter Merced will be home for Henderson. Considering alternative plans with her son. - [...] plan. - Maintain regular follow-ups with the supervisor electronic testing. Balance Issue and Vertigo - Plan: - Begin physical therapy sessions with Reilly at [facility] physical therapy starting Sunday. - Obtain a CAT scan as recommended by the physical therapist. Weight Loss and Nutrition - Assessment: Patient is experiencing ongoing weight loss and is working with a supervisor electronic testing. Patient reports losing 28 pounds since September. - Plan: - Continue following the prescribed diet plan and monitor weight changes. - Reassess the need for adjustments to the diet plan during future appointments. Grief and Family Support - Assessment: Patient is providing support to her sister after the loss of her [id number] and is receiving support from her son [...] in 6 weeks. Refill all current medications. 11/30/2023 Interstitial cystitis (chronic) without hematuria (ICD-10 [...] plan. - Maintain regular follow-ups with the supervisor electronic testing. Balance Issue and Vertigo - Plan: - Begin physical therapy sessions with Reilly at [facility] physical therapy starting Sunday. - Obtain a CAT scan as recommended by the physical therapist. Weight Loss and Nutrition - Assessment: Patient is experiencing ongoing weight loss and is working with a supervisor electronic testing. Patient reports losing 28 pounds since September. - Plan: - Continue following the prescribed diet plan and monitor weight changes. - Reassess the need for adjustments to the diet plan during future appointments. Grief and Family Support - Assessment: Patient is providing support to her sister after the loss of her [id number] and is receiving support from her son [...] currently scheduled through April with therapist Miranda. 05/28/2024 Interstitial cystitis (ICD-10 - N30.10) 03/14/2024 Interstitial cystitis (chronic) without hematuria (ICD-10 [...] - Plan: - Encourage patient to contact [facility] for post-surgery assistance options - Follow up with orthopedic doctor at [place] [place] [facility], at the end of [...] encourage progress in daily activities and independence. 07/24/2024 Major depressive disorder, recurrent, mild (ICD-10 [...] - Plan: - Encourage patient to contact [facility] for post-surgery assistance options - Follow up with orthopedic doctor at [facility], at the [...] plan. - Maintain regular follow-ups with the supervisor electronic testing. Balance Issue and Vertigo - Plan: - Begin physical therapy sessions with Reilly at [facility] physical therapy starting Sunday. - Obtain a CAT scan as recommended by the physical therapist. Weight Loss and Nutrition - Assessment: Patient is experiencing ongoing weight loss and is working with a supervisor electronic testing. Patient reports losing 28 pounds since September. - Plan: - Continue following the prescribed diet plan and monitor weight changes. - Reassess the need for adjustments to the diet plan during future appointments. Grief and Family Support - Assessment: Patient is providing support to her sister after the loss of her [id number] and is receiving support from her son [...] currently scheduled through April with therapist Miranda. 11/30/2023 Primary insomnia (ICD-10 - F51.01) Diabetes [...] sister twice daily and accompanies her to [facility] and social outings. Patient feels she is [...] - F41.1) 09/25/2024 Hyperlipidemia (ICD-10 - E78.5) 09/25/2024 Encounter for screening for cardiovascular disorders (ICD-10 - Z13.6) 07/24/2024 Interstitial cystitis (ICD-10 - N30.10) 07/24/2024 Chronic obstructive pulmonary disease, unspecified COPD type (ICD-10 - J44.9) 05/28/2024 SAMI (generalized anxiety disorder) (ICD-10 - F41.1) 09/25/2024 Negative depression screening (ICD-10 - Z13.31) 07/24/2024 Hyperlipidemia (ICD-10 - E78.5) 09/25/2024 Type 2 diabetes mellitus without complications (ICD-10 - E11.9) Patient manages diabetes through diet. Recent A1C levels were good, indicating no need for medication. - Continue managing diabetes through diet. - Monitor A1C levels regularly. 09/25/2024 SAMI (generalized anxiety disorder) (ICD-10 - F41.1) Patient is taking Buspirone for anxiety. - Continue Buspirone 10 mg twice daily. 07/24/2024 SAMI (generalized anxiety disorder) (ICD-10 - [...] and reports mood improvement. Patient enjoyed the Jamie period, indicating further improvement in mood. - [...] support group - Encourage participation in upcoming [facility] service on July 24 - Support patient's involvement in organizing and facilitating grief support meetings Anxiety Related to Political and Economic Concerns - Assessment: Andreia expresses significant anxiety and distress related to the current political climate and its potential impact on her financial stability. She reports excessive worry about her Social Security benefits, jail accounts, and rising costs of living. Andreia's [...] her involvement in a support group at anabapt[employer] where she discusses personal challenges. The patient also notes improved sleep patterns and weight gain, which were previous concerns. These positive changes suggest effective management of her depression. Plan: - Continue current treatment regimen for depression (specific medications not mentioned in transcript) - Maintain involvement in anabaptism support group - Follow up with clinician [...] Plan: - Monitor for potential anxiety increase post-colonoscopy - Patient instructed to message clinician if anxiety worsens after the procedure Osteoporosis Assessment: Patient reports recent bone density test results indicating progression to osteoporosis, with declining numbers. The test was conducted in May at [facility] in [place]. Plan: - No specific interventions discussed for [...] ensure accuracy, there may be errors, including bronc buster inaccuracies and misspellings of medication names. This [...] with her daughter over genealogy research on [employer], indicating a positive aspect to their relationship. [...] is preparing for her first trip since to visit family, indicating improved functioning. Despite [...] assess impact on grief and depression symptoms. 11/06/2024 Other Felicia, an elderly female patient, is attending grief counseling and adjusting to life after loss while managing medical issues including low blood pressure and a urinary tract infection. Grief and adjustment Assessment: Patient is actively engaging in grief counseling through [employer] and forming new social connections. She reports positive experiences, including meeting her great-granddaug hter and feeling ecstatic about being part of the next generation of her family. Felicia is keeping busy with yard work and community events. She acknowledges noticing differences in family dynamics compared to her past experiences but appears to be accepting of these changes, stating it's just not the way that it was but that's okay. Plan: - Continue attendance at [employer] sessions - Encourage ongoing social engagement and community participation - Follow up in 2 more scheduled appointments to monitor progress and adjustment Hypotension Assessment: Patient experienced an episode of low blood pressure severe enough to warrant an emergency room visit. The exact cause and severity of the hypotension are not specified in the transcript. Further evaluation is pending. Plan: - Attend scheduled appointment with Dr. Ash's nurse practitioner tomorrow to discuss low blood pressure - Monitor blood pressure and report any symptoms of dizziness, lightheadedness , or fainting Plan Of Treatment Next Appt Details Provider Name:Miranda Calixto, 12/04/2024 01:00:00 PM, [address], [address], [place], [address], Provider Name:Hola Luz Carla , 12/26/2024 01:00:00 PM, [address], [address], [place], [address], Provider Name:Miranda Radha Bustillos velasqeuz Durga, 01/15/2025 01:00:00 PM, [address], [address], [place], [address], Insurance Providers Payer Name Payer Address Payer Phone Subscriber Number Group Number Insured Name Patient Relationship to Insured Coverage Start Date Coverage End Date [facility] [address] [place] [address] [id number] FELICIA DIAZ Self - patient is the insured Medical (General) History Medical History History ICD Code Problems: Chronic interstitial cystitis Chronic obstructive lung disease Generalized anxiety disorder Mild recurrent major depression Pain in bilateral legs Severe recurrent major depression withou t psychotic features , Surgical History Surgery Date(Month/Year) Appendectomy (47159) 04/02/1974 Removal of gallbladder (56731) 5 Hysterectomy (89878) 10/01/1975 Cataract surgery (19004) 12/31/2013 Hospitalization History Reason Date(Month/Year) drug pumb replacement 09/06/2023
[2024-11-24 14:36] LABS: Hematocrit 39.9 % (37.0-47.0); Hemoglobin 12.1 g/dL (12.0-15.0); Immature Granulocyte Percent A 0.3 % (0-0.5); Lymphocytes Absolute Auto 1.62 K/mm3 (0.9-3.2); Mean Corpuscular HGB Conc 30.3 g/dl (32-36); Mean Corpuscular Hemoglobin 29.2 pg (26-34); Mean Corpuscular Volume 96.1 fl (80-100); Nucleated Red Blood Cells Absolute Auto 0.000 K/mm3 (0.0-0.012); Nucleated Red Blood Cells Perc 0.0 % (0.0-0.2); Platelet Count Result 294 k/mm3 (150-375); Red Blood Count 4.15 M/mm3 (4.2-5.4); White Blood Count 8.8 K/mm3 (4.5-10.0)
[2024-11-24 15:42] LABS: Alanine Aminotransferase 25 U/L (6-35); Albumin Level 4.1 g/dL (3.5-5.1); Alkaline Phosphatase 50 U/L (38-126); Anion Gap 4 mmol/L (4-12); Aspartate Amino Transferase 40 U/L (14-36); Bilirubin,Total 0.3 mg/dL (0.2-1.3); Blood Urea Nitrogen 27 mg/dL (7-17); Calcium 10.1 mg/dL (8.4-10.2); Carbon Dioxide 30 mmol/L (22-30); Chloride 102 mmol/L (98-107); Estimated Glomerular Filt Rate > 60; Glucose 89 mg/dL (65-110); Potassium 5.7 mmol/L (3.4-5.0); Sodium 136 mmol/L (137-145); Total Protein 7.6 g/dL (6.3-8.2)
== END 2024-11-24 12:56 | disposition home or self-care (01) ==
LOC: ANHGOSHLAB 12:56
PROVIDERS: PCP Internal Medicine; Visit Provider Nurse Practitioner
DX: N39.0 Urinary tract infection, site not specified (principal); I95.9 Hypotension, unspecified
CPT/HCPCS: 36415; 80053; 85025

== ENCOUNTER 2024-11-28 14:14 | Outpatient (CLI) | payer MEDICARE, SELFPAY ==
--- OUTSIDE RECORDS SUMMARY | 2024-04-21 11:10 | XMS_ITS ---
Author Organization [facility] Address [address] [facility] [address] [place], [place] [id number] Care Team Providers Care Life Sciences Director Name Role Phone BOBO CASTELLANOS Unavailable [phone] Orlando Thompson Unavailable Unavailable Allergies Allergen (clinical drug ingredient) Drug/Non Drug Allergy documented on EMR Reaction Allergy Type Onset Date Status ciprofloxacin Cipro Unknown Drug Allergy Act abundio enoxaparin Lovenox Unknown Drug Allergy Active povidone Povidone Unknown Drug Allergy Active REASON FOR VISIT Patient presents for at-risk foot care . The patient has painful toenails that cause difficulty with ambulation and shoegear. The onset is gradual Encounters Encounter Location Date Provider Diagnosis [facility] [place] [address] [place], [place] [id number] 04/21/2024 BOBO CASTELLANOS Tinea unguium B35.1 ; Pain in right toe(s) M79.674 ; Pain in left toe(s) M79.675 and Atherosclerosis of [place] arteries of extremities with intermittent claudication, bilateral legs I70.213 Assessments Encounter Date Diagnosis (ICD Code) Assessment Notes Treatment Notes Treatment Clinical Notes Section Notes 04/21/2024 Tinea unguium (ICD-10 - B35.1) FUNGAL TOENAILS: Discussed various treatment options for fungal toenails including debridement, topical antifungals, oral antifungals, toenail avulsion, or toenail matrixectomy. NAIL DEBRIDEMENT: Nails 1-5 Bilateral were debrided extensively with nail nippers and emery board, reducing length and girth to pink healthy tissue with any subungual debris and necrotic tissue removed 04/21/2024 Pain in right toe(s) (ICD-10 - M79.674) 04/21/2024 Pain in left toe(s) (ICD-10 - M79.675) 04/21/2024 Atherosclerosis of [place] arteries of extremities with intermittent claudication, bilateral legs (ICD-10 - I70.213) Plan Of Treatment Treatment Notes Assessment Notes Tinea unguium FUNGAL TOENAILS: Discussed various treatment options for fungal toenails including debridement, topical antifungals, oral antifungals, toenail avulsion, or toenail matrixectomy. NAIL DEBRIDEMENT: Nails 1-5 Bilateral were debrided extensively with nail nippers and emery board, reducing length and girth to pink healthy tissue with any subungual debris and necrotic tissue removed Next Appt Details Follow Up: 10-12 Weeks, Reas on: At Risk Foot care, sooner if problems arise Provider Name:BOBO CASTELLANOS, 02:00:00 PM, [address], [address], [id number], Progress Notes * [place] DIAZOB:1950 (74 yo F)Acc No.[id number]:04/21/2024 Patient: Sahra Felicia WRIGHT Provider: Rosa Castellanos DPM :1950 A ge:73 Y S ex:Female Date:04/21/2024 Address:[address] [place], [place] [id number] Subjective: * Chief Complaints: * 1 . Patient presents for at-risk foot care . The patient has painful toenails that cause difficulty with ambulation and shoegear. The onset is gradual. * HPI: H PI: Follow Up Visit P atient presents for follow up visit for right fungal nail. Patient states that she is seeing some improvement with the nail swiss. , MA: kelley. sample. * ROS: G eneral / Constitutional: Patient denies c hills, fever, weight loss. ? M usculoskeletal: Patient denies w eakness, broken foot bone. ? P eripheral Vascular: Patient denies p ain / cramping in legs after exertion, ulceration of feet. S kin: Patient complains of f ungal nails, nail changes. ? N eurologic: Patient denies b alance difficulty, confusion, difficulty speaking, dizziness. * Medical History: * Medications: N one * Allergies: C ipro, Lovenox, Povidone. Objective: * Vitals: * Examination: C onstitutional: Constitutional T he patient is awake, alert, well developed, well groomed and well nourished. D ermatologic: Skin findings: S kin is thin, atrophic and lacking pedal hair. Nail pathology: N ails 1, 2, 3, 4, and 5 bilateral are elongated, thick, discolored, and dystrophic with subungual debris. They are painful to palpation. ? V ascular: Dorsalis pedis pulse: 1 /4 b ilateral. Posterior tibial pulse: 0 /4 b ilateral. Capillary refill: g reater than 3 seconds. Edema: N o edema, bilateral. N eurologic: Gross sensation G ross sensation is intact to light touch.? M usculoskeletal: Muscle Strength M uscle strength is 5/5 in regards to dorsiflexion, plantarflexion, inversion, and eversion in bilateral lower extremities. ? Assessment: * Assessment: 1. T inea unguium - B35.1 (Primary) 2 . P ain in right toe(s) - M79.674? 3. P ain in left toe(s) - M79.675 4 . A therosclerosis of [place] arteries of extremities with intermittent claudication, bilateral legs - I70.213 Plan: * Treatment: * Follow Up: 1 0-12 Weeks (Reason: At Risk Foot care, sooner if problems arise) * Billing Information: * Visit Code: 46642 Office Visit, Est Pt., Level 3. * Procedure Codes: * Electronic signature of BOBO CASTELLANOS DPM on 11/28/2024 at 02:17 PM CDT Sign off status: Pending * Provider: Rosa Castellanos DPM Date: 0 04/21/2024 Generated for Francesca patel/Maggie/Freedom on: 0 11/28/2024 02:17 PM CDT History and Physical Notes * HPI (History of Present Illness) Category Sub-Category Detail Notes Category Not es HPI Follow Up Visit Patient presents for follow up visit for right fungal nail. Patient states that she is seeing some improvement with the nail swiss. , MA: kelley sample Examination Category Sub-Category Detail Notes Category Not es Dermatologic Skin findings: Skin is thin, at rophic and lacking pedal hair Nail pathology: Nails 1, 2, 3, 4, an d 5 bilateral are elongated, thick, discolored, and dystrophic with subungual debris. They are painful to palpation Neurologic Gross sensation Gross sensation is intact to light touch Vascular Dorsalis pedis pulse: 1/4 bilateral Edema: No edema, bilateral Capillary refill: greater than 3 secon ds Posterior tibial pulse: 0/4 bilateral Musculoskeletal Muscle Strength Muscle strength is 5/5 in regards to dorsiflexion, plantarflexion, inversion, and eversion in bilateral lower extremities Constitutional Constitutional The patient is a wake, alert, well developed, well groomed and well nourished
--- OUTSIDE RECORDS SUMMARY | 2024-10-20 09:20 | XMS_ITS ---
Author [facility] Address [address] [place], [place] [phone] Care Team Providers Care Accordion Maker Name Role Phone EMANUEL BOBO Unavailable [phone] Orlando Thompson Unavailable Unavailable Allergies Allergen (clinical [...] Location Date Provider Diagnosis [facility] [place] [address] [place], [place] [id number] 10/20/2024 BOBO CASTELLANOS Tinea unguium B35.1 ; [...] Name:BOBO CASTELLANOS, 02:00:00 PM, [address], [address], [phone], Progress Notes * [place] DIAZOB:1950 (74 yo F)Acc No.[id number]:10/20/2024 Patient: Sahra Felicia WRIGHT Provider: Rosa Castellanos DPM :1950 A ge:74 Y S ex:Female Date:10/20/2024 Address:[address] [place], [place] [id number] Subjective: * Chief Complaints: * 1 . Patient presents for at-risk foot care . The patient has painful toenails that cause difficulty with ambulation and shoegear. The onset is gradual. * HPI: H PI: General care P chritsian presents to the office for diabetic foot [...] arise) * Billing Information: * Visit Code: 08380 Office Visit, Est Pt., Level 3. * Procedure Codes: * Electronic signature of BOBO CASTELLANOS DPM on 11/28/2024 at 02:17 PM CDT Sign off status: Pending * Provider: Rosa Castellanos DPM Date: 0 10/20/2024 Generated for Francesca Jamison/Freedom on: 0 11/28/2024 02:17 PM CDT History [...]
--- OUTSIDE RECORDS SUMMARY | 2024-11-28 14:18 | XMS_ITS | Clinical Summary ---
Author Organization [email or web address] Address [address] [place] [address] Care Team Providers Care Cad Detailer Name Role Phone Unavailable Primary Care Provider Unavailabl e Source Comments [email or web address],non-owned Affiliates and Associated Physician Practices is amultiple site organization consisting of ambulatory clinics and hospital sitesin [place], [place], [place] and [place]. This disclosure is being madepursuant to the Care Everywhere program and may not contain all information available regarding this patient. 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
--- OUTSIDE RECORDS SUMMARY | 2024-11-28 14:18 | XMS_ITS | Clinical Summary ---
Author Organization [facility] Address [address] [place] [address] Care Team Providers Care Gate Services Supervisor Name Role Phone Harjinder Lopez MD Primary Care Provider [phone] Allergies Active Allergy Reactions Criticality Noted Date [...] measures Lifestyle No Irene Lyman RN Insurance [id number] Advance Directives * Full Code (Latest Code Status on File) Date Activated Date Inactivated Comments 11/22/2021 7:31 PM 12/02/2021 4:50 PM * Full Code Date Activated Date Inactivated Comments 11/22/2021 7:28 PM 11/22/2021 7:31 PM * Full Code Date Activated Date Inactivated Comments 11/19/2021 3:16 PM 11/22/2021 5:01 PM Care Teams Gate Services Supervisor Relationship Specialty Start Date End Date Harjinder Lopez MD [address] [facility] [address] [place] [address] PCP - General FAMILY PRACTICE 11/16/21
--- OUTSIDE RECORDS SUMMARY | 2024-11-28 14:18 | XMS_ITS | Clinical Summary ---
Author Organization [facility] [address] Address [address] [place] [address] Care Team Providers Care Supply Chain Engineer Name Role Phone GamalielRupert preciado Primary Care Provider [phone] Allergies Active Allergy Reactions Criticality Noted Date [...] on file Legal Sex Female 5:59 PM REGISTERED DIETITIAN Gender Identity Female 08/02/2022 10:05 AM CDT [...] Discontinued 023 Medical Devices Implanted Type Area Mri Ct Tech Device Identifier Shelf Expiration Date Model / Serial / Lot Other - See Comments Other - see comments Right: Back Description:Inter Stim [employer] Sutureless Connector Revision Catheter Kit Intrathecal Pump 8578 - [id number] Implanted:Qty: 1 on 09/06/2023 by Gui Coulter MD at [facility] Right: Abdomen [employer] Inc 01/13/2024 8578 / / [id number] [employer] X Pump Infusion Programmable Ulp Ami 20ml Volume 8667-20 - [id number] - [id number] Implanted:Qty: 1 on 09/06/2023 by Gui Coulter MD at [facility] Right: Abdomen [employer] X 02/13/2025 8667-20 / [id number] / Explanted Type Area Mri Ct Tech Device Identifier Shelf Expiration Date Model / Serial / Lot Other - See Comments Explanted:Qty : 1 on 09/06/2023 at [facility] Other - see comments Right: Stomach Description:Right Lower Quad - Drug Pump Procedures Procedure Name Priority Date/Time Associated Diagnosis Comments SCREENING MAMMOGRAM BILATERAL W ANTOINE Schedule Routine, Read Routine (OP Routine) 02/15/2023 11:30 AM REGISTERED DIETITIAN Encounter for screening mammogram for malignant neoplasm of breast from Last 3 Months or Most Recently Relevant to Health Maintenance Results * SCREENING MAMMOGRAM BILATERAL W ANTOINE (02/15/2023 11:30 AM REGISTERED DIETITIAN) Anatomical Region Laterality Modality Breast Bilateral Mammography 02/15/2023 1:31 PM REGISTERED DIETITIAN Impressions 02/15/2023 1:31 PM REGISTERED DIETITIAN There is no mammographic evidence of malignancy. A 1 year screening mammogram is recommended. BI-RADS: 1 - Negative. The patient has been or will be contacted. The patient will be entered into a reminder system with a target due date of 1 year for her next mammogram. Electronically signed by: Mercedes Perez M.D. Narrative 02/15/2023 1:31 PM REGISTERED DIETITIAN EXAMINATION: SCREENING MAMMOGRAM BILATERAL W ANTOINE ORDERING [...] Maintenance Insurance MEDICARE ADVANTAGE UHC MEDICARE ADVANTAGE [facility] MEDICARE ADVANTAGE Advance Directives For more information, please contact: [phone] Documents on File Type Date Recorded Patient Hot Dimpling Machine Operator Expl anation ADVANCE DIRECTIVE 09/08/2023 6:22 AM POWER OF CARPET CLEANING TECHNICIAN-MEDICAL Care Teams Supply Chain Engineer Relationship Specialty Start Date End Date Rupert Elena DO [facility] [address] [address] PCP - General Family Medicine 07/09/23
--- OUTSIDE RECORDS SUMMARY | 2024-11-28 14:18 | XMS_ITS | Patient Health Record ---
Author Organization [facility] Address [address] [place], [place] [id number] Care Team Providers Care Smooth Stucco Resurfacer Name Role Phone EMANUEL BOBO Unavailable [phone] Orlando Thompson Unavailable Unavailable Allergies Allergen (clinical [...] Location Date Provider Diagnosis [facility] [address] [place], [place] [id number] 04/21/2024 BOBO CASTELLANOS Tinea unguium B35.1 ; Pain in right toe(s) M79.674 ; Pain in left toe(s) M79.675 and Atherosclerosis of [place] arteries of extremities with intermittent claudication, bilateral legs I70.213 [facility] [place] [address] [place], [place] [id number] 10/20/2024 BOBO SNOOK Tinea unguium B35.1 ; Pain in right toe(s) M79.674 ; Pain in left toe(s) M79.675 ; Intermittent claudication of both lower extremities due to atherosclerosis I70.213 and Type 2 diabetes mellitus with other circulatory complications E11.59 [facility] [address] [place] [id number] 01/07/2024 BOBO SNOOK Tinea unguium B35.1 ; Atherosclerosis of [place] arteries of extremities with intermittent claudication, bilateral legs I70.213 and Pain in right foot M79.671 [facility] [address] [place] [id number] 07/21/2024 BOBO SNOOK Tinea unguium B35.1 ; [...] out and notice change. 01/07/2024 Atherosclerosis of [place] arteries of extremities with intermittent claudication, bilateral [...] erythematous, pruritic, scales or erosions between toes. [place]-type tinea pedis affects the soles and medial [...] foot (ICD-10 - M79.671) 04/21/2024 Atherosclerosis of [place] arteries of extremities with intermittent claudication, bilateral [...] 02:00:00 PM, [address], [place], [place], [id number], Insurance Providers Payer Name Payer Address Payer Phone Subscriber Number Group Number Insured Name Patient Relationship to Insured Coverage Start Date Coverage End Date [facility] [address] [address] [place] [address] [id number] Felicia Mendieta Self - patient is the insured Medical (General) History Medical History History ICD Code Leg/Feet cramps Arthritis Bladder infections Psychiatric Disorder
--- OUTSIDE RECORDS SUMMARY | 2024-11-28 14:18 | XMS_ITS | Patient Health Record ---
Author Organization [facility] [employer] [facility] Address [address] [place] [address] Care Team Providers Care E Learning Coordinator Name Role Phone Orlando Thompson DO Primary Care Provider Hola Belle Unavailable [phone] Miranda Moreau Unavailable [phone] Allergies Allergen (clinical drug ingredient) Drug/Non Drug [...] CONTROL 300 mg Capsule Oral *Reorder from [employer] for eRx and Interaction Alerts* 08/09/2023 Active Prolia 60 MG/ML Solution Subcutaneous *Pick strength-form from [employer] for eRX* 08/09/2023 Active Lovastatin 20 MG [...] LACTIS 10 BILLION CELL CAPSULE *Reorder from [facility] for eRx and Interaction Alerts* 08/09/2023 Active [...] decision-maker Yes Do you have Power of Inside Sales Manager for [facility] or [facility]? Yes Drug/Alcohol: Social Info Question Answer Notes [...] Tobacco use: Denies No hx drugs ETOH Tobacco use: Denies No hx drugs ETOH No hx drugs ETOH No hx drugs ETOH No hx drugs ETOH No hx drugs ETOH No hx drugs ETOH No hx drugs ETOH Tobacco use: Denies Problems Problem Type SNOMED Code ICD Code Onset Dates Problem Status W/U Status Risk Notes Problem Type II diabetes mellitus without complication (114033870) Type 2 diabetes mellitus without complications (E11.9) Active confirmed Problem Mild recurrent major depression (30377460) Major depressive disorder, recurrent, mild (F33.0) Active confirmed Problem Severe recurrent major depression without psychotic features (92056791) Major depressive disorder, recurrent severe without psychotic features (F33.2) Active confirmed Problem Generalized anxiety disorder (00500825) Generalized anxiety disorder (F41.1) Active confirmed Problem Primary insomnia (0656694) Primary insomnia (F51.01) Active confirmed Problem Chronic interstitial cystitis (262639269) Interstitial cystitis (chronic) without hematuria (N30.10) Active confirmed Problem Generalized anxiety disorder (60780957) SAMI (generalized anxiety disorder) (F41.1) Active confirmed Problem Hyperlipidemia (22162726) Hyperlipidemia (E78.5) Active confirmed Problem COPD - Chronic obstructive pulmonary disease (53374774) Chronic obstructive pulmonary disease, unspecified COPD type (J44.9) 06/24/19 Active confirmed Problem Chronic interstitial cystitis (402379571) Interstitial cystitis (N30.10) 06/24/19 23 Active confirmed Vital Signs Heart Rate 90 /min 09/25/2024 Height-cm 160.02 cm 09/25/2024 Blood pressure diastolic 70 mm Hg 09/25/2024 Weight-kg 66.68 kg 09/25/2024 Height 63.00 in 09/25/2024 Blood pressure systolic 120 mm Hg 09/25/2024 Weight 147 lbs 09/25/2024 BMI 26.04 kg/m2 09/25/2024 Encounters Encounter Location Date Provider Diagnosis [facility] [address] [place] [address] 11/30/2023 Hola Aguirre Major depressive disorder, recurrent severe without psychotic features F33.2 ; Generalized anxiety disorder F41.1 ; Interstitial cystitis (chronic) without hematuria N30.10 and Primary insomnia F51.01 [facility] [address] [place] [address] 12/05/2023 Miranda Calixto Generalized anxiety disorder F41.1 and Major depressive disorder, recurrent, mild F33.0 [facility] [address] [place] [address] 12/19/2023 Miranda Calixto Generalized anxiety disorder F41.1 and Major depressive disorder, recurrent severe without psychotic features F33.2 [facility] [address] [place] [address] 01/09/2024 Miranda Calixto Generalized anxiety disorder F41.1 and Major depressive disorder, recurrent severe without psychotic features F33.2 [facility] [address] [place] [address] 01/11/2024 Hola Carla Major depressive disorder, recurrent severe without psychotic features F33.2 ; Generalized anxiety disorder F41.1 ; Interstitial cystitis (chronic) without hematuria N30.10 and Primary insomnia F51.01 [facility] [address] [place] [address] 01/23/2024 Miranda Calixto Generalized anxiety disorder F41.1 and Major depressive disorder, recurrent, mild F33.0 [facility] [address] [place] [address] 02/13/2024 Miranda Calixto Generalized anxiety disorder F41.1 and Major depressive disorder, recurrent, mild F33.0 [facility] [address] [place] [address] 03/05/2024 Miranda Calixto Generalized anxiety disorder F41.1 and Major depressive disorder, recurrent, mild F33.0 [facility] [address] [place] [address] 03/14/2024 Hola Carla Major depressive disorder, recurrent severe without psychotic features F33.2 ; Generalized anxiety disorder F41.1 ; Interstitial cystitis (chronic) without hematuria N30.10 and Primary insomnia F51.01 [facility] [address] [place] [address] 03/19/2024 Miranda Calixto Major depressive disorder, recurrent, mild F33.0 and Generalized anxiety disorder F41.1 [facility] [address] [place] [address] 04/16/2024 Miranda Calixto Major depressive disorder, recurrent, mild F33.0 and Generalized anxiety disorder F41.1 [facility] [address] [place] [address] 05/07/2024 Miranda Calixto Major depressive disorder, recurrent severe without psychotic features F33.2 and Generalized anxiety disorder F41.1 [facility] [address] [place] [address] 05/28/2024 Hola Aguirre Major depressive disorder, recurrent, mild F33.0 ; Primary insomnia F51.01 ; Generalized anxiety disorder F41.1 ; Interstitial cystitis N30.10 ; Chronic obstructive pulmonary disease, unspecified COPD type J44.9 ; Hyperlipidemia E78.5 and SAMI (generalized anxiety disorder) F41.1 [facility] [address] [place] [address] 06/04/2024 Miranda Calixto Major depressive disorder, recurrent severe without psychotic features F33.2 and Generalized anxiety disorder F41.1 [facility] [address] [place] [address] 07/10/2024 Miranda Calixto Major depressive disorder, recurrent, mild F33.0 and Generalized anxiety disorder F41.1 [facility] [address] [facility] [address] [place] [address] 07/24/2024 Hola Aguirre Encounter for screening for depression Z13.31 ; Encounter for screening for cardiovascular disorders Z13.6 ; Major depressive disorder, recurrent, mild F33.0 ; Primary insomnia F51.01 ; Generalized anxiety disorder F41.1 ; Interstitial cystitis N30.10 ; Chronic obstructive pulmonary disease, unspecified COPD type J44.9 ; Hyperlipidemia E78.5 and SAMI (generalized anxiety disorder) F41.1 [facility] [address] [place] [address] 08/07/2024 Miranda Calixto Major depressive disorder, recurrent, mild F33.0 and Generalized anxiety disorder F41.1 [facility] [address] [place] [address] 09/04/2024 Miranda Calixto Major depressive disorder, recurrent, mild F33.0 and Generalized anxiety disorder F41.1 [facility] [address] [place] [address] 09/25/2024 Hola Aguirre Major depressive disorder, recurrent, mild F33.0 ; Primary insomnia F51.01 ; Generalized anxiety disorder F41.1 ; Interstitial cystitis N30.10 ; Chronic obstructive pulmonary disease, unspecified COPD type J44.9 ; Hyperlipidemia E78.5 ; Encounter for screening for cardiovascular disorders Z13.6 ; Negative depression screening Z13.31 ; Type 2 diabetes mellitus without complications E11.9 and SAMI (generalized anxiety disorder) F41.1 [facility] [employer] [facility] [address] [place] [address] 10/09/2024 Miranda Calixto Generalized anxiety disorder F41.1 [facility] [address] [facility] [address] [place] [address] 11/06/2024 Miranda Calixto Major depressive disorder, recurrent, mild F33.0 and Generalized anxiety disorder F41.1 [facility] [employer] [facility] [address] [facility] [address] [place] [address] 04/22/2024 [facility] [address] [facility] [address] [place] [address] 05/13/2024 [facility] [address] [facility] [address] [place] [address] 05/14/2024 Hola Carla [facility] [address] [facility] [address] [place] [address] 06/04/2024 Hola Aguirre Generalized anxiety disorder F41.1 [facility] [employer] [facility] [address] [facility] [address] [place] [address] 06/05/2024 Hola Aguirre Assessments Encounter Date Diagnosis [...] sister twice daily and accompanies her to [employer] and social outings. Patient feels she is [...] support groups. - Use online resources (e.g., [employer]). - Maintain social connections and well-being activities. [...] support groups. - Use online resources (e.g., [employer]). - Maintain social connections and well-being activities. [...] plan. - Maintain regular follow-ups with the pegger. Balance Issue and Vertigo - Plan: - Begin physical therapy sessions with Reilly at [facility] physical therapy starting Sunday. - Obtain a CAT scan as recommended by the physical therapist. Weight Loss and Nutrition - Assessment: Patient is experiencing ongoing weight loss and is working with a pegger. Patient reports losing 28 pounds since September. - Plan: - Continue following the prescribed diet plan and monitor weight changes. - Reassess the need for adjustments to the diet plan during future appointments. Grief and Family Support - Assessment: Patient is providing support to her sister after the loss of her [id number]-wd-xij and is receiving support from her son [...] to seek support from friends and her restorationist community. Primary Care Physician Change - Assessment: [...] to seek support from friends and her restorationist community. Primary Care Physician Change - Assessment: [...] Patient has friends from [employer] at [facility] [place], [place] and plans for a potluck for [place] if other plans don't work out. - [...] - Plan: - Encourage patient to contact [facility] for post-surgery assistance options - Follow up with orthopedic doctor at [facility] the [place] [facility], at the end of [...] and friends. Planning to visit daughter for [employer] and participate in family activities. - Plan: [...] and friends. Planning to visit daughter for [place] and participate in family activities. - Plan: [...] Patient has friends from [employer] at [facility] [place], [place] and plans for a potluck for Jamie if other plans don't work out. - Plan: - Encourage the patient to maintain and strengthen social connections for emotional support. Family Dynamics and Holiday Plans - Assessment: Patient is unsure about holiday plans and whether her granddaughter Merced will be home for [place]. Considering alternative plans with her son. - [...] her life. - Recommend resources such as griefPager and Orlando Talbot's work on the 6th [...] 11/06/2024 Generalized anxiety disorder (ICD-10 - F41.1) 09/25/2024 [...] her life. - Recommend resources such as [employer] and Orlando Talbot's work on the 6th [...] Patient has friends from [employer] at [facility] and plans for a potluck for [place] if other plans don't work out. - [...] - Plan: - Encourage patient to contact [facility] for [...] Patient has friends from [employer] at [facility] [place], [place] and plans for a potluck for [place] if other plans don't work out. - Plan: - Encourage the patient to maintain and strengthen social connections for emotional support. Family Dynamics and Holiday Plans - Assessment: Patient is unsure about holiday plans and whether her granddaughter Merced will be home for [place]. Considering alternative plans with her son. - [...] plan. - Maintain regular follow-ups with the pegger. Balance Issue and Vertigo - Plan: - Begin physical therapy sessions with Reilly at [facility] physical therapy starting Sunday. - Obtain a CAT scan as recommended by the physical therapist. Weight Loss and Nutrition - Assessment: Patient is experiencing ongoing weight loss and is working with a pegger. Patient reports losing 28 pounds since September. - Plan: - Continue following the prescribed diet plan and monitor weight changes. - Reassess the need for adjustments to the diet plan during future appointments. Grief and Family Support - Assessment: Patient is providing support to her sister after the loss of her czywbht-fb-rhs and is receiving support from her son [...] plan. - Maintain regular follow-ups with the pegger. Balance Issue and Vertigo - Plan: - Begin physical therapy sessions with Reilly at [facility] physical therapy starting Sunday. - Obtain a CAT scan as recommended by the physical therapist. Weight Loss and Nutrition - Assessment: Patient is experiencing ongoing weight loss and is working with a pegger. Patient reports losing 28 pounds since September. - Plan: - Continue following the prescribed diet plan and monitor weight changes. - Reassess the need for adjustments to the diet plan during future appointments. Grief and Family Support - Assessment: Patient is providing support to her sister after the loss of her npytbbb-wy-uxm and is receiving support from her son [...] - Plan: - Encourage patient to contact [facility] for post-surgery assistance options - Follow up with orthopedic doctor at [facility] the [place] [facility], at the end of April [...] - Plan: - Encourage patient to contact [facility] for post-surgery assistance options - Follow up with orthopedic doctor at [facility], at the [...] plan. - Maintain regular follow-ups with the pegger. Balance Issue and Vertigo - Plan: - Begin physical therapy sessions with Reilly at [facility] physical therapy starting Sunday. - Obtain a CAT scan as recommended by the physical therapist. Weight Loss and Nutrition - Assessment: Patient is experiencing ongoing weight loss and is working with a pegger. Patient reports losing 28 pounds since September. - Plan: - Continue following the prescribed diet plan and monitor weight changes. - Reassess the need for adjustments to the diet plan during future appointments. Grief and Family Support - Assessment: Patient is providing support to her sister after the loss of her fvveslj-cl-vnj and is receiving support from her son [...] sister twice daily and accompanies her to [employer] and social outings. Patient feels she is [...] experience grief following the loss of her dEdie. She reports ongoing memories and dreams about [...] support group - Encourage participation in upcoming [facility] service on July 24 - Support patient's involvement in organizing and facilitating grief support meetings Anxiety Related to Political and Economic Concerns - Assessment: Andreia expresses significant anxiety and distress related to the current political climate and its potential impact on her financial stability. She reports excessive worry about her Social Security benefits, prison accounts, and rising costs of living. 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 The patient also notes improved sleep patterns and weight gain, which were previous concerns. These positive changes suggest effective management of her depression. Plan: - Continue current treatment regimen for depression (specific medications not mentioned in transcript) - Maintain involvement in restorationist support group - Follow up with clinician [...] The test was conducted in May at [facility] in [place]. Plan: - No specific interventions discussed for [...] ensure accuracy, there may be errors, including handbag designer inaccuracies and misspellings of medication names. This [...] with her daughter over genealogy research on [employer], indicating a positive aspect to their relationship. [...] Details Provider Name:Miranda Calixto, 12/04/2024 01:00:00 PM, [address], [place], [address], Provider Name:Hola Luz Carla , 12/26/2024 01:00:00 PM, [address], [place], [address], Provider Name:Miranda Radha Bustillos velasquez Durga, 01/15/2025 01:00:00 PM, [address], [place], [address], Insurance Providers Payer Name Payer Address Payer Phone Subscriber Number Group Number Insured Name Patient Relationship to Insured Coverage Start Date Coverage End Date [facility] [address] [place] [address] [id number] FELICIA DIAZ Self - patient is the insured Medical (General) History Medical History History ICD Code Problems: Chronic interstitial cystitis Chronic obstructive lung disease Generalized anxiety disorder Mild recurrent major depression Pain in bilateral legs Severe recurrent major depression withou t psychotic features , Surgical History Surgery Date(Month/Year) Appendectomy (21238) 04/02/1974 Removal of gallbladder (53576) 5 Hysterectomy (38714) 10/01/1975 Cataract surgery (12853) 12/31/2013 Hospitalization History Reason Date(Month/Year) drug pumb replacement 09/06/2023
[2024-11-28 19:12] LABS: Alanine Aminotransferase 26 U/L (6-35); Albumin Level 4.2 g/dL (3.5-5.1); Alkaline Phosphatase 49 U/L (38-126); Anion Gap 9 mmol/L (4-12); Aspartate Amino Transferase 34 U/L (14-36); Bilirubin,Total 0.1 mg/dL (0.2-1.3); Blood Urea Nitrogen 29 mg/dL (7-17); Calcium 9.5 mg/dL (8.4-10.2); Carbon Dioxide 26 mmol/L (22-30); Chloride 100 mmol/L (98-107); Estimated Glomerular Filt Rate > 60; Glucose 124 mg/dL (65-110); Potassium 4.6 mmol/L (3.4-5.0); Sodium 135 mmol/L (137-145); Total Protein 7.6 g/dL (6.3-8.2)
== END 2024-11-28 14:15 | disposition home or self-care (01) ==
LOC: ANHGOSHLAB 14:15
PROVIDERS: PCP Internal Medicine; Visit Provider Nurse Practitioner
DX: E87.5 Hyperkalemia (principal); R74.8 Abnormal levels of other serum enzymes
CPT/HCPCS: 36415; 80053

== ENCOUNTER 2024-12-10 10:05 | Outpatient (CLI) | payer MEDICARE, SELFPAY ==
--- NOTE | ~2024-12-10 | US_ITS ---
EXAMINATION: US thyroid DATE: 12/10/2024 10:29 INDICATION: Nontoxic goiter TECHNIQUE: Multiple ultrasound images of the thyroid were obtained. COMPARISON: 10/26/2020 FINDINGS: The right thyroid lobe measures 6.0 x 2.2 x 2.3 cm. The left thyroid lobe measures 6.4 x 1.8 x 1.7 cm. There are multiple solid hypoechoic nodules which are wider than tall with smooth margins or ill-defined margins and without echogenic foci (TI-RADS 4, moderately suspicious , FNA if >=1.5 cm, annual followup is >=1 cm) in both thyroid lobes. The largest in the left thyroid at the upper pole measures 1.9 cm which without significant change since the prior study and with intervening biopsy demonstrating pathology consistent with benign follicular nodule. The largest right thyroid nodule measures 1.2 cm. IMPRESSION: 1. Multinodular goiter with a few scattered TI RADS 4 nodules. The only nodule meeting criteria for biopsy measuring 1.9 cm at the superior left thyroid lobe is unchanged since the prior biopsy on 11/22/2020 which demonstrated pathology consistent with benign follicular nodule. Reviewed, dictated and finalized at location A.
== END 2024-12-10 10:06 | disposition home or self-care (01) ==
LOC: MICIMG 10:05
PROVIDERS: PCP Internal Medicine; Visit Provider Nurse Practitioner
DX: E04.2 Nontoxic multinodular goiter (principal)
CPT/HCPCS: 76536

== ENCOUNTER 2024-12-18 10:32 | Emergency (ER) | payer MEDICARE, SELFPAY ==
--- NOTE | ~2024-12-18 | XR_ITS ---
X-rays left humerus Indication: Fall, bruising Comparison: Left shoulder x-rays 11/27/2024 Technique: 2 views left humerus Findings/Impression: 1. No fracture left humerus. Reviewed, dictated and finalized at location R.
[2024-12-18 10:35] VITALS: BP 138/72; PULSE 89; RESP 16; TEMP 36.8; O2SAT 97
--- OUTSIDE RECORDS SUMMARY | 2024-12-18 11:10 | XMS_ITS | Clinical Summary ---
Author Organization [facility] Address [address] [place] [address] Care Team Providers Care Solar Designer/Installer Name Role Phone Unavailable Primary Care Provider Unavailabl e Source Comments [facility],non-owned Affiliates and Associated Physician Practices is amultiple site organization consisting of ambulatory clinics and hospital sitesin [place] and [place]. This disclosure is being madepursuant to the Care Everywhere program and may not contain all information available regarding this patient. Last updated 17.[facility] Allergies Active Allergy Reactions Criticality Noted Date [...] on file Legal Sex Female 6:30 PM CONFIGURATION ANALYST Gender Identity Not on file Sexual Orientation [...] yrs (1 - 1-dose 75+ series) 2023 DEPRESSION SCREENING 04/02/2024 COVID-19 VACCINE ( - 2023-2 5 season) 2024 INFLUENZA VACCINE (#1) 2024 HEPATITIS B VACCINE [...] patient's age to complete this topic Insurance [facility] MANAGED MEDICARE ADV MEDICARE
--- OUTSIDE RECORDS SUMMARY | 2024-12-18 11:10 | XMS_ITS | Clinical Summary ---
Author Organization [facility] [address] Address [address] [place] [address] Care Team Providers Care Obstetric Assistant Name Role Phone GamalielRupert preciado Primary Care [...] Psychiatry, engaged with what is group at [facility] as well as grief steady group online [...] on file Legal Sex Female 5:59 PM AIRCRAFT TIME CLERK Gender Identity Female 08/02/2022 10:05 AM CDT [...] 11/14/2023 11/13/2022, 10/25/2022, 10/25/2022, Additional history exists Fall Risk Assessment 09/05/2024 09/06/2023, 11/13/2022, 08/07/2022 Covid-19 Vaccine (2024-05 6 season) 2024 01/25/2022, 01/28/2021, 06/10/2020, Additional history exists Influenza Vaccine (#1) 2024 2, 01/14/2021, 12/03/2019, Additional history exists Pneumococcal vaccine 65+ Completed 018, 12/22/2016, 10/13/2015, Additional history exists Zoster Vaccine Completed 08/20/2021, 05/03, 03/30/2014 Breast Cancer Screening-Mammogram Discontinued 023 Medical Devices Implanted Type Area Bed Control Specialist Device Identifier Shelf Expiration Date Model / Serial / Lot Other - See Comments Other - see comments Right: Back Description:Inter Stim Medtronic Inc Sutureless Connector Revision Catheter Kit Intrathecal Pump 8578 - [id number] Implanted:Qty: 1 on 09/06/2023 by Gui Coulter MD at [facility] Right: Abdomen Medtronic Inc 01/13/2024 8578 / / [id number] [employer]onic [employer] X Pump Infusion Programmable Ulp Ami 20ml Volume 8667-20 - [id number] - [id number] Implanted:Qty: 1 on 09/06/2023 by Gui Coulter MD at [facility] Right: Abdomen Medtronic [employer] X 02/13/2025 8667-20 / [id number] / Explanted Type Area Bed Control Specialist Device Identifier Shelf Expiration Date Model / Serial / Lot Other - See Comments Explanted:Qty : 1 on 09/06/2023 at [facility] Other - see comments Right: Stomach Description:Right Lower Quad - Drug Pump Procedures Procedure Name Priority Date/Time Associated Diagnosis Comments SCREENING MAMMOGRAM BILATERAL W ANTOINE Schedule Routine, Read Routine (OP Routine) 02/15/2023 11:30 AM AIRCRAFT TIME CLERK Encounter for screening mammogram for malignant neoplasm of breast from Last 3 Months or Most Recently Relevant to Health Maintenance Results * SCREENING MAMMOGRAM BILATERAL W ANTOINE (02/15/2023 11:30 AM AIRCRAFT TIME CLERK) Anatomical Region Laterality Modality Breast Bilateral Mammography 02/15/2023 1:31 PM AIRCRAFT TIME CLERK Impressions 02/15/2023 1:31 PM AIRCRAFT TIME CLERK There is no mammographic evidence of malignancy. A 1 year screening mammogram is recommended. BI-RADS: 1 - Negative. The patient has been or will be contacted. The patient will be entered into a reminder system with a target due date of 1 year for her next mammogram. Electronically signed by: Mercedes Perez M.D. Narrative 02/15/2023 1:31 PM AIRCRAFT TIME CLERK EXAMINATION: SCREENING MAMMOGRAM BILATERAL W ANTOINE ORDERING [...] Maintenance Insurance MEDICARE ADVANTAGE [employer] MEDICARE ADVANTAGE [facility] MEDICARE ADVANTAGE Advance Directives For more information, please contact: [phone] Documents on File Type Date Recorded Patient Community Services Officer Expl anation ADVANCE DIRECTIVE 09/08/2023 6:22 AM POWER OF OLERICULTURE TEACHER-MEDICAL Care Teams Obstetric Assistant Relationship Specialty Start Date End Date Rupert Elena DO [facility] [address] [address] PCP - General Family Medicine 07/09/23
--- NOTE | 2024-12-18 11:18 | ED.UPPEXIN ---
HPI - Extremity Injury (Upper) General Chief Complaint: Extremity Injury, Upper Stated Complaint: left arm injury Time Seen by Provider: 12/18/24 10:39 History of Present Illness HPI narrative: Patient is a 74-year-old female who presents to the ER after sustaining a fall yesterday. She reports she was outside [facility] when she started to feel dizzy, tried to sit down, and fell on to her tool cart. Patient reports she hit her left upper arm on the tool cart. She reports she has been feeling dizzy due to recent congestion. Patient reports she is not currently on blood thinners. She describes the pain as ?throbbing. Patient reports she has been using ice and ibuprofen to help relieve the pain. She endorses a history of hyperlipidemia, anxiety and depression, and diabetes. Related Data Home Medications ?Medication ?Instructions ?Recorded ?Confirmed ?Last Taken ?Type Lactobacillus 1 cap PO DAILY 01/20/22 11/07/24 07/31/24 History acidophilus-Bifidobac.animalis 2.5 billion cell capsule (Daily Probiotic) pumpkin seed extract-soy germ 300 1 cap PO DAILY 01/20/22 11/07/24 07/31/24 History mg capsule (Azo Bladder Control) sertraline 100 mg tablet 100 mg PO DAILY 10/12/22 11/07/24 07/31/24 History trazodone 50 mg tablet 50 mg PO HS 10/12/22 11/07/24 07/31/24 History vitamin B complex 2 tablet PO DAILY 10/12/22 11/07/24 07/31/24 History calcium 600 mg-D3 800 unit-mag11 1 tablet PO DAILY 04/17/23 11/07/24 07/31/24 History 50 ij-zcod-dnkgvk-randal-s.borat tablet duloxetine 30 mg capsule,delayed 30 mg PO .AM 10/18/23 11/07/24 08/01/24 06:30 History release duloxetine 60 mg capsule,delayed 60 mg PO QHS 10/18/23 11/07/24 07/31/24 History release fexofenadine 60 mg tablet (Kristina 60 mg PO Q12H 07/23/24 11/07/24 07/31/24 History Allergy) Allergies Allergy/AdvReac Type Severity Reaction Status Date / Time iodine Allergy Severe Hives Verified 12/18/24 10:37 povidone Allergy Severe Hives Verified 12/18/24 10:37 adhesive tape Allergy Intermediate Rash Verified 12/18/24 10:37 ciprofloxacin Allergy Intermediate Hives Verified 12/18/24 10:37 soap Allergy Intermediate Hives Verified 12/18/24 10:37 sulfamethoxazole (From Allergy Swelling Verified 12/18/24 10:37 Bactrim) of Lip/Tongue/Throat trimethoprim (From Bactrim) Allergy Swelling Verified 12/18/24 10:37 of Lip/Tongue/Throat enoxaparin (From Lovenox) AdvReac Intermediate Cramping Verified 12/18/24 10:37 of the Muscles Contrast Media Allergy Severe RASH AND Uncoded 11/27/24 13:07 ANAPHYLAXIS IOBAN DRAPE FOR SURGERY Allergy Severe HIVES Uncoded 11/27/24 13:07 Review of Systems Review of Systems: All systems reviewed & are unremarkable except as noted in HPI and below PMFSH Past Medical History Medical History Left shoulder pain Right shoulder injury Rotator cuff tear DJD of shoulder Rotator cuff tendonitis Right shoulder pain GERD (gastroesophageal reflux disease) COPD (chronic obstructive pulmonary disease) Anxiety Goiter Shingles Thyroid cyst Osteoporosis DDD (degenerative disc disease) Arthritis UTI (urinary tract infection) Cystitis Ovarian cyst Post-menopausal IBS (irritable bowel syndrome) Pneumonia Hyperlipidemia Seasonal allergies Cataracts, bilateral Surgical History Surgical History History of removal of cyst History of bladder surgery History of hysterectomy History of cholecystectomy History of appendectomy History of colonoscopy History of cataract surgery Family History Family History Grandparent Carcinoma of colon Diabetes mellitus Father Family history of lung cancer Mother Family history of coronary artery disease Unknown Asthma Hypertension Heart disease Cerebrovascular accident Social History Social History Smoking status: Never smoker Second hand tobacco smoke exposure: No Alcohol intake: never Substance use: never Substance use type: does not use Do You Feel Safe in your Home?: Yes Lack of Transportation: No Lack of Food: Sometimes True Current Housing: I Have Housing Concerned About Future Housing: No Difficulty Paying Gas/Electric Bills: No Difficulty Paying for Meds: No Currently Unemployed: No Education: Bachelor's Degree Difficulty w/ Childcare or Family Care: No Living arrangements: with family Occupation/Education: retired Gender identity (if verbalized by the patient): Female Spiritual care concerns: No Exam Narrative: GENERAL: Well appearing, well-nourished, non-toxic, in no acute distress. HEAD: Normocephalic, atraumatic. NECK: Supple. No adenopathy, no masses. RESPIRATORY: Airway patent, respirations nonlabored. Clear to auscultation bilaterally, no rales, rhonchi, wheezing. CARDIOVASCULAR: Regular rate and rhythm without murmurs, rubs, or gallops. Peripheral pulses 2+ and equal bilaterally. ABDOMINAL: Soft, nontender, nondistended, no hepatosplenomegaly. Normoactive BS. MUSCULOSKELETAL: Moves all extremities. Strength/ROM intact without gross deformities. SKIN: Warm, dry, normal color. No rashes. Left upper arm ecchymosis, mild swelling NEURO: A&O X3. Speech clear. Cranial nerves II-XII intact. No ataxic movements. PSYCHIATRIC: Appropriate mood and affect. Normal interaction. Course Vital Signs Vital signs: Vital Signs Temperature 36.8 C 12/18/24 10:35 Pulse Rate 89 12/18/24 10:35 Respiratory Rate 16 12/18/24 10:35 Blood Pressure 138/72 12/18/24 10:35 Pulse Oximetry 97 12/18/24 10:35 Temperature 36.8 C 12/18/24 10:35 Pulse Rate 89 12/18/24 10:35 Respiratory Rate 16 12/18/24 10:35 Blood Pressure 138/72 12/18/24 10:35 Pulse Oximetry 97 12/18/24 10:35 MDM - Extremity Injury (Upper) MDM Narrative Medical decision making narrative: Patient is a 74-year-old female who presents to the ER after sustaining a fall yesterday. [facility] when she started to feel dizzy, tried to sit down, and fell on to her tool cart. Patient reports she hit her left upper arm on the tool cart. She reports she has been feeling dizzy due to recent congestion. Patient reports she is not currently on blood thinners. She describes the pain as ?throbbing. Patient reports she has been using ice and ibuprofen to help relieve the pain. She endorses a history of hyperlipidemia, anxiety and depression, and diabetes. Labs Ordered: COVID/flu/RSV Imaging Ordered: Left humeral x-ray Medications Ordered: Patient declined Results: Patient's left humeral x-ray was negative for any acute findings. Diagnosis: Left upper arm hematoma Patient Education/Shared MDM: Results of lab work and imaging shared with patient. She continues to decline pain medication. Patient strongly advised to take ibuprofen and Tylenol for pain control and follow-up with her PCP in the next 2-3 days. She will not be discharged home with any new prescriptions. Strict return precautions provided. Patient verbalized understanding and is in agreement with plan. Vital signs stable at time of discharge. All questions answered. Differential Diagnosis Differential diagnosis: Likely dislocation of shoulder, fracture of humerus and other (Hematoma,) Lab Data Attestation: I reviewed the patient's lab results. Labs: Lab Results 12/18/24 Range/Units 11:33 Influenza A (RT-PCR) Negative (Negative) Influenza B (RT-PCR) Negative (Negative) RSV (RT-PCR) Negative (Negative) SARS-CoV-2 RNA (RT-PCR) Negative (Negative) Discharge Plan Discharge Clinical Impression: Left arm pain, Left arm swelling, Left upper arm injury Patient Disposition: Home Condition: Stable Instructions: Antibiotic Form, Bone Bruise (ED) Additional Instructions: Please return to the ER with any worsening symptoms. Follow-up with primary care provider as needed to ensure you are healing. Take all medications as prescribed, including regularly scheduled medications. You may take Tylenol and ibuprofen together for pain control. Please restart your Flonase to help decrease your congestion. Patient Language: Kinyarwanda Prescriptions: No Action sertraline 100 mg tablet 100 mg PO DAILY vitamin B complex Tablet 2 tablet PO DAILY trazodone 50 mg Tablet 50 mg PO HS Azo Bladder Control 300 mg Capsule 1 cap PO DAILY Daily Probiotic 2.5 billion cell Capsule 1 cap PO DAILY awk-R6-tes97bjo87-dufx-epp-crtk-eny 600 mg calcium- 800 unit-50 mg tablet 1 tablet PO DAILY duloxetine 60 mg capsule,delayed release(DR/EC) 60 mg PO QHS duloxetine 30 mg capsule,delayed release(DR/EC) 30 mg PO .AM cephalexin 500 mg capsule 500 mg PO Q12H 7 Days Qty: 14 0RF fexofenadine [Kristina Allergy] 60 mg tablet 60 mg PO Q12H buspirone 10 mg tablet 10 mg PO BID Qty: 60 0RF (DME) blood-glucose meter [OneTouch Verio Flex meter] Misc See Rx Instructions .Route Qty: 1 0RF Rx Instructions: As directed (DME) blood-glucose meter [OneTouch Verio Flex Start] Kit See Rx Instructions .Route Qty: 1 0RF Rx Instructions: As directed (DME) lancets [OneTouch Delica Plus Lancet] 30 gauge misc See Rx Instructions .ROUTE .COMPLEX Qty: 100 1RF Dose Instruction: USE TO CHECK BLOOD GLUCOSE NEEDED FOR SYMPTOMS OF HIGH/LOW SUGAR. Rx Instructions: USE TO CHECK BLOOD GLUCOSE NEEDED FOR SYMPTOMS OF HIGH/LOW SUGAR. (DME) OneTouch Verio test strips Strip See Rx Instructions .Route Qty: 100 5RF Rx Instructions: use to check BG PRN symptoms high/low sugar 3x daily Trelegy Ellipta 100-62.5-25 mcg blister with device See Rx Instructions .ROUTE .COMPLEX Qty: 60 5RF Dose Instruction: Inhale 1 puff by mouth once daily Rx Instructions: Inhale 1 puff by mouth once daily alendronate [Fosamax] 70 mg tablet 70 mg PO WEEKLY 90 Days Qty: 12 1RF lovastatin 20 mg tablet See Rx Instructions .ROUTE .COMPLEX Qty: 90 1RF Dose Instruction: Take 1 tablet by mouth in the evening Rx Instructions: Take 1 tablet by mouth in the evening Follow-up/Referrals: Orlando Thompson DO [Primary Care Provider, Internal Medicine] Time of Disposition: 12:24
--- OUTSIDE RECORDS SUMMARY | 2024-12-18 11:31 | XMS_ITS | Clinical Summary ---
Author Organization [facility] [place] [address] Address [address] [place] [address] Care Team Providers Care Escrow Processor Name Role Phone GamalielRupert preciado Primary Care Provider [phone] Allergies Active Allergy Reactions Criticality Noted Date [...] Psychiatry, engaged with what is group at [facility] as well as grief steady group online [...] on file Legal Sex Female 5:59 PM INTERNAL CONTROLS MANAGER Gender Identity Female 08/02/2022 10:05 AM CDT [...] Discontinued 023 Medical Devices Implanted Type Area Team Member Device Identifier Shelf Expiration Date Model / Serial / Lot Other - See Comments Other - see comments Right: Back Description:Inter Stim [employer]tronic Inc Sutureless Connector Revision Catheter Kit Intrathecal Pump 8578 - [id number] Implanted:Qty: 1 on 09/06/2023 by Gui Coulter MD at [facility] Right: Abdomen Med[employer]onic Inc 01/13/2024 8578 / / [id number] [employer] X Pump Infusion Programmable Ulp Ami 20ml Volume 8667-20 - [id number] - [id number] Implanted:Qty: 1 on 09/06/2023 by Gui Coulter MD at [facility] Right: Abdomen [employer] X 02/13/2025 8667-20 / [id number] / Explanted Type Area Team Member Device Identifier Shelf Expiration Date Model / Serial / Lot Other - See Comments Explanted:Qty : 1 on 09/06/2023 at [facility] Other - see comments Right: Stomach Description:Right Lower Quad - Drug Pump Procedures Procedure Name Priority Date/Time Associated Diagnosis Comments SCREENING MAMMOGRAM BILATERAL W ANTOINE Schedule Routine, Read Routine (OP Routine) 02/15/2023 11:30 AM INTERNAL CONTROLS MANAGER Encounter for screening mammogram for malignant neoplasm of breast from Last 3 Months or Most Recently Relevant to Health Maintenance Results * SCREENING MAMMOGRAM BILATERAL W ANTOINE (02/15/2023 11:30 AM INTERNAL CONTROLS MANAGER) Anatomical Region Laterality Modality Breast Bilateral Mammography 02/15/2023 1:31 PM INTERNAL CONTROLS MANAGER Impressions 02/15/2023 1:31 PM INTERNAL CONTROLS MANAGER There is no mammographic evidence of malignancy. A 1 year screening mammogram is recommended. BI-RADS: 1 - Negative. The patient has been or will be contacted. The patient will be entered into a reminder system with a target due date of 1 year for her next mammogram. Electronically signed by: Mercedes Perez M.D. Narrative 02/15/2023 1:31 PM INTERNAL CONTROLS MANAGER EXAMINATION: SCREENING MAMMOGRAM BILATERAL W ANTOINE ORDERING [...] Maintenance Insurance MEDICARE ADVANTAGE UHC MEDICARE ADVANTAGE [facility] MEDICARE ADVANTAGE Advance Directives For more information, please contact: [phone] Documents on File Type Date Recorded Patient Hand Cloth Folder Expl anation ADVANCE DIRECTIVE 09/08/2023 6:22 AM POWER OF COPY COORDINATOR-MEDICAL Care Teams Escrow Processor Relationship Specialty Start Date End Date Rupert Elena DO [facility] [address] [address] PCP - General Family Medicine 07/09/23
--- OUTSIDE RECORDS SUMMARY | 2024-12-18 11:31 | XMS_ITS | Clinical Summary ---
Author Organization [facility] Address [address] [place] [address] Care Team Providers Care Advanced Manufacturing Consultant Name Role Phone Unavailable Primary Care Provider Unavailabl e Source Comments [facility],non-owned Affiliates and Associated Physician Practices is amultiple site organization consisting of ambulatory clinics and hospital sitesin [place], [place], [place] and [place]. This disclosure is being madepursuant to the Care Everywhere program and may not contain all information available regarding this patient. Last updated 17.[facility] Allergies Active Allergy Reactions Criticality Noted Date [...] on file Legal Sex Female 6:30 PM BOOKMOBILE CLERK Gender Identity Not on file Sexual Orientation [...] patient's age to complete this topic Insurance [facility] MANAGED MEDICARE ADV MEDICARE
[2024-12-18 12:12] LABS: Influenza A QL RT-PCR Negative (Negative); Influenza B QL RT-PCR Negative (Negative); RSV RNA, RT-PCR Negative (Negative); SARS-CoV-2 RNA PCR Negative (Negative)
[2024-12-18 12:40] VITALS: BP 129/66; PULSE 91; RESP 18; O2SAT 97
== END 2024-12-18 12:42 | disposition home or self-care (01) ==
PROVIDERS: Emergency Provider Registered Nurse; PCP Internal Medicine
DX: S49.92XA Unspecified injury of left shoulder and upper arm, initial encounter (principal); E78.5 Hyperlipidemia, unspecified; E11.9 Type 2 diabetes mellitus without complications; J44.9 Chronic obstructive pulmonary disease, unspecified; M19.019 Primary osteoarthritis, unspecified shoulder; M81.0 Age-related osteoporosis without current pathological fracture; K21.9 Gastro-esophageal reflux disease without esophagitis; K58.9 Irritable bowel syndrome, unspecified; F41.9 Anxiety disorder, unspecified; Z87.440 Personal history of urinary (tract) infections; Z87.01 Personal history of pneumonia (recurrent); Z90.49 Acquired absence of other specified parts of digestive tract; Z90.710 Acquired absence of both cervix and uterus; Z98.49 Cataract extraction status, unspecified eye; Z79.899 Other long term (current) drug therapy; W01.198A Fall on same level from slipping, tripping and stumbling with subsequent striking against other object, initial encounter
CPT/HCPCS: 73060; 87637; 99283